=== PATIENT | male | born 1965 | race Caucasian/White ===

== ENCOUNTER → 2016-06-30 | Outpatient (CLI) | payer OTHER ==
[~2016-06-30] MED LIST: ALPR-411 PO; ALPR1TAB3 PO; ANDG TOP; ASPCH81 PO; ASTNS NAE; ATOR-24 PO; BISA-16 PO; CHOLCAP5 PO; CINA0.42 PO; DICL0.1S12 OPB; DOCU100C31 PO; FERR1TAB68 PO; GABA-113 PO; INSDGI SC; LACT10SO17 PO; LEVO150T PO; LEVO88TA PO; LPT10 PO; LSX20 PO; MOME50SP5 NAE; MULT-506 PO; NVLGI SC; OMEG10007 PO; OMEGA PO; POLYSOL4 OP; PRORENAL PO
--- NOTE | 2016-06-30 08:21 | DIAGNOSTIC IMAGING REPORT ---
CT SCAN OF THE ABDOMEN AND PELVIS WITHOUT IV CONTRAST CLINICAL HISTORY: Generalized abdominal pain. Constipation. COMPARISON STUDY: KUB dated 06/22/2015. Chest CT dated 02/02/2015. TECHNIQUE: CT scan of the abdomen and pelvis is performed from the lung bases to the proximal femora. Images are reviewed in the axial, sagittal, and coronal planes. IV contrast was not administered for this examination as per the referring clinician. Note that the examination is suboptimal without IV contrast. The examination is degraded by large body habitus, and by streak artifact from the body wall abutting the CT gantry. Automated dose control exposure was utilized. CT DOSE: 1841.93 mGy.cm FINDINGS: Lung bases: The heart is normal in size and without pericardial effusion. The aortic valve leaflets, coronary arteries, and mitral annulus are densely calcified. There is a 5 mm nodule at the left lung base seen on image #57. This was also seen on 02/02/[address] scan and is of doubtful significance. No airspace consolidation or pleural effusion is seen. Liver: The unenhanced liver is enlarged, measuring 20.6 cm in length. The liver is otherwise normal in contour and attenuation. There is no intrahepatic biliary ductal dilatation. Gallbladder: Surgically absent noting clips in the gallbladder fossa. Spleen: The spleen is enlarged, measuring 16.7 cm in length. Pancreas: The unenhanced pancreas is moderately atrophic and grossly unremarkable. Adrenal glands: Unremarkable. Kidneys: The unenhanced kidneys are atrophic and without hydronephrosis. There are no renal calculi identified. There is no evidence of contour deforming renal mass lesion. A retroaortic left renal vein is incidentally noted. Abdominal vasculature: The abdominal aorta is normal in course and caliber noting moderate atherosclerotic calcification. Bowel: The small bowel and colon are normal in course and caliber. There is mild colonic diverticulosis without CT evidence of acute diverticulitis. Moderate colonic fecal retention is observed. The appendix is not identified and reported surgically absent. Peritoneum: There is no intraperitoneal free air or abdominal ascites. There is a fat-containing umbilical hernia. Lymphadenopathy: None. Pelvic viscera: The bladder, prostate, and seminal vesicles are normal as visualized. Skeletal structures: The skeletal structures are osteopenic. Mild lumbosacral spondylosis is identified. No lytic or blastic lesions are seen. IMPRESSION: 1. There are no acute infectious or inflammatory findings in the abdomen or pelvis. 2. Mild colonic diverticulosis without CT evidence of acute diverticulitis. 3. There is moderate colonic fecal retention. No bowel obstruction is seen. 4. Hepatosplenomegaly. 5. Additional changes as detailed above. Electronically signed by: Nick Navarro M.D. 06/30/2016 8:19 AM Dictated Date/Time: 06/30/2016 8:08 AM
== END | disposition home or self-care (01) ==
LOC: C.CTS 07:50
PROVIDERS: ATTEND Family Medicine
DX: R10.10 Upper abdominal pain, unspecified (principal); K59.00 Constipation, unspecified; R16.2 Hepatomegaly with splenomegaly, not elsewhere classified

== ENCOUNTER → 2016-07-12 | Day surgery (SDC) | payer OTHER ==
--- NOTE | 2016-07-11 19:52 | History and Physical ---
History & Physical CC: End stage renal disease, malfunctioning av fistula HPI: Mr. Kebede is a 49-year-old gentleman who is on dialysis. He had a left forearm cephalic vein fistula transposition performed. It is not working well. Admitted at this time for a fistulogram with possible intervention ALLERGIES: None known. MEDICATIONS: Documented. None were changed or added. PAST MEDICAL HISTORY: Positive for heart disease, hypertension, diabetes, cancer, kidney disease. PREVIOUS SURGERIES INCLUDE: Gallbladder surgery and appendectomy. FAMILY HISTORY: Positive for heart disease, hypertension, diabetes, cancer, circulatory problems, kidney disease. SOCIAL HISTORY: He does not drink. He does not smoke. REVIEW OF SYSTEMS: A review of 10 systems was asked. Only positive findings were occasional numbness and tingling in his feet, hair loss from the toes and shiny skin of the lower extremities. PHYSICAL EXAMINATION: The patient awake, oriented x3. He is mildly obese. He is in no apparent distress. Blood pressure 120/72 on the left, 118/70 on the right. Head and neck were within normal. No carotid bruits. Examination of the upper extremities showed that he has a functioning left forearm av fistula. Neurologic exam is intact. Lungs are clear. Heart regular rate and rhythm. Abd. benign. There was no evidence of ischemia in the upper and lower extremities. Impression: End-stage renal disease Malfunctioning left forearm av fistula. Plan and Recommendations: Patient is admitted for a fistulogram with possible intervention. He understood the risks, options, benefits and agreed to go ahead with this procedure
[~2016-07-12] VITALS: Ht 185.4 cm; Wt 148.1 kg
[~2016-07-12] MED LIST changes: +CEFAZOLIN 1000MG/55 ML D5W IV SCH; +D5W AND 1/4NSS 1,000 ML IV SCH; +FENTANYL CITRATE INJ 50 MCG/1 ML 2 ML VIAL IV ONE; +FENTANYL CITRATE INJ 50 MCG/1 ML 2 ML VIAL ONE; +LIDOCAINE HCL 1% 20 ML VIAL INJ ONE; +MIDAZOLAM HCL 1 MG/ML 2ML VIAL IV ONE; +MIDAZOLAM HCL 1 MG/ML 2ML VIAL ONE; +OPTIRAY 300 IV ONE
--- NOTE | 2016-07-12 08:07 | History & Physical Bridge Note ---
H&P Re-Evaluation Bridge Note: I have examined the patient, reviewed the History & Physical and in the interval since the performance of the History & Physical I have noted the following changes of clinical significance: No changes noted
--- NOTE | 2016-07-12 08:07 | Procedure Note ---
Pre-Mod Sedation Assessment General Date of Moderate Sedation: Jul 12, 2016. Pre-Sedation Airway Assessment Smoking Status: Unknown if Ever Smoked Mallampati Classification: Class I ASA Classification: Class II Notes The planned sedation has been discussed with the patient and consent obtained. I have identified the patient, determined the appropriateness of sedation and have assessed the patient immediately prior to the procedure. All medicine(s) and interventions are by my order.
[2016-07-12 08:17] VITALS: BP 149/79; PULSE 79; TEMP 36.6; O2SAT 95; Ht 185.4 cm; Wt 148.1 kg
--- NOTE | 2016-07-12 10:50 | [facility] Post Operative Brief Note ---
Immediate Operative Summary Operative Date Jul 12, 2016. Pre-Operative Diagnosis Malfunctioning Fistula Post-Operative Diagnosis Same Procedure(s) Performed Fistulogram Moderate Conscious Sedation ([id number]) Surgeon Harmony Editor [employer] Photograph Surgeon(s) None Estimated Blood Loss 2 Findings normal fistulogram Specimens None Anesthesia Local with moderate conscious sedaton Disposition
--- NOTE | 2016-07-12 10:52 | Procedure Note ---
Post-Moderate Sedation Plan General Date of Moderate Sedation Jul 12, 2016. Vital Signs: Vital Signs Past 12 Hours Date Time Temp Pulse Resp B/P Pulse Ox O2 Delivery O2 Flow Rate FiO2 07/12/16 08:17 36.6 79 22 149/79 95 Room Air Review - Discharge Plan Post Moderate Sedation Plan: On clinical assessment, the patient appears to have tolerated the conscious sedation without complications. Patient is recovering as anticipated. Patient will continue to be monitored by nursing and may be discharged when conscious sedation discharge criteria are met.
--- NOTE | 2016-07-12 10:54 | Discharge Instructions ---
Discharge Instructions Visit Reason for Visit: End Stage Renal Disease Discharge Discharge Diagnosis / Problem: Malfunctionging fistula Discharge Goals Goal(s): Diagnostic testing Activity Recommendations Activity Limitations: per Instructions/Follow-up section Anesthesia . Post Anesthesia Instructions: If you have had General Anesthesia or IV Sedation: * Do not drive today. * Resume driving when surgeon permits. * Do not make important decisions or sign legal documents today. * Call surgeon for: 1. Temperature elevations greater than 101 degrees F. 2. Uncontrollable pain. 3. Excessive bleeding. 4. Persistent nausea and vomiting. 5. Medication intolerance (nausea, vomiting or rash). * For nausea and vomiting use only clear liquids such as: tea, soda, bouillon until nausea subsides, then gradually increase diet as tolerated. * If you have any concerns or questions, call your surgeon's office. If physician is unavailable and it is an emergency, call 911 or go to the nearest emergency room. . Instructions / Follow-Up Instructions / Follow-Up Call [phone] with any questions or concerns. Normal fistulogram ACTIVITY RECOMMENDATIONS: See Above SPECIAL CARE INSTRUCTIONS: Call your doctor if: * Temperature above 101 degrees * Pain not relieved by pain medicine ordered * There is increased drainage or redness from any incision * You have any unanswered questions or concerns. Diet Recommendations Recommended Home Diet: resume previous diet Procedures Procedures Performed: Fistulogram Moderate Conscious Sedation ([id number]) Pending Studies Studies pending at discharge: no Medical Emergencies . Who to Call and When: Medical Emergencies: If at any time you feel your situation is an emergency, please call 911 immediately. . Non-Emergent Contact Non-Emergency issues call your: Surgeon . . "Provider Documentation" section prepared by Mook Antunez.
[2016-07-12 10:55] VITALS: BP 154/75; PULSE 75; TEMP 37.1; O2SAT 99
[2016-07-12 11:26] VITALS: BP 167/75; PULSE 77; TEMP 36.7; O2SAT 99
--- NOTE | 2016-07-12 11:30 | DIAGNOSTIC IMAGING REPORT ---
DATE OF PROCEDURE: 07/12/2016 PREOPERATIVE DIAGNOSIS: Malfunctioning left forearm fistula. POSTOPERATIVE DIAGNOSIS: Same. PROCEDURE: 1. Left forearm fistulogram. 2. Moderate conscious sedation, 10 minutes. SURGEON: Dr. Antunez. ANESTHETIC: Local with moderate conscious sedation. PROCEDURE INDICATIONS: The patient is a 51-year-old gentleman with left forearm access that has been dilated in the past. The dialysis unit is worried about low flow volumes. He does not send any pressure alarms off according to the patient. The patient was recommended to have a fistulogram with possible intervention. He understood the risks, options and benefits and agrees to go ahead with this procedure. The patient was taken to the angio suite and placed in supine position. After the left arm was prepped and draped in a sterile manner, local anesthetic was administered. Percutaneous puncture was made of the proximal portion of the fistula using micropuncture technique. Once the micropuncture sheath was introduced, the fistulogram was performed. This showed the fistula from the puncture site up to the superior vena cava to be widely patent with no stenoses present. The fistula was then compressed and retrograde injection was done. The arterial anastomosis was seen in 3 views. It was widely patent with no significant narrowing noted. No intervention was needed. The catheter was then pulled. Pressure was applied. Adequate hemostasis was obtained. The sterile dressings were then applied to the wound. The patient left the angio suite in good condition and tolerated the procedure well.
== END | disposition home or self-care (01) ==
LOC: C.ACU 07:19
PROVIDERS: ATTEND Surgery Vascular Surgery
DX: Z45.2 Encounter for adjustment and management of vascular access device (principal); N18.6 End stage renal disease; I12.0 Hypertensive chronic kidney disease with stage 5 chronic kidney disease or end stage renal disease; E11.22 Type 2 diabetes mellitus with diabetic chronic kidney disease; Z85.9 Personal history of malignant neoplasm, unspecified; Z98.890 Other specified postprocedural states; Z90.89 Acquired absence of other organs

== ENCOUNTER → 2016-07-28 | Outpatient (CLI) | payer OTHER ==
[~2016-07-28] MED LIST changes: -CEFAZOLIN 1000MG/55 ML D5W IV SCH; -D5W AND 1/4NSS 1,000 ML IV SCH; -FENTANYL CITRATE INJ 50 MCG/1 ML 2 ML VIAL IV ONE; -FENTANYL CITRATE INJ 50 MCG/1 ML 2 ML VIAL ONE; -LIDOCAINE HCL 1% 20 ML VIAL INJ ONE; -MIDAZOLAM HCL 1 MG/ML 2ML VIAL IV ONE; -MIDAZOLAM HCL 1 MG/ML 2ML VIAL ONE; -OPTIRAY 300 IV ONE
--- NOTE | 2016-07-28 13:51 | DIAGNOSTIC IMAGING REPORT ---
SINUSES MIN 3 VIEWS ROUTINE CLINICAL HISTORY: SINUSITIS,, LT ELBOW RECENT INJURY pain COMPARISON STUDY: None FINDINGS: All major sinuses are clear IMPRESSION: Normal study Electronically signed by: Pastor Maynard M.D. 07/28/2016 1:49 PM Dictated Date/Time: 07/28/2016 1:49 PM
--- NOTE | 2016-07-28 13:55 | DIAGNOSTIC IMAGING REPORT ---
LEFT ELBOW MIN 3 VIEWS ROUTINE CLINICAL HISTORY: SINUSITIS,, LT ELBOW RECENT INJURY trauma. Pain. COMPARISON: None. DISCUSSION: The bones and joint spaces appear intact. There is no evidence of fracture, dislocation or bony disease. There is no evidence for soft tissue swelling. IMPRESSION: Negative study. Electronically signed by: Pastor Maynard M.D. 07/28/2016 1:53 PM Dictated Date/Time: 07/28/2016 1:51 PM
[2016-07-28 14:55] LABS: BASO % 0.5 %; BASO ABS # 0.04 K/uL (0-0.2); COMPLETE YES; EOS % 5.2 %; HEMATOCRIT 40.4 % (42-52); IG% 0.2 %; LYMPH % 14.7 %; LYMPH ABS # 1.27 K/uL (1.2-3.4); MEAN CELL VOLUME 93.1 fL (80-100); MEAN CORPUSCULAR HEMOGLOBIN 31.6 pg (25-34); MEAN CORPUSCULAR HGB CONC 33.9 g/dl (32-36); MEAN PLATELET VOLUME 10.3 fL (7.4-10.4); MONO % 9.6 %; NEUT % 69.8 %; PLATELET COUNT 194 K/uL (130-400); RED BLOOD COUNT 4.34 M/uL (4.7-6.1); WHITE BLOOD COUNT 8.64 K/uL (4.8-10.8)
[2016-07-28 15:27] LABS: ALB/GLOB RATIO 0.9 (0.9-2); ALKALINE PHOSPHATASE 172 U/L (45-117); ALT/SGPT 28 U/L (12-78); AST/SGOT 19 U/L (15-37); BLOOD UREA NITROGEN 52 mg/dl (7-18); CALCIUM 9.4 mg/dl (8.5-10.1); CARBON DIOXIDE 30 mmol/L (21-32); CHLORIDE 95 mmol/L (98-107); CHOLESTEROL 178 mg/dl (0-200); CHOLESTEROL/HDL RATIO 4.5; GLUCOSE 104 mg/dl (70-99); HDL CHOLESTEROL 40 mg/dl; LDL CHOLESTEROL CALCULATED 78 mg/dl; POTASSIUM 3.7 mmol/L (3.5-5.1); SODIUM 138 mmol/L (136-145); TOTAL IRON BINDING CAPACITY 239 mcg/dl (250-450); TRIGLYCERIDES 301 mg/dl (0-150); URIC ACID 4.9 mg/dl (2.6-7.2); VERY LOW DENSITY LIPOPROT CALC 60 mg/dl
[2016-08-01 13:43] LABS: GLIADIN DEAMIDATED IgA AB 8 UNITS (<20); GLIADIN DEAMIDATED IgG AB 4 UNITS (<20)
--- NOTE | 2016-08-02 10:21 | CODING QUERY MEDICAL NECESSITY ---
SUPPORTING DIAGNOSIS NEEDED A supporting diagnosis is required for the test/procedure performed on this patient in order for us to be reimbursed by the patient's insurance. Please provide a supporting diagnosis for the following test/procedure listed below next to the test name along with your signature. *If there is no additional diagnosis for this patient that would support the following test/procedure please document that below next to the test/procedure. Test(s)/Procedure(s) that require a supporting diagnosis: * VITAMIN B-12 LEVEL DIAGNOSIS: * DOS: 07/28/16 Provider Signature: Date: Thank you Shirley Robles Health Information Management Once completed, please kindly fax back to [phone] For questions please call [phone]
[2016-08-02 11:22] LABS: 18KDIGG BAND NONREACTIVE (NONREACTIVE); 23KDIGG BAND NONREACTIVE (NONREACTIVE); 23KDIGM BAND NONREACTIVE (NONREACTIVE); 28KDIGG BAND NONREACTIVE (NONREACTIVE); 30KDIGG BAND NONREACTIVE (NONREACTIVE); 39KDIGG BAND NONREACTIVE (NONREACTIVE); 39KDIGM BAND NONREACTIVE (NONREACTIVE); 41KDIGG BAND NONREACTIVE (NONREACTIVE); 41KDIGM BAND NONREACTIVE (NONREACTIVE); 45KDIGG BAND NONREACTIVE (NONREACTIVE); 58KDIGG BAND NONREACTIVE (NONREACTIVE); 66KDIGG BAND NONREACTIVE (NONREACTIVE); 93KDIGG BAND NONREACTIVE (NONREACTIVE)
== END | disposition home or self-care (01) ==
LOC: C.RAD 12:46
PROVIDERS: ATTEND Family Medicine
DX: E11.22 Type 2 diabetes mellitus with diabetic chronic kidney disease (principal); R53.83 Other fatigue; M25.50 Pain in unspecified joint; J32.9 Chronic sinusitis, unspecified; S59.902A Unspecified injury of left elbow, initial encounter; X58.XXXA Exposure to other specified factors, initial encounter; D51.9 Vitamin B12 deficiency anemia, unspecified

== ENCOUNTER → 2016-08-09 | Day surgery (SDC) | payer OTHER ==
[2016-08-04 15:25] VITALS: BMI 43.0
[~2016-08-09] VITALS: Ht 185.4 cm; Wt 148.6 kg
[~2016-08-09] MED LIST changes: -ATOR-24 PO; -LEVO88TA PO; +LIDOCAINE HCL 2% 2 ML VIAL (20MG/ML) ONE; +PROPOFOL IV EMULSION 10 MG/ML 20 ML VIAL IV ONE; +SODIUM CHLORIDE 0.9% 500ML 500 ML IV ONE
[2016-08-09 10:38] VITALS: TEMP 36.5
[2016-08-09 10:39] VITALS: Ht 185.4 cm; Wt 148.6 kg
--- NOTE | 2016-08-09 10:49 | Endo History and Physical ---
History & Physical Date of Service: Aug 09, 2016. Chief Complaint: CHRONIC CONSTIPATION, FECAL RETENTION Referring Physician: DR QUINONEZ History of Present Illness 51 yo CM who presents for colonoscopy secondary to chronic constipation and fecal retention. Past Medical History Diabetes, Endocrine Disorder, Arthritis, Anxiety, Hypertension, Thyroid Disease , Kidney Disease, Other Past Surgical History Hx Cardiac Surgery: No Hx Internal Defibrillator: No Hx Pacemaker: No Hx Abdominal Surgery: Yes (NITISH, APPY) Hx of Implantable Prosthesis: No Hx Post-Op Nausea and Vomiting: No Hx Cancer Surgery: No Hx Thoracic Surgery: No Hx Orthopedic: No Hx Urinary Tract Surgery: No Family History None Social History Smoking Status: Never Smoker Hx Substance Use: No Hx Alcohol Use: No Allergies Coded Allergies: Dust (Verified Allergy, Mild, NASAL CONGESTION, 08/04/16) POLLEN (Verified Allergy, Mild, NASAL CONGESTION, 08/04/16) NO KNOWN DRUG ALLERGIES (Verified Allergy, Unknown, ., 08/04/16) Current Medications Reported Home Medications Medications Dose Route/Sig Max Daily Dose Days Date Category Dose Instructions Dulcolax (Bisacodyl) 5 Mg Tab 2 Tab PO UD PRN 08/04/16 Reported Systane (Polyethylene Glycol-Propylene) 1 Aidee Aidee 1 Drops OP QID PRN 08/04/16 Reported Xanax (Alprazolam) 1 Mg Tab 2 Mg PO UD PRN 08/04/16 Reported Synthroid (Levothyroxine Sodium) 150 Mcg Tab 150 Mcg PO QAM 08/04/16 Reported Atorvastatin Calcium (Atorvastatin) 10 Mg Tab 1 Tab PO HS 08/04/16 Reported Vitamin D3 (Cholecalciferol) 5,000 Unit Cap 1 Cap PO QPM 07/12/16 Reported Sensipar (Cinacalcet) 30 Mg Tab 1 Tab PO QPM 07/12/16 Reported Chronulac (Lactulose) 10 Gm/15 Ml Syrp 15 Ml PO BID PRN 10/15/15 Reported [prorenal w/ omega 3] 1 Tab PO QPM 10/15/15 Reported Auryxia (Ferric Citrate) 210 Mg Tab 2 Tab PO AC 10/15/15 Reported [place]-3 (Fish Oil) 1 Ea Cap 1 Cap PO BID 07/08/14 Reported Xanax (Alprazolam) 0.5 Mg Tab 1 Mg PO HS 07/08/14 Reported Androgel (Testosterone) 5 Gm Gel 5 Gm TOP QAM 03/22/14 Reported Novolog (Insulin Aspart) 100 Unit/ Inj 0 SC ACHS 10/31/12 Reported ADJUST PER SLIDING SCALE Nasonex (Mometasone Furoate) [place] 1 [place] NATACHA BID PRN 04/20/11 Reported Neurontin (Gabapentin) 300 Mg Cap 600 Mg PO HS 04/20/11 Reported Lasix * (Furosemide) 20 Mg Tab 40 Mg PO BID 04/20/11 Reported Voltaren 0.1% Oph (Diclofenac Sodium) Soln 1 Drop OPB BID 07/29/08 Reported Multivitamin (Multivitamins) Tab 1 Tab PO QPM 07/28/08 Reported Astelin Nasal [place] * (Azelastine HCl) Soln 1 Sprays NATACHA BID PRN 07/28/08 Reported Aspirin Tab-Chewable * (Aspirin) 81 Mg Chew 81 Mg PO QAM 07/28/08 Reported Lantus (Insulin Glargine) Vial 25-30 Units SC BID UD 07/28/08 Reported ADJUST BASED ON BLOOD SUGAR AND EXERCISE LEVEL Vital Signs Weight (Kilograms): 148.64 Height (Feet): 6 Height (Inches): 1 Date Time Temp Pulse Resp B/P Pulse Ox O2 Delivery O2 Flow Rate FiO2 08/09/16 10:38 36.5 76 20 160/85 96 Room Air Physical Exam General Appearance: WD/WN, no apparent distress Respiratory/Chest: Auscultation: breath sounds normal Cardiovascular: Heart Auscultation: RRR Abdomen: Bowel Sounds: normal Inspection & Palpation: soft, non-distended, no tenderness, guarding & rebound Assessment and Plan Assessment: 51 yo CM who presents for colonoscopy secondary to chronic constipation and fecal retention. Plan: Proceed with colonoscopy.
--- NOTE | 2016-08-09 11:38 | GI REPORT ---
Procedure Date: 08/09/2016 11:15 AM Procedure: Colonoscopy Indications: Constipation Medicines: Monitored Anesthesia Care Complications: No immediate complications. Estimated Blood Loss: Estimated blood loss: none. Procedure: Pre-Anesthesia Assessment: - Prior to the procedure, a History and Physical was performed, and patient medications and allergies were reviewed. The patient's tolerance of previous anesthesia was also reviewed. The risks and benefits of the procedure and the sedation options and risks were discussed with the patient. All questions were answered, and informed consent was obtained. Prior Anticoagulants: The patient has taken aspirin, last dose was day of procedure. ASA Grade Assessment: III - A patient with severe systemic disease. After reviewing the risks and benefits, the patient was deemed in satisfactory condition to undergo the procedure. After I obtained informed consent, the scope was passed under direct vision. Throughout the procedure, the patient's blood pressure, pulse, and oxygen saturations were monitored continuously. The scope was introduced through the anus and advanced to the cecum, identified by appendiceal orifice and ileocecal valve. The colonoscopy was performed without difficulty. The patient tolerated the procedure well. The quality of the bowel preparation was fair. The ileocecal valve, appendiceal orifice, and rectum were photographed. Findings: A 5 mm polyp was found in the rectum. The polyp was sessile. The polyp was removed with a hot snare. Resection and retrieval were complete. The exam was otherwise without abnormality. Impression: - One 5 mm polyp in the rectum, removed with a hot snare. Resected and retrieved. - The examination was otherwise normal. Recommendation: - Resume previous diet. - Continue present medications. - Repeat colonoscopy for surveillance based on pathology results. - Return to primary care physician as previously scheduled. Anup Bhandari DO 08/09/2016 11:38:48 AM This report has been signed electronically. Note Initiated On: 08/09/2016 11:15 AM I attest to the content of the Intraoperative Record and orders documented therein, exceptions below
--- NOTE | 2016-08-09 11:40 | Discharge Instructions ---
Endoscopy Patient Instructions Date / Procedure(s) Performed Aug 09, 2016. Colonoscopy Allergy Information Coded Allergies: Dust (Verified Allergy, Mild, NASAL CONGESTION, 08/09/16) POLLEN (Verified Allergy, Mild, NASAL CONGESTION, 08/09/16) NO KNOWN DRUG ALLERGIES (Verified Allergy, Unknown, ., 08/09/16) Discharge Date / Findings Aug 09, 2016. Rectal polyp Medication Instructions Stopped Medication(s): LASIX LAST DOSE 08/08/16 AT 1900 Restart Stopped Medication(s): OK to resume all medications today as prescribed Reported Home Medications Medications Dose Route/Sig Max Daily Dose Days Date Category Dose Instructions Dulcolax (Bisacodyl) 5 Mg Tab 2 Tab PO UD PRN 08/04/16 Reported Systane (Polyethylene Glycol-Propylene) 1 Aidee Aidee 1 Drops OP QID PRN 08/04/16 Reported Xanax (Alprazolam) 1 Mg Tab 2 Mg PO UD PRN 08/04/16 Reported Synthroid (Levothyroxine Sodium) 150 Mcg Tab 150 Mcg PO QAM 08/04/16 Reported Atorvastatin Calcium (Atorvastatin) 10 Mg Tab 1 Tab PO HS 08/04/16 Reported Vitamin D3 (Cholecalciferol) 5,000 Unit Cap 1 Cap PO QPM 07/12/16 Reported Sensipar (Cinacalcet) 30 Mg Tab 1 Tab PO QPM 07/12/16 Reported Chronulac (Lactulose) 10 Gm/15 Ml Syrp 15 Ml PO BID PRN 10/15/15 Reported [prorenal w/ omega 3] 1 Tab PO QPM 10/15/15 Reported Auryxia (Ferric Citrate) 210 Mg Tab 2 Tab PO AC 10/15/15 Reported [place]-3 (Fish Oil) 1 Ea Cap 1 Cap PO BID 07/08/14 Reported Xanax (Alprazolam) 0.5 Mg Tab 1 Mg PO HS 07/08/14 Reported Androgel (Testosterone) 5 Gm Gel 5 Gm TOP QAM 03/22/14 Reported Novolog (Insulin Aspart) 100 Unit/ Inj 0 SC ACHS 10/31/12 Reported ADJUST PER SLIDING SCALE Nasonex (Mometasone Furoate) [place] 1 [place] NATACHA BID PRN 04/20/11 Reported Neurontin (Gabapentin) 300 Mg Cap 600 Mg PO HS 04/20/11 Reported Lasix * (Furosemide) 20 Mg Tab 40 Mg PO BID 04/20/11 Reported Voltaren 0.1% Oph (Diclofenac Sodium) Soln 1 Drop OPB BID 07/29/08 Reported Multivitamin (Multivitamins) Tab 1 Tab PO QPM 07/28/08 Reported Astelin Nasal [place] * (Azelastine HCl) Soln 1 Sprays NATACHA BID PRN 07/28/08 Reported Aspirin Tab-Chewable * (Aspirin) 81 Mg Chew 81 Mg PO QAM 07/28/08 Reported Lantus (Insulin Glargine) Vial 25-30 Units SC BID UD 07/28/08 Reported ADJUST BASED ON BLOOD SUGAR AND EXERCISE LEVEL Provider Instructions Activity Restrictions - No exercising or heavy lifting for 24 hours. - Do not drink alcohol the day of the procedure. - Do not drive a car or operate machinery until the day after the procedure. - Do not make any important decisions or sign important papers in 24 hours after the procedure. Following Day: - Return to full activity which may include returning to work/school. Diet Start your diet with liquids and light foods (jello, soup, juice, toast). Then eat your usual diet if not nauseated. Treatment For Common After Affects For mild abdominal pain, bloating, or excessive gas: - Rest - Eat lightly - Lie on right side Follow-Up Information Follow-up with DR QUINONEZ as scheduled Anesthesia Information What You Should Know You have had a procedure that required some medicine to reduce anxiety and discomfort. This treatment is called moderate sedation. After receiving the treatment, you may be sleepy, but you will be able to breathe on your own. The effects of the treatment may last for several hours. Follow these instructions along with Activity/Diet recommendations noted above: * Do NOT do anything where dizziness or clumsiness would be dangerous. * Rest quietly at home today, then you can be up and about tomorrow. * Have a responsible person stay with you the rest of today. * You may have had an I.V. today. If so, you may take the dressing off later today. Recommendations Call your doctor if: * Trouble breathing * Continuous vomiting for more than 24 hours * Temperature above 101 degrees * Severe abdominal pain or bloating * Pain not relieved by pain medicine ordered * There is increased drainage or redness from any incision * A large amount of rectal bleeding greater than 2-3 tablespoons. (If you had a polyp/s removed or have hemorrhoids, a small amount of blood - from the rectum is to be expected.) * You have any unanswered questions or concerns. IN THE EVENT OF A SERIOUS EMERGENCY, GO TO THE NEAREST EMERGENCY ROOM Your discharge instructions were prepared by provider Anup Bhandari. Patient Instructions Signature Page Deangelo Kebede Patient (or Guardian) Signature/Date: I have read and understand the instructions given to me by my caregivers. Caregiver/RN/Doctor Signature/Date: The above-named patient and/or guardian has received patient instructions on this date. + Original Patient Signature Page (only) stays with chart. Please make copy for patient.
--- NOTE | 2016-08-09 11:59 | Anesthesiology Progress Note ---
Anesthesia Post Op Note Date & Time Aug 09, 2016 at 11:59 Vital Signs Pain Intensity: 0 Vital Signs Past 12 Hours Date Time Temp Pulse Resp B/P Pulse Ox O2 Delivery O2 Flow Rate FiO2 08/09/16 11:42 75 20 157/66 99 Mask 10 08/09/16 10:38 36.5 76 20 160/85 96 Room Air Notes Mental Status: alert / awake / arousable, participated in evaluation Pt Amnestic to Procedure: Yes Nausea / Vomiting: adequately controlled Pain: adequately controlled Airway Patency, RR, SpO2: stable & adequate BP & HR: stable & adequate Hydration State: stable & adequate Anesthetic Complications: no major complications apparent
[2016-08-09 12:12] VITALS: BP 125/64; PULSE 71; O2SAT 96
== END | disposition home or self-care (01) ==
LOC: C.GI 09:59
PROVIDERS: ATTEND Internal Medicine
DX: K62.1 Rectal polyp (principal); K59.09 Other constipation; E11.9 Type 2 diabetes mellitus without complications; I10 Essential (primary) hypertension; E07.9 Disorder of thyroid, unspecified; N28.9 Disorder of kidney and ureter, unspecified; Z79.899 Other long term (current) drug therapy

== ENCOUNTER → 2016-08-18 | Outpatient (CLI) | payer OTHER ==
[~2016-08-18] MED LIST changes: -DOCU100C31 PO; -LIDOCAINE HCL 2% 2 ML VIAL (20MG/ML) ONE; -PROPOFOL IV EMULSION 10 MG/ML 20 ML VIAL IV ONE; -SODIUM CHLORIDE 0.9% 500ML 500 ML IV ONE
== END | disposition home or self-care (01) ==
LOC: C.MAMM 15:23
PROVIDERS: ATTEND Family Medicine
DX: N19 Unspecified kidney failure (principal); M85.851 Other specified disorders of bone density and structure, right thigh; M85.852 Other specified disorders of bone density and structure, left thigh

== ENCOUNTER → 2016-12-14 | Outpatient (CLI) | payer OTHER ==
[2016-12-14 10:13] LABS: BASO % 0.4 %; BASO ABS # 0.03 K/uL (0-0.2); COMPLETE YES; EOS % 10.5 %; HEMATOCRIT 33.5 % (42-52); IG% 0.1 %; LYMPH % 14.4 %; MEAN CELL VOLUME 91.8 fL (80-100); MEAN CORPUSCULAR HEMOGLOBIN 31.5 pg (25-34); MEAN CORPUSCULAR HGB CONC 34.3 g/dl (32-36); MEAN PLATELET VOLUME 9.4 fL (7.4-10.4); MONO % 7.3 %; NEUT % 67.3 %; PLATELET COUNT 165 K/uL (130-400); RED BLOOD COUNT 3.65 M/uL (4.7-6.1); WHITE BLOOD COUNT 6.96 K/uL (4.8-10.8)
[2016-12-14 11:07] LABS: ESTIMATED AVERAGE GLUCOSE 105 mg/dl; HA1C FLAG Normal (Normal)
[2016-12-14 11:11] LABS: ALB/GLOB RATIO 0.9 (0.9-2); ALKALINE PHOSPHATASE 171 U/L (45-117); ALT/SGPT 31 U/L (12-78); AST/SGOT 16 U/L (15-37); BLOOD UREA NITROGEN 72 mg/dl (7-18); BUN/CREATININE RATIO 8.4 (10-20); CALCIUM 8.2 mg/dl (8.5-10.1); CARBON DIOXIDE 26 mmol/L (21-32); CHLORIDE 101 mmol/L (98-107); CHOLESTEROL 180 mg/dl (0-200); CHOLESTEROL/HDL RATIO 4.1; GLUCOSE 99 mg/dl (70-99); HDL CHOLESTEROL 44 mg/dl; LDL CHOLESTEROL CALCULATED 86 mg/dl; PHOSPHORUS 5.8 mg/dl (2.5-4.9); POTASSIUM 4.3 mmol/L (3.5-5.1); SODIUM 139 mmol/L (136-145); THYROID STIMULATING HORMONE 0.581 uIu/ml (0.300-4.500); TRIGLYCERIDES 250 mg/dl (0-150); URIC ACID 5.4 mg/dl (2.6-7.2); VERY LOW DENSITY LIPOPROT CALC 50 mg/dl
[2016-12-15 10:55] LABS: C-REACTIVE PROT HIGHSEN 6.8 MG/L
--- NOTE | 2016-12-27 09:44 | CODING QUERY MEDICAL NECESSITY ---
CQSUPPORTING DIAGNOSIS NEEDED A supporting diagnosis is required for the test/procedure performed on this patient in order for us to be reimbursed by the patient's insurance. Please provide a supporting diagnosis for the following test/procedure listed below next to the test name along with your signature. *If there is no additional diagnosis for this patient that would support the following test/procedure please document that below next to the test/procedure. Test(s)/Procedure(s) that require a supporting diagnosis: DOS 12/14/16 C-REACTIVE PROTEIN HIGH SENSITIVITY TEST THYROID TESTS Provider Signature: Date: Thank you Marina Patel Health Information Management Once completed, please kindly fax back to [phone] For questions please call [phone]
== END | disposition home or self-care (01) ==
LOC: C.LAB 09:12
PROVIDERS: ATTEND Family Medicine
DX: R73.09 Other abnormal glucose (principal); E55.9 Vitamin D deficiency, unspecified; D51.9 Vitamin B12 deficiency anemia, unspecified

== ENCOUNTER 2017-07-04 08:01 | Day surgery (SDC) | payer OTHER ==
[2017-06-22 15:37] VITALS: BMI 43.0
[~2017-07-04] VITALS: Ht 185.4 cm; Wt 150.0 kg
--- NOTE | 2017-07-04 06:04 | History and Physical ---
History & Physical Date of Service Jul 04, 2017. History & Physical CC: End stage renal disease, malfunctioning av fistula HPI: Mr. Kebede is a 49-year-old gentleman who is on dialysis. He had a left forearm cephalic vein fistula transposition performed. It is not working well. Admitted at this time for a fistulogram with possible intervention ALLERGIES: None known. MEDICATIONS: Documented. None were changed or added. PAST MEDICAL HISTORY: Positive for heart disease, hypertension, diabetes, cancer, kidney disease. PREVIOUS SURGERIES INCLUDE: Gallbladder surgery and appendectomy. FAMILY HISTORY: Positive for heart disease, hypertension, diabetes, cancer, circulatory problems, kidney disease. SOCIAL HISTORY: He does not drink. He does not smoke. REVIEW OF SYSTEMS: A review of 10 systems was asked. Only positive findings were occasional numbness and tingling in his feet, hair loss from the toes and shiny skin of the lower extremities. PHYSICAL EXAMINATION: The patient awake, oriented x3. He is mildly obese. He is in no apparent distress. Blood pressure 120/72 on the left, 118/70 on the right. Head and neck were within normal. No carotid bruits. Examination of the upper extremities showed that he has a functioning left forearm av fistula. Neurologic exam is intact. Lungs are clear. Heart regular rate and rhythm. Abd. benign. There was no evidence of ischemia in the upper and lower extremities. Impression: End-stage renal disease Malfunctioning left forearm av fistula. Plan and Recommendations: Patient is admitted for a fistulogram with possible intervention. He understood the risks, options, benefits and agreed to go ahead with this procedure
[~2017-07-04 08:01] MED LIST changes: +ATROPINE SULFATE 0.1 MG/ML 5ML SYR IV PRN; +CEFAZOLIN 3000MG IV PUSH 15 ML IV SCH; +D5W AND 1/4NSS 1,000 ML IV SCH; +EpHEDrine SULFATE INJ 50 MG/ML AMP IV PRN; +FENTANYL CITRATE INJ 50 MCG/1 ML 2 ML VIAL IV PRN; +ONDANSETRON INJ 2 MG/ML 2 ML VIAL IV PRN; +SODIUM CHLORIDE 0.9% 1000ML 1,000 ML IV SCH; +SODIUM CHLORIDE 0.9% 1000ML IV SCH
[2017-07-04 09:05] VITALS: BP 140/80; PULSE 78; TEMP 36.6; O2SAT 96; Ht 185.4 cm; Wt 150.0 kg
[2017-07-04] MEDS ORDERED: LIDOCAINE HCL 2% 2 ML VIAL (20MG/ML) ONE (09:06)
[2017-07-04] MEDS ORDERED: PROPOFOL IV EMULSION 10 MG/ML 20 ML VIAL IV ONE (09:06)
[2017-07-04] MEDS ORDERED: MIDAZOLAM HCL 1 MG/ML 2ML VIAL ONE ×2 (09:06→09:56)
[2017-07-04] MEDS ORDERED: FENTANYL CITRATE INJ 50 MCG/1 ML 2 ML VIAL ONE (09:06)
[2017-07-04 09:33] LABS: CALCIUM 8.5 mg/dl (8.5-10.1); CREATININE 6.98 mg/dl (0.60-1.40); POTASSIUM 4.5 mmol/L (3.5-5.1)
[2017-07-04] MEDS ORDERED: LIDOCAINE HCL 1% 20 ML VIAL INJ ONE ×2 (10:09→10:14)
[2017-07-04] MEDS ORDERED: OPTIRAY 300 IV ONE (10:21)
--- NOTE | 2017-07-04 10:22 | [facility] Post Operative Brief Note ---
Immediate Operative Summary Operative Date Jul 04, 2017. Pre-Operative Diagnosis malfunctioning fistula Post-Operative Diagnosis same Procedure(s) Performed Fistulogram, Percutaneous Transluminal Angioplasty Venous Surgeon Dr. Antunez Railroad Supervisor Of Engines Surgeon(s) none Estimated Blood Loss 5 ml Findings moderate stenosis just beyond the arterial anastomosis, no residual narrowing post DISH TECHNICIAN Specimens none Anesthesia Local with sedation Complication(s) None Disposition
--- NOTE | 2017-07-04 10:26 | Discharge Instructions ---
Discharge Instructions Date of Service Jul 04, 2017. Visit Reason for Visit: End Stage Renal Disease -On Hemodialysis Discharge Discharge Diagnosis / Problem: Malfunctioning fistula Discharge Goals Goal(s): Therapeutic intervention Activity Recommendations Activity Limitations: per Instructions/Follow-up section Anesthesia . Post Anesthesia Instructions: If you have had General Anesthesia or IV Sedation: * Do not drive today. * Resume driving when surgeon permits. * Do not make important decisions or sign legal documents today. * Call surgeon for: 1. Temperature elevations greater than 101 degrees F. 2. Uncontrollable pain. 3. Excessive bleeding. 4. Persistent nausea and vomiting. 5. Medication intolerance (nausea, vomiting or rash). * For nausea and vomiting use only clear liquids such as: tea, soda, bouillon until nausea subsides, then gradually increase diet as tolerated. * If you have any concerns or questions, call your surgeon's office. If physician is unavailable and it is an emergency, call 911 or go to the nearest emergency room. . Instructions / Follow-Up Instructions / Follow-Up Call [phone] with any questions or concerns. SPECIAL CARE INSTRUCTIONS: Medications: * Continue to take your medications as directed. If you have been given a prescription for Plavix, please fill it immediately and take as directed. Incision Care: * Your puncture site may have some bruising and minor swelling for about one week. * You will have a small dressing covering your puncture site. You may remove the dressing after 24 hours and shower. You may let the warm soapy water run over it, but be sure to dry the puncture site well and keep it dry. * DO NOT IMMERSE THE INCISION IN A TUB/POOL/etc. UNTIL HEALED. * Puncture sites should be kept covered with a band-aid until it begins to heal. Restrictions: * Depending on whether you leg or arm was punctured to access the arteries, you will be required to lay flat, hold your arm still, or both, for about 4 hours after the procedure to prevent bleeding. * Limit your activity for the first 48 hours. You may walk and go up and down steps. Avoid excessive bending or movement at the puncture site. Possible Complications: * Excessive Swelling - after blood flow is improved you may notice increased swelling in the lower legs. This is a normal response. This usually depends on the amount of blockages in the leg, how long they have been there prior to your procedure and how much blood flow was restored. Elevating your legs will help to improve this. Please notify our office ([phone] ) if the swelling does not go away after lying in bed overnight. * Infection/Drainage/Bleeding - Drainage or bleeding from the puncture site should be minimal. If you have excessive bleeding or drainage, call our office ([phone]) right away. * Pain - You may experience some mild pain or soreness at your puncture site. If your pain does not improve, please contact our office ([phone]). Call your doctor and seek emergent treatment if you develop: * Temperature above 101 degrees * Any fever or chills * Any redness or purulent drainage from the puncture site * Any new dusky/blue colored toes or feet with coolness or sharp or aching pain. SKIN IRRITATION: * You may experience some redness and/or swelling in the area where radiation was administered. If any skin irritation occurs, please contact your family physician. FOLLOW UP VISIT: Keep any scheduled doctor appointments. Diet Recommendations Recommended Home Diet: resume previous diet Procedures Procedures Performed: Fistulogram, Percutaneous Transluminal Angioplasty Venous Pending Studies Studies pending at discharge: no Medical Emergencies . Who to Call and When: Medical Emergencies: If at any time you feel your situation is an emergency, please call 911 immediately. . Non-Emergent Contact Non-Emergency issues call your: Surgeon . . "Provider Documentation" section prepared by Mook Antunez. .
[2017-07-04 10:32] VITALS: BP 150/62; PULSE 77; TEMP 36.6; O2SAT 95
--- NOTE | 2017-07-04 10:33 | [facility] Operative Report ---
Operative Report Operative Date Jul 04, 2017. Pre-Operative Diagnosis malfunctioning fistula Post-Operative Diagnosis same Procedure(s) Performed Fistulogram, Percutaneous Transluminal Angioplasty Venous Surgeon Dr. Antunez Pig Machine Crane Operator Surgeon(s) none Estimated Blood Loss 5 ml Findings proximal stenosis, no residual post MEAT INSPECTOR Specimens none Anesthesia Local with sedation Complication(s) None Disposition Indications This is a 52-year-old gentleman with a left forearm fistula. He is having decreased flows through the fistula. A fistulogram with possible intervention was recommended. I have discussed the risks options and benefits of the procedure with the patient. The patient understands the risks options and benefits and agrees to the procedure. Description of Procedure The patient was taken to the angiogram suite and placed in the supine position. The left arm was then prepped and draped in a sterile manner. Local anesthetic was administered and a percutaneous puncture was then made of the proximal portion of the left arm AV fistula using micropuncture technique. Micropuncture wire and sheath were then inserted. A fistulogram was then performed. The fistulogram revealed normal outflow from the puncture site up through the superior vena cava with no evidence of stenosis. We then compressed the fistula and a retrograde injection was done which showed a moderate stenosis present just beyond the arterial anastomosis in the vein part of the fistula. It was decided to dilate this area. Local anesthetic was administered and a percutaneous puncture was then made of the mid portion of the left arm AV fistula in a retrograde fashion. A 5 Fr sheath was then inserted. An 035 wire was then inserted. It was passed through the arterial anastomosis. A 5 x 4 balloon was then brought to the angiogram table and inserted through the sheath. The area of moderate stenosis was dilated with a 5 x 4 balloon without difficulty. Post dilatation fistulogram showed a widely patent vein with no residual stenosis. There was a better thrill in the fistula The sheath was then pulled and pressure was applied. Adequate hemostasis was obtained. The patient left the angiogram suite in good condition and tolerated the procedure well I attest to the content of the Intraoperative Record and any orders documented therein. Any exceptions are noted below.
--- NOTE | 2017-07-04 13:13 | Anesthesiology Progress Note ---
Anesthesia Post Op Note Date & Time Jul 04, 2017 at 13:13 Vital Signs Pain Intensity: 0 Vital Signs Past 12 Hours Date Time Temp Pulse Resp B/P (MAP) Pulse Ox O2 Delivery O2 Flow Rate FiO2 07/04/17 10:32 36.6 77 16 150/62 95 Room Air 07/04/17 09:05 36.6 78 20 140/80 (100) 96 Room Air Notes Mental Status: alert / awake / arousable, participated in evaluation Pt Amnestic to Procedure: Yes Nausea / Vomiting: adequately controlled Pain: adequately controlled Airway Patency, RR, SpO2: stable & adequate BP & HR: stable & adequate Hydration State: stable & adequate Anesthetic Complications: no major complications apparent
== END 2017-07-04 11:51 | disposition home or self-care (01) ==
LOC: C.ACU 08:01
PROVIDERS: ATTEND Surgery Vascular Surgery
DX: T82.858A Stenosis of other vascular prosthetic devices, implants and grafts, initial encounter (principal); Y83.2 Surgical operation with anastomosis, bypass or graft as the cause of abnormal reaction of the patient, or of later complication, without mention of misadventure at the time of the procedure; N18.6 End stage renal disease; I12.0 Hypertensive chronic kidney disease with stage 5 chronic kidney disease or end stage renal disease; E11.22 Type 2 diabetes mellitus with diabetic chronic kidney disease; I51.9 Heart disease, unspecified

== ENCOUNTER → 2017-07-04 | Outpatient (CLI) | payer OTHER ==
[~2017-07-04] MED LIST changes: -ALPR-411 PO; -ANDG TOP; -ASPCH81 PO; +ASPI81TA28 PO; +ASTN; -ASTNS NAE; -BISA-16 PO; -CHOLCAP5 PO; +DICL0.1S OP; -DICL0.1S12 OPB; -FERR1TAB68 PO; +FURO-85 PO; +LORA10CA10 PO; -LSX20 PO; -MOME50SP5 NAE; +MOME6000; +MULT-650 PO; -NVLGI SC; +NVLGIPEN SQ; -OMEGA PO; -PRORENAL PO; +SEVE800T7 PO; +TESTOSTERONE SQ
[2017-07-04 10:41] LABS: TESTOSTERONE,TOTAL 106.5 ng/dl
[2017-07-04 10:43] LABS: T3 FREE 2.96 pg/ml (2.30-4.20)
[2017-07-04 10:44] LABS: PROLACTIN 14.26 ng/mL
[2017-07-04 10:45] LABS: FOLLICLE STIMULAT HORMONE 16.85 IU/L
== END | disposition home or self-care (01) ==
LOC: C.LAB 07:56
PROVIDERS: ATTEND Family Medicine
DX: E53.8 Deficiency of other specified B group vitamins (principal); E29.1 Testicular hypofunction

== ENCOUNTER → 2017-08-25 | Outpatient (CLI) | payer OTHER ==
[~2017-08-25] MED LIST changes: -ATROPINE SULFATE 0.1 MG/ML 5ML SYR IV PRN; -CEFAZOLIN 3000MG IV PUSH 15 ML IV SCH; -D5W AND 1/4NSS 1,000 ML IV SCH; -EpHEDrine SULFATE INJ 50 MG/ML AMP IV PRN; -FENTANYL CITRATE INJ 50 MCG/1 ML 2 ML VIAL IV PRN; -ONDANSETRON INJ 2 MG/ML 2 ML VIAL IV PRN; -SODIUM CHLORIDE 0.9% 1000ML 1,000 ML IV SCH; -SODIUM CHLORIDE 0.9% 1000ML IV SCH
== END | disposition home or self-care (01) ==
LOC: C.LAB 09:10
PROVIDERS: ATTEND Family Medicine
DX: E11.9 Type 2 diabetes mellitus without complications (principal)

== ENCOUNTER 2021-02-21 21:45 | Inpatient (IN) ==
[2021-02-22 01:08] LABS: Basophils # (auto) 0.02 K/uL (0-0.2); Basophils % (auto) 0.2 %; Eosinophils # (auto) 0.84 K/uL (0-0.5); Eosinophils % (auto) 9.4 %; Hematocrit (blood only) 47.3 % (42-52); Hemoglobin 15.5 g/dL (14.0-18.0); Immature Granulocytes # (auto) 0.04 K/uL (0.00-0.02); Immature Granulocytes % (auto) 0.4 %; Lymphocytes # (auto) 0.83 K/uL (1.2-3.4); Lymphocytes % (auto) 9.3 %; Mean Corpuscular Hemoglobin 29.8 pg (25-34); Mean Corpuscular Hgb Conc 32.8 g/dL (32-36); Mean Platelet Volume 10.1 fL (7.4-10.4); Monocytes # (auto) 0.63 K/uL (0.11-0.59); Monocytes % (auto) 7.1 %; Neutrophils # (auto) 6.53 K/uL (1.4-6.5); Neutrophils % (auto) 73.6 %; Platelet Count 223 K/uL (130-400); RDW Coefficient of Variation 18.9 % (11.5-14.5); RDW Standard Deviation 63.6 fL (36.4-46.3); White Blood Count 8.89 K/uL (4.8-10.8)
[2021-02-22 01:39] LABS: Albumin Globulin Ratio 0.5 (0.9-2); Albumin Level 2.6 gm/dl (3.4-5.0); BUN Creatinine Ratio 5.2 (10-20); Bilirubin,Total 0.5 mg/dl (0.2-1); Calcium 7.5 mg/dl (8.5-10.1); Creatinine Clr Calc Pharmacy 8.2 ml/min; Est GFR (African American) 3.2 ml/min; Est GFR (Non-African American) 2.7 ml/min; Globulin 5.1 gm/dl (2.5-4.0); Potassium 4.7 mmol/L (3.5-5.1); Total Protein 7.7 gm/dl (6.4-8.2)
[2021-02-22] MEDS ORDERED: OPTIRAY 320 125ml IV ONE ×2 (01:59→03:41)
--- NOTE | 2021-02-22 04:04 | Emergency Department Note ---
Impression & Plan Hypoxia, Pneumonia, COVID-[address] [facility] NAME: JUDY HUA AGE: 56 SEX: M ARRIVES VIA: Walk-In INFORMANT: Patient, his ED PROVIDER(S): Matilda Dowell DO CHIEF COMPLAINT: Right lower quadrant abdominal pain PLAN: Disposition: Admitted to the [facility] Condition: Good MEDICAL DECISION MAKING: This is a 56-year-old male patient on dialysis with an extensive past medical history. The patient is vaccinated from COVID-19 but unfortunately it is Covid positive with multifocal airspace opacities concerning for Covid pneumonia. He is hypoxic currently on supplemental oxygen. CT scan shows venous occlusion of the thorax despite being on Eliquis. He is hemodynamically stable at this time. His respiratory status is stable at this time. I have kept the patient and his abreast of the situation. I have discussed the case with the [facility]. Triage Nursing notes reviewed and agree with them. Additional history obtained from the patient's is at the bedside Prior medical records reviewed Vital Signs: reviewed and remarkable for hypoxia Differential diagnosis: Pneumonia, diverticulitis, colitis, ischemic bowel, COVID-19, ureteral colic ER treatment provided: IV Solu-Medrol Diagnostics interpreted by me: ECG: Normal sinus rhythm at 81 with an incomplete right bundle branch block. There is no ST segment elevation or signs of ischemia. There is no ectopy. Cardiac Monitoring: Normal sinus rhythm at a rate of 81 Laboratory studies: See below Imaging studies: Portable chest x-ray: As per my interpretation Portable chest x-ray: Multifocal airspace opacities concerning for Covid As per stat rad CT abdomen pelvis with contrast: Direct comparison made to prior study on June 30, 2016. Liver, spleen and pancreas appear normal. Gallbladder is surgically absent. Stomach, small bowel and colon appear normal. Kidneys appear mildly atrophic with cortical thickening. There is no hydronephrosis, renal mass or stone. Bladder wall appears thickened. The bladder is collapsed. Prostate appears normal. There is some collateral vascular venous channels in the anterior abdominal wall which appeared to communicate with the right common femoral vein. There is some patchy parenchymal densities in the right lung base which may reflect focal areas of inflammation. There is no free peritoneal air or fluid. Impression: Collateral vascular channels in the anterior abdominal wall finding may be relative to the venous occlusion in the thorax Atrophic changes in the kidneys are stable from the prior study correlation with renal function recommended CTA chest: Heart is normal in size. Thoracic aorta appears normal. There is no pulmonary embolism. There are collateral vascular channels extending to the right chest wall and anterior mediastinum suggesting that there may be a venous occlusion between the injection site in the superior vena cava. There are multifocal airspace opacities with peripheral distribution. Findings suggest multifocal pneumonia Mediastinal lymph nodes are mildly enlarged. There is a right paratracheal node measuring 2.0 x 1.2 cm. Impression multifocal airspace opacities suggesting a multifocal pneumonia. Correlation with Covid status recommended. No pulmonary embolism. Collateral vascular channels in the right chest wall suggesting possible venous occlusion not included in the imaging window HPI: 56/M arrives for evaluation of right lower quadrant abdominal pain and c ough. The patient has been suffering from a sore throat and postnasal drip for approximately the past 5 days. His PCP prescribed cefuroxime for the symptoms. Patient's symptoms have continued to worsen, most specifically the cough. Patient not complains of his right lower quadrant abdominal pain that he believes has worsened because of this traumatic cough. The patient is vaccinated from COVID-19. Patient has had a previous appendectomy. He does occasionally feel short of breath because he is coughing so hard. ROS: See above HPI for pertinent positives & negatives. A total of 10 systems reviewed and were otherwise negative. PAST MEDICAL HISTORY:See Below PAST SURGICAL HISTORY:See Below FAMILY HISTORY:See Below SOCIAL HISTORY:See Below HOME MEDICATIONS:See list ALLERGIES:See list VITALS:See Below PHYSICAL EXAMINATION: HEENT: Head - normocephalic and atraumatic. Pupils are equal, round, and reactive to light. Extraocular eye muscles are intact, and sclera are anicteric. Nose - moist nasal mucosa without discharge. Mouth - moist buccal mucosa. Oropharynx is nonerythematous and there is no tonsillar exudate or edema noted. Neck: Supple; no cervical lymphadenopathy Heart: Regular rate and rhythm. There is a normal S1 and S2 with no murmurs, clicks, or gallops appreciated. Lungs: Rhonchi in all lung torres with diminished breath sounds at both bases. Distant breath sounds secondary to body habitus Abdomen: Soft, moderate tenderness to palpation in the right lower quadrant, mildly distended, with good bowel sounds. There are no palpable pulsatile masses or hepatosplenomegaly. There is no guarding, rigidity, or rebound noted. Extremities: Trace edema with moderate peripheral vascular changes. There are easily palpable peripheral pulses. Skin: warm, palm and dry with poor turgor and no rashes. ED COURSE:0025: The patient was evaluated in room A10. A complete history and physical was performed. Laboratory studies were drawn. A septic protocol was performed. An order was placed for continuous cardiac monitoring. Patient was in a normal sinus rhythm at a rate of 81 A twelve-lead EKG was obtained. This is described above. A portable chest x- ray was performed. The patient was noted to be hypoxic and he was placed on supplemental oxygen. Patient had Covid swabbing performed. He had a CT scan of the abdomen/pelvis as described above. He went back for CT scan of the chest based on the chest x-ray findings. Patient was given 125 mg of IV Solu-Medrol. Patient was Covid positive. He remained hemodynamically stable. I discussed the case with the [facility] hospitalist and they will evaluate for further management. I have personally spent greater than 105 minutes of critical care time in the direct management of this patient. This includes bedside care, interpretation of diagnostic studies, and testing, discussion with consultants, patient, and family members, and other required patient management activities. This 105 minutes is in excess of all separately billable procedures. Matilda Dowell DO Past Med/Surg History Medical History Anxiety Aortic valve disease Aortic sclerosis bordering on mild stenosis (CORNEL 1.3 cm, Mean gradient 8.8 mmHg) per 06/28/19 echo Chronic back pain Chronic constipation Chronic kidney disease follows with Dr. Armstrong Diabetes mellitus, type 2 since age 20, IDDM- glucose relatively stable per patient - glucose this AM (05/22/20) was 156 Diabetic foot ulcer right 5th metatarsal and heel; left heel Diabetic nephropathy Diabetic retinopathy DVT (deep venous thrombosis) Dx'ed 04/07/20- to right UE- on Eliquis End-stage renal disease on hemodialysis M-W-F dialysis ([facility]) Hyperlipidemia Hypertension No medications- pt denies- states actually hypotensive Hypothyroidism Osteoarthritis Surgical History Fistula LUE (WITH REVISION ) History of anesthesia reaction BP DROPS "USUALLY" History of appendectomy History of cholecystectomy History of colonoscopy History of esophagogastroduodenoscopy (EGD) History of vascular access device permacath-inserted and removed History of vascular access device rt upper chest (blood clot formed/unable to use but still intact) Hx of eye surgery 5 eye surgeries 3 ON LEFT/2 ON RT Family History Father Diabetes Other Cancer Gallbladder disease Hypertension Lung disease No family history of adverse response to anesthesia Social History Smoking Status: Never smoker Second Hand Exposure: No; Hx Alcohol Use: No Hx Substance Use: No Preferred Language: Zambian Communication Ability: Effective Visual Impairment: No 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 Beliefs That Will Affect Care: None marital status: Current Living Situation: Spouse current occupational status: disabled Other Information That Helps Us Care for You: No Feels Safe at Home: Yes Safety Concerns: Feels Safe At This Time Assistive Devices: None Allergies Allergies Allergy/AdvReac Type Severity Reaction Status Date / Time house dust Allergy Mild Nasal Verified 02/22/21 00:29 congestion pollen extracts Allergy Mild nasal Verified 02/22/21 00:29 congestion Home Meds Home Medications Medication Instructions Recorded Confirmed aspirin 81 mg chewable tablet 81 mg PO QAM 04/13/18 02/22/21 atorvastatin 10 mg tablet (Lipitor) 10 mg PO HS 04/13/18 02/22/21 azelastine 205.5 mcg (0.15 %) 1 spray INTRANASAL BID 04/13/18 02/22/21 nasal spray gabapentin 300 mg capsule 600 mg PO HS 04/13/18 02/22/21 levothyroxine 150 mcg tablet 150 mcg PO QAM 04/13/18 02/22/21 (Synthroid) mv,Rn-[id number]-[id number] 1 tab PO QPM 04/13/18 02/22/21 oil 400 mcg-500 unit capsule (ProRenal QD) omega 4-pyx-jpx-fish oil 1,000 mg 1 tab PO BID 04/13/18 02/22/21 (120 mg-180 mg) capsule (Fish Oil) peg 400-propylene glycol (PF) 0.4 1 drp OPHTHALMIC (EYE) BID PRN 04/13/18 02/22/21 %-0.3 % eye drops in a dropperette (Systane (PF)) testosterone cypionate 200 mg/mL 200 mg SUBCUT .2XWK 04/13/18 02/22/21 intramuscular kit acetaminophen 500 mg tablet 1,000 mg PO Q6H PRN 06/12/18 02/22/21 (Tylenol Extra Strength) cinacalcet 30 mg tablet (Sensipar) 90 mg PO QPM 04/26/19 02/22/21 sucroferric oxyhydroxide 500 mg 500 mg PO TID 04/30/19 02/22/21 chewable tablet (Velphoro) alprazolam 1 mg tablet (Xanax) 1 mg PO TID PRN 03/10/20 02/22/21 bisacodyl 5 mg tablet,delayed 5 mg PO 4XWK 03/24/20 02/22/21 release (Dulcolax (bisacodyl)) diclofenac sodium 0.1 % eye drops 1 drp OPHTHALMIC (EYE) TID 03/24/20 02/22/21 lactulose 10 gram/15 mL oral 10 g PO 4XWK 03/24/20 02/22/21 solution linaclotide 290 mcg capsule 870 mcg PO 4XWK 03/24/20 02/22/21 (Linzess) docusate sodium 100 mg capsule 100 mg PO DAILY PRN 04/07/20 02/22/21 (Stool Softener) ascorbic acid (vitamin C) 1,000 mg 1 g PO DAILY 12/03/20 02/22/21 tablet (Vitamin C) cholecalciferol (vitamin D3) 125 125 mcg PO DAILY 12/03/20 02/22/21 mcg (5,000 unit) tablet (Vitamin D3) ecnycqdh-nzj-urdyv acid 0.4 1 tab PO DAILY 12/03/20 02/22/21 mg-lycopene 300 mcg-lutein 250 mcg tablet (Centrum Silver) insulin aspart U-100 100 unit/mL 0 unit SUBCUT BID 02/22/21 02/22/21 (3 mL) subcutaneous pen (Novolog Flexpen U-100 Insulin aspart) Previous Rx's Medication Instructions Recorded apixaban 5 mg tablet (Eliquis) 5 mg PO Q12H #74 tab 04/07/20 Accu-Chek Guide test strips (blood #400 ea NS 04/30/20 sugar diagnostic) lancets (Accu-Chek Fastclix Lancet #400 ea 04/30/20 Drum) blood-glucose meter (Accu-Chek #1 ea 05/04/20 Guide Me Glucose Mtr) pen needle, diabetic 29 gauge x #400 ea 05/04/20 1/2" (BD Ultra-Fine Original Pen Needle) OneTouch Ultra2 Meter #1 ea NS 05/26/20 (blood-glucose meter) insulin degludec 100 unit/mL (3 80 unit SUBCUT BID #150 ml MDD 160 09/30/20 mL) subcutaneous pen (Tresiba units FlexTouch U-100 insulin) Results & Data (ED) Vital Signs Vital Signs - 24 hr 02/21/21 21:52 02/22/21 00:30 02/22/21 00:31 Temperature 36.9 C Temperature Source Temporal Artery Scan Pulse Rate 88 Respiratory Rate 19 Respiratory Effort / Characteristics Non-Labored Respiratory Depth Normal Blood Pressure 93/47 L Blood Pressure [Left Arm] Blood Pressure Mean 62 Blood Pressure Mean [Left Arm] Pulse Oximetry 94 89 L 96 Oxygen Delivery Method Room Air Room Air Nasal Cannula Oxygen Flow Rate 2 Sepsis Recent Fever Within 48 Hours No Sepsis New/Unexplained Change in Mental Status N/A Sepsis Action Taken by Nursing No Action Required 02/22/21 00:35 02/22/21 01:13 02/22/21 02:00 Temperature Temperature Source Pulse Rate 77 Respiratory Rate 29 H 25 H Respiratory Effort / Characteristics Short of Breath Respiratory Depth Blood Pressure 126/63 Blood Pressure [Left Arm] Blood Pressure Mean 84 Blood Pressure Mean [Left Arm] Pulse Oximetry 95 Oxygen Delivery Method Room Air Nasal Cannula Oxygen Flow Rate 2 3 Sepsis Recent Fever Within 48 Hours Sepsis New/Unexplained Change in Mental Status Sepsis Action Taken by Nursing 02/22/21 03:06 Temperature Temperature Source Pulse Rate Respiratory Rate 27 H Respiratory Effort / Characteristics Non-Labored Spontaneous Respiratory Depth Normal Blood Pressure Blood Pressure [Left Arm] 127/87 Blood Pressure Mean Blood Pressure Mean [Left Arm] 100 Pulse Oximetry 98 Oxygen Delivery Method Room Air Oxygen Flow Rate Sepsis Recent Fever Within 48 Hours Sepsis New/Unexplained Change in Mental Status Sepsis Action Taken by Nursing Laboratory Data Result diagrams: 02/23/21 02:35 02/23/21 02:35 Lab Results 02/22/21 02/22/21 02/22/21 Range/Units 00:41 00:50 00:50 WBC 8.89 (4.8-10.8) K/uL RBC 5.20 (4.7-6.1) M/uL Hgb 15.5 (14.0-18.0) g/dL Hct 47.3 (42-52) % MCV 91.0 (80-100) fL MCH 29.8 (25-34) pg MCHC 32.8 (32-36) g/dL RDW Std Deviation 63.6 H (36.4-46.3) fL RDW Coeff of Tim 18.9 H (11.5-14.5) % Plt Count 223 (130-400) K/uL MPV 10.1 (7.4-10.4) fL Immature Gran % (Auto) 0.4 % Neut % (Auto) 73.6 % Lymph % (Auto) 9.3 % [facility] % (Auto) 7.1 % Eos % (Auto) 9.4 % Baso % (Auto) 0.2 % Neut # (Auto) 6.53 H (1.4-6.5) K/uL Lymph # (Auto) 0.83 L (1.2-3.4) K/uL [facility] [place] # (Auto) 0.63 H (0.11-0.59) K/uL Eos # (Auto) 0.84 H (0-0.5) K/uL Baso # (Auto) 0.02 (0-0.2) K/uL Immature Gran # (Auto) 0.04 H (0.00-0.02) K/uL Sodium 129 L (136-145) mmol/L Potassium 4.7 (3.5-5.1) mmol/L Chloride 92 L (98-107) mmol/L Carbon Dioxide 26 (21-32) mmol/L Anion Gap 11.0 (3-11) BUN 88 H (7-18) mg/dl Creatinine 17.00 H* (0.6-1.4) mg/dl Est Cr Clr Drug Dosing 8.2 ml/min Est GFR ( Amer) 3.2 ml/min Est GFR (Non-Af Amer) 2.7 ml/min BUN/Creatinine Ratio 5.2 L (10-20) Glucose 79 (70-99) mg/dl POC Glucose 100 H (70-99) mg/dl Calcium 7.5 L (8.5-10.1) mg/dl Total Bilirubin 0.5 (0.2-1) mg/dl AST 37 (15-37) U/L ALT 40 (12-78) U/L Alkaline Phosphatase 88 (45-117) U/L Total Protein 7.7 (6.4-8.2) gm/dl Albumin 2.6 L (3.4-5.0) gm/dl Globulin 5.1 H (2.5-4.0) gm/dl Albumin/Globulin Ratio 0.5 L (0.9-2) Lipase 278 (73-393) U/L COVID-19 Eval Order SARS-CoV-2 (PCR) (Negative) 02/22/21 02/22/21 Range/Units 00:50 00:50 WBC (4.8-10.8) K/uL RBC (4.7-6.1) M/uL Hgb (14.0-18.0) g/dL Hct (42-52) % MCV (80-100) fL MCH (25-34) pg MCHC (32-36) g/dL RDW Std Deviation (36.4-46.3) fL RDW Coeff of Tim (11.5-14.5) % Plt Count (130-400) K/uL MPV (7.4-10.4) fL Immature Gran % (Auto) % Neut % (Auto) % Lymph % (Auto) % [facility] [place] % (Auto) % Eos % (Auto) % Baso % (Auto) % Neut # (Auto) (1.4-6.5) K/uL Lymph # (Auto) (1.2-3.4) K/uL [facility] [place] [facility] # (Auto) (0.11-0.59) K/uL Eos # (Auto) (0-0.5) K/uL Baso # (Auto) (0-0.2) K/uL Immature Gran # (Auto) (0.00-0.02) K/uL Sodium (136-145) mmol/L Potassium (3.5-5.1) mmol/L Chloride (98-107) mmol/L Carbon Dioxide (21-32) mmol/L Anion Gap (3-11) BUN (7-18) mg/dl Creatinine (0.6-1.4) mg/dl Est Cr Clr Drug Dosing ml/min Est GFR ( Amer) ml/min Est GFR (Non-Af Amer) ml/min BUN/Creatinine Ratio (10-20) Glucose (70-99) mg/dl POC Glucose (70-99) mg/dl Calcium (8.5-10.1) mg/dl Total Bilirubin (0.2-1) mg/dl AST (15-37) U/L ALT (12-78) U/L Alkaline Phosphatase (45-117) U/L Total Protein (6.4-8.2) gm/dl Albumin (3.4-5.0) gm/dl Globulin (2.5-4.0) gm/dl Albumin/Globulin Ratio (0.9-2) Lipase (73-393) U/L COVID-19 Eval Order Covid19 at [facility] SARS-CoV-2 (PCR) POSITIVE A* (Negative) Administered Medications Ascorbic Acid (Ascorbic Acid 500 Mg Tab) 1,000 mg PO DAILY YUDITH Stop: 03/24/21 08:59 Last Admin: 02/23/21 07:21 Dose: 1,000 mg Documented by: [id number] Admin: 02/22/21 09:41 Dose: 1,000 mg Documented by: [id number] Aspirin (Aspirin 81 Mg Chew) 81 mg PO QAM YUDITH Stop: 03/24/21 08:59 Last Admin: 02/23/21 07:21 Dose: 81 mg Documented by: [id number] Admin: 02/22/21 09:40 Dose: 81 mg Documented by: [id number] Atorvastatin Calcium (Atorvastatin 10 Mg Tab) 10 mg PO HS YUDITH Stop: 03/24/21 20:59 Last Admin: 02/23/21 00:27 Dose: 10 mg Documented by: [id number] Cinacalcet (Cinacalcet Hcl 90 Mg Tab) 90 mg PO QPM YUDITH Stop: 03/24/21 20:59 Last Admin: 02/23/21 00:26 Dose: 90 mg Documented by: [id number] Diclofenac Sodium (Diclofenac Sod 0.1% Oph Soln 2.5 Ml Btl) 1 drops OP TID YUDITH Stop: 10/06/21 08:59 Last Admin: 02/23/21 07:22 Dose: 1 drops Documented by: [id number] Admin: 02/22/21 21:15 Dose: 1 drops Documented by: [id number] Admin: 02/22/21 14:09 Dose: 1 drops Documented by: [id number] Admin: 02/22/21 09:41 Dose: 1 drops Documented by: [id number] Ferrous Sulfate (Ferrous Sulfate 325 Mg Tab) 325 mg PO QAM YUDITH Stop: 03/25/21 08:59 Last Admin: 02/23/21 07:23 Dose: 325 mg Documented by: [id number] Fish Oil ([place]-3 (Purified Fish Oil) 1 Gm Cap) 1 gm PO BID YUDITH Stop: 03/24/21 08:59 Last Admin: 02/23/21 07:22 Dose: 1 gm Documented by: [id number] Admin: 02/23/21 00:26 Dose: 1 gm Documented by: [id number] Admin: 02/22/21 09:41 Dose: 1 gm Documented by: [id number] Gabapentin (Gabapentin 300 Mg Cap) 600 mg PO HS YUDITH Stop: 03/24/21 20:59 Last Admin: 02/23/21 00:27 Dose: 600 mg Documented by: [id number] Guaifenesin (Guaifenesin 600 Mg Tabcr) 1,200 mg PO Q12 YUDITH Stop: 03/24/21 08:59 Last Admin: 02/23/21 07:22 Dose: 1,200 mg Documented by: [id number] Admin: 02/23/21 00:27 Dose: 1,200 mg Documented by: [id number] Admin: 02/22/21 09:40 Dose: 1,200 mg Documented by: [id number] Azithromycin 500 mg/ Dextrose 255 mls @ 125 mls/hr IV DAILY YUDITH Stop: 03/01/21 08:59 Last Infusion: 02/23/21 09:47 Dose: 0 mls/hr Documented by: [id number] Admin: 02/23/21 07:28 Dose: 125 mls/hr Documented by: [id number] Infusion: 02/22/21 13:04 Dose: 0 mls/hr Documented by: [id number] Admin: 02/22/21 10:54 Dose: 125 mls/hr Documented by: [id number] Heparin Sodium/Dextrose (Heparin Sodium/Dextrose) 25,000 units in 500 mls @ 35 mls/hr IV .[id number] YUDITH; Protocol Stop: 03/24/21 10:44 Last Admin: 02/23/21 11:51 Dose: Not Given Documented by: [id number] Titration: 02/23/21 11:14 Dose: 1,750 units/hr, 35 mls/hr Documented by: [id number] Cosigned by: [id number] Admin: 02/23/21 09:04 Dose: 1,500 units/hr, 30 mls/hr Documented by: [id number] Cosigned by: [id number] Titration: 02/23/21 08:45 Dose: 1,500 units/hr, 30 mls/hr Documented by: [id number] Cosigned by: [id number] Titration: 02/23/21 07:01 Dose: 1,500 units/hr, 30 mls/hr Documented by: [id number] Cosigned by: [id number] Titration: 02/23/21 03:53 Dose: 1,500 units/hr, 30 mls/hr Documented by: [id number] Cosigned by: [id number] Titration: 02/22/21 20:12 Dose: 1,250 units/hr, 25 mls/hr Documented by: [id number] Cosigned by: [id number] Titration: 02/22/21 19:00 Dose: 1,000 units/hr, 20 mls/hr Documented by: [id number] Cosigned by: [id number] Admin: 02/22/21 12:05 Dose: 1,000 units/hr, 20 mls/hr Documented by: [id number] Cosigned by: [id number] Dexamethasone 6 mg/ Syringe 1.5 mls @ 1 mls/min IV DAILY YUDITH Stop: 03/24/21 08:59 Last Admin: 02/23/21 09:38 Dose: 1 mls/min Documented by: [id number] Insulin Aspart (Insulin Aspart 100 Units/Ml 3 Ml Pen) 0 units SC ACHS YUDITH Stop: 03/24/21 07:29 Last Admin: 02/23/21 12:23 Dose: 34 units Documented by: [id number] Cosigned by: [id number] Admin: 02/23/21 09:06 Dose: 17 units Documented by: [id number] Cosigned by: [id number] Admin: 02/22/21 21:16 Dose: 8 units Documented by: [id number] Cosigned by: [id number] Admin: 02/22/21 17:28 Dose: 60 units Documented by: [id number] Cosigned by: [id number] Admin: 02/22/21 12:37 Dose: 31 units Documented by: [id number] Cosigned by: [id number] Admin: 02/22/21 09:39 Dose: 4 units Documented by: [id number] Cosigned by: [id number] Insulin Glargine (Insulin Glargine 100 Unit/Ml Vial) 0 units SC BID [facility]; Protocol Stop: 03/25/21 08:59 Last Admin: 02/23/21 09:05 Dose: 70 units Documented by: [id number] Cosigned by: [id number] Insulin Human NPH (Insulin Human Nph) 40 units SC DAILY [facility]; Protocol Stop: 03/25/21 08:59 Last Admin: 02/23/21 09:37 Dose: 40 units Documented by: [id number] Cosigned by: [id number] Levothyroxine Sodium (Levothyroxine Sodium 150 Mcg Tablet) 150 mcg PO DAILYBB [facility] Stop: 03/24/21 08:59 Last Admin: 02/23/21 05:34 Dose: 150 mcg Documented by: [id number] Admin: 02/22/21 09:41 Dose: 150 mcg Documented by: [id number] Multivitamins/Minerals (Cerovite Adv Formula Tab) 1 tab PO DAILY [facility] Stop: 03/24/21 09:29 Last Admin: 02/23/21 07:23 Dose: 1 tab Documented by: [id number] Admin: 02/22/21 09:40 Dose: 1 tab Documented by: [id number] Vitamin B Complex/Folic Acid (Nephrocaps) 1 cap PO QPM YUDITH Stop: 03/24/21 20:59 Last Admin: 02/23/21 00:28 Dose: 1 cap Documented by: [id number] Vitamin D (Cholecalciferol 1,000 Units 25 Mcg Tab) 5,000 units PO DAILY [facility] Stop: 03/24/21 08:59 Last Admin: 02/23/21 07:21 Dose: 5,000 units Documented by: [id number] Admin: 02/22/21 09:40 Dose: 5,000 units Documented by: [id number] Discontinued Medications Albuterol (Albuterol Hfa 8 Gm Inhaler) 2 puffs INH QID YUDITH Stop: 03/24/21 08:59 Last Admin: 02/23/21 07:08 Dose: 2 puffs Documented by: [id number] Admin: 02/22/21 19:20 Dose: 2 puffs Documented by: [id number] Admin: 02/22/21 15:35 Dose: 2 puffs Documented by: [id number] Admin: 02/22/21 11:25 Dose: 2 puffs Documented by: [id number] Admin: 02/22/21 09:01 Dose: 2 puffs Documented by: [id number] Apixaban (Apixaban 5 Mg Tablet) 5 mg PO BID [facility] Stop: 03/24/21 08:59 Last Admin: 02/22/21 10:27 Dose: Not Given Documented by: [id number] Bisacodyl (Bisacodyl 5 Mg Tabec) 5 mg PO Q2D@0900 [facility] Stop: 03/24/21 08:59 Last Admin: 02/22/21 09:40 Dose: 5 mg Documented by: [id number] Heparin Sodium (Porcine) (Heparin Sod (Porcine) 1000 Unit/Ml) 4,500 units IV NOW ONE Stop: 02/22/21 18:46 Last Admin: 02/22/21 20:11 Dose: 4,500 units Documented by: [id number] Cosigned by: [id number] Heparin Sodium (Porcine) (Heparin Sod (Porcine) 1000 Unit/Ml) 4,500 units IV NOW ONE Stop: 02/23/21 03:53 Last Admin: 02/23/21 04:03 Dose: 4,500 units Documented by: [id number] Cosigned by: [id number] Heparin Sodium (Porcine) (Heparin Sod (Porcine) 1000 Unit/Ml) 4,500 units IV NOW ONE Stop: 02/23/21 11:06 Last Admin: 02/23/21 11:14 Dose: 4,500 units Documented by: [id number] Cosigned by: [id number] Dexamethasone 6 mg/ Syringe 1.5 mls @ 1 mls/min IV Q24H [facility] Stop: 03/24/21 13:59 Last Admin: 02/22/21 14:09 Dose: 1 mls/min Documented by: [id number] Piperacillin Sod/Tazobactam (Sod 4.5 gm/ Dextrose) 120 mls @ 30 mls/hr IV Q12H [facility]; Protocol Stop: 03/01/21 17:59 Last Infusion: 02/22/21 19:11 Dose: 0 mls/hr Documented by: [id number] Admin: 02/22/21 17:25 Dose: 30 mls/hr Documented by: [id number] Vancomycin HCl 2,500 mg/ (Sodium Chloride) 550 mls @ 200 mls/hr IV 0930 ONE Stop: 02/22/21 12:14 Last Infusion: 02/22/21 13:41 Dose: 0 mls/hr Documented by: [id number] Admin: 02/22/21 10:55 Dose: 200 mls/hr Documented by: [id number] Piperacillin Sod/Tazobactam (Sod 4.5 gm/ Dextrose) 120 mls @ 200 mls/hr IV 1000 ONE; Protocol Stop: 02/22/21 10:35 Last Infusion: 02/22/21 10:51 Dose: 0 mls/hr Documented by: [id number] Admin: 02/22/21 10:04 Dose: 200 mls/hr Documented by: [id number] Insulin Aspart (Insulin Aspart 100 Units/Ml 3 Ml Pen) 0 units SC 0000,0400 YUDITH Stop: 02/23/21 04:01 Last Admin: 02/23/21 04:03 Dose: Not Given Documented by: [id number] Admin: 02/23/21 00:28 Dose: Not Given Documented by: [id number] Insulin Glargine (Insulin Glargine 100 Unit/Ml Vial) 80 units SC BID YUDITH Stop: 03/24/21 08:59 Last Admin: 02/22/21 21:15 Dose: 80 units Documented by: [id number] Cosigned by: [id number] Admin: 02/22/21 10:14 Dose: 40 units Documented by: [id number] Cosigned by: [id number] Insulin Glargine (Insulin Glargine 100 Unit/Ml Vial) 40 units SC ONE ONE Stop: 02/22/21 12:46 Last Admin: 02/22/21 12:54 Dose: 40 units Documented by: [id number] Cosigned by: [id number] Insulin Human NPH (Novolin-N (Nph) Per Unit Charge) 45 units SQ ONE ONE Stop: 02/22/21 12:46 Last Admin: 02/22/21 13:01 Dose: 45 units Documented by: [id number] Cosigned by: [id number] Ioversol (Optiray 320 125ml) 120 ml IV ONCE ONE Stop: 02/22/21 02:00 Last Admin: 02/22/21 02:00 Dose: 120 ml Documented by: [id number] Ioversol (Optiray 320 125ml) 240 ml IV ONCE ONE Stop: 02/22/21 03:42 Last Admin: 02/22/21 03:41 Dose: 240 ml Documented by: [id number] Methylprednisolone (Methylprednisolone 125 Mg/2 Ml Vial) 125 mg IV NOW STA Stop: 02/22/21 04:56 Last Admin: 02/22/21 05:17 Dose: 125 mg Documented by: [id number] Miscellaneous (Linaclotide (Linzess) 870mcg 4 X Week: Order Awaiting Action) 1 ea N/A QS [facility] Stop: 03/24/21 15:59 Last Admin: 02/23/21 01:02 Dose: Not Given Documented by: [id number] Admin: 02/23/21 01:01 Dose: Not Given Documented by: [id number] Non-Formulary Medication (Sucroferric Oxyhydroxide [Velphoro]) 500 mg PO TID [facility] Stop: 03/24/21 08:59 Last Admin: 02/22/21 10:28 Dose: Not Given Documented by: [id number] Discharge Plan Visit Data Chief Complaint: Abdominal Pain Stated Complaint: PAIN ON RIGHT [id number]- ED Provider: Matilda Dowell Discharge Problem: Hypoxia, Pneumonia, COVID-19 Patient Disposition: Admitted As Inpatient Discharge Instructions Interventions: ED Discharge Assessment Last Done: 02/22/21 07:55 Discharge Problem: Pneumonia Qualifiers: Pneumonia type: due to unspecified organism Laterality: bilateral
[2021-02-22] MEDS ORDERED: methylPREDNISolone 125 MG/2 ML VIAL IV STA (04:55)
--- NOTE | 2021-02-22 07:02 | History & Physical Report ---
Date of Service February 22, 2021 Assessment & Plan (1) COVID-19: Plan: Patient is a 56 year old male presenting today with chief complaint of RLQ pain found to have double pneumonia secondary to COVID-19 infection. Patient notes that he started noticing symptoms of sore throat and cough on 02/17/21. COVID-19 Infection with b/l PNA -symptoms starting 5 days ago on 02/17/21 -CTA stat read showing b/l pneumonia, also noting a suspected venous occlusion in the thorax - await final read -Patient hypoxemic to 89% while in ED, however, cannot give remdisivr secondary to his poor GFR -Given Solumedrol 125mg x1 in ED -Start Zosyn and Vancomycin for empiric coverage -Start Azithromycin -Decadron 6mg qd -Mucinex BID -Duoneb q2h PRN -Oxygen PRN titrate >92% ESRD on Dialysis -Will require dialysis today secondary to receiving dye in the ED -Discussed with Nephrology, OK for dialysis today -Nephrology consulted Hx DVT -Currently on Eliquis, though with concerns of venous occlusion as above in regards to Eliquis failure -Would discuss with Nephrology in regards to appropriate anticoagulation. DM2 -SSI and basal bolus -Pharmacy consult while on steroids for assistance n glucose management Hypothyroidism -Continue synthroid Dispo: PCU covid unit FEN: Dialysis, DM2 diet DVT: Eliquis Code: Full History of Present Illness Chief Complaint: RLQ pain Primary Care Provider: Ron Burgos MD Patient is a 56 year old male presenting today with chief complaint of RLQ pain found to have double pneumonia secondary to COVID-19 infection. Patient notes that he started noticing symptoms of sore throat and cough on 02/17/21. Patient notes that he saw his PCP who placed him on antibiotic which improved his symptoms. He noted overnight though that he was having RLQ pain which he felt may have been secondary to coughing aggressively. He notes that he had his COVID-19 Vaccination a few months ago (Moderna). He currently notes he actually does not feel that bad. Denies fever, chills, nausea, vomiting, diarrhea, chest pain, chest pressure, dyspnea on exertion. He is noting some orthopnea. Allergies Allergy/AdvReac Type Severity Reaction Status Date / Time house dust Allergy Mild Nasal Verified 02/26/21 19:33 congestion pollen extracts Allergy Mild nasal Verified 02/26/21 19:33 congestion Home Medications Medication Instructions Recorded Confirmed Type aspirin 81 mg chewable tablet 81 mg PO QAM 04/13/18 02/26/21 History atorvastatin 10 mg tablet (Lipitor) 10 mg PO HS 04/13/18 02/26/21 History azelastine 205.5 mcg (0.15 %) 1 spray INTRANASAL BID 04/13/18 02/26/21 History nasal spray gabapentin 300 mg capsule 600 mg PO HS 04/13/18 02/26/21 History levothyroxine 150 mcg tablet 150 mcg PO QAM 04/13/18 02/26/21 History (Synthroid) mv,[id number]-[id number] 1 tab PO QPM 04/13/18 02/26/21 History oil 400 mcg-500 unit capsule (ProRenal QD) omega 6-egd-qye-fish oil 1,000 mg 1 tab PO BID 04/13/18 02/26/21 History (120 mg-180 mg) capsule (Fish Oil) peg 400-propylene glycol (PF) 0.4 1 drp OPHTHALMIC (EYE) BID PRN 04/13/18 02/26/21 History %-0.3 % eye drops in a dropperette (Systane (PF)) testosterone cypionate 200 mg/mL 200 mg SUBCUT .2XWK 04/13/18 02/26/21 History intramuscular kit acetaminophen 500 mg tablet 1,000 mg PO Q6H PRN 06/12/18 02/26/21 History (Tylenol Extra Strength) sucroferric oxyhydroxide 500 mg 500 mg PO TID 04/30/19 02/26/21 History chewable tablet (Velphoro) alprazolam 1 mg tablet (Xanax) 1 mg PO TID PRN 03/10/20 02/26/21 History bisacodyl 5 mg tablet,delayed 5 mg PO 4XWK 03/24/20 02/26/21 History release (Dulcolax (bisacodyl)) diclofenac sodium 0.1 % eye drops 1 drp OPHTHALMIC (EYE) TID 03/24/20 02/26/21 History lactulose 10 gram/15 mL oral 10 g PO 4XWK 03/24/20 02/26/21 History solution linaclotide 290 mcg capsule 870 mcg PO 4XWK 03/24/20 02/26/21 History (Linzess) apixaban 5 mg tablet (Eliquis) 5 mg PO Q12H #74 tab 04/07/20 02/26/21 Rx docusate sodium 100 mg capsule 100 mg PO DAILY PRN 04/07/20 02/26/21 History (Stool Softener) Accu-Chek Guide test strips (blood #400 ea NS 04/30/20 10/13/20 Rx sugar diagnostic) lancets (Accu-Chek Fastclix Lancet #400 ea 04/30/20 10/13/20 Rx Drum) blood-glucose meter (Accu-Chek #1 ea 05/04/20 10/13/20 Rx Guide Me Glucose Mtr) pen needle, diabetic 29 gauge x #400 ea 05/04/20 10/13/20 Rx 1/2" (BD Ultra-Fine Original Pen Needle) OneTouch Ultra2 Meter #1 ea NS 05/26/20 10/13/20 Rx (blood-glucose meter) insulin degludec 100 unit/mL (3 80 unit SUBCUT BID #150 ml MDD 160 09/30/20 02/26/21 Rx mL) subcutaneous pen (Tresiba units FlexTouch U-100 insulin) ascorbic acid (vitamin C) 1,000 mg 1 g PO DAILY 12/03/20 02/26/21 History tablet (Vitamin C) cholecalciferol (vitamin D3) 125 125 mcg PO DAILY 12/03/20 02/26/21 History mcg (5,000 unit) tablet (Vitamin D3) bqifrgrb-cum-njwmz acid 0.4 1 tab PO DAILY 12/03/20 02/26/21 History mg-lycopene 300 mcg-lutein 250 mcg tablet (Centrum Silver) insulin aspart U-100 100 unit/mL 0 unit SUBCUT BID 02/22/21 02/26/21 History (3 mL) subcutaneous pen (Novolog Flexpen U-100 Insulin aspart) azithromycin 250 mg tablet 250 mg PO QAM #3 tab 02/24/21 02/26/21 Rx dexamethasone 6 mg tablet 6 mg PO DAILY #7 tab 02/24/21 02/26/21 Rx guaifenesin 600 mg tablet, 1,200 mg PO Q12 #20 tab 02/24/21 02/26/21 Rx extended release 12 hr (Mucinex) cinacalcet 90 mg tablet 90 mg PO DAILY 02/26/21 02/26/21 History Past Med/Surg History Medical History Anxiety Aortic valve disease Aortic sclerosis bordering on mild stenosis (CORNEL 1.3 cm, Mean gradient 8.8 mmHg) per 06/28/19 echo Chronic back pain Chronic constipation Chronic kidney disease follows with Dr. Armstrong Diabetes mellitus, type 2 since age 20, IDDM- glucose relatively stable per patient - glucose this AM (05/22/20) was 156 Diabetic foot ulcer right 5th metatarsal and heel; left heel Diabetic nephropathy Diabetic retinopathy DVT (deep venous thrombosis) Dx'ed 04/07/20- to right UE- on Eliquis End-stage renal disease on hemodialysis M-W-F dialysis ([facility]) Hyperlipidemia Hypertension No medications- pt denies- states actually hypotensive Hypothyroidism Osteoarthritis Surgical History Fistula LUE (WITH REVISION ) History of anesthesia reaction BP DROPS "USUALLY" History of appendectomy History of cholecystectomy History of colonoscopy History of esophagogastroduodenoscopy (EGD) History of vascular access device permacath-inserted and removed History of vascular access device rt upper chest (blood clot formed/unable to use but still intact) Hx of eye surgery 5 eye surgeries 3 ON LEFT/2 ON RT Family History Father Diabetes Other Cancer Gallbladder disease Hypertension Lung disease No family history of adverse response to anesthesia Social History Smoking Status: Never smoker Second Hand Exposure: Yes; Hx Alcohol Use: No Hx Substance Use: No Preferred Language: Frisian Communication Ability: Unable Visual Impairment: No Limitations Pattern Marker Required: No Beliefs That Will Affect Care: None marital status: Current Living Situation: Spouse current occupational status: disabled Feels Safe at Home: Yes Assistive Devices: Cane Review of Systems Review of Systems: All systems reviewed & are unremarkable except as noted in Subjective Physical Exam Constitutional: well developed, well nourished and + ill appearing Eyes: PERRL, conjunctivae normal, anicteric sclerae ENMT: external ear and nose normal, oropharynx normal Neck: trachea midline, no thyromegaly Respiratory: normal respiratory effort Auscultation: + diminished lung sounds, + crackles (in lower lobes b/l ) and + rales Cardiovascular: Rate/Rhythm: regular rate and regular rhythm Gastrointestinal (Abdomen): normal bowel sounds, soft, nontender, no hepatosplenomegaly Musculoskeletal: no cyanosis or clubbing, extremities motor strength 5/5 Head/Neck/Chest: normocephalic and head atraumatic Skin: no rashes, warm and dry Psychiatric: A+Ox3, euthymic affect Results & Data Results & Data ([facility]) Vital Signs (Past 12 Hours) Vital Signs Temp Pulse Pulse Resp BP BP Pulse Ox 02/22/21 06:43 79 20 109/67 94 02/22/21 03:06 27 H 127/87 98 02/22/21 02:00 25 H 95 02/22/21 00:35 77 29 H 126/63 02/22/21 00:31 96 02/22/21 00:30 89 L 02/21/21 21:52 36.9 C 88 19 93/47 L 94 Supervising Physician Co-Signing Physician Notes Attending addendum: I have physically seen this patient, have supervised the medical residents activities, and agree with the H&P unless as otherwise noted. Assessment and Plan: COVID-19 pneumonia with hypoxia- Multifocal pneumonia noted on chest x-ray and CTA of chest Was given Solu-Medrol 125 mg IV by the ED Admit on: Zosyn 4.5 g IV every 8 hours Vancomycin IV per pharmacokinetic monitoring Azithromycin 5 mg IV daily Dexamethasone 6 mg IV daily Guaifenesin extended release 1200 mg p.o. twice daily Duonebs every 4 hours while awake and every 2 hours when necessary. Nasal cannula oxygen, titrate to keep pulse ox 92 to 94% ESRD on HD- Nephrology consulted. Patient will need dialysis today due to having received dye load in the ED DVT history- Continue Eliquis May need conversion to subcu Lovenox Remaining orders and notations as noted Resident Activity Tracking Resident Involvement: Resident Care Provided Care Provided: Adult [facility] Medicine
[2021-02-22] MEDS ORDERED: GLUCAGON FOR INJ 1 MG VIAL SQ PRN ×2 (07:07→08:34)
[2021-02-22] MEDS ORDERED: GLUCOSE 10 TABS/TUBE PO PRN ×2 (07:07→08:34)
[2021-02-22] MEDS ORDERED: CARBOHYDRATES FOR HYPOGLYCEMIA PO PRN ×2 (07:07→08:34)
[2021-02-22] MEDS ORDERED: DEXTROSE 50% 50 ML SYRINGE IV PRN ×2 (07:07→08:34)
[2021-02-22] MEDS ORDERED: GLUCOSE 40% GEL 15 GM TUBE PO PRN ×2 (07:07→08:34)
--- NOTE | 2021-02-22 07:12 | XRay Report ---
XR chest 1V portable CLINICAL HISTORY: cough COMPARISON STUDY: Chest radiograph June 02, 2020. FINDINGS: No pneumothorax or pleural effusion is noted. Multifocal airspace opacities are noted, more evident within the right lung. Cardiomegaly is unchanged. There is no evidence for pulmonary edema. IMPRESSION: Multifocal airspace opacities suggestive of viral pneumonia. ACT 112: Negative or not required by law. Electronically signed by: Danis Burrows M.D. 02/22/2021 7:11 AM
--- NOTE | 2021-02-22 07:24 | CT Scan Report ---
CT ANGIOGRAPHY OF THE CHEST, PULMONARY EMBOLUS PROTOCOL CLINICAL HISTORY: Cough. Covid. COMPARISON STUDY: Chest CT February 02, 2015. Chest radiograph performed earlier today. TECHNIQUE: Following IV administration of Optiray, helical axial images of the chest were obtained ut ilizing the pulmonary embolus protocol. Maximal intensity projections and sagittal and coronal refor mats were viewed on an independent 3D workstation. IV contrast was administered without complication . Automated exposure control was utilized for the study. A dose lowering technique was utilized adh ering to the principles of ALARA. CT DOSE: 2396.75 mGy.cm FINDINGS: No pulmonary emboli are identified although this exam is compromised by suboptimal opacifi cation. Chest wall collaterals are noted. The right brachiocephalic vein and visualized portions of t he right internal jugular vein are diminutive. There is no thoracic aortic dissection. There is moder ate cardiomegaly. There are multiple mildly enlarged mediastinal and right hilar lymph nodes. Moderat e multifocal consolidation within the lungs is noted. Central airways are patent. There is no pneumot horax or pleural effusion. IMPRESSION: 1. No pulmonary emboli identified although exam compromised by suboptimal opacification. 2. Contrast within chest wall collaterals which may be due to central venous stenosis or occlusion. D iminutive right brachiocephalic and right internal jugular vessels, suboptimally assessed on this exa m. 3. Moderate multifocal consolidation within the lungs suggestive of viral pneumonia. 4. Mildly enlarged mediastinal and right hilar lymph nodes which are likely reactive. ACT 112: Negative or not required by law. Electronically signed by: Danis Burrows M.D. 02/22/2021 7:22 AM
--- NOTE | 2021-02-22 07:39 | CT Scan Report ---
CT OF THE ABDOMEN AND PELVIS WITH CONTRAST CLINICAL HISTORY: Right lower quadrant abdominal pain. COMPARISON STUDY: CT of the abdomen and pelvis November 28, 2016. Abdominal ultrasound January 05, 2021. TECHNIQUE: Following IV administration of 120 mL of Optiray, axial images of the abdomen and pelvis w ere obtained from the lung bases to the proximal femurs. Images were reviewed in the axial, sagittal, and coronal planes. IV contrast was administered without complication. Automated exposure control w as utilized for the study. A dose lowering technique was utilized adhering to the principles of ALAR A. CT DOSE: 2156.29 mGy.cm FINDINGS: Multifocal airspace opacities are noted within the lower lungs. Contrast extending through the venous pathways is noted with collateral formation. Evaluation of the abdomen and pelvis is subop timal given body wall contacting the gantry. There is probable hepatic steatosis. Hepatosplenomegaly is again noted. The adrenal glands and pancreas are unremarkable. There is marked bilateral renal atr ophy. No hydronephrosis. There is no biliary ductal dilatation status post cholecystectomy. Caliber a nd wall thickness of small and large bowel are normal. The appendix is not visualized. There is no ri ght lower quadrant inflammation. Diffuse sclerosis of visualized skeletal structures may be related t o chronic renal disease. No acute fracture is identified within visualized skeletal structures. IMPRESSION: 1. No acute process within the abdomen or pelvis. 2. No bowel obstruction. No bowel wall thickening. Nonvisualization of the appendix but no right lowe r quadrant inflammation. 3. Multifocal airspace opacities within the lower lungs suggestive of pneumonia. 4. Probable hepatic steatosis. Hepatosplenomegaly. 5. Marked bilateral renal atrophy. ACT 112: Negative or not required by law. Electronically signed by: Danis Burrows M.D. 02/22/2021 7:37 AM
[2021-02-22] MEDS ORDERED: PIPERACILL/TAZOBAC CONSULT ACTIVE PRN (08:34)
[2021-02-22] MEDS ORDERED: ALBUT/IPRATROP 3MG/0.5MG NEB 3 ML VIAL NEB PRN (08:34)
[2021-02-22] MEDS ORDERED: ACETAMINOPHEN 325 MG TAB PO PRN (08:34)
[2021-02-22] MEDS ORDERED: VANCOMYCIN CONSULT ACTIVE PRN (08:34)
[2021-02-22] MEDS ORDERED: ONDANSETRON INJ 2 MG/ML 2 ML VIAL IV PRN (08:34)
[2021-02-22] MEDS ORDERED: VANCOMYCIN HCL 1,000 MG in SODIUM CHLORIDE 0.9% 250 ML IV SCH (08:34)
[2021-02-22] MEDS ORDERED: ACETAMINOPHEN HOME PACK 500 MG TABLET PO PRN (08:34)
[2021-02-22] MEDS ORDERED: DOCUSATE SODIUM 100 MG CAP PO PRN (08:34)
[2021-02-22] MEDS ORDERED: ALPRAZolam 0.5 MG TABLET PO PRN (08:34)
[2021-02-22] MEDS ORDERED: bisacodyL 5 MG TABEC PO SCH (09:00)
[2021-02-22] MEDS ORDERED: INSULIN GLARGINE 100 UNIT/ML VIAL SC SCH (09:00)
[2021-02-22] MEDS ORDERED: NON-FORMULARY MEDICATION (Sucroferric Oxyhydroxide [Velphoro] 500 mg tablet,chewable) PO SCH (09:00)
[2021-02-22] MEDS ORDERED: APIXABAN 5 MG TABLET PO SCH (09:00)
[2021-02-22] MEDS: ALBUTEROL HFA 8 GM INHALER INH SCH ×4 (09:01→19:20)
[2021-02-22] MEDS ORDERED: ARTIFICIAL TEARS OP PRN (09:14)
[2021-02-22] MEDS ORDERED: VANCOMYCIN HCL 2,500 MG in SODIUM CHLORIDE 0.9% 500 ML IV ONE (09:30)
[2021-02-22] MEDS: INSULIN ASPART 100 UNITS/ML 3 ML PEN SC SCH ×4 (09:39→21:16)
[2021-02-22] MEDS: guaiFENesin 600 MG TABCR PO SCH (09:40)
[2021-02-22] MEDS: CHOLECALCIFEROL 1,000 UNITS 25 MCG TAB PO SCH (09:40)
[2021-02-22] MEDS: CEROVITE ADV FORMULA TAB PO SCH (09:40)
[2021-02-22] MEDS: ASPIRIN 81 MG CHEW PO SCH (09:40)
[2021-02-22] MEDS: LEVOTHYROXINE SODIUM 150 MCG TABLET PO SCH (09:41)
[2021-02-22] MEDS: OMEGA-3 (PURIFIED FISH OIL) 1 GM CAP PO SCH (09:41)
[2021-02-22] MEDS: DICLOFENAC SOD 0.1% OPH SOLN 2.5 ML BTL OP SCH ×3 (09:41→21:15)
[2021-02-22] MEDS: ASCORBIC ACID 500 MG TAB PO SCH (09:41)
--- NOTE | 2021-02-22 09:54 | Hospitalist Progress Note ---
Date of Service February 22, 2021 Assessment & Plan (1) COVID-19: Plan: Patient is a 56 year old male presenting today with chief complaint of RLQ pain found to have double pneumonia secondary to COVID-19 infection. Patient notes that he started noticing symptoms of sore throat and cough on 02/17/21. COVID-19 Infection with b/l PNA -symptoms starting 5 days ago on 02/17/21 -CTA stat read showing b/l pneumonia, also noting a suspected venous occlusion in the thorax - await final read -Patient hypoxemic to 89% while in ED, however, cannot give remdisivr secondary to his poor GFR -Given Solumedrol 125mg x1 in ED -Start Zosyn and Vancomycin for empiric coverage in the emergency department, will not continue Lasix tomorrow procalcitonin is positive. -Start Azithromycin will continue for atypical coverage -Decadron 6mg qd -Mucinex BID -Duoneb q2h PRN -Oxygen PRN titrate >92% ESRD on Dialysis -nephrology consulted will manage dialysis receiving dialysis on 02/22/2021 Hx DVT -On long-term Eliquis therapy changed to heparin drip with concern for CT read. CT read as inconclusive and will discuss further with radiology but likely will return Eliquis therapy. DM2 -SSI and basal bolus glycemic consultation - Hypothyroidism -Continue synthroid Constipation patient is on significant bowel regimen at home taking on his nondialysis days 3 Linzess 45 mL of lactulose 7 Colace tablets Dispo: PCU covid unit FEN: Dialysis, DM2 diet DVT: Eliquis Code: Full Admission and Anticipated Discharge Date Admission Date: February 22, 2021 Subjective met [facility] patient all questions answered Physical Exam Physical Exam: The patient appeared well nourished and normally developed. Patient is morbidly obese with a BMI 50 Vital signs as documented. Head exam is normocephalic atraumatic Neck is without JVD, thyromegaly, or carotid bruits. Lungs are coarse bilaterally Cardiac exam, Rhythm is regular.. No murmurs, rubs or gallops. Abdominal exam reveals normal bowel sounds, soft non tender, no masses Extremities are 3+ edematous bilaterally not weeping venous stasis changes are seen Neurologic exam is alert and oriented, no focal loss of strength or sensation Psychologically is without concerns for anxiety or depression . Results & Data Results & Data ([place]) Vital Signs (Past 12 Hours) Vital Signs Temp Pulse Pulse Pulse Resp BP BP 02/22/21 09:34 74 02/22/21 09:03 72 18 02/22/21 08:36 97.7 F 75 18 02/22/21 07:55 77 20 126/63 02/22/21 06:43 79 20 109/67 02/22/21 03:06 27 H 127/87 02/22/21 02:00 25 H 02/22/21 00:35 77 29 H 126/63 02/22/21 00:31 02/22/21 00:30 BP Pulse Ox 02/22/21 09:34 02/22/21 09:03 93 02/22/21 08:36 134/86 95 02/22/21 07:55 94 02/22/21 06:43 94 02/22/21 03:06 98 02/22/21 02:00 95 02/22/21 00:35 02/22/21 00:31 96 02/22/21 00:30 89 L PG Care Time/CCT Total # of Minutes Spent Total Time Spent with Patient: Total time spent is greater than 50% in coordination of care (as documented) at patient's floor/unit and/or counseling patient: Coding Level of Care Code None Diagnoses COVID-19 U07.1
[2021-02-22] MEDS ORDERED: PIPERACILLIN/TAZOBACTAM 4.5 GM in DEXTROSE 5% 100 ML IV ONE (10:00)
[2021-02-22] MEDS ORDERED: PHARMACY GLYCEMIC MGMT CONSULT PRN (10:12)
[2021-02-22] MEDS: INSULIN GLARGINE 100 UNIT/ML VIAL SC SCH ×2 (10:14→21:15)
[2021-02-22] MEDS ORDERED: Heparin IV Adult Wt-Based Low-Dose *NO* Bolus Protocol IV SCH (10:15)
[2021-02-22] MEDS: AZITHROMYCIN 500 MG in DEXTROSE 5% 250 ML IV SCH (10:54)
[2021-02-22 11:27] LABS: Basophils # (auto) 0.01 K/uL (0-0.2); Basophils % (auto) 0.1 %; Eosinophils # (auto) 0.08 K/uL (0-0.5); Hematocrit (blood only) 48.7 % (42-52); Hemoglobin 15.8 g/dL (14.0-18.0); Immature Granulocytes # (auto) 0.02 K/uL (0.00-0.02); Immature Granulocytes % (auto) 0.3 %; Lymphocytes # (auto) 0.32 K/uL (1.2-3.4); Lymphocytes % (auto) 4.1 %; Mean Corpuscular Hemoglobin 29.1 pg (25-34); Mean Corpuscular Volume 89.7 fL (80-100); Mean Platelet Volume 10.3 fL (7.4-10.4); Monocytes # (auto) 0.03 K/uL (0.11-0.59); Monocytes % (auto) 0.4 %; Neutrophils # (auto) 7.27 K/uL (1.4-6.5); Neutrophils % (auto) 94.1 %; Platelet Count 209 K/uL (130-400); RDW Coefficient of Variation 18.8 % (11.5-14.5); RDW Standard Deviation 62.5 fL (36.4-46.3); Red Blood Count 5.43 M/uL (4.7-6.1); White Blood Count 7.73 K/uL (4.8-10.8)
[2021-02-22 11:41] LABS: INR 1.1 (0.9-1.1); Partial Thromboplastin Ratio 1.2; Partial Thromboplastin Time 31.6 Seconds (21.0-31.0); Prothrombin Time 11.3 Seconds (9.0-12.0)
--- NOTE | 2021-02-22 11:41 | Nephrology Consultation ---
Date of Consultation February 22, 2021 Assessment & Plan (1) End stage renal disease: (2) Hypertension: (3) COVID-19: ESRD on HD, admitted with COVID pneumonia. Clinically otherwise asymptomatic. Has been afebrile since admission. Electrolyte acceptable. Due for dialysis today as his Monday, Monday, Monday schedule. --plan for hemodialysis this afternoon as his regular schedule, UF aim to estimated dry weight. -- Left arm nephrology percussion for AV fistula. -- Avoid IV fluid, dose medications for GFR less than 10. Will follow Thank you for allowing me to participate in your patient's care. It was a pleasure to see Yoshi History of Present Illness Reason for Consultation: ESRD on hemodialysis admitted with COVID pneumonia. Attending Physician: Zach Mckeon MD History of Present Illness Mr. Kebede is a 56 year old male admitted, with COVID pneumonia. Nephrology consult requested for management of hemodialysis while inpatient. EMR records were reviewed during patient's visit. Yoshi presented yesterday with chief complaint of RLQ pain. He started noticing symptoms of sore throat congestion and cough on 02/17/21, he saw his PCP who placed him on antibiotic which improved his symptoms. Yesterday he was having RLQ pain which he felt may have been secondary to coughing aggressively. He had COVID-19 Vaccination a few months ago (Moderna). He he did have fever last Monday after dialysis and he was advised to get tested for comorbid and presented to ER but he refused. He did not have any shortness of breath or chest pain. He reports having occasional chills but did not have any further episode of fever. Currently he is otherwise feeling pretty close to his baseline. Abdominal pain is not that bothersome. CT was negative for pulmonary emboli but noted to have pneumonia. CT abdomen pelvis was otherwise unremarkable. Has extensive past medical history including ESRD on hemodialysis secondary to diabetic nephropathy, morbid obesity, hypertension, diabetes, multiple complication with AV fistula. He normally dialysis at [facility] unit on Monday, Monday, Monday. Has difficulty with significant volume overload and weight gain in between dialysis. Currently he is feeling at his baseline without any significant shortness of breath. Has been afebrile since admission. Blood pressure has been acceptable without any significant hypotensive episodes since admission. Electrolytes this been acceptable. Allergies Allergy/AdvReac Type Severity Reaction Status Date / Time house dust Allergy Mild Nasal Verified 02/22/21 00:29 congestion pollen extracts Allergy Mild nasal Verified 02/22/21 00:29 congestion Home Medications Medication Instructions Recorded Confirmed Type aspirin 81 mg chewable tablet 81 mg PO QAM 04/13/18 02/22/21 History atorvastatin 10 mg tablet (Lipitor) 10 mg PO HS 04/13/18 02/22/21 History azelastine 205.5 mcg (0.15 %) 1 spray INTRANASAL BID 04/13/18 02/22/21 History nasal spray gabapentin 300 mg capsule 600 mg PO HS 04/13/18 02/22/21 History levothyroxine 150 mcg tablet 150 mcg PO QAM 04/13/18 02/22/21 History (Synthroid) mv,Ea-swu-NM-[id number]-YJ-[id number]-mhx-rwh-gkta 1 tab PO QPM 04/13/18 02/22/21 History oil 400 mcg-500 unit capsule (ProRenal QD) omega 1-vno-ulk-fish oil 1,000 mg 1 tab PO BID 04/13/18 02/22/21 History (120 mg-180 mg) capsule (Fish Oil) peg 400-propylene glycol (PF) 0.4 1 drp OPHTHALMIC (EYE) BID PRN 04/13/18 02/22/21 History %-0.3 % eye drops in a dropperette (Systane (PF)) testosterone cypionate 200 mg/mL 200 mg SUBCUT .2XWK 04/13/18 02/22/21 History intramuscular kit acetaminophen 500 mg tablet 1,000 mg PO Q6H PRN 06/12/18 02/22/21 History (Tylenol Extra Strength) cinacalcet 30 mg tablet (Sensipar) 90 mg PO QPM 04/26/19 02/22/21 History sucroferric oxyhydroxide 500 mg 500 mg PO TID 04/30/19 02/22/21 History chewable tablet (Velphoro) alprazolam 1 mg tablet (Xanax) 1 mg PO TID PRN 03/10/20 02/22/21 History bisacodyl 5 mg tablet,delayed 5 mg PO 4XWK 03/24/20 02/22/21 History release (Dulcolax (bisacodyl)) diclofenac sodium 0.1 % eye drops 1 drp OPHTHALMIC (EYE) TID 03/24/20 02/22/21 History lactulose 10 gram/15 mL oral 10 g PO 4XWK 03/24/20 02/22/21 History solution linaclotide 290 mcg capsule 870 mcg PO 4XWK 03/24/20 02/22/21 History (Linzess) apixaban 5 mg tablet (Eliquis) 5 mg PO Q12H #74 tab 04/07/20 02/22/21 Rx docusate sodium 100 mg capsule 100 mg PO DAILY PRN 04/07/20 02/22/21 History (Stool Softener) Accu-Chek Guide test strips (blood #400 ea NS 04/30/20 10/13/20 Rx sugar diagnostic) lancets (Accu-Chek Fastclix Lancet #400 ea 04/30/20 10/13/20 Rx Drum) blood-glucose meter (Accu-Chek #1 ea 05/04/20 10/13/20 Rx Guide Me Glucose Mtr) pen needle, diabetic 29 gauge x #400 ea 05/04/20 10/13/20 Rx 1/2" (BD Ultra-Fine Original Pen Needle) OneTouch Ultra2 Meter #1 ea NS 05/26/20 10/13/20 Rx (blood-glucose meter) insulin degludec 100 unit/mL (3 80 unit SUBCUT BID #150 ml MDD 160 09/30/20 02/22/21 Rx mL) subcutaneous pen (Tresiba units FlexTouch U-100 insulin) ascorbic acid (vitamin C) 1,000 mg 1 g PO DAILY 12/03/20 02/22/21 History tablet (Vitamin C) cholecalciferol (vitamin D3) 125 125 mcg PO DAILY 12/03/20 02/22/21 History mcg (5,000 unit) tablet (Vitamin D3) arpojmrb-cuw-zkaip acid 0.4 1 tab PO DAILY 12/03/20 02/22/21 History mg-lycopene 300 mcg-lutein 250 mcg tablet (Centrum Silver) insulin aspart U-100 100 unit/mL 0 unit SUBCUT BID 02/22/21 02/22/21 History (3 mL) subcutaneous pen (Novolog Flexpen U-100 Insulin aspart) Patient History Medical History Anxiety Aortic valve disease Aortic sclerosis bordering on mild stenosis (CORNEL 1.3 cm, Mean gradient 8.8 mmHg) per 06/28/19 echo Chronic back pain Chronic constipation Chronic kidney disease follows with Dr. Armstrong Diabetes mellitus, type 2 since age 20, IDDM- glucose relatively stable per patient - glucose this AM (05/22/20) was 156 Diabetic foot ulcer right 5th metatarsal and heel; left heel Diabetic nephropathy Diabetic retinopathy DVT (deep venous thrombosis) Dx'ed 04/07/20- to right UE- on Eliquis End-stage renal disease on hemodialysis M-W-F dialysis ([facility]) Hyperlipidemia Hypertension No medications- pt denies- states actually hypotensive Hypothyroidism Osteoarthritis Surgical History Fistula LUE (WITH REVISION ) History of anesthesia reaction BP DROPS "USUALLY" History of appendectomy History of cholecystectomy History of colonoscopy History of esophagogastroduodenoscopy (EGD) History of vascular access device permacath-inserted and removed History of vascular access device rt upper chest (blood clot formed/unable to use but still intact) Hx of eye surgery 5 eye surgeries 3 ON LEFT/2 ON RT Family History Father Diabetes Other Cancer Gallbladder disease Hypertension Lung disease No family history of adverse response to anesthesia Social History Smoking Status: Never smoker Second Hand Exposure: No; Hx Alcohol Use: No Hx Substance Use: No Preferred Language: Maltese Communication Ability: Effective Visual Impairment: No Limitations Is Support Analyst Required: No Beliefs That Will Affect Care: None marital status: Current Living Situation: Spouse current occupational status: disabled Other Information That Helps Us Care for You: No Feels Safe at Home: Yes Safety Concerns: Feels Safe At This Time Assistive Devices: Cane Review of Systems Review of Systems: Detailed review of system was otherwise negative except mentioned in HPI. Physical Exam Constitutional: WD/WN, vitals as above + morbidly obese and comfortable; no acute distress Eyes: PERRL, conjunctivae normal, anicteric sclerae ENMT: external ear and nose normal, oropharynx normal Ears: no hearing impairment Neck: trachea midline Respiratory: no cough Auscultation: + crackles Cardiovascular: Rate/Rhythm: regular rate and regular rhythm Extremities: + edema and + AV fistula Gastrointestinal (Abdomen): Inspection/Auscultation: normal bowel sounds Percussion/Palpation: abdomen nontender, no guarding and abdomen not rigid Musculoskeletal: Extremities: extremities normal to inspection Gait: normal gait Skin: no rashes, warm and dry Neurologic: moves all extremities and awake Psychiatric: A+Ox3, euthymic affect Results & Data ([facility]) Vital Signs (Past 12 Hours) Vital Signs Temp Pulse Pulse Pulse Resp BP BP 02/22/21 11:25 72 20 02/22/21 09:34 74 02/22/21 09:03 72 18 02/22/21 08:36 36.5 C 75 18 02/22/21 07:55 77 20 126/63 02/22/21 06:43 79 20 109/67 02/22/21 03:06 27 H 127/87 02/22/21 02:00 25 H 02/22/21 00:35 77 29 H 126/63 02/22/21 00:31 02/22/21 00:30 BP Pulse Ox 02/22/21 11:25 93 02/22/21 09:34 02/22/21 09:03 93 02/22/21 08:36 134/86 95 02/22/21 07:55 94 02/22/21 06:43 94 02/22/21 03:06 98 02/22/21 02:00 95 02/22/21 00:35 02/22/21 00:31 96 02/22/21 00:30 89 L PG Care Time/CCT Total # of Minutes Spent Total Time Spent with Patient: Total time spent is greater than 50% in coordination of care (as documented) at patient's floor/unit and/or counseling patient: Coding Level of Care Code 08779 Initial Inpt Care Lvl 3 Diagnoses End stage renal disease N18.6 Hypertension I10 COVID-19 U07.1
[2021-02-22] MEDS: HEPARIN SODIUM/DEXTROSE 25,000 UNITS/500 ML BAG IV SCH (12:05)
[2021-02-22 12:12] LABS: Mean Corpuscular Hgb Conc 32.4 g/dL (32-36)
[2021-02-22] MEDS ORDERED: NovoLIN-N (NPH) PER UNIT CHARGE SQ ONE (12:45)
[2021-02-22] MEDS ORDERED: INSULIN GLARGINE 100 UNIT/ML VIAL SC ONE (12:45)
[2021-02-22] MEDS ORDERED: dexAMETHasone 6 MG in SYRINGE 0 ML IV SCH (14:00)
--- NOTE | 2021-02-22 14:59 | Pharmacy Report ---
Pharmacy Glycemic Short Note 2 - Date of Service February 22, 2021 - Glycemic Short BSG Results (Last 24 hours): 02/22/21 02/22/21 02/22/21 00:41 00:50 08:33 Glucose 79 POC Glucose 100 H 102 H 02/22/21 12:15 Glucose POC Glucose 204 H OUTPATIENT ANTIDIABETIC REGIMEN: * Tresiba 80 units SQ BID * Aspart BID per SS (up to 400 units/day) * A1c = 5.9% ASSESSMENT: * Deangelo is a 56 yo T2DM male with h/o ESRD on HD admitted for COVID-19 * He received a one time dose of solu medrol 125 mg IV in the ED and was later started on dexamethasone 6mg IV daily * BSG well controlled this morning, however suspect patient will experience severe hyperglycemia due to high dose IV steroids * start weight based NPH (0.4 units/kg based on AdjBW) once daily * will use an aggressive correction factor/carb ratio and add overnight checks with coverage * continue home dose of basal insulin for now * patient may require IV insulin infusion due to steroids + home needs >400 units per day PLAN FOR INPATIENT GLYCEMIC CONTROL: * Hold outpatient oral diabetes medications * Basal insulin - increase * Lantus 80 units SQ BID * NPH 45 units SQ - given with dexamethasone * Bolus insulin - tighten * NovoLog per scale ACHS or Q6hrs while NPO * Goal Range: Low 110 mg/dL - High 140 mg/dL * Correction Factor: 10 mg/dL/unit * Nutritional / Prandial insulin per carb ratio of 1 unit per 3 grams CHO consumed PLAN FOR DISCHARGE: * A1c indicates excellent glycemic control, however value is not reliable due to ESRD -HD * Recommend checking BSG 4x/day and making insulin regimen adjustments based on that data
--- NOTE | 2021-02-22 16:20 | Pharmacy Report ---
Pharmacy Abx Initial Consult - Date of Service February 22, 2021 - Pharmacy Dosing Scope Date of Consult: 02/22/21 Consultation requested by: Dr. Sierra Pharmacy is consulted to initiate Vancomycin IV dosing therapy, order appropriate labs and adjust drug dose/frequency. - Subjective The patient is a 56 year old M admitted on 02/22/21 07:05. - Objective Height: 6 ft 1 in Weight: 174.5 kg Vital Signs (Past 12hrs): Vital Signs Temp Pulse Pulse Pulse Resp BP BP 02/22/21 15:53 36.5 C 74 20 02/22/21 15:36 72 20 02/22/21 11:25 72 20 02/22/21 09:34 74 02/22/21 09:03 72 18 02/22/21 08:36 36.5 C 75 18 02/22/21 07:55 77 20 126/63 02/22/21 06:43 79 20 109/67 BP Pulse Ox 02/22/21 15:53 99/68 L 90 02/22/21 15:36 93 02/22/21 11:25 93 02/22/21 09:34 02/22/21 09:03 93 02/22/21 08:36 134/86 95 02/22/21 07:55 94 02/22/21 06:43 94 Lab Results (24hrs): Laboratory Tests (24 Hours) 02/22/21 02/22/21 02/22/21 10:52 00:50 00:50 WBC 7.73 8.89 Neut # (Auto) 7.27 H 6.53 H Creatinine 17.00 H* Est Cr Clr Drug Dosing 8.2 - Risk Factors for Resistance * Chronic dialysis within the past 30 days - Assessment & Plan Assessment 56 year old M admitted with bilateral Pneumonia from [facility]. Patient with ESRD on hemo-dialysis. Serum creat = 17 on admission. Patient also with morbid obesity- BMI = 50 kg/m2. Vancomycin drug accumulation is possible in obese patients. Due to above co-morbidities, Vancomycin will be dosed based on random AM levels. Plan Vancomycin IV * Loading dose: 2500 mg (13.8 mg/kg) IV x 1 dose given this AM. * Goal trough level for Pneumonia: 15 to 20 mcg/mL * Random Vanco level ordered for 02/23/21 with AM labs. * When level falls below 20 mcg/ml, plan to re-dose Vancomycin appropriately. Piperacillin/tazobactam * 4.5 g bolus administered over 30 minutes, then 4.5 g IV extended infusion every 12 hours for CrCl 20 mL/min or less and dialysis. * Aggressive dosing selected due to critically ill status and BMI above 35. Pharmacy will continue to follow and will adjust dose/frequency as necessary. Thank you.
[2021-02-22] MEDS ORDERED: PIPERACILLIN/TAZOBACTAM 4.5 GM in DEXTROSE 5% 100 ML IV SCH (18:00)
[2021-02-22 18:20] LABS: Partial Thromboplastin Ratio 1.2
[2021-02-22] MEDS ORDERED: HEPARIN SOD (PORCINE) 1000 UNIT/ML IV ONE (18:45)
[2021-02-23] MEDS: CINACALCET HCL 90 MG TAB PO SCH ×2 (00:26→22:02)
[2021-02-23] MEDS: OMEGA-3 (PURIFIED FISH OIL) 1 GM CAP PO SCH ×3 (00:26→22:03)
[2021-02-23] MEDS: guaiFENesin 600 MG TABCR PO SCH ×3 (00:27→22:02)
[2021-02-23] MEDS: ATORVASTATIN 10 MG TAB PO SCH ×2 (00:27→22:02)
[2021-02-23] MEDS: GABAPENTIN 300 MG CAP PO SCH ×2 (00:27→22:02)
[2021-02-23] MEDS: INSULIN ASPART 100 UNITS/ML 3 ML PEN SC SCH ×6 (00:28→21:58)
[2021-02-23] MEDS: NEPHROCAPS PO SCH ×2 (00:28→22:02)
[2021-02-23 02:52] LABS: Basophils # (auto) 0.01 K/uL (0-0.2); Basophils % (auto) 0.1 %; Hematocrit (blood only) 49.9 % (42-52); Hemoglobin 16.6 g/dL (14.0-18.0); Immature Granulocytes # (auto) 0.04 K/uL (0.00-0.02); Immature Granulocytes % (auto) 0.4 %; Lymphocytes % (auto) 5.1 %; Mean Corpuscular Hemoglobin 29.7 pg (25-34); Mean Corpuscular Hgb Conc 33.3 g/dL (32-36); Mean Corpuscular Volume 89.3 fL (80-100); Mean Platelet Volume 10.1 fL (7.4-10.4); Monocytes # (auto) 0.51 K/uL (0.11-0.59); Monocytes % (auto) 5.2 %; Neutrophils # (auto) 8.72 K/uL (1.4-6.5); Neutrophils % (auto) 89.2 %; Nucleated RBC # (auto) 0.02 K/uL (0-0); Nucleated RBC % (auto) 0.2 %; Platelet Count 237 K/uL (130-400); RDW Coefficient of Variation 18.8 % (11.5-14.5); RDW Standard Deviation 61.1 fL (36.4-46.3); Red Blood Count 5.59 M/uL (4.7-6.1); White Blood Count 9.78 K/uL (4.8-10.8)
[2021-02-23 03:26] LABS: INR 1.1 (0.9-1.1); Partial Thromboplastin Ratio 1.2; Partial Thromboplastin Time 31.5 Seconds (21.0-31.0); Prothrombin Time 11.4 Seconds (9.0-12.0)
[2021-02-23 03:28] LABS: Albumin Globulin Ratio 0.5 (0.9-2); Albumin Level 2.5 gm/dl (3.4-5.0); BUN Creatinine Ratio 4.8 (10-20); Bilirubin,Total 0.5 mg/dl (0.2-1); C Reactive Protein 13.3 mg/dl (0-0.29); Calcium 8.4 mg/dl (8.5-10.1); Creatinine Clr Calc Pharmacy 10.4 ml/min; Est GFR (African American) 4.3 ml/min; Est GFR (Non-African American) 3.7 ml/min; Globulin 5.2 gm/dl (2.5-4.0); Magnesium 2.7 mg/dl (1.8-2.4); Potassium 4.6 mmol/L (3.5-5.1); Total Protein 7.7 gm/dl (6.4-8.2)
[2021-02-23] MEDS ORDERED: HEPARIN SOD (PORCINE) 1000 UNIT/ML IV ONE ×2 (03:52→11:05)
[2021-02-23] MEDS: LEVOTHYROXINE SODIUM 150 MCG TABLET PO SCH (05:34)
[2021-02-23] MEDS: ALBUTEROL HFA 8 GM INHALER INH SCH (07:08)
[2021-02-23] MEDS: ASPIRIN 81 MG CHEW PO SCH (07:21)
[2021-02-23] MEDS: CHOLECALCIFEROL 1,000 UNITS 25 MCG TAB PO SCH (07:21)
[2021-02-23] MEDS: ASCORBIC ACID 500 MG TAB PO SCH (07:21)
[2021-02-23] MEDS: DICLOFENAC SOD 0.1% OPH SOLN 2.5 ML BTL OP SCH ×3 (07:22→22:03)
[2021-02-23] MEDS: FERROUS SULFATE 325 MG TAB PO SCH (07:23)
[2021-02-23] MEDS: CEROVITE ADV FORMULA TAB PO SCH (07:23)
[2021-02-23] MEDS: AZITHROMYCIN 500 MG in DEXTROSE 5% 250 ML IV SCH (07:28)
--- NOTE | 2021-02-23 07:31 | Hospitalist Progress Note ---
Date of Service February 23, 2021 Assessment & Plan (1) COVID-19: Plan: Patient is a 56 year old male presenting today with chief complaint of RLQ pain found to have pneumonia secondary to COVID-19 infection. Patient notes that he started noticing symptoms of sore throat and cough on 02/17/21. COVID-19 Infection with b/l PNA -symptoms starting on 02/17/21 -CTA stat read showing b/l pneumonia, also noting a suspected venous occlusion in the thorax - -Patient hypoxemic to 89% while in ED, however, cannot give remdisivr secondary to his poor GFR secondary to ESRD Hypoxia now improved, may not need home oxygen, will try 2 step after dialy sis on 02/26/21 -Given Solumedrol 125mg x1 in ED-> now on dexamethasone -Start Zosyn and Vancomycin for empiric coverage in the emergency department, will not continue -Started Azithromycin will continue for atypical coverage will continue as procal is elevated -Mucinex BID -Duoneb q2h PRN -Oxygen PRN titrate >92%, encouraging the pt does not need significant oxygen requirements yet ESRD on Dialysis -nephrology consulted will manage dialysis receiving dialysis on 02/22/2021, Cr still elevated Hx DVT -On long-term Eliquis therapy changed to heparin drip with concern for CT read. CT read as inconclusive and will discuss further with radiology but likely will return Eliquis therapy. DM2 -SSI and basal bolus glycemic consultation - Hypothyroidism -Continue Synthroid Constipation patient is on significant bowel regimen at home taking on his nondialysis days 3 Linzess 45 mL of lactulose 7 Colace tablets Dispo: PCU covid unit FEN: Dialysis, DM2 diet DVT: Eliquis Code: Full Admission and Anticipated Discharge Date Admission Date: February 22, 2021 Subjective Pt is still feeling weak, he feels that yesterdays dialysis session did not achieve his usual fluid off loading, he typically runs high CR Review of Systems Review of Systems: Mild distress and fatigue no headache, no visual changes no speech or swallowing issues no chest pain, pressure or palpitations shortness of breath, non productive cough or wheezes no abdominal pain, nausea or vomiting, c/o constipation no dysuria, hematuria or frequency no focal joint pain significant le swelling no back pain, CVA tenderness or radicular pain open leg wounds no focal signs of weakness or numbness or altered sensation no complaints of anxiety or depression.. Physical Exam Physical Exam: The patient appeared well nourished and normally developed. he is morbidly obese Vital signs as documented. Head exam is normocephalic atraumatic Neck is without JVD, thyromegaly, or carotid bruits. Lungs are clear coarse at the base Cardiac exam, Rhythm is regular.. No murmurs, rubs or gallops. Abdominal exam reveals normal bowel sounds, soft non tender, no masses Extremities are 2-3+ edema and both pedal pulses are present Neurologic exam is alert and oriented, no focal loss of strength or sensation Skin is with open areas and venous stasis changes Psychologically is without concerns for anxiety or depression Results & Data Results & Data ([facility]) Vital Signs (Past 12 Hours) Vital Signs Temp Pulse Pulse Pulse Pulse Resp BP 02/23/21 07:10 68 18 02/23/21 03:57 97.6 F 75 18 02/23/21 00:48 79 02/23/21 00:10 97.5 F L 84 02/22/21 23:51 97.5 F L 74 20 02/22/21 23:20 83 131/72 02/22/21 23:00 80 104/50 L 02/22/21 22:40 85 104/50 L 02/22/21 22:20 74 121/64 02/22/21 22:00 74 125/69 02/22/21 21:40 75 113/90 02/22/21 21:20 72 119/78 02/22/21 21:00 75 104/78 02/22/21 20:40 76 94/63 L 02/22/21 20:20 97.9 F 81 82 18 128/66 02/22/21 20:00 76 130/42 L 02/22/21 19:36 97.5 F L 78 BP Pulse Ox 02/23/21 07:10 93 02/23/21 03:57 127/46 L 95 02/23/21 00:48 02/23/21 00:10 128/68 02/22/21 23:51 128/68 96 02/22/21 23:20 02/22/21 23:00 02/22/21 22:40 02/22/21 22:20 02/22/21 22:00 02/22/21 21:40 02/22/21 21:20 02/22/21 21:00 02/22/21 20:40 02/22/21 20:20 91 02/22/21 20:00 02/22/21 19:36 PG Care Time/CCT Total # of Minutes Spent Total Time Spent with Patient: Total time spent is greater than 50% in coordina tion of care (as documented) at patient's floor/unit and/or counseling patient: Coding Level of Care Code 45742 Subseq Hosp Care Lvl 2 Diagnoses COVID-19 U07.1
--- NOTE | 2021-02-23 07:59 | Electrocardiogram Report ---
Test Reason : Blood Pressure : / mmHG Vent. Rate : 081 BPM Atrial Rate : 081 BPM P-R Int : 160 ms QRS Dur : 096 ms QT Int : 374 ms P-R-T Axes : 065 069 041 degrees QTc Int : 434 ms Normal sinus rhythm Incomplete right bundle branch block Borderline ECG When compared with ECG of 22-MAY-2020 09:18, No significant change was found Confirmed by Paulo Owusu ([id number]) on 02/23/2021 7:58:54 AM Referred By: REFERRED SELF Confirmed By:Paulo Owusu
[2021-02-23 08:00] LABS: Estimated Average Glucose 126 mg/dl
[2021-02-23] MEDS ORDERED: Nursing to Pharmacy Communication SCH (08:15)
[2021-02-23] MEDS ORDERED: bisacodyL 5 MG TABEC PO SCH ×2 (09:00→12:00)
[2021-02-23] MEDS ORDERED: DOCUSATE SODIUM 100 MG CAP PO SCH ×2 (09:00→12:00)
[2021-02-23] MEDS ORDERED: LACTULOSE SYRUP 10 GM/15 ML BTL 960 ML PO SCH ×2 (09:00)
[2021-02-23] MEDS ORDERED: LINACLOTIDE 145 MCG CAPSULE PO SCH ×2 (09:00→14:00)
[2021-02-23] MEDS: HEPARIN SODIUM/DEXTROSE 25,000 UNITS/500 ML BAG IV SCH ×2 (09:04→11:51)
[2021-02-23] MEDS: INSULIN GLARGINE 100 UNIT/ML VIAL SC SCH (09:05)
[2021-02-23] MEDS: INSULIN HUMAN NPH SC SCH (09:37)
[2021-02-23] MEDS: dexAMETHasone 6 MG in SYRINGE 0 ML IV SCH (09:38)
[2021-02-23] MEDS ORDERED: VANCOMYCIN HCL 500 MG in 0.9 % SODIUM CHLORIDE 100 ML IV ONE (10:00)
[2021-02-23] MEDS ORDERED: LINACLOTIDE PO SCH ×2 (10:30→12:00)
--- NOTE | 2021-02-23 10:36 | Pharmacy Report ---
Pharmacy Glycemic Short Note 2 - Date of Service February 23, 2021 - Glycemic Short BSG Results (Last 24 hours): 02/22/21 02/22/21 02/22/21 12:15 16:47 20:46 Glucose POC Glucose 204 H 240 H 179 H 02/22/21 02/22/21 02/23/21 23:37 23:55 00:57 Glucose POC Glucose 107 H 97 133 H 02/23/21 02/23/21 02/23/21 02:35 04:02 05:32 Glucose 119 H POC Glucose 96 101 H 02/23/21 07:25 Glucose POC Glucose 90 OUTPATIENT ANTIDIABETIC REGIMEN: * Tresiba 80 units SQ BID * Aspart BID per SS (up to 400 units/day) * A1c = 5.9% ASSESSMENT: 02/23 * BSG's remained elevated yesterday >200 mg/dL therefore Novolog parameters tightened at dinner. BSG's then trended down slightly at HS and significantly overnight, ranging 90-97 mg/dL over 3 checks overnight, although this is stable compared to AM fasting BSG yesterday of 102 mg/dL * Regimen heavily weighted towards basal ~2/3 basal and 1/3 bolus yesterday, which is not likely best while on steroids. Novolog was already tightened yesterday - may require additional tightening today depending on trend from breakfast to lunch * Will decrease basal insulin slightly - OK to continue close to home dose Lantus and continue lower dose of NPH to be given with steroids 02/22 * Deangelo is a 56 yo T2DM male with h/o ESRD on HD admitted for COVID-19 * He received a one time dose of solu medrol 125 mg IV in the ED and was later started on dexamethasone 6mg IV daily * BSG well controlled this morning, however suspect patient will experience severe hyperglycemia due to high dose IV steroids * start weight based NPH (0.4 units/kg based on AdjBW) once daily * will use an aggressive correction factor/carb ratio and add overnight checks with coverage * continue home dose of basal insulin for now * patient may require IV insulin infusion due to steroids + home needs >400 units per day PLAN FOR INPATIENT GLYCEMIC CONTROL: * Hold outpatient oral diabetes medications * Basal insulin - decrease * Lantus 70-80 units SQ BID * NPH 40 units SQ - given with dexamethasone in AM * Bolus insulin - continue * NovoLog per scale ACHS or Q6hrs while NPO * Goal Range: Low 110 mg/dL - High 140 mg/dL * Correction Factor: 5 mg/dL/unit * Nutritional / Prandial insulin per carb ratio of 1 unit per 2 grams CHO consumed PLAN FOR DISCHARGE: * A1c indicates excellent glycemic control, however value is not reliable due to ESRD -HD * Recommend checking BSG 4x/day and making insulin regimen adjustments based on that data
[2021-02-23 10:58] LABS: Partial Thromboplastin Ratio 1.2; Partial Thromboplastin Time 32.5 Seconds (21.0-31.0)
--- NOTE | 2021-02-23 11:52 | Nephrology Progress Note ---
Date of Service February 23, 2021 Assessment & Plan (1) End stage renal disease: (2) Hypertension: (3) COVID-19: Plan: ESRD on HD, admitted with COVID pneumonia. Clinically otherwise asymptomatic. Has been afebrile since admission. Electrolyte acceptable. Due for dialysis today as his Monday, Monday, Monday schedule. Had hemodialysis as his regular schedule. Tolerated well, had 3 L UF. Currently electrolyte, blood pressure acceptable. -- Continue on intermittent hemodialysis Monday, Monday, Monday. If patient otherwise clinically stable and plan to discharge, he will have to go to isolation clinic at [place] until his negative for COVID -- Left arm nephrology percussion for AV fistula. -- Avoid IV fluid, dose medications for GFR less than 10. Will follow Admission and Anticipated Discharge Date Admission Date: February 22, 2021 Subjective Yohsi has been overall doing well, no overnight events. Had dialysis yesterday, tolerated well, had 3 L of UF. Currently blood pressure well control, normal oxygen saturation. Reviewed labs and clinical parameters, no direct visit today because of COVID isolation. Results & Data ([facility]) Vital Signs (Past 12 Hours) Vital Signs Temp Pulse Pulse Pulse Resp BP Pulse Ox 02/23/21 11:17 36.5 C 80 18 114/62 93 02/23/21 08:37 72 02/23/21 07:10 36.4 C L 68 73 19 127/51 L 95 02/23/21 03:57 36.4 C 75 18 127/46 L 95 02/23/21 00:48 79 02/23/21 00:10 36.4 C L 84 128/68 02/22/21 23:51 36.4 C L 74 20 128/68 96 PG Care Time/CCT Total # of Minutes Spent Total Time Spent with Patient: Total time spent is greater than 50% in coordination of care (as documented) at patient's floor/unit and/or counseling patient: Coding Level of Care Code 15441 Subseq Hosp Care Lvl 2 Diagnoses End stage renal disease N18.6 Hypertension I10 COVID-19 U07.1
[2021-02-23 18:00] LABS: Partial Thromboplastin Ratio 1.5; Partial Thromboplastin Time 38.6 Seconds (21.0-31.0)
[2021-02-24 01:04] LABS: Partial Thromboplastin Ratio 1.4; Partial Thromboplastin Time 36.7 Seconds (21.0-31.0)
[2021-02-24] MEDS: INSULIN GLARGINE 100 UNIT/ML VIAL SC SCH (01:06)
[2021-02-24] MEDS: HEPARIN SODIUM/DEXTROSE 25,000 UNITS/500 ML BAG IV SCH (01:30)
[2021-02-24] MEDS ORDERED: HEPARIN SOD (PORCINE) 1000 UNIT/ML IV STA (01:33)
[2021-02-24] MEDS: LEVOTHYROXINE SODIUM 150 MCG TABLET PO SCH (06:28)
--- NOTE | 2021-02-24 08:13 | Hospitalist Progress Note ---
Date of Service February 24, 2021 Assessment & Plan (1) COVID-19: Plan: Patient is a 56 year old male presenting today with chief complaint of RLQ pain found to have pneumonia secondary to COVID-19 infection. Patient notes that he started noticing symptoms of sore throat and cough on 02/17/21. COVID-19 Infection with b/l PNA -symptoms starting on 02/17/21 -CTA stat read showing b/l pneumonia, after review of CT with Radiologist here feels that the slow venous slow is due to previous vascular access issues associated with renal failure -did not qualify for remdisivr secondary to his poor GFR secondary to ESRD Hypoxia now improved but 90% at rest, may not need home oxygen, will try 2 step after dialysis on 02/26/21 -remains on dexamethasone -Start Zosyn and Vancomycin for empiric coverage in the emergency department, will not continue -Started Azithromycin will continue for atypical coverage will continue as procal is elevated -Mucinex BID ESRD on Dialysis -nephrology consulted will manage dialysis receiving dialysis on 02/22/2021, Cr still elevated Hx DVT -On long-term Eliquis therapy changed to heparin drip with concern for CT read. CT read as inconclusive and will discuss further with radiology but likely will return Eliquis therapy. DM2 -SSI and basal bolus glycemic consultation - Hypothyroidism -Continue Synthroid Constipation patient is on significant bowel regimen at home taking on his nondialysis days 3 Linzess 45 mL of lactulose 7 Colace tablets Dispo: PCU covid unit FEN: Dialysis, DM2 diet DVT: Eliquis Code: Full Admission and Anticipated Discharge Date Admission Date: February 22, 2021 Results & Data Results & Data ([facility]) Vital Signs (Past 12 Hours) Vital Signs Temp Pulse Pulse Pulse Resp BP Pulse Ox 02/24/21 08:01 97.7 F 74 19 124/70 90 02/24/21 03:47 97.3 F L 80 18 121/66 98 02/23/21 23:40 97.5 F L 91 H 18 118/98 96 02/23/21 23:27 85 PG Care Time/CCT Total # of Minutes Spent Total Time Spent with Patient: Total time spent is greater than 50% in coordination of care (as documented) at patient's floor/unit and/or counseling patient: Coding Diagnoses COVID-19 U07.1
[2021-02-24] MEDS: CHOLECALCIFEROL 1,000 UNITS 25 MCG TAB PO SCH (08:49)
[2021-02-24] MEDS: INSULIN HUMAN NPH SC SCH (08:49)
[2021-02-24] MEDS: dexAMETHasone 6 MG in SYRINGE 0 ML IV SCH (08:49)
[2021-02-24] MEDS: DICLOFENAC SOD 0.1% OPH SOLN 2.5 ML BTL OP SCH ×2 (08:50→15:07)
[2021-02-24] MEDS: FERROUS SULFATE 325 MG TAB PO SCH (08:50)
[2021-02-24] MEDS: ASPIRIN 81 MG CHEW PO SCH (08:50)
[2021-02-24] MEDS: CEROVITE ADV FORMULA TAB PO SCH (08:50)
[2021-02-24] MEDS: INSULIN ASPART 100 UNITS/ML 3 ML PEN SC SCH ×3 (08:51→17:32)
[2021-02-24] MEDS: guaiFENesin 600 MG TABCR PO SCH (08:51)
[2021-02-24] MEDS: OMEGA-3 (PURIFIED FISH OIL) 1 GM CAP PO SCH (08:51)
[2021-02-24] MEDS: ASCORBIC ACID 500 MG TAB PO SCH (08:52)
[2021-02-24 08:58] LABS: Basophils # (auto) 0.02 K/uL (0-0.2); Basophils % (auto) 0.2 %; Eosinophils # (auto) 0.07 K/uL (0-0.5); Eosinophils % (auto) 0.7 %; Hematocrit (blood only) 50.8 % (42-52); Hemoglobin 16.4 g/dL (14.0-18.0); Immature Granulocytes # (auto) 0.05 K/uL (0.00-0.02); Immature Granulocytes % (auto) 0.5 %; Lymphocytes # (auto) 0.83 K/uL (1.2-3.4); Lymphocytes % (auto) 7.9 %; Mean Corpuscular Hemoglobin 29.3 pg (25-34); Mean Corpuscular Hgb Conc 32.3 g/dL (32-36); Mean Corpuscular Volume 90.7 fL (80-100); Mean Platelet Volume 10.4 fL (7.4-10.4); Monocytes # (auto) 0.78 K/uL (0.11-0.59); Monocytes % (auto) 7.4 %; Neutrophils # (auto) 8.73 K/uL (1.4-6.5); Neutrophils % (auto) 83.3 %; Platelet Count 301 K/uL (130-400); RDW Coefficient of Variation 19.2 % (11.5-14.5); RDW Standard Deviation 64.1 fL (36.4-46.3); White Blood Count 10.48 K/uL (4.8-10.8)
[2021-02-24] MEDS ORDERED: INSULIN GLARGINE 100 UNIT/ML VIAL SC ONE ×2 (09:00→21:00)
[2021-02-24] MEDS ORDERED: AZITHROMYCIN 250 MG TAB PO SCH (09:00)
[2021-02-24] MEDS ORDERED: TESTOSTERONE CYPIONATE IM 200 MG/ML VIAL IM SCH (09:00)
[2021-02-24 09:09] LABS: INR 1.1 (0.9-1.1); Partial Thromboplastin Ratio 1.4; Partial Thromboplastin Time 37.2 Seconds (21.0-31.0); Prothrombin Time 11.4 Seconds (9.0-12.0)
[2021-02-24 09:26] LABS: Albumin Globulin Ratio 0.5 (0.9-2); Albumin Level 2.6 gm/dl (3.4-5.0); Bilirubin,Total 0.7 mg/dl (0.2-1); Calcium 7.5 mg/dl (8.5-10.1); Creatinine Clr Calc Pharmacy 8.8 ml/min; Est GFR (African American) 3.4 ml/min; Globulin 4.9 gm/dl (2.5-4.0); Magnesium 2.9 mg/dl (1.8-2.4); Potassium 4.8 mmol/L (3.5-5.1); Total Protein 7.5 gm/dl (6.4-8.2)
[2021-02-24] MEDS ORDERED: HEPARIN IV BOLUS 4,500 UNITS in SYRINGE 0 ML IV ONE (10:12)
[2021-02-24] MEDS ORDERED: APIXABAN 5 MG TABLET PO SCH (10:15)
--- NOTE | 2021-02-24 10:28 | Nephrology Progress Note ---
Date of Service February 24, 2021 Assessment & Plan (1) End stage renal disease: (2) Hypertension: (3) COVID-19: Plan: ESRD on HD, admitted with COVID pneumonia. Clinically otherwise asymptomatic. Has been afebrile since admission. Electrolyte acceptable. Due for dialysis today as his Monday, Monday, Monday schedule. Had hemodialysis as his regular schedule. Tolerated well, had 3 L UF. Currently electrolyte, blood pressure acceptable. -- tolerating hemodialysis UF aim for EDW. If patient otherwise clinically stable and plan to discharge, he will have to go to isolation clinic at [place] until his negative for COVID -- Left arm nephrology percussion for AV fistula. -- Avoid IV fluid, dose medications for GFR less than 10. Will follow Admission and Anticipated Discharge Date Admission Date: February 22, 2021 Subjective Yoshi has been doing well, no overnight events, remained afebrile. Current having dialysis, tolerating UF. Blood pressure well control, normal oxygen saturation. Reviewed labs and clinical parameters, no direct visit because of COVID isolation. Results & Data ([facility]) Vital Signs (Past 12 Hours) Vital Signs Temp Pulse Pulse Pulse Resp BP Pulse Ox 02/24/21 08:01 36.5 C 74 19 124/70 90 02/24/21 03:47 36.3 C L 80 18 121/66 98 02/23/21 23:40 36.4 C L 91 H 18 118/98 96 02/23/21 23:27 85 PG Care Time/CCT Total # of Minutes Spent Total Time Spent with Patient: Total time spent is greater than 50% in coordination of care (as documented) at patient's floor/unit and/or counseling patient: Coding Level of Care Code 78197 Subseq Hosp Care Lvl 2 Diagnoses End stage renal disease N18.6 Hypertension I10 COVID-19 U07.1
--- NOTE | 2021-02-24 11:23 | Discharge Summary ---
Date of Service February 24, 2021 Admission HPI Per Admitting Provider Patient is a 56 year old male presenting today with chief complaint of RLQ pain found to have double pneumonia secondary to COVID-19 infection. Patient notes that he started noticing symptoms of sore throat and cough on 02/17/21. Patient notes that he saw his PCP who placed him on antibiotic which improved his symptoms. He noted overnight though that he was having RLQ pain which he felt may have been secondary to coughing aggressively. He notes that he had his COVID-19 Vaccination a few months ago (Moderna). He currently notes he actually does not feel that bad. Denies fever, chills, nausea, vomiting, diarrhea, chest pain, chest pressure, dyspnea on exertion. He is noting some orthopnea. Principal Diagnosis hypoxia resolved Covid pneumonia end stage renal disease on dialysis Discharge Exam The patient appeared well nourished and normally developed. Vital signs as documented. Head exam is normocephalic atraumatic Neck is without JVD, thyromegaly, or carotid bruits. Lungs are clear to auscultation, no focal loss of breath sounds Cardiac exam, Rhythm is regular.. No murmurs, rubs or gallops. Abdominal exam reveals normal bowel sounds, soft non tender, no masses Extremities are nonedematous and both pedal pulses are present Neurologic exam is alert and oriented, no focal loss of strength or sensation Skin is without bruises or rashes Psychologically is without concerns for anxiety or depression Discharge Data Allergies Allergy/AdvReac Type Severity Reaction Status Date / Time house dust Allergy Mild Nasal Verified 02/22/21 00:29 congestion pollen extracts Allergy Mild nasal Verified 02/22/21 00:29 congestion Consultations 02/22/21 04:58 ED Decision to Admit Stat Ordered Studies 02/22/21 00:35 CT abd pelvis IV con only Urgent 02/22/21 02:31 CT angio chest PE protocol Urgent Hospital Course (1) COVID-19: Patient is a 56 year old male presenting today with chief complaint of RLQ pain found to have pneumonia secondary to COVID-19 infection. Patient notes that he started noticing symptoms of sore throat and cough on 02/17/21. COVID-19 Infection with b/l PNA -symptoms starting on 02/17/21 -CTA stat read showing b/l pneumonia, after review of CT with Radiologist here feels that the slow venous slow is due to previous vascular access issues associated with renal failure -did not qualify for remdisivr secondary to his poor GFR secondary to ESRD Hypoxia now improved but 90% at rest, does need home oxygen, 2 step after dialysis on 02/26/21 shows a need for 2 L with exertion -remains on dexamethasone for additional 7 days -Started Zosyn and Vancomycin for empiric coverage in the emergency department finish 5 day course of azithromycin, 3 additional days -Mucinex BID ESRD on Dialysis -nephrology consulted will manage dialysis receiving dialysis on 02/22/2021, Cr still elevated Hx DVT -On long-term Eliquis therapy changed to heparin drip with concern for CT read. CT read as inconclusive and will discuss further with radiology but likely will return Eliquis therapy. DM2 -return to home diabetes management - Hypothyroidism -Continue Synthroid Constipation patient is on significant bowel regimen at home taking on his nondialysis days 3 Linzess, lactulose & 7 Colace tablets Code: Full Total Time Total Time Spent Total Time Spent (In Minutes): it took greater than 30 minutes to prepare discharge Discharge Plan Discharge Items Patient Disposition: Home - Self-Care Reason For Visit: COVID 19 PNEUMONIA W HYPOXIA, ESRD ON HD Discharge Diagnosis: covid pneumonia hypoxic respiratory failure resolved esrd Activity: Per Instructions section Non-emergency contact: Primary Care Provider Call non-emergency contact if: your symptoms worsen and you have a fever Follow-up/Referrals: Ron Burgos MD [Primary Care Provider] - 03/04/21 4:15 pm Diet: Carb Consistent or DM2 and Dialysis Renal Addtl Attending Provider Instructions: Home Isolation COVID-19 Instructions Please go to the [facility] while you are on quarantine for your covid infection, they [place] office will be able to inform you of the duration that you need to have your treatment there. Dr Land informs me that you will need a negative test prior to returning to your local dialysis center, and the [facility] will test you there complete the remainder of you dexamethasone, azithromycin and you may use mucinex for comfort with coughing The following information about Home Isolation is from the CDC Website: https://www.cdc.gov/coronavirus/2019-ncov/hcp/zgxuoglc-ylestgw-qhulro.html Stay home except to get medical care People who are mildly ill with COVID-19 are able to isolate at home during their illness. You should restrict activities outside your home, except for getting medical care. Do not go to work, school, or public areas. Avoid using public transportation, ride-sharing, or taxis. Separate yourself from other people and animals in your home People: As much as possible, you should stay in a specific room and away from other people in your home. Also, you should use a separate bathroom, if available. Animals: You should restrict contact with pets and other animals while you are sick with COVID-19, just like you would around other people. Although there have not been reports of pets or other animals becoming sick with COVID-19, it is still recommended that people sick with COVID-19 limit contact with animals until more information is known about the virus. When possible, have another member of your household care for your animals while you are sick. If you are sick with COVID-19, avoid contact with your pet, including petting, snuggling, being kissed or licked, and sharing food. If you must care for your pet or be around animals while you are sick, wash your hands before and after you interact with pets and wear a face mask. Call ahead before visiting your doctor If you have a medical appointment, call the healthcare provider and tell them that you have or may have COVID-19. This will help the healthcare providers office take steps to keep other people from getting infected or exposed. Wear a face mask You should wear a face mask when you are around other people (e.g., sharing a room or vehicle) or pets and before you enter a healthcare providers office. If you are not able to wear a face mask (for example, because it causes trouble breathing), then people who live with you should not stay in the same room with you, or they should wear a face mask if they enter your room. Cover your coughs and sneezes Cover your mouth and nose with a tissue when you cough or sneeze. Throw used tissues in a lined trash can. Immediately wash your hands with soap and water for at least 20 seconds or, if soap and water are not available, clean your hands with an alcohol-based hand supply chain tech that contains at least 60% alcohol. Clean your hands often Wash your hands often with soap and water for at least 20 seconds, especially after blowing your nose, coughing, or sneezing; going to the bathroom; and before eating or preparing food. If soap and water are not readily available, use an alcohol-based hand supply chain tech with at least 60% alcohol, covering all surfaces of your hands and rubbing them together until they feel dry. Soap and water are the best option if hands are visibly dirty. Avoid touching your eyes, nose, and mouth with unwashed hands. Avoid sharing personal household items You should not share dishes, drinking glasses, cups, eating utensils, towels, or bedding with other people or pets in your home. After using these items, they should be washed thoroughly with soap and water. Clean all high-touch surfaces everyday High touch surfaces include counters, tabletops, doorknobs, bathroom fixtures, toilets, phones, keyboards, tablets, and bedside tables. Also, clean any surfaces that may have blood, stool, or body fluids on them. Use a household cleaning spray or wipe, according to the label instructions. Labels contain instructions for safe and effective use of the cleaning product including precautions you should take when applying the product, such as wearing gloves and making sure you have good ventilation during use of the product. Monitor your symptoms Seek prompt medical attention if your illness is worsening (e.g., difficulty breathing).Beforeseeking care, call your healthcare provider and tell them that you have, or are being evaluated for, COVID-19. Put on a face mask before you enter the facility. These steps will help the healthcare providers office to keep other people in the office or waiting room from getting infected or exposed. Ask your healthcare provider to call the local or state health department. Persons who are placed under active monitoring or facilitated self- monitoring should follow instructions provided by their local health department or occupational health professionals, as appropriate. When working with your local health department check their available hours. If you have a medical emergency and need to call 911, notify the dispatch personnel that you have, or are being evaluated for COVID-19. If possible, put on a face mask before emergency medical services arrive. Discontinuing home isolation Patients with confirmed COVID-19 should remain under home isolation precautions until the risk of secondary transmission to others is thought to be low. The decision to discontinue home isolation precautions should be made on a [id number] basis, in consultation with healthcare providers and state and local health departments. Pending Studies at Discharge: No Stand-Alone Forms: My [facility], Smoking Cessation Medications and DC Order Prescriptions: New guaifenesin [Mucinex] 600 mg Tablet Extended Release 12hr 1,200 mg PO Q12 Qty: 20 RF: 0 dexamethasone 6 mg tablet 6 mg PO DAILY Qty: 7 RF: 0 azithromycin 250 mg Tablet 250 mg PO QAM Qty: 3 RF: 0 Continued Tresiba FlexTouch U-100 100 unit/mL (3 mL) insulin pen 80 unit SUBCUT BID MDD 160 units Qty: 150 RF: 3 Velphoro 500 mg tablet,chewable 500 mg PO TID RF: 0 atorvastatin [Lipitor] 10 mg Tablet 10 mg PO HS RF: 0 levothyroxine [Synthroid] 150 mcg Tablet 150 mcg PO QAM RF: 0 gabapentin 300 mg Capsule 600 mg PO HS RF: 0 aspirin 81 mg Tablet,Chewable 81 mg PO QAM RF: 0 Systane (PF) 0.4-0.3 % Dropperette 1 drp OPHTHALMIC (EYE) BID PRN (Reason: Dry Eye(S)) RF: 0 azelastine 0.15 % (205.5 mcg) [place],Non-Aerosol 1 spray INTRANASAL BID RF: 0 omega 7-pmh-suo-fish oil [Fish Oil] 1,000 mg (120 mg-180 mg) Capsule 1 tab PO BID RF: 0 ProRenal QD 400-500 mcg-unit Capsule 1 tab PO QPM RF: 0 testosterone cypionate 200 mg/mL Kit 200 mg subcut .2XWK RF: 0 cinacalcet [Sensipar] 30 mg tablet 90 mg PO QPM RF: 0 alprazolam [Xanax] 1 mg tablet 1 mg PO TID PRN (Reason: Anxiety) RF: 0 acetaminophen [Tylenol Extra Strength] 500 mg Tablet 1,000 mg PO Q6H PRN (Reason: Pain) RF: 0 diclofenac sodium 0.1 % Drops 1 drp OPHTHALMIC (EYE) TID RF: 0 Linzess 290 mcg Capsule 870 mcg PO 4XWK RF: 0 bisacodyl [Dulcolax (bisacodyl)] 5 mg Tablet,Delayed Release (Dr/Ec) 5 mg PO 4XWK RF: 0 lactulose 10 gram/15 mL Solution 10 g PO 4XWK RF: 0 docusate sodium [Stool Softener] 100 mg Capsule 100 mg PO DAILY PRN (Reason: Constipation) RF: 0 Eliquis 5 mg tablet 5 mg PO Q12H Qty: 74 RF: 0 insulin aspart U-100 [Novolog Flexpen U-100 Insulin] 100 unit/mL (3 mL) insulin pen 0 unit subcut BID RF: 0 ascorbic acid (vitamin C) [Vitamin C] 1,000 mg Tablet 1 g PO DAILY RF: 0 Centrum Silver 0.4-300-250 mg-mcg-mcg Tablet 1 tab PO DAILY RF: 0 cholecalciferol (vitamin D3) [Vitamin D3] 125 mcg (5,000 unit) Tablet 125 mcg PO DAILY RF: 0 No Action (DME) Accu-Chek Guide test strips Strip See Rx Instructions .ROUTE .MEDSUPPLY Qty: 400 RF: 3 (DME) lancets [Accu-Chek Fastclix Lancet Drum] Misc See Rx Instructions .ROUTE .MEDSUPPLY Qty: 400 RF: 3 (DME) pen needle, diabetic [BD Ultra-Fine Orig Pen Needle] 29 gauge x 1/2" needle See Rx Instructions .ROUTE .MEDSUPPLY Qty: 400 RF: 3 (DME) blood-glucose meter [Accu-Chek Guide Me Glucose Mtr] Misc See Rx Instructions .ROUTE .MEDSUPPLY Qty: 1 RF: 0 (DME) blood-glucose meter [OneTouch Ultra2 Meter] Misc See Rx Instructions .ROUTE .MEDSUPPLY Qty: 1 RF: 0 Discharge Orders: Discharge Order (Routine); Ordered 02/24/21 Ordered By: Zach James/Other Patient Handouts: A1C, Managing Type 2 Diabetes Admission Data Admit Date/Time: 02/22/21 07:05 Attending Provider: Zach Mckeon Admit Provider: Paddy Sierra Primary Care Provider: Ron Burgos Other Providers: Paddy Sierra Other Interventions: Discharge Summary Assessment (RN) Last Done: 02/24/21 11:34 Coding Level of Care Code D/C DAY MANAGEMENT >30 MINS Diagnoses COVID-19 U07.1
--- NOTE | 2021-02-24 11:41 | Pharmacy Report ---
Pharmacy Glycemic Short Note 2 - Date of Service February 24, 2021 - Glycemic Short BSG Results (Last 24 hours): 02/23/21 02/23/21 02/23/21 16:46 20:32 21:00 Glucose POC Glucose 74 70 73 02/23/21 02/23/21 02/24/21 21:55 23:50 01:04 Glucose POC Glucose 77 79 85 02/24/21 02/24/21 02/24/21 01:35 04:03 08:16 Glucose 63 L POC Glucose 82 85 02/24/21 08:22 Glucose POC Glucose 74 OUTPATIENT ANTIDIABETIC REGIMEN: * Tresiba 80 units SQ BID * Aspart BID per SS (up to 400 units/day) * A1c = 5.9% ASSESSMENT: 02/24 * BSG's on the lower end yesterday and overnight, ranging 70-127 mg/dL * Patient refused the whole 80 units of Lantus yesterday evening. BSG's still lower at 85 mg/dL this AM despite that, although the full effect of holding that amount of insulin is not yet apparent. Concern for rebound hyperglycemia as patient usually takes Tresiba 80 units SC BID at home while *not* on steroids. OK to give full 80 units this AM due to substantial decrease yesterday. Patient refused NPH this AM as well - reasonable to stop this ongoing and instead use Lantus * May need to rely more heavily on Novolog in the interim, although the tightened correction factor of 5 mg/dL/unit has not thus been tested in terms of its glucose lowering effect as BSG's have not needed significant correction since it was tightened. Will leave for now. * Lunch BSG of 83 mg/dL obtained during HD today * Discharge entered - reasonable to have patient resume outpatient dosing, assuming no significant hypoglycemia as an outpatient 02/23 * BSG's remained elevated yesterday >200 mg/dL therefore Novolog parameters tightened at dinner. BSG's then trended down slightly at HS and significantly overnight, ranging 90-97 mg/dL over 3 checks overnight, although this is stable compared to AM fasting BSG yesterday of 102 mg/dL * Regimen heavily weighted towards basal ~2/3 basal and 1/3 bolus yesterday, which is not likely best while on steroids. Novolog was already tightened ye sterday - may require additional tightening today depending on trend from breakfast to lunch * Will decrease basal insulin slightly - OK to continue close to home dose Lantus and continue lower dose of NPH to be given with steroids 02/22 * Deangelo is a 56 yo T2DM male with h/o ESRD on HD admitted for COVID-19 * He received a one time dose of solu medrol 125 mg IV in the ED and was later started on dexamethasone 6mg IV daily * BSG well controlled this morning, however suspect patient will experience severe hyperglycemia due to high dose IV steroids * start weight based NPH (0.4 units/kg based on AdjBW) once daily * will use an aggressive correction factor/carb ratio and add overnight checks with coverage * continue home dose of basal insulin for now * patient may require IV insulin infusion due to steroids + home needs >400 units per day PLAN FOR INPATIENT GLYCEMIC CONTROL: * Hold outpatient oral diabetes medications * Basal insulin * Lantus 80 units SQ this AM then scaled this PM * Discontinue NPH * Bolus insulin * NovoLog per scale ACHS or Q6hrs while NPO * Goal Range: Low 110 mg/dL - High 140 mg/dL * Correction Factor: 5 mg/dL/unit * Nutritional / Prandial insulin per carb ratio of 1 unit per 2 grams CHO consumed PLAN FOR DISCHARGE: * A1c indicates excellent glycemic control, however value is not reliable due to ESRD/HD * Recommend checking BSG 4x/day and making insulin regimen adjustments based on that data, especially if hypoglycemia is noted as an outpatient
[2021-02-25] MEDS ORDERED: INSULIN ASPART 100 UNITS/ML 3 ML PEN SC SCH
[2021-02-25] MEDS ORDERED: LACTULOSE SYRUP 10 GM/15 ML BTL 960 ML PO SCH (12:00)
--- NOTE | 2021-02-27 10:52 | Billing Data ---
Date of Service February 27, 2021 Coding Level of Care Code 42914 Initial Inpt Care Lvl 3
--- NOTE | 2021-03-03 12:04 | Coding Query ---
CODING QUERY To promote full compliance with coding requirements relating to patient care, provider participation is requested in all cases of piling setter uncertainty. Please assist us with the question(s) below: Coding Question(s): Hypoxic Respiratory Failure is documented on discharge but nowhere else in the chart. Please clarify below: (xx ) Patient with Hypoxic Respiratory Failure ( ) Hypoxic Respiratory Failure Ruled Out ( ) Other Please Explain: Thank you Rahul Shailesh Principal Diagnosis: "that condition established after study, to be chiefly responsible for occasioning the admission of the patient to the hospital for care." Co-Existing Principal Diagnosis: "when two or more diagnoses equally meet the criteria for principal diagnosis as determined by the circumstances of admission, diagnostic work up, and/or therapy provided, and the Alphabetic Index, Tabular List, or another coding guideline does not provide sequencing direction, any one of the diagnoses may be sequenced first." "When the physician has documented what appears to be a current diagnosis in the body of the record, but has not included the diagnosis in the final diagnostic statement, the physician should be asked whether the diagnosis should be added." (Source Coding [facility] 2 QTR90. p3-4) JORJE
== END 2021-02-24 18:12 | disposition home or self-care (01) | DRG 177 ==
LOC: ED 21:45 → SUATTDRO 02-22 07:05 → 2E 02-22 07:05
DX: I12.0 Hypertensive chronic kidney disease with stage 5 chronic kidney disease or end stage renal disease; Z79.4 Long term (current) use of insulin; E11.21 Type 2 diabetes mellitus with diabetic nephropathy; I35.8 Other nonrheumatic aortic valve disorders; E03.9 Hypothyroidism, unspecified; N18.6 End stage renal disease; Z91.09 Other allergy status, other than to drugs and biological substances; E66.01 Morbid (severe) obesity due to excess calories; U07.1 COVID-19; Z99.2 Dependence on renal dialysis; Z79.890 Hormone replacement therapy; Z79.01 Long term (current) use of anticoagulants; Z86.718 Personal history of other venous thrombosis and embolism; Z79.899 Other long term (current) drug therapy; J96.91 Respiratory failure, unspecified with hypoxia; E78.5 Hyperlipidemia, unspecified; Z68.43 Body mass index [BMI] 50.0-59.9, adult; M19.90 Unspecified osteoarthritis, unspecified site; E11.22 Type 2 diabetes mellitus with diabetic chronic kidney disease; Z79.82 Long term (current) use of aspirin; J12.82 Pneumonia due to coronavirus disease 2019; F41.9 Anxiety disorder, unspecified; E11.319 Type 2 diabetes mellitus with unspecified diabetic retinopathy without macular edema; K59.00 Constipation, unspecified

== ENCOUNTER 2021-02-26 18:57 | Inpatient (IN) ==
[~2021-02-26 18:57] MED LIST changes: -ALPR1TAB3 PO; -ASPI81TA28 PO; -ASTN; +CALCIUM CHLORIDE 10% 10 ML SYR IV ONE; -CINA0.42 PO; -DICL0.1S OP; -FURO-85 PO; -GABA-113 PO; -INSDGI SC; -LACT10SO17 PO; -LEVO150T PO; -LORA10CA10 PO; -LPT10 PO; -MOME6000; -MULT-506 PO; -MULT-650 PO; -NVLGIPEN SQ; -OMEG10007 PO; -POLYSOL4 OP; -SEVE800T7 PO; +SODIUM BICARB 8.4% INJ 50 MEQ/50 ML SYR IV ONE; +SODIUM CHLORIDE 0.9% 10ML FLUSH IV ONE; -TESTOSTERONE SQ
[2021-02-26] MEDS ORDERED: PIPERACILLIN/TAZOBACTAM 4.5 GM/120 ML BAG IV ONE (19:23)
[2021-02-26] MEDS ORDERED: STAT IV Infusion **Titration per Protocol STA ×4 (19:23→21:05)
[2021-02-26] MEDS ORDERED: PIPERACILL/TAZOBAC CONSULT ACTIVE PRN (19:23)
[2021-02-26] MEDS ORDERED: EPINEPHrine/NSS 4 MG/254 ML BAG IV SCH (19:30)
[2021-02-26 19:38] LABS: Base Excess VBG -11.9 mEq/L; HCO3 VBG 27 mmol/L; Oxygen Saturation VBG < 60.0 %; PCO2 VBG 150 mmHg (38-50); PO2 VBG 47 mmHg; pH VBG 6.87 (7.36-7.41)
[2021-02-26] MEDS ORDERED: PROPOFOL IV EMULSION 10 MG/ML 100 ML VIAL IV ONE (19:41)
[2021-02-26 19:43] LABS: INR 1.2 (0.9-1.1); Partial Thromboplastin Ratio 1.2; Partial Thromboplastin Time 31.8 Seconds (21.0-31.0); Prothrombin Time 12.2 Seconds (9.0-12.0)
--- NOTE | 2021-02-26 19:45 | XRay Report ---
XR chest 1V portable HISTORY: SEPSIS COMPARISON: Chest 02/22/2021. FINDINGS: Interval progression of the multifocal bilateral airspace opacities consistent with a viral pneumonia. The heart remains mildly enlarged. No pneumothorax. No pleural effusions. Endotracheal tu be terminates approximately 4.5 cm from the julio césar. IMPRESSION: 1. Interval progression of the multifocal bilateral airspace opacities consistent with a viral pneumo kyle. 2. Endotracheal tube terminates 4.5 cm from the julio césar. ACT 112: Negative or not required by law. Electronically signed by: Nitin Epps M.D. 02/26/2021 7:43 PM
[2021-02-26 19:55] LABS: iSTAT Arterial Blood Gas HCO3 22 meg/L (19-24); iSTAT Arterial Blood Gas pCO2 90 mmHg (35-46); iSTAT Arterial Blood Gas pH 6.99 (7.35-7.45); iSTAT Arterial Blood Gas pO2 262 mmHg (80-95); iSTAT Carbon Dioxide 25 mmol/L (24-31); iSTAT Hematocrit 58 % (42-52); iSTAT Hemoglobin 19.7 g/dl (14.0-18.0); iSTAT Potassium 5.9 mmol/L (3.3-5.0); iSTAT Sodium 134 mmol/L (135-144)
[2021-02-26] MEDS ORDERED: dexAMETHasone**PF** 10 MG/ML VIAL IV ONE (20:01)
[2021-02-26] MEDS ORDERED: PROPOFOL BOLUS FROM BAG IV PRN (20:07)
[2021-02-26 20:09] LABS: Alanine Aminotransferase 182 U/L (12-78); Albumin Globulin Ratio 0.6 (0.9-2); Albumin Level 2.7 gm/dl (3.4-5.0); Alkaline Phosphatase 97 U/L (45-117); Aspartate Aminotransferase 131 U/L (15-37); BUN Creatinine Ratio 5.4 (10-20); Bilirubin,Total 0.8 mg/dl (0.2-1); Blood Urea Nitrogen 93 mg/dl (7-18); Calcium 7.7 mg/dl (8.5-10.1); Carbon Dioxide 27 mmol/L (21-32); Chloride 91 mmol/L (98-107); Est GFR (African American) 3.1 ml/min; Est GFR (Non-African American) 2.6 ml/min; Globulin 4.3 gm/dl (2.5-4.0); Glucose 232 mg/dl (70-99); Magnesium 3.7 mg/dl (1.8-2.4); Potassium 4.5 mmol/L (3.5-5.1); Sodium 137 mmol/L (136-145); Troponin I 0.031 ng/ml (0-0.045)
[2021-02-26] MEDS: propofoL 1,000 MG/100 ML VIAL IV SCH (20:09)
[2021-02-26] MEDS: fentaNYL DRIP 1,250 MCG/250 ML BAG IV SCH (20:10)
--- NOTE | 2021-02-26 20:10 | Emergency Department Note ---
Impression & Plan Cardiac arrest, Hypoglycemia, Renal failure, Respiratory failure, Acidosis ED Provider Note NAME: JUDY HUA AGE: 56 SEX: M : 1965 ARRIVES VIA: Ambulance INFORMANT: EMS ED PROVIDER(S): Uli Nguyen DO CHIEF COMPLAINT: Cardiac arrest HPI: The patient is a 56-year-old male who presented to the emergency department for an evaluation after suffering a cardiac arrest. History is obtained from the prehospital personnel. Apparently the patient was at home when he had an episode that was thought to be a cardiac arrest. The patient's significant other called 911. She was instructed on how to do CPR but it is unclear if she was able to do CPR for him. Upon arrival the prehospital personnel found the patient obtunded and combative. He had a seizure. He was found to have hypoglycemia. They could not get an IV line initially. The patient was treated with glucagon without improvement. He was given Ativan to try to help the patient relax so they could look for a better IV site. The patient was discussed with me at that time. They called back as the patient went into full cardiac arrest. He was intubated prior to arrival. An IO line was placed and the patient received D10. He also received multiple doses of epinephrine as well as bicarb. Upon arrival the patient was still in critical condition and had a pulse back. There was no precipitating event. According to the prehospital personnel the patient was not suffering with chest pain. He it was recently diagnosed with COVID-19 may been short of breath. The patient has a history of renal failure and is on dialysis but is unclear when his last dialysis treatment was. ROS: See above HPI for pertinent positives & negatives. A total of 10 systems reviewed and were otherwise negative. PAST MEDICAL HISTORY: See Below PAST SURGICAL HISTORY: See Below FAMILY HISTORY: See Below SOCIAL HISTORY: See Below HOME MEDICATIONS: See Below ALLERGIES: See Below VITALS: See Below PHYSICAL EXAMINATION: GENERAL: The patient is intubated and not answering any questions. He does not respond to painful or verbal stimuli. EYES: The conjunctivae are injected bilaterally. Pupils are dilated and minimally reactive to light. EARS, NOSE, MOUTH AND THROAT: The nose is without any evidence of any deformity. Endotracheal tube is in place. NECK: The neck is nontender and supple. RESPIRATORY: Shallow respirations were noted. There were rales noted throughout. CARDIOVASCULAR: Heart sounds were noted after return of circulation. There was no definite murmur. GASTROINTESTINAL: The abdomen is soft. Abdomen is nontender. MUSCULOSKELETAL/EXTREMITIES: There is no evidence of gross deformity full range of motion is noted in the hips and shoulders. SKIN: Skin was warm. Pedal edema was noted bilaterally. Dialysis fistula was noted in the left upper extremity. NEUROLOGIC: GCS 3 intubated. MEDICAL DECISION MAKING: The patient is a 56-year-old male who is a history of renal failure who presented to the emergency department after a cardiac arrest. The patient had an episode at his home where he became obtunded. 911 was called. Upon their arrival the patient was still obtunded and appeared to be having difficulty breathing. The patient was found to be hypoglycemic but they could not get IV access. The patient received glucagon. An IO line was placed. The patient pratibha t into full cardiac arrest. He was treated with ACLS protocol including epinephrine and bicarbonate. He arrived at the emergency department with return of circulation. He was treated with an epinephrine drip initially. He was treated with IV fluids and IV antibiotics. He was also treated with b icarbonate. The patient was reevaluated multiple times. He continued to have a pulse. A central line was placed. I discussed patient's laboratory and radiographic studies with the on-call [facility] hospitalist group as well as the [employer] cane [employer] equipment operator group. The patient is to be evaluated in the emergency department. He was thought to be a good candidate for hypothermia protocol. Triage Nursing notes reviewed. Prior medical records reviewed Vital Signs: reviewed and remarkable for bradycardia and elevated blood pressure. Differential diagnosis: Cardiac ischemia, aortic dissection, pulmonary embolism, electrolyte abnormality, acidosis, tension pneumothorax, hypothermia, hypovolemia, intracranial event, cardiac tamponade, as well as other pathologies. ER treatment provided: See below Diagnostics interpreted by me: ECG: EKG was obtained in the emergency department. My interpretation is sinus rhythm at 62 bpm. First-degree AV block is noted. There was an interventri cular conduction delay. This was compared to a tracing from February 222020. Changes appear new compared to the earlier tracing. A second EKG was obtained. This was interpreted by myself as sinus tachycardia 109 bpm. Right bundle branch block was noted. There were no PVCs. This was compared to a tracing from February 222020. The right bundle branch block is new compared to the earlier tracing. Cardiac Monitoring: An order was placed for continuous cardiac monitoring. The monitor shows a rate of 57 bpm with bradycardia rhythm. Laboratory studies: As stated above and show below. Imaging studies: See below Consultation(s): I discussed this case with Dr. Gr who is on-call for the [facility] hospitalist group. They will evaluate the patient in the emergency department. I discussed this case with Erick who is on for the sugar cane planting equipment operator group this evening. They will evaluate the patient in the emergency department. ED COURSE: Femoral Central Venous Catheter Indication: Cardiac arrest Catheter Type: Triple-lumen Location: Right femoral vein Verbal consent was obtained after the risks and benefits were explained, including but not limited to intra-abdominal injury, vessel injury, bleeding, scarring, infection, pain, and bone/joint/nerve damage. At this time, the risks of the procedure are less than the risks of NOT performing the procedure. A time out was taken and the correct patient and site identified. The patient was placed in the supine position and the skin was prepped in the standard fashion with chlorhexidine and full sterile drapes applied. The proper landmarks were identified with ultrasound, anesthetized with 1% lidocaine without epinephrine, and the needle was inserted through the skin in the standard fashion. The needle was carefully advanced into blood vessel lumen with ultrasound guidance. The guidewire was placed uneventfully. The vessel is dilated and the catheter was placed. It was sutured into position. There was good blood return from all ports. The patient tolerated the procedure well and there were no complications. Critical Care: I have personally spent greater than 50 minutes of critical care time in the direct management of this patient. This includes bedside care, interpretation of diagnostic studies, and testing, discussion with consultants, patient, and family members, and other required patient management activities. This 50 minutes is in excess of all separately billable procedures. Past Med/Surg History Medical History Anxiety Aortic valve disease Aortic sclerosis bordering on mild stenosis (CORNEL 1.3 cm, Mean gradient 8.8 mmHg) per 06/28/19 echo Chronic back pain Chronic constipation Chronic kidney disease follows with Dr. Armstrong Diabetes mellitus, type 2 since age 20, IDDM- glucose relatively stable per patient - glucose this AM (05/22/20) was 156 Diabetic foot ulcer right 5th metatarsal and heel; left heel Diabetic nephropathy Diabetic retinopathy DVT (deep venous thrombosis) Dx'ed 04/07/20- to right UE- on [place] End-stage renal disease on hemodialysis M-W-F dialysis ([facility]) Hyperlipidemia Hypertension No medications- pt denies- states actually hypotensive Hypothyroidism Osteoarthritis Surgical History Fistula LUE (WITH REVISION ) History of anesthesia reaction BP DROPS "USUALLY" History of appendectomy History of cholecystectomy History of colonoscopy History of esophagogastroduodenoscopy (EGD) History of vascular access device permacath-inserted and removed History of vascular access device rt upper chest (blood clot formed/unable to use but still intact) Hx of eye surgery 5 eye surgeries 3 ON LEFT/2 ON RT Family History Father Diabetes Other Cancer Gallbladder disease Hypertension Lung disease No family history of adverse response to anesthesia Social History Smoking Status: Unknown if ever smoked Second Hand Exposure: No; Hx Alcohol Use: No Hx Substance Use: No Preferred Language: [place] Communication Ability: Effective Visual Impairment: No Limitations Automotive Salesperson Required: No Beliefs That Will Affect Care: None marital status: Current Living Situation: Spouse current occupational status: disabled Feels Safe at Home: Yes Assistive Devices: Cane Allergies Allergies Allergy/AdvReac Type Severity Reaction Status Date / Time house dust Allergy Mild Nasal Verified 02/26/21 19:33 congestion pollen extracts Allergy Mild nasal Verified 02/26/21 19:33 congestion Home Meds Home Medications Medication Instructions Recorded Confirmed aspirin 81 mg chewable tablet 81 mg PO QAM 04/13/18 02/26/21 atorvastatin 10 mg tablet (Lipitor) 10 mg PO HS 04/13/18 02/26/21 azelastine 205.5 mcg (0.15 %) 1 spray INTRANASAL BID 04/13/18 02/26/21 nasal spray gabapentin 300 mg capsule 600 mg PO HS 04/13/18 02/26/21 levothyroxine 150 mcg tablet 150 mcg PO QAM 04/13/18 02/26/21 (Synthroid) mv,Hi-cpi-[id number]-zrm-pgny 1 tab PO QPM 04/13/18 02/26/21 oil 400 mcg-500 unit capsule (ProRenal QD) omega 2-xbe-swb-fish oil 1,000 mg 1 tab PO BID 04/13/18 02/26/21 (120 mg-180 mg) capsule (Fish Oil) peg 400-propylene glycol (PF) 0.4 1 drp OPHTHALMIC (EYE) BID PRN 04/13/18 02/26/21 %-0.3 % eye drops in a dropperette (Systane (PF)) testosterone cypionate 200 mg/mL 200 mg SUBCUT .2XWK 04/13/18 02/26/21 intramuscular kit acetaminophen 500 mg tablet 1,000 mg PO Q6H PRN 06/12/18 02/26/21 (Tylenol Extra Strength) sucroferric oxyhydroxide 500 mg 500 mg PO TID 04/30/19 02/26/21 chewable tablet (Velphoro) alprazolam 1 mg tablet (Xanax) 1 mg PO TID PRN 03/10/20 02/26/21 bisacodyl 5 mg tablet,delayed 5 mg PO 4XWK 03/24/20 02/26/21 release (Dulcolax (bisacodyl)) diclofenac sodium 0.1 % eye drops 1 drp OPHTHALMIC (EYE) TID 03/24/20 02/26/21 lactulose 10 gram/15 mL oral 10 g PO 4XWK 03/24/20 02/26/21 solution linaclotide 290 mcg capsule 870 mcg PO 4XWK 03/24/20 02/26/21 (Linzess) docusate sodium 100 mg capsule 100 mg PO DAILY PRN 04/07/20 02/26/21 (Stool Softener) ascorbic acid (vitamin C) 1,000 mg 1 g PO DAILY 12/03/20 02/26/21 tablet (Vitamin C) cholecalciferol (vitamin D3) 125 125 mcg PO DAILY 12/03/20 02/26/21 mcg (5,000 unit) tablet (Vitamin D3) fjhblgls-hax-qvqbu acid 0.4 1 tab PO DAILY 12/03/20 02/26/21 mg-lycopene 300 mcg-lutein 250 mcg tablet (Centrum Silver) insulin aspart U-100 100 unit/mL 0 unit SUBCUT BID 02/22/21 02/26/21 (3 mL) subcutaneous pen (Novolog Flexpen U-100 Insulin aspart) cinacalcet 90 mg tablet 90 mg PO DAILY 02/26/21 02/26/21 Previous Rx's Medication Instructions Recorded apixaban 5 mg tablet (Eliquis) 5 mg PO Q12H #74 tab 04/07/20 Accu-Chek Guide test strips (blood #400 ea NS 04/30/20 sugar diagnostic) lancets (Accu-Chek Fastclix Lancet #400 ea 04/30/20 Drum) blood-glucose meter (Accu-Chek #1 ea 05/04/20 Guide Me Glucose Mtr) pen needle, diabetic 29 gauge x #400 ea 05/04/20 1/2" (BD Ultra-Fine Original Pen Needle) OneTouch Ultra2 Meter #1 ea NS 05/26/20 (blood-glucose meter) insulin degludec 100 unit/mL (3 80 unit SUBCUT BID #150 ml MDD 160 09/30/20 mL) subcutaneous pen (Tresiba units FlexTouch U-100 insulin) azithromycin 250 mg tablet 250 mg PO QAM #3 tab 02/24/21 dexamethasone 6 mg tablet 6 mg PO DAILY #7 tab 02/24/21 guaifenesin 600 mg tablet, 1,200 mg PO Q12 #20 tab 02/24/21 extended release 12 hr (Mucinex) Results & Data (ED) Vital Signs Vital Signs - 24 hr 02/26/21 19:00 02/26/21 19:11 02/26/21 19:16 Temperature Temperature Source Pulse Rate 153 H 119 H Pulse Rate [Right Finger] Pulse Rate from SpO2 Sensor 153 H 119 H Respiratory Rate Respiratory Effort / Characteristics Mechanically Ventilated Blood Pressure 155/87 H 157/77 H Blood Pressure [Right Radial Artery] Blood Pressure Mean 109 103 Blood Pressure Mean [Right Radial Artery] Pulse Oximetry 83 L 89 L Oxygen Delivery Method Fraction of Inspired Oxygen Sepsis Recent Fever Within 48 Hours Yes Sepsis New/Unexplained Change in Mental Status Yes Sepsis Action Taken by Nursing No Action Required End-Tidal CO2 02/26/21 19:21 02/26/21 19:25 02/26/21 19:32 Temperature Temperature Source Pulse Rate 93 H 82 Pulse Rate [Right Finger] Pulse Rate from SpO2 Sensor 93 H 88 83 Respiratory Rate Respiratory Effort / Characteristics Blood Pressure 134/43 L 128/65 Blood Pressure [Right Radial Artery] Blood Pressure Mean 73 86 Blood Pressure Mean [Right Radial Artery] Pulse Oximetry 97 88 L 99 Oxygen Delivery Method Fraction of Inspired Oxygen Sepsis Recent Fever Within 48 Hours Sepsis New/Unexplained Change in Mental Status Sepsis Action Taken by Nursing End-Tidal CO2 71 62 02/26/21 19:35 02/26/21 19:40 02/26/21 19:45 Temperature Temperature Source Pulse Rate 88 96 H 96 H Pulse Rate [Right Finger] Pulse Rate from SpO2 Sensor 86 96 H 96 H Respiratory Rate Respiratory Effort / Characteristics Blood Pressure 166/77 H 133/80 Blood Pressure [Right Radial Artery] Blood Pressure Mean 106 97 Blood Pressure Mean [Right Radial Artery] Pulse Oximetry 99 99 98 Oxygen Delivery Method Fraction of Inspired Oxygen Sepsis Recent Fever Within 48 Hours Sepsis New/Unexplained Change in Mental Status Sepsis Action Taken by Nursing End-Tidal CO2 65 45 31 02/26/21 19:47 02/26/21 19:50 02/26/21 19:55 Temperature Temperature Source Pulse Rate 92 H 86 Pulse Rate [Right Finger] Pulse Rate from SpO2 Sensor 92 H 87 Respiratory Rate 28 H Respiratory Effort / Characteristics Blood Pressure 126/61 110/71 Blood Pressure [Right Radial Artery] Blood Pressure Mean 82 84 Blood Pressure Mean [Right Radial Artery] Pulse Oximetry 98 98 Oxygen Delivery Method Fraction of Inspired Oxygen 100 Sepsis Recent Fever Within 48 Hours Sepsis New/Unexplained Change in Mental Status Sepsis Action Taken by Nursing End-Tidal CO2 39 39 02/26/21 20:00 02/26/21 20:06 02/26/21 20:11 Temperature Temperature Source Pulse Rate 79 79 76 Pulse Rate [Right Finger] Pulse Rate from SpO2 Sensor 83 79 78 Respiratory Rate Respiratory Effort / Characteristics Blood Pressure 103/69 107/50 L 95/48 L Blood Pressure [Right Radial Artery] Blood Pressure Mean 80 69 63 Blood Pressure Mean [Right Radial Artery] Pulse Oximetry 94 98 99 Oxygen Delivery Method Fraction of Inspired Oxygen Sepsis Recent Fever Within 48 Hours Sepsis New/Unexplained Change in Mental Status Sepsis Action Taken by Nursing End-Tidal CO2 50 37 35 02/26/21 20:23 02/26/21 20:25 02/26/21 20:31 Temperature 15.9 C L 35.0 C L Temperature Source Pulse Rate 73 74 72 Pulse Rate [Right Finger] Pulse Rate from SpO2 Sensor 73 73 72 Respiratory Rate Respiratory Effort / Characteristics Blood Pressure 97/32 L 93/31 L 88/31 L Blood Pressure [Right Radial Artery] Blood Pressure Mean 53 51 50 Blood Pressure Mean [Right Radial Artery] Pulse Oximetry 94 95 91 Oxygen Delivery Method Fraction of Inspired Oxygen Sepsis Recent Fever Within 48 Hours Sepsis New/Unexplained Change in Mental Status Sepsis Action Taken by Nursing End-Tidal CO2 33 33 33 02/26/21 20:32 02/26/21 20:34 02/26/21 20:41 Temperature 35.6 C L 35 C L Temperature Source Rectal Pulse Rate 70 Pulse Rate [Right Finger] Pulse Rate from SpO2 Sensor 70 Respiratory Rate 28 H Respiratory Effort / Characteristics Blood Pressure 86/40 L Blood Pressure [Right Radial Artery] Blood Pressure Mean 55 Blood Pressure Mean [Right Radial Artery] Pulse Oximetry 93 Oxygen Delivery Method Fraction of Inspired Oxygen 50 Sepsis Recent Fever Within 48 Hours Sepsis New/Unexplained Change in Mental Status Sepsis Action Taken by Nursing End-Tidal CO2 33 02/26/21 20:50 02/26/21 21:00 02/26/21 21:15 Temperature Temperature Source Pulse Rate 70 69 68 Pulse Rate [Right Finger] Pulse Rate from SpO2 Sensor 70 69 69 Respiratory Rate Respiratory Effort / Characteristics Blood Pressure 85/38 L 91/34 L 84/42 L Blood Pressure [Right Radial Artery] Blood Pressure Mean 53 53 56 Blood Pressure Mean [Right Radial Artery] Pulse Oximetry 92 94 94 Oxygen Delivery Method Fraction of Inspired Oxygen Sepsis Recent Fever Within 48 Hours Sepsis New/Unexplained Change in Mental Status Sepsis Action Taken by Nursing End-Tidal CO2 36 33 40 02/26/21 21:31 02/26/21 22:29 Temperature Temperature Source Pulse Rate 57 L Pulse Rate [Right Finger] 57 L Pulse Rate from SpO2 Sensor 58 L Respiratory Rate 28 H Respiratory Effort / Characteristics Blood Pressure 144/71 H Blood Pressure [Right Radial Artery] 160/73 H Blood Pressure Mean 95 Blood Pressure Mean [Right Radial Artery] 102 Pulse Oximetry 91 93 Oxygen Delivery Method Mechanical Vent Fraction of Inspired Oxygen Sepsis Recent Fever Within 48 Hours Sepsis New/Unexplained Change in Mental Status Sepsis Action Taken by Nursing End-Tidal CO2 35 Home Medications Current Medication List: was personally reviewed by me Laboratory Data Attestation: I reviewed the patient's lab results. Result diagrams: 02/26/21 19:14 02/26/21 19:14 Lab Results 02/26/21 02/26/21 02/26/21 Range/Units 19:14 19:14 19:14 WBC 17.09 H (4.8-10.8) K/uL RBC 5.69 (4.7-6.1) M/uL Hgb 16.8 (14.0-18.0) g/dL POC Hgb (14.0-18.0) g/dl Hct 54.2 H (42-52) % POC Hct (42-52) % MCV 95.3 (80-100) fL MCH 29.5 (25-34) pg MCHC 31.0 L (32-36) g/dL RDW Std Deviation 68.6 H (36.4-46.3) fL RDW Coeff of Tim 19.8 H (11.5-14.5) % Plt Count 418 H (130-400) K/uL MPV 10.5 H (7.4-10.4) fL Absolute Nucleated RBC 0.16 H (0-0) K/uL Nucleated RBC % (auto) 0.9 % Neutrophils % (Manual) 76.0 % Lymphocytes % (Manual) 15.0 % Monocytes % (Manual) 9.0 % Neutrophils # (Manual) 12.99 H (1.4-6.5) K/uL Total Absolute Neuts 12.99 H (1.4-6.5) K/uL Lymphocytes # (Manual) 2.56 (1.2-3.4) K/uL Total Abs Lymphocytes 2.56 (1.2-3.4) K/uL Monocytes # (Manual) 1.54 H (0.11-0.59) K/uL Polychromasia 1+ PT 12.2 H (9.0-12.0) Seconds INR 1.2 H (0.9-1.1) APTT 31.8 H (21.0-31.0) Seconds PTT Ratio 1.2 POC pH (7.35-7.45) POC pCO2 (35-46) mmHg POC pO2 (80-95) mmHg POC HCO3 (19-24) yue/L POC Total CO2 (24-31) mmol/L POC Base Excess (-9-1.8) yue/L POC ABG O2 Sat (90-95) % VBG pH (7.36-7.41) VBG pCO2 (38-50) mmHg VBG pO2 mmHg VBG HCO3 mmol/L VBG O2 Saturation % VBG Base Excess mEq/L Barometric Pressure mm/Hg POC Sodium (135-144) mmol/L Sodium 137 (136-145) mmol/L POC Potassium (3.3-5.0) mmol/L Potassium 4.5 (3.5-5.1) mmol/L Chloride 91 L (98-107) mmol/L Carbon Dioxide 27 (21-32) mmol/L Anion Gap 18.0 H (3-11) BUN 93 H (7-18) mg/dl Creatinine 17.40 H* (0.6-1.4) mg/dl Est Cr Clr Drug Dosing Not Reportable Est GFR ( Amer) 3.1 ml/min Est GFR (Non-Af Amer) 2.6 ml/min BUN/Creatinine Ratio 5.4 L (10-20) Glucose 232 H (70-99) mg/dl POC Glucose (70-99) mg/dl Lactate Calcium 7.7 L (8.5-10.1) mg/dl Magnesium 3.7 H (1.8-2.4) mg/dl Total Bilirubin 0.8 (0.2-1) mg/dl AST 131 H (15-37) U/L ALT 182 H (12-78) U/L Alkaline Phosphatase 97 (45-117) U/L Troponin I 0.031 (0-0.045) ng/ml Total Protein 7.0 (6.4-8.2) gm/dl Albumin 2.7 L (3.4-5.0) gm/dl Globulin 4.3 H (2.5-4.0) gm/dl Albumin/Globulin Ratio 0.6 L (0.9-2) Procalcitonin (0-0.5) ng/ml Adenovirus (PCR) (NotDetected) B. pertussis DNA (PCR) (NotDetected) B.parapertussis DNA PCR (NotDetected) C. pneumoniae DNA (PCR) (NotDetected) Coronavirus OC43 (PCR) (NotDetected) Coronavirus HKU1 (PCR) (NotDetected) Coronavirus 229E (PCR) (NotDetected) COVID-19 Eval Order SARS-CoV-2 (PCR) (NotDetected) Coronavirus NL63 (PCR) (NotDetected) Human Metapneumovir PCR (NotDetected) Influenza Type A (PCR) (NotDetected) Influenza Type B (PCR) (NotDetected) M. pneumoniae (PCR) (NotDetected) Parainfluenza 1 (PCR) (NotDetected) Parainfluenza 2 (PCR) (NotDetected) Parainfluenza 3 (PCR) (NotDetected) Parainfluenza 4 (PCR) (NotDetected) RSV (PCR) (NotDetected) Entero/Rhino (PCR) (NotDetected) 02/26/21 02/26/21 02/26/21 Range/Units 19:14 19:14 19:14 WBC (4.8-10.8) K/uL RBC (4.7-6.1) M/uL Hgb (14.0-18.0) g/dL POC Hgb (14.0-18.0) g/dl Hct (42-52) % POC Hct (42-52) % MCV (80-100) fL MCH (25-34) pg MCHC (32-36) g/dL RDW Std Deviation (36.4-46.3) fL RDW Coeff of Tim (11.5-14.5) % Plt Count (130-400) K/uL MPV (7.4-10.4) fL Absolute Nucleated RBC (0-0) K/uL Nucleated RBC % (auto) % Neutrophils % (Manual) % Lymphocytes % (Manual) % Monocytes % (Manual) % Neutrophils # (Manual) (1.4-6.5) K/uL Total Absolute Neuts (1.4-6.5) K/uL Lymphocytes # (Manual) (1.2-3.4) K/uL Total Abs Lymphocytes (1.2-3.4) K/uL Monocytes # (Manual) (0.11-0.59) K/uL Polychromasia PT (9.0-12.0) Seconds INR (0.9-1.1) APTT (21.0-31.0) Seconds PTT Ratio POC pH (7.35-7.45) POC pCO2 (35-46) mmHg POC pO2 (80-95) mmHg POC HCO3 (19-24) yue/L POC Total CO2 (24-31) mmol/L POC Base Excess (-9-1.8) yue/L POC ABG O2 Sat (90-95) % VBG pH 6.87 L (7.36-7.41) VBG pCO2 150 H (38-50) mmHg VBG pO2 47 mmHg VBG HCO3 27 mmol/L VBG O2 Saturation < 60.0 % VBG Base Excess -11.9 mEq/L Barometric Pressure 733.4 mm/Hg POC Sodium (135-144) mmol/L Sodium (136-145) mmol/L POC Potassium (3.3-5.0) mmol/L Potassium (3.5-5.1) mmol/L Chloride (98-107) mmol/L Carbon Dioxide (21-32) mmol/L Anion Gap (3-11) BUN (7-18) mg/dl Creatinine (0.6-1.4) mg/dl Est Cr Clr Drug Dosing Est GFR ( Amer) ml/min Est GFR (Non-Af Amer) ml/min BUN/Creatinine Ratio (10-20) Glucose (70-99) mg/dl POC Glucose (70-99) mg/dl Lactate Cancelled Calcium (8.5-10.1) mg/dl Magnesium (1.8-2.4) mg/dl Total Bilirubin (0.2-1) mg/dl AST (15-37) U/L ALT (12-78) U/L Alkaline Phosphatase (45-117) U/L Troponin I (0-0.045) ng/ml Total Protein (6.4-8.2) gm/dl Albumin (3.4-5.0) gm/dl Globulin (2.5-4.0) gm/dl Albumin/Globulin Ratio (0.9-2) Procalcitonin 0.54 H (0-0.5) ng/ml Adenovirus (PCR) (NotDetected) B. pertussis DNA (PCR) (NotDetected) B.parapertussis DNA PCR (NotDetected) C. pneumoniae DNA (PCR) (NotDetected) Coronavirus OC43 (PCR) (NotDetected) Coronavirus HKU1 (PCR) (NotDetected) Coronavirus 229E (PCR) (NotDetected) COVID-19 Eval Order SARS-CoV-2 (PCR) (NotDetected) Coronavirus NL63 (PCR) (NotDetected) Human Metapneumovir PCR (NotDetected) Influenza Type A (PCR) (NotDetected) Influenza Type B (PCR) (NotDetected) M. pneumoniae (PCR) (NotDetected) Parainfluenza 1 (PCR) (NotDetected) Parainfluenza 2 (PCR) (NotDetected) Parainfluenza 3 (PCR) (NotDetected) Parainfluenza 4 (PCR) (NotDetected) RSV (PCR) (NotDetected) Entero/Rhino (PCR) (NotDetected) 02/26/21 02/26/21 02/26/21 Range/Units 19:19 19:31 19:31 WBC (4.8-10.8) K/uL RBC (4.7-6.1) M/uL Hgb (14.0-18.0) g/dL POC Hgb (14.0-18.0) g/dl Hct (42-52) % POC Hct (42-52) % MCV (80-100) fL MCH (25-34) pg MCHC (32-36) g/dL RDW Std Deviation (36.4-46.3) fL RDW Coeff of Tim (11.5-14.5) % Plt Count (130-400) K/uL MPV (7.4-10.4) fL Absolute Nucleated RBC (0-0) K/uL Nucleated RBC % (auto) % Neutrophils % (Manual) % Lymphocytes % (Manual) % Monocytes % (Manual) % Neutrophils # (Manual) (1.4-6.5) K/uL Total Absolute Neuts (1.4-6.5) K/uL Lymphocytes # (Manual) (1.2-3.4) K/uL Total Abs Lymphocytes (1.2-3.4) K/uL Monocytes # (Manual) (0.11-0.59) K/uL Polychromasia PT (9.0-12.0) Seconds INR (0.9-1.1) APTT (21.0-31.0) Seconds PTT Ratio POC pH (7.35-7.45) POC pCO2 (35-46) mmHg POC pO2 (80-95) mmHg POC HCO3 (19-24) yue/L POC Total CO2 (24-31) mmol/L POC Base Excess (-9-1.8) yue/L POC ABG O2 Sat (90-95) % VBG pH (7.36-7.41) VBG pCO2 (38-50) mmHg VBG pO2 mmHg VBG HCO3 mmol/L VBG O2 Saturation % VBG Base Excess mEq/L Barometric Pressure mm/Hg POC Sodium (135-144) mmol/L Sodium (136-145) mmol/L POC Potassium (3.3-5.0) mmol/L Potassium (3.5-5.1) mmol/L Chloride (98-107) mmol/L Carbon Dioxide (21-32) mmol/L Anion Gap (3-11) BUN (7-18) mg/dl Creatinine (0.6-1.4) mg/dl Est Cr Clr Drug Dosing Est GFR ( Amer) ml/min Est GFR (Non-Af Amer) ml/min BUN/Creatinine Ratio (10-20) Glucose (70-99) mg/dl POC Glucose 235 H (70-99) mg/dl Lactate Calcium (8.5-10.1) mg/dl Magnesium (1.8-2.4) mg/dl Total Bilirubin (0.2-1) mg/dl AST (15-37) U/L ALT (12-78) U/L Alkaline Phosphatase (45-117) U/L Troponin I (0-0.045) ng/ml Total Protein (6.4-8.2) gm/dl Albumin (3.4-5.0) gm/dl Globulin (2.5-4.0) gm/dl Albumin/Globulin Ratio (0.9-2) Procalcitonin (0-0.5) ng/ml Adenovirus (PCR) Not Detected (NotDetected) B. pertussis DNA (PCR) Not Detected (NotDetected) B.parapertussis DNA PCR Not Detected (NotDetected) C. pneumoniae DNA (PCR) Not Detected (NotDetected) Coronavirus OC43 (PCR) Not Detected (NotDetected) Coronavirus HKU1 (PCR) Not Detected (NotDetected) Coronavirus 229E (PCR) Not Detected (NotDetected) COVID-19 Eval Order [facility]PNP at [facility] SARS-CoV-2 (PCR) DETECTED A* (NotDetected) Coronavirus NL63 (PCR) Not Detected (NotDetected) Human Metapneumovir PCR Not Detected (NotDetected) Influenza Type A (PCR) Not Detected (NotDetected) Influenza Type B (PCR) Not Detected (NotDetected) M. pneumoniae (PCR) Not Detected (NotDetected) Parainfluenza 1 (PCR) Not Detected (NotDetected) Parainfluenza 2 (PCR) Not Detected (NotDetected) Parainfluenza 3 (PCR) Not Detected (NotDetected) Parainfluenza 4 (PCR) Not Detected (NotDetected) RSV (PCR) Not Detected (NotDetected) Entero/Rhino (PCR) Not Detected (NotDetected) 02/26/21 02/26/21 02/26/21 Range/Units 19:39 20:25 22:35 WBC (4.8-10.8) K/uL RBC (4.7-6.1) M/uL Hgb (14.0-18.0) g/dL POC Hgb 19.7 H 18.4 H (14.0-18.0) g/dl Hct (42-52) % POC Hct 58 H 54 H (42-52) % MCV (80-100) fL MCH (25-34) pg MCHC (32-36) g/dL RDW Std Deviation (36.4-46.3) fL RDW Coeff of Tim (11.5-14.5) % Plt Count (130-400) K/uL MPV (7.4-10.4) fL Absolute Nucleated RBC (0-0) K/uL Nucleated RBC % (auto) % Neutrophils % (Manual) % Lymphocytes % (Manual) % Monocytes % (Manual) % Neutrophils # (Manual) (1.4-6.5) K/uL Total Absolute Neuts (1.4-6.5) K/uL Lymphocytes # (Manual) (1.2-3.4) K/uL Total Abs Lymphocytes (1.2-3.4) K/uL Monocytes # (Manual) (0.11-0.59) K/uL Polychromasia PT (9.0-12.0) Seconds INR (0.9-1.1) APTT (21.0-31.0) Seconds PTT Ratio POC pH 6.99 L* 7.22 L (7.35-7.45) POC pCO2 90 H 45 (35-46) mmHg POC pO2 262 H 113 H (80-95) mmHg POC HCO3 22 18 L (19-24) yue/L POC Total CO2 25 20 L (24-31) mmol/L POC Base Excess -9.0 -9.0 (-9-1.8) yue/L POC ABG O2 Sat 100.0 H 97.0 H (90-95) % VBG pH (7.36-7.41) VBG pCO2 (38-50) mmHg VBG pO2 mmHg VBG HCO3 mmol/L VBG O2 Saturation % VBG Base Excess mEq/L Barometric Pressure mm/Hg POC Sodium 134 L 131 L (135-144) mmol/L Sodium (136-145) mmol/L POC Potassium 5.9 H 5.9 H (3.3-5.0) mmol/L Potassium (3.5-5.1) mmol/L Chloride (98-107) mmol/L Carbon Dioxide (21-32) mmol/L Anion Gap (3-11) BUN (7-18) mg/dl Creatinine (0.6-1.4) mg/dl Est Cr Clr Drug Dosing Est GFR ( Amer) ml/min Est GFR (Non-Af Amer) ml/min BUN/Creatinine Ratio (10-20) Glucose (70-99) mg/dl POC Glucose 138 H (70-99) mg/dl Lactate Calcium (8.5-10.1) mg/dl Magnesium (1.8-2.4) mg/dl Total Bilirubin (0.2-1) mg/dl AST (15-37) U/L ALT (12-78) U/L Alkaline Phosphatase (45-117) U/L Troponin I (0-0.045) ng/ml Total Protein (6.4-8.2) gm/dl Albumin (3.4-5.0) gm/dl Globulin (2.5-4.0) gm/dl Albumin/Globulin Ratio (0.9-2) Procalcitonin (0-0.5) ng/ml Adenovirus (PCR) (NotDetected) B. pertussis DNA (PCR) (NotDetected) B.parapertussis DNA PCR (NotDetected) C. pneumoniae DNA (PCR) (NotDetected) Coronavirus OC43 (PCR) (NotDetected) Coronavirus HKU1 (PCR) (NotDetected) Coronavirus 229E (PCR) (NotDetected) COVID-19 Eval Order SARS-CoV-2 (PCR) (NotDetected) Coronavirus NL63 (PCR) (NotDetected) Human Metapneumovir PCR (NotDetected) Influenza Type A (PCR) (NotDetected) Influenza Type B (PCR) (NotDetected) M. pneumoniae (PCR) (NotDetected) Parainfluenza 1 (PCR) (NotDetected) Parainfluenza 2 (PCR) (NotDetected) Parainfluenza 3 (PCR) (NotDetected) Parainfluenza 4 (PCR) (NotDetected) RSV (PCR) (NotDetected) Entero/Rhino (PCR) (NotDetected) Administered Medications Epinephrine HCl () 4 mg in 254 mls @ 14.318 mls/hr IV .[id number] [facility]; Protocol Stop: 03/28/21 19:29 Last Titration: 02/26/21 19:38 Dose: 0 mcg/kg/min, 0 mls/hr Documented by: [id number] Admin: 02/26/21 19:10 Dose: 0.02 mcg/kg/min, 14.3 mls/hr Documented by: [id number] Cosigned by: [id number] Fentanyl Citrate (Fentanyl Drip) 1,250 mcg in 250 mls @ 10 mls/hr IV .Q25H [facility]; Protocol Stop: 03/12/21 19:59 Last Titration: 02/26/21 21:57 Dose: 100 mcg/hr, 20 mls/hr Documented by: [id number] Cosigned by: [id number] Titration: 02/26/21 21:08 Dose: 50 mcg/hr, 10 mls/hr Documented by: [id number] Cosigned by: [id number] Admin: 02/26/21 20:10 Dose: 25 mcg/hr, 5 mls/hr Documented by: [id number] Cosigned by: [id number] Propofol (Diprivan) 1,000 mg in 100 mls @ 11.274 mls/hr IV .[id number] [facility]; Protocol Stop: 03/01/21 20:14 Last Titration: 02/26/21 21:02 Dose: 10 mcg/kg/min, 11.3 mls/hr Documented by: [id number] Titration: 02/26/21 20:51 Dose: 15 mcg/kg/min, 16.9 mls/hr Documented by: [id number] Titration: 02/26/21 20:44 Dose: 20 mcg/kg/min, 22.5 mls/hr Documented by: [id number] Titration: 02/26/21 20:34 Dose: 25 mcg/kg/min, 28.2 mls/hr Documented by: [id number] Admin: 02/26/21 20:09 Dose: 30 mcg/kg/min, 33.8 mls/hr Documented by: [id number] Cosigned by: [id number] Norepinephrine Bitartrate (Levophed/D5w) 8 mg in 508 mls @ 35.795 mls/hr IV .[id number] [facility]; Protocol Stop: 03/28/21 21:14 Last Admin: 02/26/21 21:17 Dose: 0.05 mcg/kg/min, 35.8 mls/hr Documented by: [id number] Cosigned by: [id number] Discontinued Medications Dexamethasone Sodium Phosphate (DexamethasonePf 10 Mg/Ml Vial) 10 mg IV NOW ONE Stop: 02/26/21 20:02 Last Admin: 02/26/21 20:16 Dose: 10 mg Documented by: [id number] Piperacillin Sod/Tazobactam Sod (Zosyn) 4.5 gm in 120 mls @ 240 mls/hr IV NOW ONE Stop: 02/26/21 19:52 Last Infusion: 02/26/21 20:31 Dose: 0 mls/hr Documented by: [id number] Admin: 02/26/21 20:01 Dose: 240 mls/hr Documented by: [id number] Miscellaneous (Stat Iv Infusion Titration Per Protocol) 1 ea N/A NOW STA Stop: 02/26/21 19:24 Last Admin: 02/26/21 22:04 Dose: Not Given Documented by: [id number] Miscellaneous (Stat Iv Infusion Titration Per Protocol) 1 ea N/A NOW STA Stop: 02/26/21 19:58 Last Admin: 02/26/21 22:04 Dose: Not Given Documented by: [id number] Miscellaneous (Stat Iv Infusion Titration Per Protocol) 1 ea N/A NOW STA Stop: 02/26/21 20:08 Last Admin: 02/26/21 22:04 Dose: Not Given Documented by: [id number] Propofol (Propofol Iv Emulsion 10 Mg/Ml 100 Ml Vial) Confirm Administered Dose 1,000 mg IV .STK-MED ONE Stop: 02/26/21 19:42 Last Admin: 02/26/21 20:11 Dose: Not Given Documented by: [id number] Imaging Data Radiologist's Impression: Chest X-Ray 02/26/21 19:02 XR chest 1V portable HISTORY: SEPSIS COMPARISON: Chest 02/22/2021. FINDINGS: Interval progression of the multifocal bilateral airspace opacities consistent with a viral pneumonia. The heart remains mildly enlarged. No pneumothorax. No pleural effusions. Endotracheal tube terminates approximately 4.5 cm from the julio césar. IMPRESSION: 1. Interval progression of the multifocal bilateral airspace opacities consistent with a viral pneumonia. 2. Endotracheal tube terminates 4.5 cm from the julio césar. ACT 112: Negative or not required by law. Electronically signed by: Nitin Epps M.D. 02/26/2021 7:43 PM Discharge Plan Visit Data Chief Complaint: Cardiac Arrest/CPR Stated Complaint: CARDIAC ARREST ED Provider: Uli Nguyen Discharge Problem: Cardiac arrest, Hypoglycemia, Renal failure, Respiratory failure, Acidosis Patient Disposition: Being Evaluated by Hospitalist Condition: Critical Forms Stand Alone Forms: [facility] [email or web address] Prescriptions Prescriptions: No Action (DME) Accu-Chek Guide test strips Strip See Rx Instructions .ROUTE .MEDSUPPLY Qty: 400 RF: 3 (DME) lancets [Accu-Chek Fastclix Lancet Drum] Misc See Rx Instructions .ROUTE .MEDSUPPLY Qty: 400 RF: 3 (DME) pen needle, diabetic [BD Ultra-Fine Orig Pen Needle] 29 gauge x 1/2" needle See Rx Instructions .ROUTE .MEDSUPPLY Qty: 400 RF: 3 (DME) blood-glucose meter [Accu-Chek Guide Me Glucose Mtr] Misc See Rx Instructions .ROUTE .MEDSUPPLY Qty: 1 RF: 0 (DME) blood-glucose meter [OneTouch Ultra2 Meter] Misc See Rx Instructions .ROUTE .MEDSUPPLY Qty: 1 RF: 0 Tresiba FlexTouch U-100 100 unit/mL (3 mL) insulin pen 80 unit SUBCUT BID MDD 160 units Qty: 150 RF: 3 Velphoro 500 mg tablet,chewable 500 mg PO TID RF: 0 atorvastatin [Lipitor] 10 mg Tablet 10 mg PO HS RF: 0 levothyroxine [Synthroid] 150 mcg Tablet 150 mcg PO QAM RF: 0 gabapentin 300 mg Capsule 600 mg PO HS RF: 0 aspirin 81 mg Tablet,Chewable 81 mg PO QAM RF: 0 Systane (PF) 0.4-0.3 % Dropperette 1 drp OPHTHALMIC (EYE) BID PRN (Reason: Dry Eye(S)) RF: 0 azelastine 0.15 % (205.5 mcg) Mayer,Non-Aerosol 1 spray INTRANASAL BID RF: 0 omega 1-rmu-ayy-fish oil [Fish Oil] 1,000 mg (120 mg-180 mg) Capsule 1 tab PO BID RF: 0 ProRenal QD 400-500 mcg-unit Capsule 1 tab PO QPM RF: 0 testosterone cypionate 200 mg/mL Kit 200 mg subcut .2XWK RF: 0 alprazolam [Xanax] 1 mg tablet 1 mg PO TID PRN (Reason: Anxiety) RF: 0 acetaminophen [Tylenol Extra Strength] 500 mg Tablet 1,000 mg PO Q6H PRN (Reason: Pain) RF: 0 diclofenac sodium 0.1 % Drops 1 drp OPHTHALMIC (EYE) TID RF: 0 Linzess 290 mcg Capsule 870 mcg PO 4XWK RF: 0 bisacodyl [Dulcolax (bisacodyl)] 5 mg Tablet,Delayed Release (Dr/Ec) 5 mg PO 4XWK RF: 0 lactulose 10 gram/15 mL Solution 10 g PO 4XWK RF: 0 docusate sodium [Stool Softener] 100 mg Capsule 100 mg PO DAILY PRN (Reason: Constipation) RF: 0 Eliquis 5 mg tablet 5 mg PO Q12H Qty: 74 RF: 0 insulin aspart U-100 [Novolog Flexpen U-100 Insulin] 100 unit/mL (3 mL) insu bryanna pen 0 unit subcut BID RF: 0 guaifenesin [Mucinex] 600 mg Tablet Extended Release 12hr 1,200 mg PO Q12 Qty: 20 RF: 0 dexamethasone 6 mg tablet 6 mg PO DAILY Qty: 7 RF: 0 azithromycin 250 mg Tablet 250 mg PO QAM Qty: 3 RF: 0 ascorbic acid (vitamin C) [Vitamin C] 1,000 mg Tablet 1 g PO DAILY RF: 0 Centrum Silver 0.4-300-250 mg-mcg-mcg Tablet 1 tab PO DAILY RF: 0 cholecalciferol (vitamin D3) [Vitamin D3] 125 mcg (5,000 unit) Tablet 125 mcg PO DAILY RF: 0 cinacalcet 90 mg tablet 90 mg PO DAILY RF: 0 Referrals Referrals: Ron Burgos MD [Primary Care Provider] -
[2021-02-26 20:27] LABS: Hematocrit (blood only) 54.2 % (42-52); Hemoglobin 16.8 g/dL (14.0-18.0); Mean Corpuscular Hemoglobin 29.5 pg (25-34); Mean Corpuscular Volume 95.3 fL (80-100); Mean Platelet Volume 10.5 fL (7.4-10.4); Nucleated RBC # (auto) 0.16 K/uL (0-0); Nucleated RBC % (auto) 0.9 %; Platelet Count 418 K/uL (130-400); RDW Coefficient of Variation 19.8 % (11.5-14.5); RDW Standard Deviation 68.6 fL (36.4-46.3); Red Blood Count 5.69 M/uL (4.7-6.1); White Blood Count 17.09 K/uL (4.8-10.8)
[2021-02-26 20:31] LABS: Adenovirus PCR Not Detected (NotDetected); Bordetella parapertussis PCR Not Detected (NotDetected); Bordetella pertussis PCR Not Detected (NotDetected); Chlamydia pneumoniae PCR Not Detected (NotDetected); Coronavirus 229E PCR Not Detected (NotDetected); Coronavirus HKU1 PCR Not Detected (NotDetected); Coronavirus NL63 PCR Not Detected (NotDetected); Coronavirus OC43PCR Not Detected (NotDetected); Human Metapneumovirus PCR Not Detected (NotDetected); Influenza A PCR Not Detected (NotDetected); Influenza B PCR Not Detected (NotDetected); Mycoplasma pneumoniae PCR Not Detected (NotDetected); Parainfluenza Virus 1 PCR Not Detected (NotDetected); Parainfluenza Virus 2 PCR Not Detected (NotDetected); Parainfluenza Virus 3 PCR Not Detected (NotDetected); Parainfluenza Virus 4 PCR Not Detected (NotDetected); Respiratory Syncytial VirusPCR Not Detected (NotDetected); Rhinovirus/Enterovirus PCR Not Detected (NotDetected)
[2021-02-26 20:36] LABS: Coronavirus CoV-2 (COVID19)PCR DETECTED (NotDetected)
[2021-02-26 20:39] LABS: iSTAT Arterial Blood Gas HCO3 18 meg/L (19-24); iSTAT Arterial Blood Gas pCO2 45 mmHg (35-46); iSTAT Arterial Blood Gas pH 7.22 (7.35-7.45); iSTAT Arterial Blood Gas pO2 113 mmHg (80-95); iSTAT Carbon Dioxide 20 mmol/L (24-31); iSTAT Hematocrit 54 % (42-52); iSTAT Hemoglobin 18.4 g/dl (14.0-18.0); iSTAT Potassium 5.9 mmol/L (3.3-5.0); iSTAT Sodium 131 mmol/L (135-144)
[2021-02-26 20:59] LABS: ALC (manual) 2.56 K/uL (1.2-3.4); ANC (manual) 12.99 K/uL (1.4-6.5); Lymphocytes # (manual) 2.56 K/uL (1.2-3.4); Monocytes # (manual) 1.54 K/uL (0.11-0.59); Neutrophils # (manual) 12.99 K/uL (1.4-6.5)
[2021-02-26 21:00] LABS: Polychromasia 1+
--- NOTE | 2021-02-26 21:06 | Critical Care Consultation ---
Date of Consultation February 26, 2021 Assessment & Plan (1) Cardiac arrest: Reason Critically Ill: 56-year-old male with complicated PMH including ESRD on dialysis, HFpEF, and recent hospitalization for COVID-19 pneumonia presents to the ICU following a suspected respiratory induced asystole cardiac arrest in which she is undergoing therapeutic hypothermia as he was unresponsive following ROSC. Neuro - Anoxic injurypatient unresponsive following ROSC, neurological exam as above. -CT head without acute intracranial findings -Patient undergo 24-hour therapeutic hypothermia -Consider EEG once rewarmed Cardiac - Cardiac arrestsuspect this is likely related to the patient's severe respiratory acidosis and COVID-19 pneumonia along with hypoglycemia likely attributed -Witnessed asystole arrest with ROSC achieved following CPR, epinephrine, bicarb -Troponin unremarkable, EKG without ST elevations, QTc 475. Patient was not having chest pain prior to this event. -Patient requiring low-dose Levophed, likely sedation related but cannot rule out cardiogenic shock. Echo pending. Maintain MAP greater than 65 -NSR on monitor, continuous telemetry -Hold antihypertensives for now -We will monitor BMP, ABG, and EKG every 6 hours per therapeutic hypothermia protocol Respiratory - Hypercapnic hypoxic respiratory failurelikely multifactorial in the setting of COVID-19 pneumonia, diastolic heart failure, presumed OHS -Currently mechanically ventilated, ABGs every 6 per therapeutic hypothermia protocol. Will wean vent appropriately -See ID management below for pneumonia -Unable to diurese as patient is anuric and requiring hemodialysis. Will defer to nephrology to manage fluid balance -Respiratory acidosis appears to be improving, monitor -Nebs as needed -Continuous pulse ox and ET CO2 monitoring GI - N.p.o. Transaminitismild elevation LFTs likelyIn the setting of shock liver following cardiac arrest -Trend for now RENAL/LYTES - ESRDPatient undergoes hemodialysis MWF, Unsure if he received dialysis today - Creatinine 17 appears to be consistent with prior BMPs at baseline -No severe electrolyte abnormalities, HCO3 at baseline. No indication for emergent dialysis at this time -Consult nephrology to schedule hemodialysis -We will monitor every 6 hour BMPs per therapeutic hypothermia protocol - Foleystrict I's and O's ENDO - DM type IIpatient was hypoglycemic in the field with EMS but corrected with dextrose/glucagon administration -Currently hyperglycemic, continue with sliding scale for now -ICU hyperglycemic protocol Hypothyroidcontinue Synthroid HEME - H&H stable, monitor routine CBCs ID - Pneumoniapatient initially tested positive for COVID-19 pneumonia on 02/22. He recently completed 5-day course of vancomycin, Zosyn, and azithromycin. -Bio fire reconfirmed Covid 19, otherwise unremarkable -Continue Decadron 6 mg IV daily to complete 10-day course -Received vancomycin and Zosyn in emergency department. Blood cultures pending -Mild elevation procalcitonin, lactate pending -Continue airborne precautions -Will hold on further antibiotics at this time, trend fever curve LINES/IV ACCESS - Heat extreme central venous catheter (triple-lumen access), arterial line, ET tube, OG tube DVT PROPHYLAXIS - SCDs, continue Eliquis I have personally spent 85 minutes of critical care time in the direct management of this patient. This is a life/limb threatening event. This includes time spent evaluating patient, direct bedside care, chart review, placing orders, interpretation of diagnostic studies, discussion with consultants, patient, and family members, as well as other required patient management activities. This time is exclusive of all separately billable procedures, and teaching time and separate from and in addition to any other critical care service time. Thank you for allowing us to participate in the care of this patient. Please refer to my attending physician's documentation for any further recommendations. (2) Hypoglycemia: (3) Renal failure: (4) Respiratory failure: (5) Acidosis: (6) Hypoxia: (7) Pneumonia: (8) COVID-19: (9) Controlled type 2 diabetes mellitus with kidney complication, with long-term current use of insulin: (10) End stage renal disease: (11) Morbid obesity: History of Present Illness History of Present Illness Patient is a 56-year-old male with past medical history significant for ESRD (dialysis MWF), DM type II, HTN, morbid obesity, hypothyroidism, DVT (on Eliquis), HFpEF, and recently underwent admission for COVID-19 pneumonia where he was discharged on 2 L nasal cannula 2 days ago. Earlier this evening, the patient's had called EMS when he was breathing funny and unresponsive. On arrival, EMS apparently found the patient to be hypoglycemic and agonal breathing. He had a questionable seizure and he was also found to be hypoglycemic. Patient then had a witnessed cardiac arrest where he was asystole and ROSC was achieved with epinephrine, bicarbonate, calcium. Patient was debated in field by EMS. I did evaluate the patient in the emergency department and was told he had only received Ativan by EMS in the field. Patient was unresponsive to painful stimuli but did have cough and gag reflexes. Pupils PERRLA. ABG revealed severe respiratory acidosis and ventilator settings were adjusted appropriately. BMP showed creatinine 17 and no significant electrolyte abnormalities or need for emergent dialysis at this time. Case was discussed with profiler hand Dr. Bernal, and given patient's age, decision was made to proceed with therapeutic hypothermia pending CT head results. A-line and heat exchange catheter were inserted in the ED. I did speak with the patient's who was very distraught and updated her on his current condition and plan of care. Patient to be transferred to [facility] unit with ICU bed and to undergo 24- hour therapeutic hypothermia at this time. Allergies Allergy/AdvReac Type Severity Reaction Status Date / Time house dust Allergy Mild Nasal Verified 02/26/21 19:33 congestion pollen extracts Allergy Mild nasal Verified 02/26/21 19:33 congestion Home Medications Medication Instructions Recorded Confirmed Type aspirin 81 mg chewable tablet 81 mg PO QAM 04/13/18 02/26/21 History atorvastatin 10 mg tablet (Lipitor) 10 mg PO HS 04/13/18 02/26/21 History azelastine 205.5 mcg (0.15 %) 1 spray INTRANASAL BID 04/13/18 02/26/21 History nasal spray gabapentin 300 mg capsule 600 mg PO HS 04/13/18 02/26/21 History levothyroxine 150 mcg tablet 150 mcg PO QAM 04/13/18 02/26/21 History (Synthroid) mv,Bz-pmy-LW-N4-MQ-5-bpt-bon-jnjy 1 tab PO QPM 04/13/18 02/26/21 History oil 400 mcg-500 unit capsule (ProRenal QD) omega 1-pdj-ksv-fish oil 1,000 mg 1 tab PO BID 04/13/18 02/26/21 History (120 mg-180 mg) capsule (Fish Oil) peg 400-propylene glycol (PF) 0.4 1 drp OPHTHALMIC (EYE) BID PRN 04/13/18 02/26/21 History %-0.3 % eye drops in a dropperette (Systane (PF)) testosterone cypionate 200 mg/mL 200 mg SUBCUT .2XWK 04/13/18 02/26/21 History intramuscular kit acetaminophen 500 mg tablet 1,000 mg PO Q6H PRN 06/12/18 02/26/21 History (Tylenol Extra Strength) sucroferric oxyhydroxide 500 mg 500 mg PO TID 04/30/19 02/26/21 History chewable tablet (Velphoro) alprazolam 1 mg tablet (Xanax) 1 mg PO TID PRN 03/10/20 02/26/21 History bisacodyl 5 mg tablet,delayed 5 mg PO 4XWK 03/24/20 02/26/21 History release (Dulcolax (bisacodyl)) diclofenac sodium 0.1 % eye drops 1 drp OPHTHALMIC (EYE) TID 03/24/20 02/26/21 History lactulose 10 gram/15 mL oral 10 g PO 4XWK 03/24/20 02/26/21 History solution linaclotide 290 mcg capsule 870 mcg PO 4XWK 03/24/20 02/26/21 History (Linzess) apixaban 5 mg tablet (Eliquis) 5 mg PO Q12H #74 tab 04/07/20 02/26/21 Rx docusate sodium 100 mg capsule 100 mg PO DAILY PRN 04/07/20 02/26/21 History (Stool Softener) Accu-Chek Guide test strips (blood #400 ea NS 04/30/20 10/13/20 Rx sugar diagnostic) lancets (Accu-Chek Fastclix Lancet #400 ea 04/30/20 10/13/20 Rx Drum) blood-glucose meter (Accu-Chek #1 ea 05/04/20 10/13/20 Rx Guide Me Glucose Mtr) pen needle, diabetic 29 gauge x #400 ea 05/04/20 10/13/20 Rx 1/2" (BD Ultra-Fine Original Pen Needle) OneTouch Ultra2 Meter #1 ea NS 05/26/20 10/13/20 Rx (blood-glucose meter) insulin degludec 100 unit/mL (3 80 unit SUBCUT BID #150 ml MDD 160 09/30/20 02/26/21 Rx mL) subcutaneous pen (Tresiba units FlexTouch U-100 insulin) ascorbic acid (vitamin C) 1,000 mg 1 g PO DAILY 12/03/20 02/26/21 History tablet (Vitamin C) cholecalciferol (vitamin D3) 125 125 mcg PO DAILY 12/03/20 02/26/21 History mcg (5,000 unit) tablet (Vitamin D3) larfihzl-buh-awtxf acid 0.4 1 tab PO DAILY 12/03/20 02/26/21 History mg-lycopene 300 mcg-lutein 250 mcg tablet (Centrum Silver) insulin aspart U-100 100 unit/mL 0 unit SUBCUT BID 02/22/21 02/26/21 History (3 mL) subcutaneous pen (Novolog Flexpen U-100 Insulin aspart) azithromycin 250 mg tablet 250 mg PO QAM #3 tab 02/24/21 02/26/21 Rx dexamethasone 6 mg tablet 6 mg PO DAILY #7 tab 02/24/21 02/26/21 Rx guaifenesin 600 mg tablet, 1,200 mg PO Q12 #20 tab 02/24/21 02/26/21 Rx extended release 12 hr (Mucinex) cinacalcet 90 mg tablet 90 mg PO DAILY 02/26/21 02/26/21 History Patient History Medical History Anxiety Aortic valve disease Aortic sclerosis bordering on mild stenosis (CORNEL 1.3 cm, Mean gradient 8.8 mmHg) per 06/28/19 echo Chronic back pain Chronic constipation Chronic kidney disease follows with Dr. Armstrong Diabetes mellitus, type 2 since age 20, IDDM- glucose relatively stable per patient - glucose this AM (05/22/20) was 156 Diabetic foot ulcer right 5th metatarsal and heel; left heel Diabetic nephropathy Diabetic retinopathy DVT (deep venous thrombosis) Dx'ed 04/07/20- to right UE- on Eliquis End-stage renal disease on hemodialysis M-W-F dialysis ([facility]) Hyperlipidemia Hypertension No medications- pt denies- states actually hypotensive Hypothyroidism Osteoarthritis Surgical History Fistula LUE (WITH REVISION ) History of anesthesia reaction BP DROPS "USUALLY" History of appendectomy History of cholecystectomy History of colonoscopy History of esophagogastroduodenoscopy (EGD) History of vascular access device permacath-inserted and removed History of vascular access device rt upper chest (blood clot formed/unable to use but still intact) Hx of eye surgery 5 eye surgeries 3 ON LEFT/2 ON RT Family History Father Diabetes Other Cancer Gallbladder disease Hypertension Lung disease No family history of adverse response to anesthesia Social History Smoking Status: Unknown if ever smoked Second Hand Exposure: No; Hx Alcohol Use: No Hx Substance Use: No Preferred Language: Slovak Communication Ability: Effective Visual Impairment: No Limitations Corporate Compliance Director Required: No Beliefs That Will Affect Care: None marital status: Current Living Situation: Spouse current occupational status: disabled Feels Safe at Home: Yes Assistive Devices: Cane Review of Systems Review of Systems: Unobtainable due to cognitive status and Unobtainable due to endotracheal tube Physical Exam Constitutional: + obese and + mechanically ventilated Eyes: PERRL, conjunctivae normal, anicteric sclerae ENMT: external ear and nose normal, oropharynx normal Neck: trachea midline, no thyromegaly Respiratory: Symmetrical chest wall movement, lungs coarse bilaterally, no wheezes. Cardiovascular: RRR, no murmur, no edema Heart Sounds: normal S1 and normal S2 Extremities: normal capillary refill Gastrointestinal (Abdomen): Abdomen soft/obese, normal bowel sounds Neurologic: PERRLA, cough gag intact. No corneal reflex noted on exam. No response to painful stimuli. Did not follow commands. Psychiatric: Unable to assess due to cognitive status Genitourinary: Indwelling Thibodeaux catheter Results & Data Results & Data ([facility]) Vital Signs (Past 12 Hours) Vital Signs Temp Pulse Resp BP Pulse Ox 02/26/21 20:41 35 C L 70 86/40 L 93 02/26/21 20:34 28 H 02/26/21 20:32 35.6 C L 02/26/21 20:31 35.0 C L 72 88/31 L 91 02/26/21 20:25 15.9 C L 74 93/31 L 95 02/26/21 20:23 73 97/32 L 94 02/26/21 20:11 76 95/48 L 99 02/26/21 20:06 79 107/50 L 98 02/26/21 20:00 79 103/69 94 02/26/21 19:55 86 110/71 98 02/26/21 19:50 92 H 126/61 98 02/26/21 19:47 28 H 02/26/21 19:45 96 H 133/80 98 02/26/21 19:40 96 H 166/77 H 99 02/26/21 19:35 88 99 02/26/21 19:32 82 99 02/26/21 19:25 128/65 88 L 02/26/21 19:21 93 H 134/43 L 97 02/26/21 19:16 119 H 157/77 H 89 L 02/26/21 19:11 153 H 155/87 H 83 L Coding Level of Care Code Critical Care ea addt'l 30 min Diagnoses Cardiac arrest I46.9 Hypoglycemia E16.2 Renal failure N17.9; N18.9; Z99.2 Acute renal failure type: unspecified Chronic kidney disease stage: on chronic dialysis Renal failure chronicity: acute on chronic Respiratory failure J96.01; J96.02 Chronicity: acute Respiratory failure complication: hypoxia and hypercapnia Acidosis E87.2 Hypoxia R09.02 Pneumonia J18.9 Laterality: bilateral Pneumonia type: due to unspecified organism COVID-19 U07.1 Controlled type 2 diabetes mellitus with kidney complication, with long-term current use of insulin E11.29; Z79.4 End stage renal disease N18.6 Morbid obesity E66.01 (1) Renal failure Acute renal failure type: unspecified Chronic kidney disease stage: on chronic dialysis Renal failure chronicity: acute on chronic Qualified Code(s): N17.9 - Acute kidney failure, unspecified; N18.9 - Chronic kidney disease, unspecified; Z99.2 - Dependence on renal dialysis (2) Respiratory failure Chronicity: acute Respiratory failure complication: hypoxia and hypercapnia Qualified Code(s): J96.01 - Acute respiratory failure with hypoxia; J96.02 - Acute respiratory failure with hypercapnia (3) Pneumonia Laterality: bilateral Pneumonia type: due to unspecified organism
[2021-02-26] MEDS: NOREPINEPHRINE/D5W 8 MG/508 ML BAG IV SCH (21:17)
--- NOTE | 2021-02-26 21:27 | History & Physical Report ---
Date of Service February 26, 2021 Assessment & Plan (1) Cardiac arrest: Plan: Post Cardiac arrest x2 with ROSC - Currently on Epinephrine drip- transition to Levophed once stabilized - To ICU for management - CT of head on transfer- evaluate for hypoxic injury, edema, bleed, or large vessel CVA - GCS currently 3T - Post cardiac arrest care regarding cooling deferred to ICU - Continue to correct metabolic disturbances (2) COVID-19: Plan: As per HPI - Reagins COVID positive - Initial symptom date reported as - Defer continued Decadron dosing to ICU - Follow ABG for P/F ratio when on more conventional FiO2 - CRP and Fibrinogen pending - Nebulizers PRN - Ventilator per [facility] protocol- 6ml/IBW ki=201 (3) Pneumonia: Plan: As above - PCT, Lactate pending - Defer ABX to ICU - Received Vancomycin and Zosyn in EMD (4) Hypertension associated with diabetes: Plan: Hold antihypertensives while on Vasopressors (5) Dyslipidemia: Plan: Continue statin (6) Obesity: Plan: Chronic no acute interventions (7) DVT (deep venous thrombosis): Plan: Continue Eliquis (8) Central venous catheter in place: Plan: Placed in EMD emergent/urgent - not with full barrier precautions - recommend to replace when stable - Continue need for vasoactive medicaitons (9) Hypothyroidism: Plan: Continue synthroid (10) End-stage renal disease on hemodialysis: Plan: Dialysis MWF, unsure as per HPI if he got dialyzed today - Nephrology consult History of Present Illness Chief Complaint: out of hospital arrest Primary Care Provider: Ron Burgos MD 56 YOM with past medical history of: Morbid obesity, DM, HTN, ESRD on Dialysis MWF, COVID 19 (02/22/21), Pneumonia, Hypothyroidism, DVT (on Eliquis), HFpEF. Patient was brought into the EMD today via EMS following hypoglycemia, reported seizure from EMS, and cardiac arrest (asystole) in the field and ROSC was achieved on arrival to the EMD. Patient subsequently experienced a loss of pulse in the EMD and required CPR again with epinephrine, NAHCO3, and Calcium administration the patient had return of ROSC. He remains intubated and will go to the ICU for further management. Patient was recently discharged on the February following admission on the 22 of February for COVID 19 and bilateral pneumonia. He completed a 5 day course of Vancomycin, Zosyn, and Azithromycin. He also received Decadron IV and was discharged on oral for an additional 7 days. He was given IV dose of 6mg Decadron in the EMD. The patient was noted to be hypercarbic and acidotic in the EMD, his RR and VT has been adjusted for this at this time to RR 28 and VT of 550. Patient does receive dialysis MWF, unclear if he got dialyzed today. 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 Acid base balance consistent with respiratory alkalosis his HCO3 on serum is 27. Head CT scan ordered following arrest and prior to possible cooling if desired by the ICU team. He was given a dose of Zosyn and Vancomycin in the EMD. Blood cultures, PCT, and lactate are pending. Patient has been Vaccinated against COVID 19 and remains COVID POSITIVE on admission. Allergies Allergy/AdvReac Type Severity Reaction Status Date / Time house dust Allergy Mild Nasal Verified 02/26/21 19:33 congestion pollen extracts Allergy Mild nasal Verified 02/26/21 19:33 congestion Home Medications Medication Instructions Recorded Confirmed Type aspirin 81 mg chewable tablet 81 mg PO QAM 04/13/18 02/26/21 History atorvastatin 10 mg tablet (Lipitor) 10 mg PO HS 04/13/18 02/26/21 History azelastine 205.5 mcg (0.15 %) 1 spray INTRANASAL BID 04/13/18 02/26/21 History nasal spray gabapentin 300 mg capsule 600 mg PO HS 04/13/18 02/26/21 History levothyroxine 150 mcg tablet 150 mcg PO QAM 04/13/18 02/26/21 History (Synthroid) mv,Rs-npe-VF-V4-KH-3-mnf-wfx-lcjj 1 tab PO QPM 04/13/18 02/26/21 History oil 400 mcg-500 unit capsule (ProRenal QD) omega 9-ybj-imr-fish oil 1,000 mg 1 tab PO BID 04/13/18 02/26/21 History (120 mg-180 mg) capsule (Fish Oil) peg 400-propylene glycol (PF) 0.4 1 drp OPHTHALMIC (EYE) BID PRN 04/13/18 02/26/21 History %-0.3 % eye drops in a dropperette (Systane (PF)) testosterone cypionate 200 mg/mL 200 mg SUBCUT .2XWK 04/13/18 02/26/21 History intramuscular kit acetaminophen 500 mg tablet 1,000 mg PO Q6H PRN 06/12/18 02/26/21 History (Tylenol Extra Strength) sucroferric oxyhydroxide 500 mg 500 mg PO TID 04/30/19 02/26/21 History chewable tablet (Velphoro) alprazolam 1 mg tablet (Xanax) 1 mg PO TID PRN 03/10/20 02/26/21 History bisacodyl 5 mg tablet,delayed 5 mg PO 4XWK 03/24/20 02/26/21 History release (Dulcolax (bisacodyl)) diclofenac sodium 0.1 % eye drops 1 drp OPHTHALMIC (EYE) TID 03/24/20 02/26/21 History lactulose 10 gram/15 mL oral 10 g PO 4XWK 03/24/20 02/26/21 History solution linaclotide 290 mcg capsule 870 mcg PO 4XWK 03/24/20 02/26/21 History (Linzess) apixaban 5 mg tablet (Eliquis) 5 mg PO Q12H #74 tab 04/07/20 02/26/21 Rx docusate sodium 100 mg capsule 100 mg PO DAILY PRN 04/07/20 02/26/21 History (Stool Softener) Accu-Chek Guide test strips (blood #400 ea NS 04/30/20 10/13/20 Rx sugar diagnostic) lancets (Accu-Chek Fastclix Lancet #400 ea 04/30/20 10/13/20 Rx Drum) blood-glucose meter (Accu-Chek #1 ea 05/04/20 10/13/20 Rx Guide Me Glucose Mtr) pen needle, diabetic 29 gauge x #400 ea 05/04/20 10/13/20 Rx 1/2" (BD Ultra-Fine Original Pen Needle) OneTouch Ultra2 Meter #1 ea NS 05/26/20 10/13/20 Rx (blood-glucose meter) insulin degludec 100 unit/mL (3 80 unit SUBCUT BID #150 ml MDD 160 09/30/20 02/26/21 Rx mL) subcutaneous pen (Tresiba units FlexTouch U-100 insulin) ascorbic acid (vitamin C) 1,000 mg 1 g PO DAILY 12/03/20 02/26/21 History tablet (Vitamin C) cholecalciferol (vitamin D3) 125 125 mcg PO DAILY 12/03/20 02/26/21 History mcg (5,000 unit) tablet (Vitamin D3) ygfisrzc-wah-qzoeu acid 0.4 1 tab PO DAILY 12/03/20 02/26/21 History mg-lycopene 300 mcg-lutein 250 mcg tablet (Centrum Silver) insulin aspart U-100 100 unit/mL 0 unit SUBCUT BID 02/22/21 02/26/21 History (3 mL) subcutaneous pen (Novolog Flexpen U-100 Insulin aspart) azithromycin 250 mg tablet 250 mg PO QAM #3 tab 02/24/21 02/26/21 Rx dexamethasone 6 mg tablet 6 mg PO DAILY #7 tab 02/24/21 02/26/21 Rx guaifenesin 600 mg tablet, 1,200 mg PO Q12 #20 tab 02/24/21 02/26/21 Rx extended release 12 hr (Mucinex) cinacalcet 90 mg tablet 90 mg PO DAILY 02/26/21 02/26/21 History Past Med/Surg History Medical History Anxiety Aortic valve disease Aortic sclerosis bordering on mild stenosis (CORNEL 1.3 cm, Mean gradient 8.8 mmHg) per 06/28/19 echo Chronic back pain Chronic constipation Chronic kidney disease follows with Dr. Armstrong Diabetes mellitus, type 2 since age 20, IDDM- glucose relatively stable per patient - glucose this AM (05/22/20) was 156 Diabetic foot ulcer right 5th metatarsal and heel; left heel Diabetic nephropathy Diabetic retinopathy DVT (deep venous thrombosis) Dx'ed 04/07/20- to right UE- on Eliquis End-stage renal disease on hemodialysis M-W-F dialysis ([facility]) Hyperlipidemia Hypertension No medications- pt denies- states actually hypotensive Hypothyroidism Osteoarthritis Surgical History Fistula LUE (WITH REVISION ) History of anesthesia reaction BP DROPS "USUALLY" History of appendectomy History of cholecystectomy History of colonoscopy History of esophagogastroduodenoscopy (EGD) History of vascular access device permacath-inserted and removed History of vascular access device rt upper chest (blood clot formed/unable to use but still intact) Hx of eye surgery 5 eye surgeries 3 ON LEFT/2 ON RT Family History Father Diabetes Other Cancer Gallbladder disease Hypertension Lung disease No family history of adverse response to anesthesia Social History Smoking Status: Unknown if ever smoked Second Hand Exposure: No; Hx Alcohol Use: No Hx Substance Use: No Preferred Language: Korean Communication Ability: Effective Visual Impairment: No Limitations Rough Rib Grader Required: No Beliefs That Will Affect Care: None marital status: Current Living Situation: Spouse current occupational status: disabled Feels Safe at Home: Yes Assistive Devices: Cane Review of Systems Review of Systems: Unable to obtain ROS at this time as the patient is sedated and ventilated Physical Exam Physical Exam: PHYSICAL EXAM: General: intubated and sedated Head: Normocephalic, atraumatic Neuro: GCS 3T, pupils 2 unable to appreciate much reaction, withdraws to nailbed pressure, and weak cough/gag with suction. Chest: equal rise and fall of the chest, scattered rhonchi throughout, Cardiac: Regular rate and rhythm, telemetry reviewe-NSR- sinus tach, skin warm dry, peripheral pulses +2 no JVD, no murmur, + 3 edema to lower extremities bilaterally, AV fistula to left arm good thrill GI: NABS x 4 quadrants, soft, :llanos to gravity Extremities: venous stasis Results & Data Results & Data ([facility]) Vital Signs (Past 12 Hours) Vital Signs Temp Pulse Resp BP Pulse Ox 02/26/21 20:34 28 H 02/26/21 20:32 35.6 C L 02/26/21 20:25 15.9 C L 74 93/31 L 95 02/26/21 20:23 73 97/32 L 94 02/26/21 20:11 76 95/48 L 99 02/26/21 20:06 79 107/50 L 98 02/26/21 20:00 79 103/69 94 02/26/21 19:55 86 110/71 98 02/26/21 19:50 92 H 126/61 98 02/26/21 19:47 28 H 02/26/21 19:45 96 H 133/80 98 02/26/21 19:40 96 H 166/77 H 99 02/26/21 19:35 88 99 02/26/21 19:32 82 99 02/26/21 19:25 128/65 88 L 02/26/21 19:21 93 H 134/43 L 97 02/26/21 19:16 119 H 157/77 H 89 L 02/26/21 19:11 153 H 155/87 H 83 L Laboratory Results Abnormal lab results 02/26/21 02/26/21 02/26/21 Range/Units 19:14 19:14 19:14 WBC 17.09 H (4.8-10.8) K/uL POC Hgb (14.0-18.0) g/dl Hct 54.2 H (42-52) % POC Hct (42-52) % MCHC 31.0 L (32-36) g/dL RDW Std Deviation 68.6 H (36.4-46.3) fL RDW Coeff of Tim 19.8 H (11.5-14.5) % Plt Count 418 H (130-400) K/uL MPV 10.5 H (7.4-10.4) fL Absolute Nucleated RBC 0.16 H (0-0) K/uL Neutrophils # (Manual) 12.99 H (1.4-6.5) K/uL Total Absolute Neuts 12.99 H (1.4-6.5) K/uL Monocytes # (Manual) 1.54 H (0.11-0.59) K/uL PT 12.2 H (9.0-12.0) Seconds INR 1.2 H (0.9-1.1) APTT 31.8 H (21.0-31.0) Seconds POC pH (7.35-7.45) POC pCO2 (35-46) mmHg POC pO2 (80-95) mmHg POC HCO3 (19-24) yue/L POC Total CO2 (24-31) mmol/L POC ABG O2 Sat (90-95) % VBG pH (7.36-7.41) VBG pCO2 (38-50) mmHg POC Sodium (135-144) mmol/L POC Potassium (3.3-5.0) mmol/L Chloride 91 L (98-107) mmol/L Anion Gap 18.0 H (3-11) BUN 93 H (7-18) mg/dl Creatinine 17.40 H* (0.6-1.4) mg/dl BUN/Creatinine Ratio 5.4 L (10-20) Glucose 232 H (70-99) mg/dl POC Glucose (70-99) mg/dl Calcium 7.7 L (8.5-10.1) mg/dl Magnesium 3.7 H (1.8-2.4) mg/dl AST 131 H (15-37) U/L ALT 182 H (12-78) U/L Albumin 2.7 L (3.4-5.0) gm/dl Globulin 4.3 H (2.5-4.0) gm/dl Albumin/Globulin Ratio 0.6 L (0.9-2) Procalcitonin (0-0.5) ng/ml SARS-CoV-2 (PCR) (NotDetected) 02/26/21 02/26/21 02/26/21 Range/Units 19:14 19:14 19:19 WBC (4.8-10.8) K/uL POC Hgb (14.0-18.0) g/dl Hct (42-52) % POC Hct (42-52) % MCHC (32-36) g/dL RDW Std Deviation (36.4-46.3) fL RDW Coeff of Tim (11.5-14.5) % Plt Count (130-400) K/uL MPV (7.4-10.4) fL Absolute Nucleated RBC (0-0) K/uL Neutrophils # (Manual) (1.4-6.5) K/uL Total Absolute Neuts (1.4-6.5) K/uL Monocytes # (Manual) (0.11-0.59) K/uL PT (9.0-12.0) Seconds INR (0.9-1.1) APTT (21.0-31.0) Seconds POC pH (7.35-7.45) POC pCO2 (35-46) mmHg POC pO2 (80-95) mmHg POC HCO3 (19-24) yue/L POC Total CO2 (24-31) mmol/L POC ABG O2 Sat (90-95) % VBG pH 6.87 L (7.36-7.41) VBG pCO2 150 H (38-50) mmHg POC Sodium (135-144) mmol/L POC Potassium (3.3-5.0) mmol/L Chloride (98-107) mmol/L Anion Gap (3-11) BUN (7-18) mg/dl Creatinine (0.6-1.4) mg/dl BUN/Creatinine Ratio (10-20) Glucose (70-99) mg/dl POC Glucose 235 H (70-99) mg/dl Calcium (8.5-10.1) mg/dl Magnesium (1.8-2.4) mg/dl AST (15-37) U/L ALT (12-78) U/L Albumin (3.4-5.0) gm/dl Globulin (2.5-4.0) gm/dl Albumin/Globulin Ratio (0.9-2) Procalcitonin 0.54 H (0-0.5) ng/ml SARS-CoV-2 (PCR) (NotDetected) 02/26/21 02/26/21 02/26/21 Range/Units 19:31 19:39 20:25 WBC (4.8-10.8) K/uL POC Hgb 19.7 H 18.4 H (14.0-18.0) g/dl Hct (42-52) % POC Hct 58 H 54 H (42-52) % MCHC (32-36) g/dL RDW Std Deviation (36.4-46.3) fL RDW Coeff of Tim (11.5-14.5) % Plt Count (130-400) K/uL MPV (7.4-10.4) fL Absolute Nucleated RBC (0-0) K/uL Neutrophils # (Manual) (1.4-6.5) K/uL Total Absolute Neuts (1.4-6.5) K/uL Monocytes # (Manual) (0.11-0.59) K/uL PT (9.0-12.0) Seconds INR (0.9-1.1) APTT (21.0-31.0) Seconds POC pH 6.99 L* 7.22 L (7.35-7.45) POC pCO2 90 H (35-46) mmHg POC pO2 262 H 113 H (80-95) mmHg POC HCO3 18 L (19-24) yue/L POC Total CO2 20 L (24-31) mmol/L POC ABG O2 Sat 100.0 H 97.0 H (90-95) % VBG pH (7.36-7.41) VBG pCO2 (38-50) mmHg POC Sodium 134 L 131 L (135-144) mmol/L POC Potassium 5.9 H 5.9 H (3.3-5.0) mmol/L Chloride (98-107) mmol/L Anion Gap (3-11) BUN (7-18) mg/dl Creatinine (0.6-1.4) mg/dl BUN/Creatinine Ratio (10-20) Glucose (70-99) mg/dl POC Glucose (70-99) mg/dl Calcium (8.5-10.1) mg/dl Magnesium (1.8-2.4) mg/dl AST (15-37) U/L ALT (12-78) U/L Albumin (3.4-5.0) gm/dl Globulin (2.5-4.0) gm/dl Albumin/Globulin Ratio (0.9-2) Procalcitonin (0-0.5) ng/ml SARS-CoV-2 (PCR) DETECTED A* (NotDetected) Diagnostic Findings Chest X-Ray 02/26/21 19:02 XR chest 1V portable HISTORY: SEPSIS COMPARISON: Chest 02/22/2021. FINDINGS: Interval progression of the multifocal bilateral airspace opacities consistent with a viral pneumonia. The heart remains mildly enlarged. No pneumothorax. No pleural effusions. Endotracheal tube terminates approximately 4.5 cm from the julio césar. IMPRESSION: 1. Interval progression of the multifocal bilateral airspace opacities consistent with a viral pneumonia. 2. Endotracheal tube terminates 4.5 cm from the julio césar. ACT 112: Negative or not required by law. Electronically signed by: Nitin Epps M.D. 02/26/2021 7:43 PM Medications Administered Epinephrine HCl () 4 mg in 254 mls @ 14.318 mls/hr IV .[id number] YUDITH; Protocol Stop: 03/28/21 19:29 Last Titration: 02/26/21 19:38 Dose: 0 mcg/kg/min, 0 mls/hr Documented by: [id number] Admin: 02/26/21 19:10 Dose: 0.02 mcg/kg/min, 14.3 mls/hr Documented by: [id number] Cosigned by: [id number] Fentanyl Citrate (Fentanyl Drip) 1,250 mcg in 250 mls @ 5 mls/hr IV .Q50H [facility]; Protocol Stop: 03/12/21 19:59 Last Titration: 02/26/21 21:08 Dose: 50 mcg/hr, 10 mls/hr Documented by: [id number] Cosigned by: [id number] Admin: 02/26/21 20:10 Dose: 25 mcg/hr, 5 mls/hr Documented by: [id number] Cosigned by: [id number] Propofol (Diprivan) 1,000 mg in 100 mls @ 22.548 mls/hr IV .Q4H27M YUDITH; Protocol Stop: 03/01/21 20:14 Last Titration: 02/26/21 21:02 Dose: 10 mcg/kg/min, 11.3 mls/hr Documented by: [id number] Titration: 02/26/21 20:51 Dose: 15 mcg/kg/min, 16.9 mls/hr Documented by: [id number] Titration: 02/26/21 20:44 Dose: 20 mcg/kg/min, 22.5 mls/hr Documented by: [id number] Titration: 02/26/21 20:34 Dose: 25 mcg/kg/min, 28.2 mls/hr Documented by: [id number] Admin: 02/26/21 20:09 Dose: 30 mcg/kg/min, 33.8 mls/hr Documented by: [id number] Cosigned by: [id number] Discontinued Medications Dexamethasone Sodium Phosphate (DexamethasonePf 10 Mg/Ml Vial) 10 mg IV NOW ONE Stop: 02/26/21 20:02 Last Admin: 02/26/21 20:16 Dose: 10 mg Documented by: [id number] Piperacillin Sod/Tazobactam Sod (Zosyn) 4.5 gm in 120 mls @ 240 mls/hr IV NOW ONE Stop: 02/26/21 19:52 Last Admin: 09/10/21 20:01 Dose: 240 mls/hr Documented by: [id number] Propofol (Propofol Iv Emulsion 10 Mg/Ml 100 Ml Vial) Confirm Administered Dose 1,000 mg IV .[facility] ONE Stop: 02/26/21 19:42 Last Admin: 02/26/21 20:11 Dose: Not Given Documented by: [id number] Code Status & VTE Plan Code Status CODE: FULL VTE: SCDs, Eliquis VTE Prophylaxis Plan VTE Prophylaxis will be ordered: Yes Supervising Physician Co-Signing Physician Notes Patient discussed with DANIELA Melgar and I agree with his assessment and plan as above. Briefly, patient is a 56yo male with history of ESRD on HD q M/W/F, DM, HTN, prior DVT on Eliquis anticoagulation presenting with [id number] cardiac arrest. EMS responded to call at patient's home - he was found to be hypoglycemic. Combative and altered, seizure prior to arrival. Patient was given Glucagon, Ativan, had asystolic arrest with ROSC achieved. Intubated in the field. He lost pulses again in the ER and CPR was initiated with ROSC. Presently intubated, sedated. Exam deferred due to Covid-19 status. Please see physical exam per DANIELA Melgar above Labs and images reviewed Assessment/Plan- 56yo male with ESRD on HD, DVT on Eliquis, Covid-19 infection presenting with [id number] asystolic arrest. Patient with ROSC, now intubated, sedated, to initiate cooling protocol -Admit to MICU - post cardiac arrest management -Cooling protocol per MICU -Low TV ventilation, monitor ABG -Nephrology consultation for dialysis. Patient does not appear to require HD acutely -Remainder of plan as above PG Care Time/CCT Total # of Minutes Spent Total Time Spent with Patient: Total time spent is greater than 50% in coordination of care (as documented) at patient's floor/unit and/or counseling patient: Coding Level of Care Code 81184 Initial Inpt Care Lvl 3 Diagnoses Cardiac arrest I46.9 COVID-19 U07.1 Pneumonia J18.9 Laterality: bilateral Pneumonia type: due to unspecified organism Hypertension associated with diabetes E11.59; I10 Dyslipidemia E78.5 Obesity E66.9 DVT (deep venous thrombosis) I82.409 Central venous catheter in place Z78.9 Hypothyroidism E03.9 End-stage renal disease on hemodialysis N18.6; Z99.2 (1) Pneumonia Laterality: bilateral Pneumonia type: due to unspecified organism
--- NOTE | 2021-02-26 22:22 | Procedure Note ---
Procedure Note Date of Service February 26, 2021 Note ARTERIAL LINE PROCEDURE NOTE: Procedure: Arterial Line Placement Attending: Dr. Vladimir Bernal Provider: DANIELA Bond Indication: Monitoring on Pressors Anesthesia: Lidocaine 1% Line placed emergently following cardiac arrest in the setting of hypotension and cardiogenic shock A time-out was completed verifying correct patient, procedure, site, positioning, and implant(s) or special equipment if applicable. Allens test was performed to ensure adequate perfusion. Patients right wrist was prepped and draped in the usual sterile fashion. Ultrasound guidance was used to aid needle placement. A 20g Arrow arterial line was introduced into the radial artery. Catheter was threaded, and the needle was removed with appropriate blood return. Good waveform was observed. The patient tolerated the procedure well. Confirmation of placement with ultrasound. Blood Loss: Minimal Complications: None Procedural Ultrasound Guidance: Procedure Date: 02/26/2021 Indication: Arterial line insertion Attending: Dr. Vladimir Bernal Provider: DANIELA Bond Artery Identified: YES Line confirmed in Artery with ultrasound: Yes Complications: NONE Patient tolerated procedure: WELL Coding CPT Codes Tubes, Drains, and Vasc Access - Tubes, Drains, and Vasc Access: [id number] Place Catheter In Artery ([id number]) Tubes, Drains, and Vasc Access - Tubes, Drains, and Vasc Access: [id number] Ultrasound Guidance For Vascular ([id number]) [facility] Procedure Codes (Charges) Tubes, Drains, and Vasc Access Procedure 1: Tubes, Drains, and Vasc Access: [id number] Place Catheter In Artery Procedure 2: Tubes, Drains, and Vasc Access: [id number] Ultrasound Guidance For Vascular
--- NOTE | 2021-02-26 22:22 | Procedure Note ---
Procedure Note Date of Service February 26, 2021 Note FEMORAL CENTRAL LINE PROCEDURE NOTE: Procedure: Femoral heat exchange catheter Attending: Dr. Vladimir Bernal Provider: DANIELA Bond Indication: Central Drug Administration, therapeutic hypothermia Anesthesia: Lidocaine 1% Line placed emergently following cardiac arrest and requiring therapeutic hypothermia A time-out was completed verifying correct patient, procedure, site, positioning, and implants(s) or special equipment if applicable. Patients left groin was cleansed and draped in the typical sterile fashion using Chloraprep. The Femoral Vein and Femoral Artery were identified using ultrasound. The superficial tissue was anesthetized using 5 mL of 1% lidocaine without epinephrine under direct visualization with the ultrasound. After adequate anesthetization was achieved, the Femoral Vein was cannulated under direct ultrasound guidance using an introducer needle on a syringe. Good venous blood return was maintained prior to removal of syringe from introducer needle. Using Seldinger Technique, a guide wire was advanced through the introducer needle without resistance. The introducer needle was removed and ultrasound images were obtained of the guide wire within the Femoral Vein and saved to the patients medical record. A small incision was made in penetrating fashion at the guide wire insertion site utilizing an 11 blade scalpel. The dilator was advanced to the vessel without resistance. The dilator was exchanged for the heat exchange catheter which was advanced into the vessel without resistance. The guide wire was removed intact from the catheter without issue. Claves were placed on each catheter tip with confirmation of good blood flow from each of the 3 central line lumens. Each port was easily flushed with sterile saline. The catheter was placed at the hub and sutured in place. BioPatch was applied to the catheter and a sterile Tegaderm dressing was applied over the catheter with careful attention to sterility. Patient tolerated procedure well. No immediate complications were met. Images obtained are saved for permanent record Procedural Ultrasound Guidance: Procedure Date: 02/26/2021 Indication: Insertion of heat exchange catheter Attending: Dr. Vladimir Bernal Provider: DANIELA Bond Artery AND Vein visualized: Yes Compressible Vein: Yes Guidewire or Short Catheter seen in vein prior to dilation: Yes Line confirmed in Vein with ultrasound: Yes Images obtained are saved for permanent record. Coding CPT Codes Tubes, Drains, and Vasc Access - Tubes, Drains, and Vasc Access: [id number] Place catheter in vein superior or inferior vena cava ([id number]) Tubes, Drains, and Vasc Access - Tubes, Drains, and Vasc Access: [id number] Ultrasound Guidance For Vascular ([id number]) [facility] [place] Codes (Charges) Tubes, Drains, and Vasc Access Procedure 3: Tubes, Drains, and Vasc Access: [id number] Place catheter in vein superior or inferior vena cava Procedure 4: Tubes, Drains, and Vasc Access: [id number] Ultrasound Guidance For Vascular
[2021-02-27] MEDS ORDERED: MIDAZOLAM HCL 1 MG/ML 2ML VIAL IV STA (00:20)
[2021-02-27] MEDS ORDERED: ICU PROTOCOL FOR HYPERGLYCEMIA PRN (00:44)
[2021-02-27] MEDS ORDERED: LEVALBUTEROL HCL 0.63 MG/3 ML NEB INH PRN (00:44)
[2021-02-27] MEDS ORDERED: MEPERIDINE HCL 25 MG/ML CARP/VIAL IV PRN (01:02)
[2021-02-27] MEDS ORDERED: ACETAMINOPHEN 650 MG SUPP PR PRN (01:02)
[2021-02-27] MEDS ORDERED: busPIRone 15 MG TAB NG PRN (01:02)
[2021-02-27 01:54] LABS: Base Excess ABG -5.8 mEq/L (-9-1.8); HCO3 ABG 19 mmol/L (19-24); PCO2 ABG 36 mmHg (35-46); PO2 ABG 64 mmHg (80-95); pH ABG 7.34 (7.35-7.45)
[2021-02-27 02:06] LABS: Allen Test POS (Pos)
[2021-02-27 02:21] LABS: Fibrinogen 553 mg/dl (184-400)
[2021-02-27] MEDS: propofoL 1,000 MG/100 ML VIAL IV SCH ×6 (02:24→19:56)
[2021-02-27] MEDS: NEPHROCAPS PO SCH ×2 (02:35→21:31)
[2021-02-27] MEDS: APIXABAN 5 MG TABLET PO SCH ×3 (02:35→21:31)
[2021-02-27] MEDS: ATORVASTATIN 10 MG TAB PO SCH ×2 (02:36→21:31)
[2021-02-27] MEDS ORDERED: PIPERACILL/TAZOBAC CONSULT ACTIVE PRN (03:02)
[2021-02-27 04:17] LABS: Basophils # (auto) 0.03 K/uL (0-0.2); Basophils % (auto) 0.1 %; Hematocrit (blood only) 54.2 % (42-52); Hemoglobin 17.5 g/dL (14.0-18.0); Immature Granulocytes # (auto) 0.29 K/uL (0.00-0.02); Immature Granulocytes % (auto) 1.4 %; Lymphocytes # (auto) 1.07 K/uL (1.2-3.4); Mean Corpuscular Hemoglobin 29.6 pg (25-34); Mean Corpuscular Hgb Conc 32.3 g/dL (32-36); Mean Corpuscular Volume 91.6 fL (80-100); Mean Platelet Volume 9.8 fL (7.4-10.4); Monocytes # (auto) 0.39 K/uL (0.11-0.59); Monocytes % (auto) 1.8 %; Neutrophils # (auto) 19.63 K/uL (1.4-6.5); Neutrophils % (auto) 91.7 %; Platelet Count 381 K/uL (130-400); RDW Coefficient of Variation 19.2 % (11.5-14.5); RDW Standard Deviation 65.2 fL (36.4-46.3); Red Blood Count 5.92 M/uL (4.7-6.1); White Blood Count 21.41 K/uL (4.8-10.8)
[2021-02-27] MEDS: PIPERACILLIN/TAZOBACTAM 4.5 GM in DEXTROSE 5% 100 ML IV SCH ×2 (04:29→18:02)
[2021-02-27 04:44] LABS: iSTAT Art Bld Gas pCO2 Correct 32 mmHg (35-46); iSTAT Art Bld Gas pH Corrected 7.395 (7.35-7.45); iSTAT Arterial Blood Gas HCO3 20 meg/L (19-24); iSTAT Arterial Blood Gas pCO2 36 mmHg (35-46); iSTAT Arterial Blood Gas pH 7.36 (7.35-7.45); iSTAT Arterial Blood Gas pO2 71 mmHg (80-95); iSTAT Arterial Blood Gas pO2 C 61; iSTAT Carbon Dioxide 21 mmol/L (24-31); iSTAT FiO2 70 %; iSTAT Hematocrit 55 % (42-52); iSTAT Hemoglobin 18.7 g/dl (14.0-18.0); iSTAT Potassium 5.6 mmol/L (3.3-5.0); iSTAT Site Art Line; iSTAT Sodium 135 mmol/L (135-144)
[2021-02-27 04:47] LABS: BUN Creatinine Ratio 6.1 (10-20); Calcium 7.4 mg/dl (8.5-10.1); Creatinine Clr Calc Pharmacy 8.6 ml/min; Est GFR (African American) 3.3 ml/min; Est GFR (Non-African American) 2.8 ml/min
[2021-02-27 04:53] LABS: Albumin Level 2.7 gm/dl (3.4-5.0); Bilirubin Direct 0.2 mg/dl (0-0.2); Magnesium 3.4 mg/dl (1.8-2.4); Total Protein 7.3 gm/dl (6.4-8.2)
[2021-02-27] MEDS ORDERED: DEXTROSE 50% 50 ML SYRINGE IV ONE (05:49)
[2021-02-27] MEDS ORDERED: INSULIN HUMAN REGULAR PER UNIT 10 UNITS in SYRINGE 9.9 ML IV STA (06:12)
[2021-02-27] MEDS: LEVOTHYROXINE SODIUM 150 MCG TABLET PO SCH (06:52)
[2021-02-27] MEDS ORDERED: SODIUM POLYSTYRENE SULFONATE 15G/60ML SUSP PO STA (07:20)
[2021-02-27] MEDS ORDERED: CALCIUM GLUCONATE 10% 1,000 MG in SODIUM CHLORIDE 0.9% 50 ML IV ONE (07:20)
[2021-02-27 07:38] LABS: iSTAT Art Bld Gas pCO2 Correct 26 mmHg (35-46); iSTAT Art Bld Gas pH Corrected 7.438 (7.35-7.45); iSTAT Arterial Blood Gas HCO3 19 meg/L (19-24); iSTAT Arterial Blood Gas pCO2 33 mmHg (35-46); iSTAT Arterial Blood Gas pH 7.37 (7.35-7.45); iSTAT Arterial Blood Gas pO2 62 mmHg (80-95); iSTAT Arterial Blood Gas pO2 C 45; iSTAT Carbon Dioxide 20 mmol/L (24-31); iSTAT FiO2 60 %; iSTAT Hematocrit 55 % (42-52); iSTAT Hemoglobin 18.7 g/dl (14.0-18.0); iSTAT Site Art Line; iSTAT Sodium 135 mmol/L (135-144)
--- NOTE | 2021-02-27 07:42 | CT Scan Report ---
CT head/brain wo con CLINICAL HISTORY: 56 years-old Male with post cardiac arrest. Status post cardiac arrest. TECHNIQUE: Multiple axial CT images of the head were obtained without contrast. A dose lowering tech nique was utilized adhering to the principles of ALARA. CT DOSE: 1092.33 mGy.cm COMPARISON: None FINDINGS: No acute intracranial hemorrhage, midline shift, intracranial mass, hydrocephalus, territorial ischem ia or abnormal extra-axial collection. Subcentimeter hypodensity of the left frontal lobe woo radi gela is suggestive of a chronic lacunar infarct. Senescent calcifications of the right lentiform nucle us. Cerebral vascular calcifications. Motion degraded exam. Artifact from dental amalgam hardware. The calvarium is intact. Endotracheal tube is partially imaged. Secretions within the airway. Severe mucosal thickening of the nasal turbinates and ethmoid air cells with mild to moderate mucosal thick ening of the maxillary and sphenoid sinuses. Air-fluid levels of the sphenoid sinuses and left maxill cece sinus. Mastoid air cells are clear. Unremarkable soft tissues. IMPRESSION: No acute intracranial abnormality. ACT 112: Negative or not required by law. The above report was generated using voice recognition software. It may contain grammatical, syntax o r spelling errors. Electronically signed by: Sammy Lane M.D. 02/27/2021 7:41 AM
[2021-02-27 08:00] LABS: Basophils # (auto) 0.01 K/uL (0-0.2); Basophils % (auto) 0.1 %; Hematocrit (blood only) 52.5 % (42-52); Immature Granulocytes # (auto) 0.22 K/uL (0.00-0.02); Immature Granulocytes % (auto) 1.4 %; Lymphocytes # (auto) 0.31 K/uL (1.2-3.4); Mean Corpuscular Hemoglobin 29.3 pg (25-34); Mean Corpuscular Hgb Conc 32.4 g/dL (32-36); Mean Corpuscular Volume 90.4 fL (80-100); Monocytes # (auto) 0.15 K/uL (0.11-0.59); Monocytes % (auto) 0.9 %; Neutrophils # (auto) 15.18 K/uL (1.4-6.5); Neutrophils % (auto) 95.6 %; Platelet Count 340 K/uL (130-400); RDW Coefficient of Variation 19.3 % (11.5-14.5); RDW Standard Deviation 63.3 fL (36.4-46.3); Red Blood Count 5.81 M/uL (4.7-6.1); White Blood Count 15.87 K/uL (4.8-10.8)
[2021-02-27 08:11] LABS: INR 1.2 (0.9-1.1); Partial Thromboplastin Ratio 1.1; Partial Thromboplastin Time 28.2 Seconds (21.0-31.0)
--- NOTE | 2021-02-27 08:21 | Critical Care Progress Note ---
Date of Service February 27, 2021 Assessment & Plan (1) Cardiac arrest: Plan: Reason Critically Ill: 56-year-old male with complicated PMH including ESRD on dialysis, HFpEF, and recent hospitalization for COVID-19 pneumonia presents to the ICU following a suspected respiratory induced asystole cardiac arrest in which she is undergoing therapeutic hypothermia as he was unresponsive following ROSC. Neuro - Anoxic injurypatient unresponsive following ROSC, neurological exam as above. -CT head without acute intracranial findings -Patient undergo 24-hour therapeutic hypothermia -Consider EEG once rewarmed Cardiac - Cardiac arrestsuspect this is likely related to the patient's severe respiratory acidosis and COVID-19 pneumonia along with hypoglycemia likely attributed -Witnessed asystole arrest with ROSC achieved following CPR, epinephrine, bicarb -Troponin unremarkable, EKG without ST elevations, QTc 475. Patient was not having chest pain prior to this event. -Patient requiring low-dose Levophed, likely sedation related but cannot rule out cardiogenic shock. Echo pending. Maintain MAP greater than 65 -NSR on monitor, continuous telemetry -Hold antihypertensives for now -We will monitor BMP, ABG, and EKG every 6 hours per therapeutic hypothermia protocol Respiratory - Hypercapnic hypoxic respiratory failurelikely multifactorial in the setting of COVID-19 pneumonia, diastolic heart failure, presumed OHS -Currently mechanically ventilated, ABGs every 6 per therapeutic hypothermia protocol. Will wean vent appropriately -See ID management below for pneumonia -Unable to diurese as patient is anuric and requiring hemodialysis. Will defer to nephrology to manage fluid balance -Respiratory acidosis appears to be improving, monitor -Nebs as needed -Continuous pulse ox and ET CO2 monitoring GI - N.p.o. Transaminitismild elevation LFTs likelyIn the setting of shock liver following cardiac arrest -Trend for now RENAL/LYTES - ESRDPatient undergoes hemodialysis MWF, Unsure if he received dialysis today - Creatinine 17 appears to be consistent with prior BMPs at baseline -No severe electrolyte abnormalities, HCO3 at baseline. No indication for emergent dialysis at this time -Consult nephrology to schedule hemodialysis -We will monitor every 6 hour BMPs per therapeutic hypothermia protocol - Foleystrict I's and O's ENDO - DM type IIpatient was hypoglycemic in the field with EMS but corrected with dextrose/glucagon administration -Currently hyperglycemic, continue with sliding scale for now -ICU hyperglycemic protocol Hypothyroidcontinue Synthroid HEME - H&H stable, monitor routine CBCs ID - Pneumoniapatient initially tested positive for COVID-19 pneumonia on 02/22. He recently completed 5-day course of vancomycin, Zosyn, and azithromycin. -Bio fire reconfirmed Covid 19, otherwise unremarkable -Continue Decadron 6 mg IV daily to complete 10-day course -Received vancomycin and Zosyn in emergency department. Blood cultures pending -Mild elevation procalcitonin, lactate pending -Continue airborne precautions -Will hold on further antibiotics at this time, trend fever curve LINES/IV ACCESS - Heat extreme central venous catheter (triple-lumen access), arterial line, ET t ube, OG tube DVT PROPHYLAXIS - SCDs, continue Anusha I have personally spent 45 minutes of critical care time in the direct management of this patient. This is a life/limb threatening event. This includes time spent evaluating patient, direct bedside care, chart review, placing orders, interpretation of diagnostic studies, discussion with consultants, patient, and family members, as well as other required patient management activities. This time is exclusive of all separately billable procedures, and teaching time and separate from and in addition to any other critical care service time. (2) Hypoglycemia: (3) Renal failure: (4) Respiratory failure: (5) Acidosis: (6) Hypoxia: (7) Pneumonia: (8) COVID-19: (9) Controlled type 2 diabetes mellitus with kidney complication, with long-term current use of insulin: (10) End stage renal disease: (11) Morbid obesity: Admission and Anticipated Discharge Date Admission Date: February 26, 2021 Subjective No overnight events Physical Exam Physical Exam: General: 3 T. nontoxic. Skin: Warm, dry, Head: Atraumatic Ears, nose, mouth and throat: airway obscured by endotracheal tube Cardiovascular: Normal peripheral perfusion Respiratory: Distant breath sounds Gastrointestinal: Rotund abdomen Musculoskeletal: 2+ edema, evidence of vascular insufficiency Results & Data Results & Data ([facility]) Vital Signs (Past 12 Hours) Vital Signs Temp Pulse Pulse Resp BP BP Pulse Ox 02/27/21 07:15 53 L 24 94 02/27/21 06:00 32.1 C L 43 L 24 144/73 H 94 02/27/21 05:00 32 C L 64 22 152/80 H 94 02/27/21 04:47 32 C L 63 22 149/80 H 95 02/27/21 04:20 48 L 24 93 02/27/21 03:47 32.6 C L 49 L 24 132/73 94 02/27/21 02:47 33.1 C L 53 L 26 H 128/71 93 02/27/21 02:32 33.3 C L 52 L 24 117/64 92 02/27/21 02:17 33.5 C L 53 L 24 130/72 94 02/27/21 02:02 33.7 C L 54 L 26 H 127/70 94 02/27/21 01:47 33.9 C L 56 L 24 127/70 94 02/27/21 01:32 34.1 C L 58 L 25 H 126/70 93 02/27/21 01:17 34.4 C L 65 24 140/71 92 02/27/21 01:02 35.6 C L 71 28 H 160/80 H 95 02/27/21 00:57 24 02/27/21 00:44 60 02/27/21 00:33 60 28 H 94 02/26/21 23:49 35.6 C L 72 32 H 156/64 H 93 02/26/21 23:17 55 L 28 H 159/71 H 94 02/26/21 22:45 56 L 28 H 153/70 H 93 02/26/21 22:29 57 L 28 H 160/73 H 93 02/26/21 21:31 57 L 144/71 H 91 02/26/21 21:15 68 84/42 L 94 02/26/21 21:00 69 91/34 L 94 02/26/21 20:50 70 85/38 L 92 02/26/21 20:41 35 C L 70 86/40 L 93 02/26/21 20:34 28 H 02/26/21 20:32 35.6 C L 02/26/21 20:31 35.0 C L 72 88/31 L 91 02/26/21 20:25 15.9 C L 74 93/31 L 95 02/26/21 20:23 73 97/32 L 94 Laboratory Results 02/27/21 02/27/21 02/27/21 Range/Units 07:15 06:58 06:58 WBC (4.8-10.8) K/uL RBC (4.7-6.1) M/uL Hgb (14.0-18.0) g/dL POC Hgb 18.7 H (14.0-18.0) g/dl Hct (42-52) % POC Hct 55 H (42-52) % MCV (80-100) fL MCH (25-34) pg MCHC (32-36) g/dL RDW Std Deviation (36.4-46.3) fL RDW Coeff of Tim (11.5-14.5) % Plt Count (130-400) K/uL MPV (7.4-10.4) fL Immature Gran % (Auto) % Neut % (Auto) % Lymph % (Auto) % Antelope % (Auto) % Eos % (Auto) % Baso % (Auto) % Neut # (Auto) (1.4-6.5) K/uL Lymph # (Auto) (1.2-3.4) K/uL Antelope # (Auto) (0.11-0.59) K/uL Eos # (Auto) (0-0.5) K/uL Baso # (Auto) (0-0.2) K/uL Immature Gran # (Auto) (0.00-0.02) K/uL Absolute Nucleated RBC (0-0) K/uL Nucleated RBC % (auto) % Neutrophils % (Manual) % Lymphocytes % (Manual) % Monocytes % (Manual) % Neutrophils # (Manual) (1.4-6.5) K/uL Total Absolute Neuts (1.4-6.5) K/uL Lymphocytes # (Manual) (1.2-3.4) K/uL Total Abs Lymphocytes (1.2-3.4) K/uL Monocytes # (Manual) (0.11-0.59) K/uL Polychromasia PT 12.0 (9.0-12.0) Seconds INR 1.2 H (0.9-1.1) APTT 28.2 (21.0-31.0) Seconds PTT Ratio 1.1 Fibrinogen (184-400) mg/dl Sample Site Art Line POC pH 7.37 (7.35-7.45) POC pCO2 33 L (35-46) mmHg POC pO2 62 L (80-95) mmHg POC HCO3 19 (19-24) yue/L POC Total CO2 20 L (24-31) mmol/L POC Base Excess -7.0 (-9-1.8) yue/L ABG pH (7.35-7.45) ABG pH (Temp Correct) 7.438 (7.35-7.45) ABG pCO2 (35-46) mmHg ABG pCO2 (Temp Corrct 26 L (35-46) mmHg ABG pO2 (80-95) mmHg POC ABG pO2 at Pt Temp 45 ABG HCO3 (19-24) mmol/L POC ABG O2 Sat 91.0 (90-95) % ABG O2 Saturation (90-95) % ABG Base Excess (-9-1.8) mEq/L Isidoro Test NA VBG pH (7.36-7.41) VBG pCO2 (38-50) mmHg VBG pO2 mmHg VBG HCO3 mmol/L VBG O2 Saturation % VBG Base Excess mEq/L Barometric Pressure mm/Hg Oxygen Given O2 Delivery Device Ventilator POC O2 Rate 24 Minute Ventilation 13.2 POC FiO2 60 % Tidal Volume 550 PEEP 10 POC Sodium 135 (135-144) mmol/L Sodium Pending (136-145) mmol/L POC Potassium 5.0 (3.3-5.0) mmol/L Potassium Pending (3.5-5.1) mmol/L Chloride Pending (98-107) mmol/L Carbon Dioxide Pending (21-32) mmol/L Anion Gap Pending (3-11) BUN Pending (7-18) mg/dl Creatinine Pending (0.6-1.4) mg/dl Est Cr Clr Drug Dosing Pending Est GFR ( Amer) Pending ml/min Est GFR (Non-Af Amer) Pending ml/min BUN/Creatinine Ratio Pending (10-20) Glucose Pending (70-99) mg/dl POC Glucose (70-99) mg/dl POC Glucose (other) (70-99) mg/dl Lactate Calcium Pending (8.5-10.1) mg/dl Phosphorus Pending Magnesium Pending (1.8-2.4) mg/dl Total Bilirubin (0.2-1) mg/dl Direct Bilirubin (0-0.2) mg/dl AST (15-37) U/L ALT (12-78) U/L Alkaline Phosphatase (45-117) U/L Troponin I (0-0.045) ng/ml C-Reactive Protein (0-0.29) mg/dl Total Protein (6.4-8.2) gm/dl Albumin (3.4-5.0) gm/dl Globulin (2.5-4.0) gm/dl Albumin/Globulin Ratio (0.9-2) Procalcitonin (0-0.5) ng/ml Nasal Screen MRSA (PCR) (Negative) Adenovirus (PCR) (NotDetected) B. pertussis DNA (PCR) (NotDetected) B.parapertussis DNA PCR (NotDetected) C. pneumoniae DNA (PCR) (NotDetected) Coronavirus OC43 (PCR) (NotDetected) Coronavirus HKU1 (PCR) (NotDetected) Coronavirus 229E (PCR) (NotDetected) COVID-19 Eval Order SARS-CoV-2 (PCR) (NotDetected) Coronavirus NL63 (PCR) (NotDetected) Human Metapneumovir PCR (NotDetected) Influenza Type A (PCR) (NotDetected) Influenza Type B (PCR) (NotDetected) M. pneumoniae (PCR) (NotDetected) Parainfluenza 1 (PCR) (NotDetected) Parainfluenza 2 (PCR) (NotDetected) Parainfluenza 3 (PCR) (NotDetected) Parainfluenza 4 (PCR) (NotDetected) RSV (PCR) (NotDetected) Entero/Rhino (PCR) (NotDetected) 02/27/21 02/27/21 02/27/21 Range/Units 06:58 04:30 04:04 WBC 15.87 H (4.8-10.8) K/uL RBC 5.81 (4.7-6.1) M/uL Hgb 17.0 (14.0-18.0) g/dL POC Hgb (14.0-18.0) g/dl Hct 52.5 H (42-52) % POC Hct (42-52) % MCV 90.4 (80-100) fL MCH 29.3 (25-34) pg MCHC 32.4 (32-36) g/dL RDW Std Deviation 63.3 H (36.4-46.3) fL RDW Coeff of Tim 19.3 H (11.5-14.5) % Plt Count 340 (130-400) K/uL MPV 10.0 (7.4-10.4) fL Immature Gran % (Auto) 1.4 % Neut % (Auto) 95.6 % Lymph % (Auto) 2.0 % Antelope % (Auto) 0.9 % Eos % (Auto) 0.0 % Baso % (Auto) 0.1 % Neut # (Auto) 15.18 H (1.4-6.5) K/uL Lymph # (Auto) 0.31 L (1.2-3.4) K/uL Antelope # (Auto) 0.15 (0.11-0.59) K/uL Eos # (Auto) 0.00 (0-0.5) K/uL Baso # (Auto) 0.01 (0-0.2) K/uL Immature Gran # (Auto) 0.22 H (0.00-0.02) K/uL Absolute Nucleated RBC (0-0) K/uL Nucleated RBC % (auto) % Neutrophils % (Manual) % Lymphocytes % (Manual) % Monocytes % (Manual) % Neutrophils # (Manual) (1.4-6.5) K/uL Total Absolute Neuts (1.4-6.5) K/uL Lymphocytes # (Manual) (1.2-3.4) K/uL Total Abs Lymphocytes (1.2-3.4) K/uL Monocytes # (Manual) (0.11-0.59) K/uL Polychromasia PT (9.0-12.0) Seconds INR (0.9-1.1) APTT (21.0-31.0) Seconds PTT Ratio Fibrinogen (184-400) mg/dl Sample Site POC pH (7.35-7.45) POC pCO2 (35-46) mmHg POC pO2 (80-95) mmHg POC HCO3 (19-24) yue/L POC Total CO2 (24-31) mmol/L POC Base Excess (-9-1.8) yue/L ABG pH (7.35-7.45) ABG pH (Temp Correct) (7.35-7.45) ABG pCO2 (35-46) mmHg ABG pCO2 (Temp Corrct (35-46) mmHg ABG pO2 (80-95) mmHg POC ABG pO2 at Pt Temp ABG HCO3 (19-24) mmol/L POC ABG O2 Sat (90-95) % ABG O2 Saturation (90-95) % ABG Base Excess (-9-1.8) mEq/L Isidoro Test VBG pH (7.36-7.41) VBG pCO2 (38-50) mmHg VBG pO2 mmHg VBG HCO3 mmol/L VBG O2 Saturation % VBG Base Excess mEq/L Barometric Pressure mm/Hg Oxygen Given O2 Delivery Device POC O2 Rate Minute Ventilation POC FiO2 % Tidal Volume PEEP POC Sodium (135-144) mmol/L Sodium 135 L (136-145) mmol/L POC Potassium (3.3-5.0) mmol/L Potassium 6.0 H D (3.5-5.1) mmol/L Chloride 95 L (98-107) mmol/L Carbon Dioxide 23 (21-32) mmol/L Anion Gap 17.0 H (3-11) BUN 101 H (7-18) mg/dl Creatinine 16.50 H* D (0.6-1.4) mg/dl Est Cr Clr Drug Dosing 8.6 Est GFR ( Amer) 3.3 ml/min Est GFR (Non-Af Amer) 2.8 ml/min BUN/Creatinine Ratio 6.1 L (10-20) Glucose 123 H (70-99) mg/dl POC Glucose (70-99) mg/dl POC Glucose (other) 122 H (70-99) mg/dl Lactate Calcium 7.4 L (8.5-10.1) mg/dl Phosphorus Magnesium (1.8-2.4) mg/dl Total Bilirubin (0.2-1) mg/dl Direct Bilirubin (0-0.2) mg/dl AST (15-37) U/L ALT (12-78) U/L Alkaline Phosphatase (45-117) U/L Troponin I (0-0.045) ng/ml C-Reactive Protein (0-0.29) mg/dl Total Protein (6.4-8.2) gm/dl Albumin (3.4-5.0) gm/dl Globulin (2.5-4.0) gm/dl Albumin/Globulin Ratio (0.9-2) Procalcitonin (0-0.5) ng/ml Nasal Screen MRSA (PCR) (Negative) Adenovirus (PCR) (NotDetected) B. pertussis DNA (PCR) (NotDetected) B.parapertussis DNA PCR (NotDetected) C. pneumoniae DNA (PCR) (NotDetected) Coronavirus OC43 (PCR) (NotDetected) Coronavirus HKU1 (PCR) (NotDetected) Coronavirus 229E (PCR) (NotDetected) COVID-19 Eval Order SARS-CoV-2 (PCR) (NotDetected) Coronavirus NL63 (PCR) (NotDetected) Human Metapneumovir PCR (NotDetected) Influenza Type A (PCR) (NotDetected) Influenza Type B (PCR) (NotDetected) M. pneumoniae (PCR) (NotDetected) Parainfluenza 1 (PCR) (NotDetected) Parainfluenza 2 (PCR) (NotDetected) Parainfluenza 3 (PCR) (NotDetected) Parainfluenza 4 (PCR) (NotDetected) RSV (PCR) (NotDetected) Entero/Rhino (PCR) (NotDetected) 02/27/21 02/27/21 02/27/21 Range/Units 04:04 04:04 04:04 WBC 21.41 H (4.8-10.8) K/uL RBC 5.92 (4.7-6.1) M/uL Hgb 17.5 (14.0-18.0) g/dL POC Hgb (14.0-18.0) g/dl Hct 54.2 H (42-52) % POC Hct (42-52) % MCV 91.6 (80-100) fL MCH 29.6 (25-34) pg MCHC 32.3 (32-36) g/dL RDW Std Deviation 65.2 H (36.4-46.3) fL RDW Coeff of Tim 19.2 H (11.5-14.5) % Plt Count 381 (130-400) K/uL MPV 9.8 (7.4-10.4) fL Immature Gran % (Auto) 1.4 % Neut % (Auto) 91.7 % Lymph % (Auto) 5.0 % Antelope % (Auto) 1.8 % Eos % (Auto) 0.0 % Baso % (Auto) 0.1 % Neut # (Auto) 19.63 H (1.4-6.5) K/uL Lymph # (Auto) 1.07 L (1.2-3.4) K/uL Antelope # (Auto) 0.39 (0.11-0.59) K/uL Eos # (Auto) 0.00 (0-0.5) K/uL Baso # (Auto) 0.03 (0-0.2) K/uL Immature Gran # (Auto) 0.29 H (0.00-0.02) K/uL Absolute Nucleated RBC (0-0) K/uL Nucleated RBC % (auto) % Neutrophils % (Manual) % Lymphocytes % (Manual) % Monocytes % (Manual) % Neutrophils # (Manual) (1.4-6.5) K/uL Total Absolute Neuts (1.4-6.5) K/uL Lymphocytes # (Manual) (1.2-3.4) K/uL Total Abs Lymphocytes (1.2-3.4) K/uL Monocytes # (Manual) (0.11-0.59) K/uL Polychromasia PT (9.0-12.0) Seconds INR (0.9-1.1) APTT (21.0-31.0) Seconds PTT Ratio Fibrinogen (184-400) mg/dl Sample Site POC pH (7.35-7.45) POC pCO2 (35-46) mmHg POC pO2 (80-95) mmHg POC HCO3 (19-24) yue/L POC Total CO2 (24-31) mmol/L POC Base Excess (-9-1.8) yue/L ABG pH (7.35-7.45) ABG pH (Temp Correct) (7.35-7.45) ABG pCO2 (35-46) mmHg ABG pCO2 (Temp Corrct (35-46) mmHg ABG pO2 (80-95) mmHg POC ABG pO2 at Pt Temp ABG HCO3 (19-24) mmol/L POC ABG O2 Sat (90-95) % ABG O2 Saturation (90-95) % ABG Base Excess (-9-1.8) mEq/L Isidoro Test VBG pH (7.36-7.41) VBG pCO2 (38-50) mmHg VBG pO2 mmHg VBG HCO3 mmol/L VBG O2 Saturation % VBG Base Excess mEq/L Barometric Pressure mm/Hg Oxygen Given O2 Delivery Device POC O2 Rate Minute Ventilation POC FiO2 % Tidal Volume PEEP POC Sodium (135-144) mmol/L Sodium Cancelled (136-145) mmol/L POC Potassium (3.3-5.0) mmol/L Potassium Cancelled (3.5-5.1) mmol/L Chloride Cancelled (98-107) mmol/L Carbon Dioxide Cancelled (21-32) mmol/L Anion Gap Cancelled (3-11) BUN Cancelled (7-18) mg/dl Creatinine Cancelled (0.6-1.4) mg/dl Est Cr Clr Drug Dosing Cancelled Est GFR ( Amer) Cancelled ml/min Est GFR (Non-Af Amer) Cancelled ml/min BUN/Creatinine Ratio Cancelled (10-20) Glucose Cancelled (70-99) mg/dl POC Glucose (70-99) mg/dl POC Glucose (other) (70-99) mg/dl Lactate 1.5 Calcium Cancelled (8.5-10.1) mg/dl Phosphorus Magnesium 3.4 H (1.8-2.4) mg/dl Total Bilirubin 1.0 (0.2-1) mg/dl Direct Bilirubin 0.2 (0-0.2) mg/dl AST 246 H (15-37) U/L ALT 360 H (12-78) U/L Alkaline Phosphatase 93 (45-117) U/L Troponin I (0-0.045) ng/ml C-Reactive Protein (0-0.29) mg/dl Total Protein 7.3 (6.4-8.2) gm/dl Albumin 2.7 L (3.4-5.0) gm/dl Globulin (2.5-4.0) gm/dl Albumin/Globulin Ratio (0.9-2) Procalcitonin (0-0.5) ng/ml Nasal Screen MRSA (PCR) (Negative) Adenovirus (PCR) (NotDetected) B. pertussis DNA (PCR) (NotDetected) B.parapertussis DNA PCR (NotDetected) C. pneumoniae DNA (PCR) (NotDetected) Coronavirus OC43 (PCR) (NotDetected) Coronavirus HKU1 (PCR) (NotDetected) Coronavirus 229E (PCR) (NotDetected) COVID-19 Eval Order SARS-CoV-2 (PCR) (NotDetected) Coronavirus NL63 (PCR) (NotDetected) Human Metapneumovir PCR (NotDetected) Influenza Type A (PCR) (NotDetected) Influenza Type B (PCR) (NotDetected) M. pneumoniae (PCR) (NotDetected) Parainfluenza 1 (PCR) (NotDetected) Parainfluenza 2 (PCR) (NotDetected) Parainfluenza 3 (PCR) (NotDetected) Parainfluenza 4 (PCR) (NotDetected) RSV (PCR) (NotDetected) Entero/Rhino (PCR) (NotDetected) 02/27/21 02/27/21 02/27/21 Range/Units 01:37 01:23 01:23 WBC (4.8-10.8) K/uL RBC (4.7-6.1) M/uL Hgb (14.0-18.0) g/dL POC Hgb (14.0-18.0) g/dl Hct (42-52) % POC Hct (42-52) % MCV (80-100) fL MCH (25-34) pg MCHC (32-36) g/dL RDW Std Deviation (36.4-46.3) fL RDW Coeff of Tim (11.5-14.5) % Plt Count (130-400) K/uL MPV (7.4-10.4) fL Immature Gran % (Auto) % Neut % (Auto) % Lymph % (Auto) % Antelope % (Auto) % Eos % (Auto) % Baso % (Auto) % Neut # (Auto) (1.4-6.5) K/uL Lymph # (Auto) (1.2-3.4) K/uL Antelope # (Auto) (0.11-0.59) K/uL Eos # (Auto) (0-0.5) K/uL Baso # (Auto) (0-0.2) K/uL Immature Gran # (Auto) (0.00-0.02) K/uL Absolute Nucleated RBC (0-0) K/uL Nucleated RBC % (auto) % Neutrophils % (Manual) % Lymphocytes % (Manual) % Monocytes % (Manual) % Neutrophils # (Manual) (1.4-6.5) K/uL Total Absolute Neuts (1.4-6.5) K/uL Lymphocytes # (Manual) (1.2-3.4) K/uL Total Abs Lymphocytes (1.2-3.4) K/uL Monocytes # (Manual) (0.11-0.59) K/uL Polychromasia PT (9.0-12.0) Seconds INR (0.9-1.1) APTT (21.0-31.0) Seconds PTT Ratio Fibrinogen (184-400) mg/dl Sample Site POC pH (7.35-7.45) POC pCO2 (35-46) mmHg POC pO2 (80-95) mmHg POC HCO3 (19-24) yue/L POC Total CO2 (24-31) mmol/L POC Base Excess (-9-1.8) yue/L ABG pH (7.35-7.45) ABG pH (Temp Correct) (7.35-7.45) ABG pCO2 (35-46) mmHg ABG pCO2 (Temp Corrct (35-46) mmHg ABG pO2 (80-95) mmHg POC ABG pO2 at Pt Temp ABG HCO3 (19-24) mmol/L POC ABG O2 Sat (90-95) % ABG O2 Saturation (90-95) % ABG Base Excess (-9-1.8) mEq/L Isidoro Test VBG pH (7.36-7.41) VBG pCO2 (38-50) mmHg VBG pO2 mmHg VBG HCO3 mmol/L VBG O2 Saturation % VBG Base Excess mEq/L Barometric Pressure mm/Hg Oxygen Given O2 Delivery Device POC O2 Rate Minute Ventilation POC FiO2 % Tidal Volume PEEP POC Sodium (135-144) mmol/L Sodium (136-145) mmol/L POC Potassium (3.3-5.0) mmol/L Potassium (3.5-5.1) mmol/L Chloride (98-107) mmol/L Carbon Dioxide (21-32) mmol/L Anion Gap (3-11) BUN (7-18) mg/dl Creatinine (0.6-1.4) mg/dl Est Cr Clr Drug Dosing Est GFR ( Amer) ml/min Est GFR (Non-Af Amer) ml/min BUN/Creatinine Ratio (10-20) Glucose (70-99) mg/dl POC Glucose (70-99) mg/dl POC Glucose (other) (70-99) mg/dl Lactate Calcium (8.5-10.1) mg/dl Phosphorus Magnesium (1.8-2.4) mg/dl Total Bilirubin (0.2-1) mg/dl Direct Bilirubin (0-0.2) mg/dl AST (15-37) U/L ALT (12-78) U/L Alkaline Phosphatase (45-117) U/L Troponin I (0-0.045) ng/ml C-Reactive Protein 2.97 H (0-0.29) mg/dl Total Protein (6.4-8.2) gm/dl Albumin (3.4-5.0) gm/dl Globulin (2.5-4.0) gm/dl Albumin/Globulin Ratio (0.9-2) Procalcitonin 1.45 H (0-0.5) ng/ml Nasal Screen MRSA (PCR) Negative (Negative) Adenovirus (PCR) (NotDetected) B. pertussis DNA (PCR) (NotDetected) B.parapertussis DNA PCR (NotDetected) C. pneumoniae DNA (PCR) (NotDetected) Coronavirus OC43 (PCR) (NotDetected) Coronavirus HKU1 (PCR) (NotDetected) Coronavirus 229E (PCR) (NotDetected) COVID-19 Eval Order SARS-CoV-2 (PCR) (NotDetected) Coronavirus NL63 (PCR) (NotDetected) Human Metapneumovir PCR (NotDetected) Influenza Type A (PCR) (NotDetected) Influenza Type B (PCR) (NotDetected) M. pneumoniae (PCR) (NotDetected) Parainfluenza 1 (PCR) (NotDetected) Parainfluenza 2 (PCR) (NotDetected) Parainfluenza 3 (PCR) (NotDetected) Parainfluenza 4 (PCR) (NotDetected) RSV (PCR) (NotDetected) Entero/Rhino (PCR) (NotDetected) 02/27/21 02/27/21 02/27/21 Range/Units 01:23 01:23 01:04 WBC (4.8-10.8) K/uL RBC (4.7-6.1) M/uL Hgb (14.0-18.0) g/dL POC Hgb (14.0-18.0) g/dl Hct (42-52) % POC Hct (42-52) % MCV (80-100) fL MCH (25-34) pg MCHC (32-36) g/dL RDW Std Deviation (36.4-46.3) fL RDW Coeff of Tim (11.5-14.5) % Plt Count (130-400) K/uL MPV (7.4-10.4) fL Immature Gran % (Auto) % Neut % (Auto) % Lymph % (Auto) % Antelope % (Auto) % Eos % (Auto) % Baso % (Auto) % Neut # (Auto) (1.4-6.5) K/uL Lymph # (Auto) (1.2-3.4) K/uL Antelope # (Auto) (0.11-0.59) K/uL Eos # (Auto) (0-0.5) K/uL Baso # (Auto) (0-0.2) K/uL Immature Gran # (Auto) (0.00-0.02) K/uL Absolute Nucleated RBC (0-0) K/uL Nucleated RBC % (auto) % Neutrophils % (Manual) % Lymphocytes % (Manual) % Monocytes % (Manual) % Neutrophils # (Manual) (1.4-6.5) K/uL Total Absolute Neuts (1.4-6.5) K/uL Lymphocytes # (Manual) (1.2-3.4) K/uL Total Abs Lymphocytes (1.2-3.4) K/uL Monocytes # (Manual) (0.11-0.59) K/uL Polychromasia PT (9.0-12.0) Seconds INR (0.9-1.1) APTT (21.0-31.0) Seconds PTT Ratio Fibrinogen 553 H (184-400) mg/dl Sample Site POC pH (7.35-7.45) POC pCO2 (35-46) mmHg POC pO2 (80-95) mmHg POC HCO3 (19-24) yue/L POC Total CO2 (24-31) mmol/L POC Base Excess (-9-1.8) yue/L ABG pH 7.34 L (7.35-7.45) ABG pH (Temp Correct) (7.35-7.45) ABG pCO2 36 (35-46) mmHg ABG pCO2 (Temp Corrct (35-46) mmHg ABG pO2 64 L (80-95) mmHg POC ABG pO2 at Pt Temp ABG HCO3 19 (19-24) mmol/L POC ABG O2 Sat (90-95) % ABG O2 Saturation 90.0 (90-95) % ABG Base Excess -5.8 (-9-1.8) mEq/L Isidoro Test POS VBG pH (7.36-7.41) VBG pCO2 (38-50) mmHg VBG pO2 mmHg VBG HCO3 mmol/L VBG O2 Saturation % VBG Base Excess mEq/L Barometric Pressure 735.8 mm/Hg Oxygen Given 60% FIO2 O2 Delivery Device POC O2 Rate Minute Ventilation POC FiO2 % Tidal Volume PEEP POC Sodium (135-144) mmol/L Sodium (136-145) mmol/L POC Potassium (3.3-5.0) mmol/L Potassium (3.5-5.1) mmol/L Chloride (98-107) mmol/L Carbon Dioxide (21-32) mmol/L Anion Gap (3-11) BUN (7-18) mg/dl Creatinine (0.6-1.4) mg/dl Est Cr Clr Drug Dosing Est GFR ( Amer) ml/min Est GFR (Non-Af Amer) ml/min BUN/Creatinine Ratio (10-20) Glucose (70-99) mg/dl POC Glucose (70-99) mg/dl POC Glucose (other) 140 H (70-99) mg/dl Lactate Calcium (8.5-10.1) mg/dl Phosphorus Magnesium (1.8-2.4) mg/dl Total Bilirubin (0.2-1) mg/dl Direct Bilirubin (0-0.2) mg/dl AST (15-37) U/L ALT (12-78) U/L Alkaline Phosphatase (45-117) U/L Troponin I (0-0.045) ng/ml C-Reactive Protein (0-0.29) mg/dl Total Protein (6.4-8.2) gm/dl Albumin (3.4-5.0) gm/dl Globulin (2.5-4.0) gm/dl Albumin/Globulin Ratio (0.9-2) Procalcitonin (0-0.5) ng/ml Nasal Screen MRSA (PCR) (Negative) Adenovirus (PCR) (NotDetected) B. pertussis DNA (PCR) (NotDetected) B.parapertussis DNA PCR (NotDetected) C. pneumoniae DNA (PCR) (NotDetected) Coronavirus OC43 (PCR) (NotDetected) Coronavirus HKU1 (PCR) (NotDetected) Coronavirus 229E (PCR) (NotDetected) COVID-19 Eval Order SARS-CoV-2 (PCR) (NotDetected) Coronavirus NL63 (PCR) (NotDetected) Human Metapneumovir PCR (NotDetected) Influenza Type A (PCR) (NotDetected) Influenza Type B (PCR) (NotDetected) M. pneumoniae (PCR) (NotDetected) Parainfluenza 1 (PCR) (NotDetected) Parainfluenza 2 (PCR) (NotDetected) Parainfluenza 3 (PCR) (NotDetected) Parainfluenza 4 (PCR) (NotDetected) RSV (PCR) (NotDetected) Entero/Rhino (PCR) (NotDetected) 02/27/21 02/26/21 02/26/21 Range/Units 00:52 22:35 20:25 WBC (4.8-10.8) K/uL RBC (4.7-6.1) M/uL Hgb (14.0-18.0) g/dL POC Hgb 18.7 H 18.4 H (14.0-18.0) g/dl Hct (42-52) % POC Hct 55 H 54 H (42-52) % MCV (80-100) fL MCH (25-34) pg MCHC (32-36) g/dL RDW Std Deviation (36.4-46.3) fL RDW Coeff of Tim (11.5-14.5) % Plt Count (130-400) K/uL MPV (7.4-10.4) fL Immature Gran % (Auto) % Neut % (Auto) % Lymph % (Auto) % Antelope % (Auto) % Eos % (Auto) % Baso % (Auto) % Neut # (Auto) (1.4-6.5) K/uL Lymph # (Auto) (1.2-3.4) K/uL Antelope # (Auto) (0.11-0.59) K/uL Eos # (Auto) (0-0.5) K/uL Baso # (Auto) (0-0.2) K/uL Immature Gran # (Auto) (0.00-0.02) K/uL Absolute Nucleated RBC (0-0) K/uL Nucleated RBC % (auto) % Neutrophils % (Manual) % Lymphocytes % (Manual) % Monocytes % (Manual) % Neutrophils # (Manual) (1.4-6.5) K/uL Total Absolute Neuts (1.4-6.5) K/uL Lymphocytes # (Manual) (1.2-3.4) K/uL Total Abs Lymphocytes (1.2-3.4) K/uL Monocytes # (Manual) (0.11-0.59) K/uL Polychromasia PT (9.0-12.0) Seconds INR (0.9-1.1) APTT (21.0-31.0) Seconds PTT Ratio Fibrinogen (184-400) mg/dl Sample Site Art Line POC pH 7.36 7.22 L (7.35-7.45) POC pCO2 36 45 (35-46) mmHg POC pO2 71 L 113 H (80-95) mmHg POC HCO3 20 18 L (19-24) yue/L POC Total CO2 21 L 20 L (24-31) mmol/L POC Base Excess -5.0 -9.0 (-9-1.8) yue/L ABG pH (7.35-7.45) ABG pH (Temp Correct) 7.395 (7.35-7.45) ABG pCO2 (35-46) mmHg ABG pCO2 (Temp Corrct 32 L (35-46) mmHg ABG pO2 (80-95) mmHg POC ABG pO2 at Pt Temp 61 ABG HCO3 (19-24) mmol/L POC ABG O2 Sat 94.0 97.0 H (90-95) % ABG O2 Saturation (90-95) % ABG Base Excess (-9-1.8) mEq/L Isidoro Test NA VBG pH (7.36-7.41) VBG pCO2 (38-50) mmHg VBG pO2 mmHg VBG HCO3 mmol/L VBG O2 Saturation % VBG Base Excess mEq/L Barometric Pressure mm/Hg Oxygen Given O2 Delivery Device Ventilator POC O2 Rate 28 Minute Ventilation POC FiO2 70 % Tidal Volume 550 PEEP 5 POC Sodium 135 131 L (135-144) mmol/L Sodium (136-145) mmol/L POC Potassium 5.6 H 5.9 H (3.3-5.0) mmol/L Potassium (3.5-5.1) mmol/L Chloride (98-107) mmol/L Carbon Dioxide (21-32) mmol/L Anion Gap (3-11) BUN (7-18) mg/dl Creatinine (0.6-1.4) mg/dl Est Cr Clr Drug Dosing Est GFR ( Amer) ml/min Est GFR (Non-Af Amer) ml/min BUN/Creatinine Ratio (10-20) Glucose (70-99) mg/dl POC Glucose 138 H (70-99) mg/dl POC Glucose (other) (70-99) mg/dl Lactate Calcium (8.5-10.1) mg/dl Phosphorus Magnesium (1.8-2.4) mg/dl Total Bilirubin (0.2-1) mg/dl Direct Bilirubin (0-0.2) mg/dl AST (15-37) U/L ALT (12-78) U/L Alkaline Phosphatase (45-117) U/L Troponin I (0-0.045) ng/ml C-Reactive Protein (0-0.29) mg/dl Total Protein (6.4-8.2) gm/dl Albumin (3.4-5.0) gm/dl Globulin (2.5-4.0) gm/dl Albumin/Globulin Ratio (0.9-2) Procalcitonin (0-0.5) ng/ml Nasal Screen MRSA (PCR) (Negative) Adenovirus (PCR) (NotDetected) B. pertussis DNA (PCR) (NotDetected) B.parapertussis DNA PCR (NotDetected) C. pneumoniae DNA (PCR) (NotDetected) Coronavirus OC43 (PCR) (NotDetected) Coronavirus HKU1 (PCR) (NotDetected) Coronavirus 229E (PCR) (NotDetected) COVID-19 Eval Order SARS-CoV-2 (PCR) (NotDetected) Coronavirus NL63 (PCR) (NotDetected) Human Metapneumovir PCR (NotDetected) Influenza Type A (PCR) (NotDetected) Influenza Type B (PCR) (NotDetected) M. pneumoniae (PCR) (NotDetected) Parainfluenza 1 (PCR) (NotDetected) Parainfluenza 2 (PCR) (NotDetected) Parainfluenza 3 (PCR) (NotDetected) Parainfluenza 4 (PCR) (NotDetected) RSV (PCR) (NotDetected) Entero/Rhino (PCR) (NotDetected) 02/26/21 02/26/21 02/26/21 Range/Units 19:39 19:31 19:31 WBC (4.8-10.8) K/uL RBC (4.7-6.1) M/uL Hgb (14.0-18.0) g/dL POC Hgb 19.7 H (14.0-18.0) g/dl Hct (42-52) % POC Hct 58 H (42-52) % MCV (80-100) fL MCH (25-34) pg MCHC (32-36) g/dL RDW Std Deviation (36.4-46.3) fL RDW Coeff of Tim (11.5-14.5) % Plt Count (130-400) K/uL MPV (7.4-10.4) fL Immature Gran % (Auto) % Neut % (Auto) % Lymph % (Auto) % Antelope % (Auto) % Eos % (Auto) % Baso % (Auto) % Neut # (Auto) (1.4-6.5) K/uL Lymph # (Auto) (1.2-3.4) K/uL Antelope # (Auto) (0.11-0.59) K/uL Eos # (Auto) (0-0.5) K/uL Baso # (Auto) (0-0.2) K/uL Immature Gran # (Auto) (0.00-0.02) K/uL Absolute Nucleated RBC (0-0) K/uL Nucleated RBC % (auto) % Neutrophils % (Manual) % Lymphocytes % (Manual) % Monocytes % (Manual) % Neutrophils # (Manual) (1.4-6.5) K/uL Total Absolute Neuts (1.4-6.5) K/uL Lymphocytes # (Manual) (1.2-3.4) K/uL Total Abs Lymphocytes (1.2-3.4) K/uL Monocytes # (Manual) (0.11-0.59) K/uL Polychromasia PT (9.0-12.0) Seconds INR (0.9-1.1) APTT (21.0-31.0) Seconds PTT Ratio Fibrinogen (184-400) mg/dl Sample Site POC pH 6.99 L* (7.35-7.45) POC pCO2 90 H (35-46) mmHg POC pO2 262 H (80-95) mmHg POC HCO3 22 (19-24) yue/L POC Total CO2 25 (24-31) mmol/L POC Base Excess -9.0 (-9-1.8) yue/L ABG pH (7.35-7.45) ABG pH (Temp Correct) (7.35-7.45) ABG pCO2 (35-46) mmHg ABG pCO2 (Temp Corrct (35-46) mmHg ABG pO2 (80-95) mmHg POC ABG pO2 at Pt Temp ABG HCO3 (19-24) mmol/L POC ABG O2 Sat 100.0 H (90-95) % ABG O2 Saturation (90-95) % ABG Base Excess (-9-1.8) mEq/L Isidoro Test VBG pH (7.36-7.41) VBG pCO2 (38-50) mmHg VBG pO2 mmHg VBG HCO3 mmol/L VBG O2 Saturation % VBG Base Excess mEq/L Barometric Pressure mm/Hg Oxygen Given O2 Delivery Device POC O2 Rate Minute Ventilation POC FiO2 % Tidal Volume PEEP POC Sodium 134 L (135-144) mmol/L Sodium (136-145) mmol/L POC Potassium 5.9 H (3.3-5.0) mmol/L Potassium (3.5-5.1) mmol/L Chloride (98-107) mmol/L Carbon Dioxide (21-32) mmol/L Anion Gap (3-11) BUN (7-18) mg/dl Creatinine (0.6-1.4) mg/dl Est Cr Clr Drug Dosing Est GFR ( Amer) ml/min Est GFR (Non-Af Amer) ml/min BUN/Creatinine Ratio (10-20) Glucose (70-99) mg/dl POC Glucose (70-99) mg/dl POC Glucose (other) (70-99) mg/dl Lactate Calcium (8.5-10.1) mg/dl Phosphorus Magnesium (1.8-2.4) mg/dl Total Bilirubin (0.2-1) mg/dl Direct Bilirubin (0-0.2) mg/dl AST (15-37) U/L ALT (12-78) U/L Alkaline Phosphatase (45-117) U/L Troponin I (0-0.045) ng/ml C-Reactive Protein (0-0.29) mg/dl Total Protein (6.4-8.2) gm/dl Albumin (3.4-5.0) gm/dl Globulin (2.5-4.0) gm/dl Albumin/Globulin Ratio (0.9-2) Procalcitonin (0-0.5) ng/ml Nasal Screen MRSA (PCR) (Negative) Adenovirus (PCR) Not Detected (NotDetected) B. pertussis DNA (PCR) Not Detected (NotDetected) B.parapertussis DNA PCR Not Detected (NotDetected) C. pneumoniae DNA (PCR) Not Detected (NotDetected) Coronavirus OC43 (PCR) Not Detected (NotDetected) Coronavirus HKU1 (PCR) Not Detected (NotDetected) Coronavirus 229E (PCR) Not Detected (NotDetected) COVID-19 Eval Order [facility]PNP at [facility] SARS-CoV-2 (PCR) DETECTED A* (NotDetected) Coronavirus NL63 (PCR) Not Detected (NotDetected) Human Metapneumovir PCR Not Detected (NotDetected) Influenza Type A (PCR) Not Detected (NotDetected) Influenza Type B (PCR) Not Detected (NotDetected) M. pneumoniae (PCR) Not Detected (NotDetected) Parainfluenza 1 (PCR) Not Detected (NotDetected) Parainfluenza 2 (PCR) Not Detected (NotDetected) Parainfluenza 3 (PCR) Not Detected (NotDetected) Parainfluenza 4 (PCR) Not Detected (NotDetected) RSV (PCR) Not Detected (NotDetected) Entero/Rhino (PCR) Not Detected (NotDetected) 02/26/21 02/26/21 02/26/21 Range/Units 19:19 19:14 19:14 WBC (4.8-10.8) K/uL RBC (4.7-6.1) M/uL Hgb (14.0-18.0) g/dL POC Hgb (14.0-18.0) g/dl Hct (42-52) % POC Hct (42-52) % MCV (80-100) fL MCH (25-34) pg MCHC (32-36) g/dL RDW Std Deviation (36.4-46.3) fL RDW Coeff of Tim (11.5-14.5) % Plt Count (130-400) K/uL MPV (7.4-10.4) fL Immature Gran % (Auto) % Neut % (Auto) % Lymph % (Auto) % Antelope % (Auto) % Eos % (Auto) % Baso % (Auto) % Neut # (Auto) (1.4-6.5) K/uL Lymph # (Auto) (1.2-3.4) K/uL Antelope # (Auto) (0.11-0.59) K/uL Eos # (Auto) (0-0.5) K/uL Baso # (Auto) (0-0.2) K/uL Immature Gran # (Auto) (0.00-0.02) K/uL Absolute Nucleated RBC (0-0) K/uL Nucleated RBC % (auto) % Neutrophils % (Manual) % Lymphocytes % (Manual) % Monocytes % (Manual) % Neutrophils # (Manual) (1.4-6.5) K/uL Total Absolute Neuts (1.4-6.5) K/uL Lymphocytes # (Manual) (1.2-3.4) K/uL Total Abs Lymphocytes (1.2-3.4) K/uL Monocytes # (Manual) (0.11-0.59) K/uL Polychromasia PT (9.0-12.0) Seconds INR (0.9-1.1) APTT (21.0-31.0) Seconds PTT Ratio Fibrinogen (184-400) mg/dl Sample Site POC pH (7.35-7.45) POC pCO2 (35-46) mmHg POC pO2 (80-95) mmHg POC HCO3 (19-24) yue/L POC Total CO2 (24-31) mmol/L POC Base Excess (-9-1.8) yue/L ABG pH (7.35-7.45) ABG pH (Temp Correct) (7.35-7.45) ABG pCO2 (35-46) mmHg ABG pCO2 (Temp Corrct (35-46) mmHg ABG pO2 (80-95) mmHg POC ABG pO2 at Pt Temp ABG HCO3 (19-24) mmol/L POC ABG O2 Sat (90-95) % ABG O2 Saturation (90-95) % ABG Base Excess (-9-1.8) mEq/L Isidoro Test VBG pH 6.87 L (7.36-7.41) VBG pCO2 150 H (38-50) mmHg VBG pO2 47 mmHg VBG HCO3 27 mmol/L VBG O2 Saturation < 60.0 % VBG Base Excess -11.9 mEq/L Barometric Pressure 733.4 mm/Hg Oxygen Given O2 Delivery Device POC O2 Rate Minute Ventilation POC FiO2 % Tidal Volume PEEP POC Sodium (135-144) mmol/L Sodium (136-145) mmol/L POC Potassium (3.3-5.0) mmol/L Potassium (3.5-5.1) mmol/L Chloride (98-107) mmol/L Carbon Dioxide (21-32) mmol/L Anion Gap (3-11) BUN (7-18) mg/dl Creatinine (0.6-1.4) mg/dl Est Cr Clr Drug Dosing Est GFR ( Amer) ml/min Est GFR (Non-Af Amer) ml/min BUN/Creatinine Ratio (10-20) Glucose (70-99) mg/dl POC Glucose 235 H (70-99) mg/dl POC Glucose (other) (70-99) mg/dl Lactate Calcium (8.5-10.1) mg/dl Phosphorus Magnesium (1.8-2.4) mg/dl Total Bilirubin (0.2-1) mg/dl Direct Bilirubin (0-0.2) mg/dl AST (15-37) U/L ALT (12-78) U/L Alkaline Phosphatase (45-117) U/L Troponin I (0-0.045) ng/ml C-Reactive Protein (0-0.29) mg/dl Total Protein (6.4-8.2) gm/dl Albumin (3.4-5.0) gm/dl Globulin (2.5-4.0) gm/dl Albumin/Globulin Ratio (0.9-2) Procalcitonin 0.54 H (0-0.5) ng/ml Nasal Screen MRSA (PCR) (Negative) Adenovirus (PCR) (NotDetected) B. pertussis DNA (PCR) (NotDetected) B.parapertussis DNA PCR (NotDetected) C. pneumoniae DNA (PCR) (NotDetected) Coronavirus OC43 (PCR) (NotDetected) Coronavirus HKU1 (PCR) (NotDetected) Coronavirus 229E (PCR) (NotDetected) COVID-19 Eval Order SARS-CoV-2 (PCR) (NotDetected) Coronavirus NL63 (PCR) (NotDetected) Human Metapneumovir PCR (NotDetected) Influenza Type A (PCR) (NotDetected) Influenza Type B (PCR) (NotDetected) M. pneumoniae (PCR) (NotDetected) Parainfluenza 1 (PCR) (NotDetected) Parainfluenza 2 (PCR) (NotDetected) Parainfluenza 3 (PCR) (NotDetected) Parainfluenza 4 (PCR) (NotDetected) RSV (PCR) (NotDetected) Entero/Rhino (PCR) (NotDetected) 02/26/21 02/26/21 02/26/21 Range/Units 19:14 19:14 19:14 WBC (4.8-10.8) K/uL RBC (4.7-6.1) M/uL Hgb (14.0-18.0) g/dL POC Hgb (14.0-18.0) g/dl Hct (42-52) % POC Hct (42-52) % MCV (80-100) fL MCH (25-34) pg MCHC (32-36) g/dL RDW Std Deviation (36.4-46.3) fL RDW Coeff of Tim (11.5-14.5) % Plt Count (130-400) K/uL MPV (7.4-10.4) fL Immature Gran % (Auto) % Neut % (Auto) % Lymph % (Auto) % Antelope % (Auto) % Eos % (Auto) % Baso % (Auto) % Neut # (Auto) (1.4-6.5) K/uL Lymph # (Auto) (1.2-3.4) K/uL Antelope # (Auto) (0.11-0.59) K/uL Eos # (Auto) (0-0.5) K/uL Baso # (Auto) (0-0.2) K/uL Immature Gran # (Auto) (0.00-0.02) K/uL Absolute Nucleated RBC (0-0) K/uL Nucleated RBC % (auto) % Neutrophils % (Manual) % Lymphocytes % (Manual) % Monocytes % (Manual) % Neutrophils # (Manual) (1.4-6.5) K/uL Total Absolute Neuts (1.4-6.5) K/uL Lymphocytes # (Manual) (1.2-3.4) K/uL Total Abs Lymphocytes (1.2-3.4) K/uL Monocytes # (Manual) (0.11-0.59) K/uL Polychromasia PT 12.2 H (9.0-12.0) Seconds INR 1.2 H (0.9-1.1) APTT 31.8 H (21.0-31.0) Seconds PTT Ratio 1.2 Fibrinogen (184-400) mg/dl Sample Site POC pH (7.35-7.45) POC pCO2 (35-46) mmHg POC pO2 (80-95) mmHg POC HCO3 (19-24) yue/L POC Total CO2 (24-31) mmol/L POC Base Excess (-9-1.8) yue/L ABG pH (7.35-7.45) ABG pH (Temp Correct) (7.35-7.45) ABG pCO2 (35-46) mmHg ABG pCO2 (Temp Corrct (35-46) mmHg ABG pO2 (80-95) mmHg POC ABG pO2 at Pt Temp ABG HCO3 (19-24) mmol/L POC ABG O2 Sat (90-95) % ABG O2 Saturation (90-95) % ABG Base Excess (-9-1.8) mEq/L Isidoro Test VBG pH (7.36-7.41) VBG pCO2 (38-50) mmHg VBG pO2 mmHg VBG HCO3 mmol/L VBG O2 Saturation % VBG Base Excess mEq/L Barometric Pressure mm/Hg Oxygen Given O2 Delivery Device POC O2 Rate Minute Ventilation POC FiO2 % Tidal Volume PEEP POC Sodium (135-144) mmol/L Sodium 137 (136-145) mmol/L POC Potassium (3.3-5.0) mmol/L Potassium 4.5 (3.5-5.1) mmol/L Chloride 91 L (98-107) mmol/L Carbon Dioxide 27 (21-32) mmol/L Anion Gap 18.0 H (3-11) BUN 93 H (7-18) mg/dl Creatinine 17.40 H* (0.6-1.4) mg/dl Est Cr Clr Drug Dosing Not Reportable Est GFR ( Amer) 3.1 ml/min Est GFR (Non-Af Amer) 2.6 ml/min BUN/Creatinine Ratio 5.4 L (10-20) Glucose 232 H (70-99) mg/dl POC Glucose (70-99) mg/dl POC Glucose (other) (70-99) mg/dl Lactate Cancelled Calcium 7.7 L (8.5-10.1) mg/dl Phosphorus Magnesium 3.7 H (1.8-2.4) mg/dl Total Bilirubin 0.8 (0.2-1) mg/dl Direct Bilirubin (0-0.2) mg/dl AST 131 H (15-37) U/L ALT 182 H (12-78) U/L Alkaline Phosphatase 97 (45-117) U/L Troponin I 0.031 (0-0.045) ng/ml C-Reactive Protein (0-0.29) mg/dl Total Protein 7.0 (6.4-8.2) gm/dl Albumin 2.7 L (3.4-5.0) gm/dl Globulin 4.3 H (2.5-4.0) gm/dl Albumin/Globulin Ratio 0.6 L (0.9-2) Procalcitonin (0-0.5) ng/ml Nasal Screen MRSA (PCR) (Negative) Adenovirus (PCR) (NotDetected) B. pertussis DNA (PCR) (NotDetected) B.parapertussis DNA PCR (NotDetected) C. pneumoniae DNA (PCR) (NotDetected) Coronavirus OC43 (PCR) (NotDetected) Coronavirus HKU1 (PCR) (NotDetected) Coronavirus 229E (PCR) (NotDetected) COVID-19 Eval Order SARS-CoV-2 (PCR) (NotDetected) Coronavirus NL63 (PCR) (NotDetected) Human Metapneumovir PCR (NotDetected) Influenza Type A (PCR) (NotDetected) Influenza Type B (PCR) (NotDetected) M. pneumoniae (PCR) (NotDetected) Parainfluenza 1 (PCR) (NotDetected) Parainfluenza 2 (PCR) (NotDetected) Parainfluenza 3 (PCR) (NotDetected) Parainfluenza 4 (PCR) (NotDetected) RSV (PCR) (NotDetected) Entero/Rhino (PCR) (NotDetected) 02/26/21 Range/Units 19:14 WBC 17.09 H (4.8-10.8) K/uL RBC 5.69 (4.7-6.1) M/uL Hgb 16.8 (14.0-18.0) g/dL POC Hgb (14.0-18.0) g/dl Hct 54.2 H (42-52) % POC Hct (42-52) % MCV 95.3 (80-100) fL MCH 29.5 (25-34) pg MCHC 31.0 L (32-36) g/dL RDW Std Deviation 68.6 H (36.4-46.3) fL RDW Coeff of Tim 19.8 H (11.5-14.5) % Plt Count 418 H (130-400) K/uL MPV 10.5 H (7.4-10.4) fL Immature Gran % (Auto) % Neut % (Auto) % Lymph % (Auto) % Antelope % (Auto) % Eos % (Auto) % Baso % (Auto) % Neut # (Auto) (1.4-6.5) K/uL Lymph # (Auto) (1.2-3.4) K/uL Antelope # (Auto) (0.11-0.59) K/uL Eos # (Auto) (0-0.5) K/uL Baso # (Auto) (0-0.2) K/uL Immature Gran # (Auto) (0.00-0.02) K/uL Absolute Nucleated RBC 0.16 H (0-0) K/uL Nucleated RBC % (auto) 0.9 % Neutrophils % (Manual) 76.0 % Lymphocytes % (Manual) 15.0 % Monocytes % (Manual) 9.0 % Neutrophils # (Manual) 12.99 H (1.4-6.5) K/uL Total Absolute Neuts 12.99 H (1.4-6.5) K/uL Lymphocytes # (Manual) 2.56 (1.2-3.4) K/uL Total Abs Lymphocytes 2.56 (1.2-3.4) K/uL Monocytes # (Manual) 1.54 H (0.11-0.59) K/uL Polychromasia 1+ PT (9.0-12.0) Seconds INR (0.9-1.1) APTT (21.0-31.0) Seconds PTT Ratio Fibrinogen (184-400) mg/dl Sample Site POC pH (7.35-7.45) POC pCO2 (35-46) mmHg POC pO2 (80-95) mmHg POC HCO3 (19-24) yue/L POC Total CO2 (24-31) mmol/L POC Base Excess (-9-1.8) yue/L ABG pH (7.35-7.45) ABG pH (Temp Correct) (7.35-7.45) ABG pCO2 (35-46) mmHg ABG pCO2 (Temp Corrct (35-46) mmHg ABG pO2 (80-95) mmHg POC ABG pO2 at Pt Temp ABG HCO3 (19-24) mmol/L POC ABG O2 Sat (90-95) % ABG O2 Saturation (90-95) % ABG Base Excess (-9-1.8) mEq/L Isidoro Test VBG pH (7.36-7.41) VBG pCO2 (38-50) mmHg VBG pO2 mmHg VBG HCO3 mmol/L VBG O2 Saturation % VBG Base Excess mEq/L Barometric Pressure mm/Hg Oxygen Given O2 Delivery Device POC O2 Rate Minute Ventilation POC FiO2 % Tidal Volume PEEP POC Sodium (135-144) mmol/L Sodium (136-145) mmol/L POC Potassium (3.3-5.0) mmol/L Potassium (3.5-5.1) mmol/L Chloride (98-107) mmol/L Carbon Dioxide (21-32) mmol/L Anion Gap (3-11) BUN (7-18) mg/dl Creatinine (0.6-1.4) mg/dl Est Cr Clr Drug Dosing Est GFR ( Amer) ml/min Est GFR (Non-Af Amer) ml/min BUN/Creatinine Ratio (10-20) Glucose (70-99) mg/dl POC Glucose (70-99) mg/dl POC Glucose (other) (70-99) mg/dl Lactate Calcium (8.5-10.1) mg/dl Phosphorus Magnesium (1.8-2.4) mg/dl Total Bilirubin (0.2-1) mg/dl Direct Bilirubin (0-0.2) mg/dl AST (15-37) U/L ALT (12-78) U/L Alkaline Phosphatase (45-117) U/L Troponin I (0-0.045) ng/ml C-Reactive Protein (0-0.29) mg/dl Total Protein (6.4-8.2) gm/dl Albumin (3.4-5.0) gm/dl Globulin (2.5-4.0) gm/dl Albumin/Globulin Ratio (0.9-2) Procalcitonin (0-0.5) ng/ml Nasal Screen MRSA (PCR) (Negative) Adenovirus (PCR) (NotDetected) B. pertussis DNA (PCR) (NotDetected) B.parapertussis DNA PCR (NotDetected) C. pneumoniae DNA (PCR) (NotDetected) Coronavirus OC43 (PCR) (NotDetected) Coronavirus HKU1 (PCR) (NotDetected) Coronavirus 229E (PCR) (NotDetected) COVID-19 Eval Order SARS-CoV-2 (PCR) (NotDetected) Coronavirus NL63 (PCR) (NotDetected) Human Metapneumovir PCR (NotDetected) Influenza Type A (PCR) (NotDetected) Influenza Type B (PCR) (NotDetected) M. pneumoniae (PCR) (NotDetected) Parainfluenza 1 (PCR) (NotDetected) Parainfluenza 2 (PCR) (NotDetected) Parainfluenza 3 (PCR) (NotDetected) Parainfluenza 4 (PCR) (NotDetected) RSV (PCR) (NotDetected) Entero/Rhino (PCR) (NotDetected) Coding Level of Care Code Critical Care 1st 30-74 mins Diagnoses Cardiac arrest I46.9 Hypoglycemia E16.2 Renal failure N17.9; N18.9; Z99.2 Acute renal failure type: unspecified Chronic kidney disease stage: on chronic dialysis Renal failure chronicity: acute on chronic Respiratory failure J96.01; J96.02 Chronicity: acute Respiratory failure complication: hypoxia and hypercapnia Acidosis E87.2 Hypoxia R09.02 Pneumonia J18.9 Laterality: bilateral Pneumonia type: due to unspecified organism COVID-19 U07.1 Controlled type 2 diabetes mellitus with kidney complication, with long-term current use of insulin E11.29; Z79.4 End stage renal disease N18.6 Morbid obesity E66.01 (1) Renal failure Acute renal failure type: unspecified Chronic kidney disease stage: on chronic dialysis Renal failure chronicity: acute on chronic Qualified Code(s): N17.9 - Acute kidney failure, unspecified; N18.9 - Chronic kidney disease, unspecified; Z99.2 - Dependence on renal dialysis (2) Respiratory failure Chronicity: acute Respiratory failure complication: hypoxia and hypercapnia Qualified Code(s): J96.01 - Acute respiratory failure with hypoxia; J96.02 - Acute respiratory failure with hypercapnia (3) Pneumonia Laterality: bilateral Pneumonia type: due to unspecified organism
[2021-02-27] MEDS: dexAMETHasone 6 MG in SYRINGE 0 ML IV SCH (08:35)
[2021-02-27] MEDS: LACTULOSE SYRUP 20 GM/30 ML UDC PO SCH (08:35)
[2021-02-27] MEDS: ASPIRIN 81 MG CHEW PO SCH (08:38)
[2021-02-27] MEDS: CINACALCET HCL 90 MG TAB PO SCH (08:38)
[2021-02-27] MEDS: CHOLECALCIFEROL 1,000 UNITS 25 MCG TAB PO SCH (08:39)
[2021-02-27] MEDS: bisacodyL 5 MG TABEC PO SCH ×2 (08:41→08:42)
[2021-02-27 08:48] LABS: BUN Creatinine Ratio 6.3 (10-20); Calcium 7.6 mg/dl (8.5-10.1); Creatinine Clr Calc Pharmacy 8.8 ml/min; Est GFR (African American) 3.4 ml/min; Est GFR (Non-African American) 2.9 ml/min; Magnesium 3.4 mg/dl (1.8-2.4); Potassium 5.3 mmol/L (3.5-5.1)
--- NOTE | 2021-02-27 09:08 | XRay Report ---
AP view of the chest; KUB HISTORY: Acute respiratory failure OG tube placement COMPARISON: Chest radiograph 02/26/2021 FINDINGS: CHEST: Endotracheal tube overlies the midline, 6.5 cm superior to the julio césar. Enteric tube courses below the diaphragm with distal tip outside the [id number]. No pneumothorax. Persistent bilateral airspace opacities with questioned trace pleural effusions. Mildly improved aeration of the right midlung. Car diomegaly. Degenerative changes of the shoulders and spine. KUB: Distal tip of enteric tube projects over the right paracentral abdomen in the expected location of th e mid to distal gastric lumen. Lower abdomen is excluded from the [id number]. Nonobstructive bowel gas pattern. Cholecystectomy. No pneumoperitoneum identified. IMPRESSION: 1. Lines and tubes as above. 2. Mildly improved aeration of the right midlung with persistent bilateral airspace opacities compati ble multifocal pneumonia. 3. Cardiomegaly. ACT 112: Negative or not required by law. The above report was generated using voice recognition software. It may contain grammatical, syntax o r spelling errors. Electronically signed by: Sammy Lane M.D. 02/27/2021 9:06 AM
--- NOTE | 2021-02-27 09:08 | XRay Report ---
AP view of the chest; KUB HISTORY: Acute respiratory failure OG tube placement COMPARISON: Chest radiograph 02/26/2021 FINDINGS: CHEST: Endotracheal tube overlies the midline, 6.5 cm superior to the julio césar. Enteric tube courses below the diaphragm with distal tip outside the [id number]. No pneumothorax. Persistent bilateral airspace opacities with questioned trace pleural effusions. Mildly improved aeration of the right midlung. Car diomegaly. Degenerative changes of the shoulders and spine. KUB: Distal tip of enteric tube projects over the right paracentral abdomen in the expected location of th e mid to distal gastric lumen. Lower abdomen is excluded from the [id number]. Nonobstructive bowel gas pattern. Cholecystectomy. No pneumoperitoneum identified. IMPRESSION: 1. Lines and tubes as above. 2. Mildly improved aeration of the right midlung with persistent bilateral airspace opacities compati ble multifocal pneumonia. 3. Cardiomegaly. ACT 112: Negative or not required by law. The above report was generated using voice recognition software. It may contain grammatical, syntax o r spelling errors. Electronically signed by: Sammy Lane M.D. 02/27/2021 9:06 AM
[2021-02-27] MEDS: fentaNYL DRIP 1,250 MCG/250 ML BAG IV SCH ×2 (09:55→21:29)
--- NOTE | 2021-02-27 12:06 | Hospitalist Progress Note ---
Date of Service February 27, 2021 Assessment & Plan (1) Cardiac arrest: Plan: Post Cardiac arrest x2 with ROSC-thought to be secondary to hypoglycemia -Initially on Epinephrine drip- transitioned to Levophed-remains on this - CT of head negative for evidence of hypoxic injury, edema, bleed, or large vessel CVA - Post cardiac arrest care with hypothermic protocol ongoing Appreciate integrated specialist management (2) COVID-19: Plan: Recently admitted for Covid-19 pneumonia with hypoxia and discharged on 02/24 on 2 L nasal cannula with ambulation - Initial symptom date reported as -Continue dexamethasone 6 mg IV once daily Ventilator management as per ICU Follow daily chest x-ray (3) Pneumonia: Plan: Covid-19 pneumonia Procalcitonin mildly elevated but is also in the setting of ESRD Continues on Zosyn for now Blood cultures-no growth to date (4) Central venous catheter in place: Plan: Noted (5) Hypothyroidism: Plan: Continue synthroid TSH recently normal in 12/2020 at 2.2 (6) Controlled type 2 diabetes mellitus with neurologic complication, with long- term current use of insulin: Plan: Presented with hypoglycemia leading to cardiac arrest Holding all insulin at this time Follow glucose (7) Hypoxia: Plan: Acute respiratory failure with hypoxia as above secondary to cardiac arrest and Covid-19 pneumonia As per integrated specialist (8) Hyperkalemia: Plan: Potassium elevated upon admission during cardiac arrest and was given calcium gluconate, insulin and glucose, Kayexalate Received urgent hemodialysis today with low potassium bath Follow labs (9) End-stage renal disease on hemodialysis: Plan: Received urgent dialysis on 02/27 - Nephrology consult and management appreciated Has recently revised AV fistula in place (10) Transaminitis: Plan: AST and ALT up in the 300s likely secondary to cardiac arrest and acute liver injury Follow LFTs, coags (11) Obesity: Plan: Chronic no acute interventions BMI 52.2 (12) Dyslipidemia: Plan: Hold statin with acute liver injury (13) DVT (deep venous thrombosis): Plan: With a history of such Continue Eliquis Plan: Disposition-continued stay in ICU Full code The integrated specialist updated the patient's family by phone today Admission and Anticipated Discharge Date Admission Date: February 26, 2021 Subjective Patient remains sedated and on ventilator, undergoing cooling protocol status post cardiac arrest. Review of Systems Review of Systems: Unobtainable due to endotracheal tube and Unobtainable due to reduced consciousness Physical Exam Constitutional: WD/WN, vitals as above + morbidly obese and + mechanically ventilated Sedated ENMT: ET tube in place Neck: trachea midline, no thyromegaly Respiratory: normal respiratory effort, lungs clear to auscultation Cardiovascular: Rate/Rhythm: regular rate and regular rhythm Extremities: + edema (Chronic 2+ woody edema bilateral lower extremities) Chest (Breasts): Chest: normal inspection of chest Gastrointestinal (Abdomen): normal bowel sounds, soft, nontender, no hepatosplenomegaly Musculoskeletal: Extremities: extremities normal to inspection; no cyanosis and no clubbing Skin: no rashes, warm and dry Neurologic: + not awake Results & Data Results & Data ([facility]) Vital Signs (Past 12 Hours) Vital Signs Temp Temp Pulse Pulse Resp BP BP 02/27/21 12:00 32 C L 42 L 24 112/68 130/68 02/27/21 11:00 32 C L 42 L 24 118/73 122/65 02/27/21 10:00 32 C L 45 L 24 117/72 123/62 02/27/21 09:00 32 C L 42 L 24 115/71 103/45 L 02/27/21 08:00 32.1 C L 42 L 24 115/71 124/65 02/27/21 07:15 53 L 24 02/27/21 06:00 32.1 C L 43 L 24 144/73 H 02/27/21 05:00 32 C L 64 22 152/80 H 02/27/21 04:47 32 C L 63 22 149/80 H 02/27/21 04:20 48 L 24 02/27/21 03:47 32.6 C L 49 L 24 132/73 02/27/21 02:47 33.1 C L 53 L 26 H 128/71 02/27/21 02:32 33.3 C L 52 L 24 117/64 02/27/21 02:17 33.5 C L 53 L 24 130/72 02/27/21 02:02 33.7 C L 54 L 26 H 127/70 02/27/21 01:47 33.9 C L 56 L 24 127/70 02/27/21 01:32 34.1 C L 58 L 25 H 126/70 02/27/21 01:17 34.4 C L 65 24 140/71 02/27/21 01:02 35.6 C L 71 28 H 160/80 H 02/27/21 00:57 24 02/27/21 00:44 60 02/27/21 00:33 60 28 H Pulse Ox 02/27/21 12:00 95 02/27/21 11:00 95 02/27/21 10:00 94 02/27/21 09:00 94 02/27/21 08:00 94 02/27/21 07:15 94 02/27/21 06:00 94 02/27/21 05:00 94 02/27/21 04:47 95 02/27/21 04:20 93 02/27/21 03:47 94 02/27/21 02:47 93 02/27/21 02:32 92 02/27/21 02:17 94 02/27/21 02:02 94 02/27/21 01:47 94 02/27/21 01:32 93 02/27/21 01:17 92 02/27/21 01:02 95 02/27/21 00:57 02/27/21 00:44 02/27/21 00:33 94 Laboratory Results Labs reviewed PG Care Time/CCT Total # of Minutes Spent Total Time Spent with Patient: Total time spent is greater than 50% in coordination of care (as documented) at patient's floor/unit and/or counseling patient: Coding Level of Care Code 80123 Subseq Hosp Care Lvl 3 Diagnoses Cardiac arrest I46.9 COVID-19 U07.1 Pneumonia J18.9 Laterality: bilateral Pneumonia type: due to unspecified organism Dyslipidemia E78.5 Obesity E66.9 DVT (deep venous thrombosis) I82.409 Central venous catheter in place Z78.9 Hypothyroidism E03.9 End-stage renal disease on hemodialysis N18.6; Z99.2 Controlled type 2 diabetes mellitus with neurologic complication, with long-term current use of insulin E11.49; Z79.4 Hypoxia R09.02 Hyperkalemia E87.5 Transaminitis R74.01 (1) Pneumonia Laterality: bilateral Pneumonia type: due to unspecified organism
[2021-02-27] MEDS: PANTOprazole 40 MG in SYRINGE 0 ML IV SCH (12:12)
--- NOTE | 2021-02-27 12:26 | Electrocardiogram Report ---
Test Reason : Blood Pressure : / mmHG Vent. Rate : 072 BPM Atrial Rate : 072 BPM P-R Int : 176 ms QRS Dur : 106 ms QT Int : 434 ms P-R-T Axes : 048 060 050 degrees QTc Int : 475 ms Normal sinus rhythm Incomplete right bundle branch block Abnormal ECG When compared with ECG of 22-FEB-2021 00:30, No significant change was found Confirmed by Aly Pichardo ([id number]) on 02/27/2021 12:25:34 PM Referred By: REFERRED SELF Confirmed By:Aly Pichardo
--- NOTE | 2021-02-27 12:28 | Electrocardiogram Report ---
Test Reason : Blood Pressure : / mmHG Vent. Rate : 047 BPM Atrial Rate : 047 BPM P-R Int : 232 ms QRS Dur : 116 ms QT Int : 556 ms P-R-T Axes : 043 025 070 degrees QTc Int : 492 ms Poor data quality, interpretation may be adversely affected Sinus bradycardia with 1st degree A-V block Incomplete right bundle branch block Prolonged QT Abnormal ECG When compared with ECG of 27-FEB-2021 00:10, (unconfirmed) OR interval has increased Vent. rate has decreased BY 25 BPM QT has prolonged Confirmed by Aly Pichardo ([id number]) on 02/27/2021 12:28:05 PM Referred By: REFERRED SELF Confirmed By:Aly Pichardo
--- NOTE | 2021-02-27 12:33 | Electrocardiogram Report ---
Test Reason : Blood Pressure : / mmHG Vent. Rate : 047 BPM Atrial Rate : 047 BPM P-R Int : 212 ms QRS Dur : 130 ms QT Int : 586 ms P-R-T Axes : 048 036 071 degrees QTc Int : 518 ms Sinus bradycardia with 1st degree A-V block Right bundle branch block Prolonged QTc Abnormal ECG When compared with ECG of 27-FEB-2021 04:09, (unconfirmed) No significant change was found Confirmed by Aly Pichardo ([id number]) on 02/27/2021 12:33:19 PM Referred By: REFERRED SELF Confirmed By:Aly Pichardo
--- NOTE | 2021-02-27 12:36 | Electrocardiogram Report ---
Test Reason : Blood Pressure : / mmHG Vent. Rate : 042 BPM Atrial Rate : 042 BPM P-R Int : 232 ms QRS Dur : 120 ms QT Int : 612 ms P-R-T Axes : 056 035 077 degrees QTc Int : 511 ms Marked sinus bradycardia with 1st degree A-V block Right bundle branch block Prolonged QTc Abnormal ECG When compared with ECG of 27-FEB-2021 08:28, (unconfirmed) No significant change was found Confirmed by Aly Pichardo ([id number]) on 02/27/2021 12:36:09 PM Referred By: REFERRED SELF Confirmed By:Aly Pichardo
--- NOTE | 2021-02-27 12:46 | Nephrology Consultation ---
Date of Consultation February 27, 2021 Assessment & Plan (1) End stage renal disease: Maintained on HD. AVF has been functioning appropriately following recent revision. Outpatient Rx 4 hrs [id number] 550/800. EDW has been 174 kg. Wt 181 kg on 02/24 prior to last HD treatment. Orders for emergent HD today entered into EMR and discussed with HD nurse. Will attempt 3-4 L UF, as tolerated. Avoid hypotension. Levophed adjusted PRN to MAP goal >65. Dialysate adjusted for hypothermic protocol. Low K bath for hyperkalemia. HC03 adjusted. Medications appropriately dosed for IHD. Remains on Eliquis. (2) COVID-19: Multifocal pneumonia. Decadron 6 mg IV daily. Received vancomycin and Zosyn. Blood cultures pending. (3) Dialysis AV fistula malfunction: Functioning well following recent revision. Good thrill and bruit. (4) Acidosis: (5) Cardiac arrest: 24 hour hypothermic protocol. updated by phone. History of Present Illness Reason for Consultation: ESRD on HD Requesting Physician: Helen Kat MD Attending Physician: Helen Kat MD History of Present Illness Mr. Yoshi Kebede is a 56 year-old male with morbid obesity, diabetes mellitus, hypothyroidism, hypogonadism, h/o DVT, HFpEF, and ESRD. He typically dialyzes on a MWF schedule at [facility]. I know Yoshi well from the outpatient dialys is unit. I had a long conversation with Yoshi's (Jacinta) today. I also discussed the patient's status and overall plan of care with Dr. Bernal. Yoshi was seen and evaluated in the ICU this AM. He was recently admitted to [facility] from February 22- with COVID pneumonia. Yoshi was referred for evaluation from the dialysis unit on Monday with progressive shortness of breath and increasing abdominal pain. Symptoms started on February 17. Yoshi had been started on antibiotic therapy for URI by his PCP several days prior. On admission to [facility], he was diagnosed with multifocal pneumonia due to COVID. He was treated with vanco/zosyn/azithromycin and IV Decadron. Supplemental O2 provided. His last dialysis treatment was on Monday and on discharge arrangements were made to start outpatient HD at the COVID unit in [place] today. Unfortunately, Yoshi continued to struggle with severe weakness and WAGONER s/p discharge home. Jacinta notes that he complained of increasing heaviness in his chest throughout the day yesterday. She notes that he had been unable to sleep since Monday and finally fell asleep yesterday afternoon. He woke suddenly in distress yesterday. Yoshi alerted Jacinta that his blood sugar was low and was in and out of responsiveness. Blood glucose was checked and found to be 41. Jacinta called 911 while she attempted to get oYshi to eat. By EMS account, Yoshi suffered an out of hospital cardiac arrest with ROSC. He suffered a second arrest in the ER. After ROSC, he was placed on hypothermic protocol and admitted to the ICU. Jacinta would like everything that can be done to assist Yoshi with recovery. BP supported with levophed gtt. Oxygenating on FIO2 60%, PEEP 10. Allergies Allergy/AdvReac Type Severity Reaction Status Date / Time house dust Allergy Mild Nasal Verified 02/26/21 19:33 congestion pollen extracts Allergy Mild nasal Verified 02/26/21 19:33 congestion Home Medications Medication Instructions Recorded Confirmed Type aspirin 81 mg chewable tablet 81 mg PO QAM 04/13/18 02/26/21 History atorvastatin 10 mg tablet (Lipitor) 10 mg PO HS 04/13/18 02/26/21 History azelastine 205.5 mcg (0.15 %) 1 spray INTRANASAL BID 04/13/18 02/26/21 History nasal spray gabapentin 300 mg capsule 600 mg PO HS 04/13/18 02/26/21 History levothyroxine 150 mcg tablet 150 mcg PO QAM 04/13/18 02/26/21 History (Synthroid) mv,Lj-[id number]-BL-[id number]-HE-4-rrc-uxk-[id number] 1 tab PO QPM 04/13/18 02/26/21 History oil 400 mcg-500 unit capsule (ProRenal QD) omega 3-eny-wnr-fish oil 1,000 mg 1 tab PO BID 04/13/18 02/26/21 History (120 mg-180 mg) capsule (Fish Oil) peg 400-propylene glycol (PF) 0.4 1 drp OPHTHALMIC (EYE) BID PRN 04/13/18 02/26/21 History %-0.3 % eye drops in a dropperette (Systane (PF)) testosterone cypionate 200 mg/mL 200 mg SUBCUT .2XWK 04/13/18 02/26/21 History intramuscular kit acetaminophen 500 mg tablet 1,000 mg PO Q6H PRN 06/12/18 02/26/21 History (Tylenol Extra Strength) sucroferric oxyhydroxide 500 mg 500 mg PO TID 04/30/19 02/26/21 History chewable tablet (Velphoro) alprazolam 1 mg tablet (Xanax) 1 mg PO TID PRN 03/10/20 02/26/21 History bisacodyl 5 mg tablet,delayed 5 mg PO 4XWK 03/24/20 02/26/21 History release (Dulcolax (bisacodyl)) diclofenac sodium 0.1 % eye drops 1 drp OPHTHALMIC (EYE) TID 03/24/20 02/26/21 History lactulose 10 gram/15 mL oral 10 g PO 4XWK 03/24/20 02/26/21 History solution linaclotide 290 mcg capsule 870 mcg PO 4XWK 03/24/20 02/26/21 History (Linzess) apixaban 5 mg tablet (Eliquis) 5 mg PO Q12H #74 tab 04/07/20 02/26/21 Rx docusate sodium 100 mg capsule 100 mg PO DAILY PRN 04/07/20 02/26/21 History (Stool Softener) Accu-Chek Guide test strips (blood #400 ea NS 04/30/20 10/13/20 Rx sugar diagnostic) lancets (Accu-Chek Fastclix Lancet #400 ea 04/30/20 10/13/20 Rx Drum) blood-glucose meter (Accu-Chek #1 ea 05/04/20 10/13/20 Rx Guide Me Glucose Mtr) pen needle, diabetic 29 gauge x #400 ea 05/04/20 10/13/20 Rx 1/2" (BD Ultra-Fine Original Pen Needle) OneTouch Ultra2 Meter #1 ea NS 05/26/20 10/13/20 Rx (blood-glucose meter) insulin degludec 100 unit/mL (3 80 unit SUBCUT BID #150 ml MDD 160 09/30/20 02/26/21 Rx mL) subcutaneous pen (Tresiba units FlexTouch U-100 insulin) ascorbic acid (vitamin C) 1,000 mg 1 g PO DAILY 12/03/20 02/26/21 History tablet (Vitamin C) cholecalciferol (vitamin D3) 125 125 mcg PO DAILY 12/03/20 02/26/21 History mcg (5,000 unit) tablet (Vitamin D3) dhsdnwjt-tpr-euqmw acid 0.4 1 tab PO DAILY 12/03/20 02/26/21 History mg-lycopene 300 mcg-lutein 250 mcg tablet (Centrum Silver) insulin aspart U-100 100 unit/mL 0 unit SUBCUT BID 02/22/21 02/26/21 History (3 mL) subcutaneous pen (Novolog Flexpen U-100 Insulin aspart) azithromycin 250 mg tablet 250 mg PO QAM #3 tab 02/24/21 02/26/21 Rx dexamethasone 6 mg tablet 6 mg PO DAILY #7 tab 02/24/21 02/26/21 Rx guaifenesin 600 mg tablet, 1,200 mg PO Q12 #20 tab 02/24/21 02/26/21 Rx extended release 12 hr (Mucinex) cinacalcet 90 mg tablet 90 mg PO DAILY 02/26/21 02/26/21 History Patient History Medical History Anxiety Aortic valve disease Aortic sclerosis bordering on mild stenosis (CORNEL 1.3 cm, Mean gradient 8.8 mmHg) per 06/28/19 echo Chronic back pain Chronic constipation Chronic kidney disease follows with Dr. Armstrong Diabetes mellitus, type 2 since age 20, IDDM- glucose relatively stable per patient - glucose this AM (05/22/20) was 156 Diabetic foot ulcer right 5th metatarsal and heel; left heel Diabetic nephropathy Diabetic retinopathy DVT (deep venous thrombosis) Dx'ed 04/07/20- to right UE- on Eliquis End-stage renal disease on hemodialysis M-W-F dialysis ([facility]) Hyperlipidemia Hypertension No medications- pt denies- states actually hypotensive Hypothyroidism Osteoarthritis Surgical History Fistula LUE (WITH REVISION ) History of anesthesia reaction BP DROPS "USUALLY" History of appendectomy History of cholecystectomy History of colonoscopy History of esophagogastroduodenoscopy (EGD) History of vascular access device permacath-inserted and removed History of vascular access device rt upper chest (blood clot formed/unable to use but still intact) Hx of eye surgery 5 eye surgeries 3 ON LEFT/2 ON RT Family History Father Diabetes Other Cancer Gallbladder disease Hypertension Lung disease No family history of adverse response to anesthesia Social History Smoking Status: Never smoker Second Hand Exposure: Yes; Hx Alcohol Use: No Hx Substance Use: No Preferred Language: Telugu Communication Ability: Unable Visual Impairment: No Limitations Platform Operations Director Required: No Beliefs That Will Affect Care: None marital status: Current Living Situation: Spouse current occupational status: disabled Feels Safe at Home: Yes Assistive Devices: Cane Review of Systems 2 Review of Systems: Unobtainable due to cognitive status and Unobtainable due to endotracheal tube Physical Exam Constitutional: + ill appearing, + morbidly obese and + mechanically ventilated; no acute distress Eyes: + anicteric sclerae Neck: normal visual inspection, trachea midline and + thick neck Respiratory: symmetric chest movement Auscultation: + rhonchi Cardiovascular: Rate/Rhythm: + bradycardic Heart Sounds: normal S1, normal S2 and + murmur Extremities: + edema and + AV fistula Gastrointestinal (Abdomen): Inspection/Auscultation: + abdomen distended and + hypoactive bowel sounds Musculoskeletal: Extremities: + cyanosis; no clubbing Skin: normal turgor; no lesions Neurologic: Motor/Sensory: no tremor and no asterixis Results & Data ([facility]) Vital Signs (Past 12 Hours) Vital Signs Temp Temp Pulse Pulse Resp BP BP 02/27/21 12:30 42 L 02/27/21 12:28 42 L 24 02/27/21 12:00 32 C L 42 L 24 112/68 130/68 02/27/21 11:00 32 C L 42 L 24 118/73 122/65 02/27/21 10:00 32 C L 42 L 24 117/72 123/62 02/27/21 09:00 32 C L 42 L 24 115/71 103/45 L 02/27/21 08:00 32.1 C L 42 L 24 115/71 124/65 02/27/21 07:15 53 L 24 02/27/21 06:00 32.1 C L 43 L 24 144/73 H 02/27/21 05:00 32 C L 64 22 152/80 H 02/27/21 04:47 32 C L 63 22 149/80 H 02/27/21 04:20 48 L 24 02/27/21 03:47 32.6 C L 49 L 24 132/73 02/27/21 02:47 33.1 C L 53 L 26 H 128/71 02/27/21 02:32 33.3 C L 52 L 24 117/64 02/27/21 02:17 33.5 C L 53 L 24 130/72 02/27/21 02:02 33.7 C L 54 L 26 H 127/70 02/27/21 01:47 33.9 C L 56 L 24 127/70 02/27/21 01:32 34.1 C L 58 L 25 H 126/70 02/27/21 01:17 34.4 C L 65 24 140/71 02/27/21 01:02 35.6 C L 71 28 H 160/80 H 02/27/21 00:57 24 Pulse Ox 02/27/21 12:30 02/27/21 12:28 95 02/27/21 12:00 95 02/27/21 11:00 95 02/27/21 10:00 94 02/27/21 09:00 94 02/27/21 08:00 94 02/27/21 07:15 94 02/27/21 06:00 94 02/27/21 05:00 94 02/27/21 04:47 95 02/27/21 04:20 93 02/27/21 03:47 94 02/27/21 02:47 93 02/27/21 02:32 92 02/27/21 02:17 94 02/27/21 02:02 94 02/27/21 01:47 94 02/27/21 01:32 93 02/27/21 01:17 92 02/27/21 01:02 95 02/27/21 00:57 Diagnostic Findings AP view of the chest; KUB HISTORY: Acute respiratory failure OG tube placement COMPARISON: Chest radiograph 02/26/2021 FINDINGS: CHEST: Endotracheal tube overlies the midline, 6.5 cm superior to the julio césar. Enteric tube courses below the diaphragm with distal tip outside the [id number]. No pneumothorax. Persistent bilateral airspace opacities with questioned trace pleural effusions. Mildly improved aeration of the right midlung. Cardiomegaly. Degenerative changes of the shoulders and spine. KUB: Distal tip of enteric tube projects over the right paracentral abdomen in the expected location of the mid to distal gastric lumen. Lower abdomen is excluded from the [id number]. Nonobstructive bowel gas pattern. Cholecystectomy. No pneumoperitoneum identified. IMPRESSION: 1. Lines and tubes as above. 2. Mildly improved aeration of the right midlung with persistent bilateral airspace opacities compatible multifocal pneumonia. 3. Cardiomegaly. PG Care Time/CCT Total # of Minutes Spent Total Time Spent with Patient: Total time spent is greater than 50% in coordination of care (as documented) at patient's floor/unit and/or counseling patient: 45 minutes Coding Level of Care Code 07500 Inpt Consult Level 5 Diagnoses COVID-19 U07.1 End stage renal disease N18.6 Dialysis AV fistula malfunction T82.590A Acidosis E87.2 Cardiac arrest I46.9
[2021-02-27 13:22] LABS: iSTAT Arterial Blood Gas HCO3 17 meg/L (19-24); iSTAT Arterial Blood Gas pCO2 28 mmHg (35-46); iSTAT Arterial Blood Gas pO2 73 mmHg (80-95); iSTAT Carbon Dioxide 18 mmol/L (24-31); iSTAT FiO2 60 %; iSTAT Site Art Line
[2021-02-27 13:44] LABS: Basophils # (auto) 0.02 K/uL (0-0.2); Basophils % (auto) 0.1 %; Hematocrit (blood only) 52.9 % (42-52); Hemoglobin 17.1 g/dL (14.0-18.0); Immature Granulocytes # (auto) 0.16 K/uL (0.00-0.02); Lymphocytes # (auto) 0.37 K/uL (1.2-3.4); Lymphocytes % (auto) 2.3 %; Mean Corpuscular Hemoglobin 28.9 pg (25-34); Mean Corpuscular Hgb Conc 32.3 g/dL (32-36); Mean Corpuscular Volume 89.4 fL (80-100); Mean Platelet Volume 9.9 fL (7.4-10.4); Monocytes # (auto) 0.64 K/uL (0.11-0.59); Neutrophils # (auto) 14.96 K/uL (1.4-6.5); Neutrophils % (auto) 92.6 %; Platelet Count 347 K/uL (130-400); RDW Coefficient of Variation 19.3 % (11.5-14.5); Red Blood Count 5.92 M/uL (4.7-6.1); White Blood Count 16.15 K/uL (4.8-10.8)
[2021-02-27 14:03] LABS: INR 1.2 (0.9-1.1); Partial Thromboplastin Ratio 1.1; Partial Thromboplastin Time 28.8 Seconds (21.0-31.0); Prothrombin Time 11.7 Seconds (9.0-12.0)
[2021-02-27 14:11] LABS: BUN Creatinine Ratio 6.3 (10-20); Calcium 7.7 mg/dl (8.5-10.1); Creatinine Clr Calc Pharmacy 8.5 ml/min; Est GFR (African American) 3.3 ml/min; Est GFR (Non-African American) 2.8 ml/min; Magnesium 3.4 mg/dl (1.8-2.4); Potassium 5.4 mmol/L (3.5-5.1)
[2021-02-27 19:49] LABS: Basophils # (auto) 0.02 K/uL (0-0.2); Basophils % (auto) 0.1 %; Eosinophils # (auto) 0.01 K/uL (0-0.5); Eosinophils % (auto) 0.1 %; Hematocrit (blood only) 55.9 % (42-52); Hemoglobin 18.4 g/dL (14.0-18.0); Immature Granulocytes # (auto) 0.21 K/uL (0.00-0.02); Immature Granulocytes % (auto) 1.5 %; Lymphocytes % (auto) 3.5 %; Mean Corpuscular Hemoglobin 29.2 pg (25-34); Mean Corpuscular Volume 88.6 fL (80-100); Mean Platelet Volume 9.8 fL (7.4-10.4); Monocytes # (auto) 0.61 K/uL (0.11-0.59); Monocytes % (auto) 4.2 %; Neutrophils # (auto) 13.09 K/uL (1.4-6.5); Neutrophils % (auto) 90.6 %; Platelet Count 378 K/uL (130-400); RDW Coefficient of Variation 19.9 % (11.5-14.5); Red Blood Count 6.31 M/uL (4.7-6.1); White Blood Count 14.44 K/uL (4.8-10.8)
[2021-02-27 20:02] LABS: INR 1.2 (0.9-1.1); Mean Corpuscular Hgb Conc 32.9 g/dL (32-36); Partial Thromboplastin Ratio 1.1; Partial Thromboplastin Time 28.9 Seconds (21.0-31.0); Prothrombin Time 11.8 Seconds (9.0-12.0)
[2021-02-27 20:35] LABS: BUN Creatinine Ratio 5.4 (10-20); Calcium 8.4 mg/dl (8.5-10.1); Creatinine Clr Calc Pharmacy 12.2 ml/min; Est GFR (African American) 5.1 ml/min; Est GFR (Non-African American) 4.4 ml/min; Potassium 4.8 mmol/L (3.5-5.1)
[2021-02-27 20:50] LABS: Phosphorus 8.3 mg/dl (2.5-4.9)
[2021-02-28] MEDS: propofoL 1,000 MG/100 ML VIAL IV SCH ×9 (00:24→20:36)
[2021-02-28 00:39] LABS: iSTAT Art Bld Gas pCO2 Correct 37 mmHg (35-46); iSTAT Art Bld Gas pH Corrected 7.436 (7.35-7.45); iSTAT Arterial Blood Gas HCO3 26 meg/L (19-24); iSTAT Arterial Blood Gas pCO2 46 mmHg (35-46); iSTAT Arterial Blood Gas pH 7.36 (7.35-7.45); iSTAT Arterial Blood Gas pO2 88 mmHg (80-95); iSTAT Arterial Blood Gas pO2 C 64; iSTAT Carbon Dioxide 28 mmol/L (24-31); iSTAT FiO2 60 %; iSTAT Hematocrit 58 % (42-52); iSTAT Hemoglobin 19.7 g/dl (14.0-18.0); iSTAT Potassium 4.7 mmol/L (3.3-5.0); iSTAT Site Art Line; iSTAT Sodium 135 mmol/L (135-144)
[2021-02-28 00:39] LABS: iSTAT Arterial Blood Gas HCO3 24 meg/L (19-24); iSTAT Arterial Blood Gas pCO2 47 mmHg (35-46); iSTAT Arterial Blood Gas pH 7.31 (7.35-7.45); iSTAT Arterial Blood Gas pO2 98 mmHg (80-95); iSTAT Carbon Dioxide 25 mmol/L (24-31); iSTAT Site Art Line
[2021-02-28] MEDS: NOREPINEPHRINE/D5W 8 MG/508 ML BAG IV SCH ×2 (00:49→12:08)
[2021-02-28 01:13] LABS: iSTAT Art Bld Gas pCO2 Correct 37 mmHg (35-46); iSTAT Art Bld Gas pH Corrected 7.411 (7.35-7.45); iSTAT Arterial Blood Gas HCO3 25 meg/L (19-24); iSTAT Arterial Blood Gas pCO2 46 mmHg (35-46); iSTAT Arterial Blood Gas pH 7.34 (7.35-7.45); iSTAT Arterial Blood Gas pO2 93 mmHg (80-95); iSTAT Arterial Blood Gas pO2 C 68; iSTAT Carbon Dioxide 26 mmol/L (24-31); iSTAT FiO2 50 %; iSTAT Hematocrit 59 % (42-52); iSTAT Hemoglobin 20.1 g/dl (14.0-18.0); iSTAT Potassium 5.4 mmol/L (3.3-5.0); iSTAT Site Art Line; iSTAT Sodium 136 mmol/L (135-144)
[2021-02-28 01:18] LABS: Basophils # (auto) 0.02 K/uL (0-0.2); Basophils % (auto) 0.1 %; Hematocrit (blood only) 56.2 % (42-52); Hemoglobin 18.3 g/dL (14.0-18.0); Immature Granulocytes # (auto) 0.18 K/uL (0.00-0.02); Immature Granulocytes % (auto) 1.3 %; Lymphocytes # (auto) 1.04 K/uL (1.2-3.4); Lymphocytes % (auto) 7.3 %; Mean Corpuscular Hemoglobin 29.3 pg (25-34); Mean Corpuscular Volume 89.9 fL (80-100); Mean Platelet Volume 10.2 fL (7.4-10.4); Monocytes # (auto) 0.24 K/uL (0.11-0.59); Monocytes % (auto) 1.7 %; Neutrophils % (auto) 89.6 %; Platelet Count 384 K/uL (130-400); RDW Coefficient of Variation 19.6 % (11.5-14.5); RDW Standard Deviation 64.1 fL (36.4-46.3); Red Blood Count 6.25 M/uL (4.7-6.1); White Blood Count 14.28 K/uL (4.8-10.8)
[2021-02-28 01:25] LABS: Mean Corpuscular Hgb Conc 32.6 g/dL (32-36)
[2021-02-28 02:04] LABS: BUN Creatinine Ratio 5.4 (10-20); Calcium 8.3 mg/dl (8.5-10.1); Creatinine Clr Calc Pharmacy 10.9 ml/min; Est GFR (African American) 4.5 ml/min; Est GFR (Non-African American) 3.8 ml/min; Potassium 5.5 mmol/L (3.5-5.1)
[2021-02-28 02:11] LABS: Phosphorus 10.5 mg/dl (2.5-4.9)
[2021-02-28 02:11] LABS: INR 1.1 (0.9-1.1); Partial Thromboplastin Time 26.8 Seconds (21.0-31.0); Prothrombin Time 11.4 Seconds (9.0-12.0)
[2021-02-28] MEDS: PIPERACILLIN/TAZOBACTAM 4.5 GM in DEXTROSE 5% 100 ML IV SCH ×2 (04:25→16:27)
[2021-02-28 07:00] LABS: Basophils # (auto) 0.01 K/uL (0-0.2); Basophils % (auto) 0.1 %; Hematocrit (blood only) 55.8 % (42-52); Hemoglobin 17.7 g/dL (14.0-18.0); Immature Granulocytes # (auto) 0.16 K/uL (0.00-0.02); Immature Granulocytes % (auto) 1.1 %; Lymphocytes # (auto) 0.91 K/uL (1.2-3.4); Lymphocytes % (auto) 6.1 %; Mean Corpuscular Hemoglobin 28.7 pg (25-34); Mean Corpuscular Volume 90.4 fL (80-100); Mean Platelet Volume 10.1 fL (7.4-10.4); Monocytes # (auto) 0.57 K/uL (0.11-0.59); Monocytes % (auto) 3.8 %; Neutrophils # (auto) 13.22 K/uL (1.4-6.5); Neutrophils % (auto) 88.9 %; Platelet Count 389 K/uL (130-400); RDW Coefficient of Variation 19.6 % (11.5-14.5); RDW Standard Deviation 64.2 fL (36.4-46.3); Red Blood Count 6.17 M/uL (4.7-6.1); White Blood Count 14.87 K/uL (4.8-10.8)
[2021-02-28 07:12] LABS: INR 1.2 (0.9-1.1); Partial Thromboplastin Ratio 1.1; Partial Thromboplastin Time 29.7 Seconds (21.0-31.0); Prothrombin Time 12.2 Seconds (9.0-12.0)
[2021-02-28 07:47] LABS: Mean Corpuscular Hgb Conc 31.7 g/dL (32-36)
[2021-02-28 07:54] LABS: Albumin Level 2.8 gm/dl (3.4-5.0); BUN Creatinine Ratio 5.5 (10-20); Bilirubin Direct 0.2 mg/dl (0-0.2); Bilirubin,Total 0.8 mg/dl (0.2-1); Calcium 7.9 mg/dl (8.5-10.1); Creatinine Clr Calc Pharmacy 10.7 ml/min; Est GFR (African American) 4.3 ml/min; Est GFR (Non-African American) 3.7 ml/min; Magnesium 2.9 mg/dl (1.8-2.4); Phosphorus 11.5 mg/dl (2.5-4.9); Potassium 5.6 mmol/L (3.5-5.1); Total Protein 7.7 gm/dl (6.4-8.2)
--- NOTE | 2021-02-28 08:17 | Critical Care Progress Note ---
Date of Service February 28, 2021 Assessment & Plan (1) Cardiac arrest: Plan: Reason Critically Ill: 56-year-old male with complicated PMH including ESRD on dialysis, HFpEF, and recent hospitalization for COVID-19 pneumonia presents to the ICU following a suspected respiratory induced asystole cardiac arrest in which she is undergoing therapeutic hypothermia as he was unresponsive following ROSC. Neuro - Anoxic injurypatient unresponsive following ROSC, neurological exam as above. -CT head without acute intracranial findings -Patient underwent 24-hour therapeutic hypothermia: Active rewarming -EEG ordered for 0700 on 03/01/2021 Cardiac - Cardiac arrestsuspect this is likely related to the patient's severe respiratory acidosis and COVID-19 pneumonia along with hypoglycemia likely attributed -Witnessed asystole arrest with ROSC achieved following CPR, epinephrine, bicarb -Troponin unremarkable, EKG without ST elevations, QTc 475. Patient was not having chest pain prior to this event. -Patient requiring low-dose Levophed, likely sedation related but cannot rule out cardiogenic shock. Echo pending. Maintain MAP greater than 65 -NSR on monitor, continuous telemetry -Hold antihypertensives for now -Echocardiogram from 02/27/2021 reviewed Respiratory - Hypercapnic hypoxic respiratory failurelikely multifactorial in the setting of COVID-19 pneumonia, diastolic heart failure, presumed OHS -Currently mechanically ventilated, ABGs every 6 per therapeutic hypothermia protocol. Will wean vent appropriately -See ID management below for pneumonia -Unable to diurese as patient is anuric and requiring hemodialysis. Will defer to nephrology to manage fluid balance -Respiratory acidosis appears to be improving, monitor -Nebs as needed -Continuous pulse ox and ET CO2 monitoring GI - N.p.o. Transaminitismild elevation LFTs likelyIn the setting of shock liver following cardiac arrest -Downtrending RENAL/LYTES - ESRDPatient undergoes hemodialysis MWF -Nephrology following - Foleydiscontinue ENDO - DM type IIpatient was hypoglycemic in the field with EMS but corrected with dextrose/glucagon administration -Currently hyperglycemic, continue with sliding scale for now -ICU hyperglycemic protocol Hypothyroidcontinue Synthroid HEME - H&H stable, monitor routine CBCs ID - Pneumoniapatient initially tested positive for COVID-19 pneumonia on 02/22. He recently completed 5-day course of vancomycin, Zosyn, and azithromycin. -Bio fire reconfirmed Covid 19, otherwise unremarkable -Continue Decadron 6 mg IV daily to complete 10-day course -Received vancomycin and Zosyn in emergency department. Blood cultures pending -Mild elevation procalcitonin, lactate pending -Continue airborne precautions -Will hold on further antibiotics at this time, trend fever curve LINES/IV ACCESS - Heat extreme central venous catheter (triple-lumen access), arterial line, ET tube, OG tube DVT PROPHYLAXIS - SCDs, continue Anusha I have personally spent 40 minutes of critical care time in the direct management of this patient. This is a life/limb threatening event. This includes time spent evaluating patient, direct bedside care, chart review, placing orders, interpretation of diagnostic studies, discussion with consultants, patient, and family members, as well as other required patient management activities. This time is exclusive of all separately billable procedures, and teaching time and separate from and in addition to any other critical care service time. (2) Hypoglycemia: (3) Renal failure: (4) Respiratory failure: (5) Acidosis: (6) Hypoxia: (7) Pneumonia: (8) COVID-19: (9) Controlled type 2 diabetes mellitus with kidney complication, with long-term current use of insulin: (10) End stage renal disease: (11) Morbid obesity: Admission and Anticipated Discharge Date Admission Date: February 26, 2021 Subjective No overnight events, patient has restarted rewarming phase of therapeutic hypothermia Review of Systems Review of Systems: Unobtainable due to endotracheal tube and Unobtainable due to reduced consciousness Physical Exam Physical Exam: General: 3 T. nontoxic. Skin: Warm, dry, Head: Atraumatic Ears, nose, mouth and throat: airway obscured by endotracheal tube Cardiovascular: Normal peripheral perfusion Respiratory: Distant breath sounds Gastrointestinal: Rotund abdomen Musculoskeletal: 2+ edema, evidence of vascular insufficiency Results & Data Results & Data ([facility]) Vital Signs (Past 12 Hours) Vital Signs Temp Pulse Resp BP BP Pulse Ox 02/28/21 08:00 33.1 C L 54 L 18 139/86 132/64 100 02/28/21 07:00 54 L 02/28/21 06:54 33.1 C L 54 L 18 112/72 125/62 100 02/28/21 06:18 51 L 02/28/21 06:00 32.8 C L 50 L 16 106/72 111/60 100 02/28/21 05:00 32.1 C L 53 L 16 97/69 L 108/59 L 100 02/28/21 04:28 48 L 02/28/21 04:00 32.1 C L 47 L 18 102/73 116/62 100 02/28/21 03:40 60 19 100 02/28/21 03:28 51 L 02/28/21 03:00 32.1 C L 51 L 16 101/69 104/59 L 100 02/28/21 02:00 32.1 C L 47 L 16 112/78 122/68 100 02/28/21 01:00 32.1 C L 48 L 16 126/98 138/76 99 02/28/21 00:28 47 L 02/28/21 00:00 32.1 C L 58 L 19 119/83 139/71 99 02/27/21 23:52 62 19 99 02/27/21 23:28 45 L 02/27/21 23:00 32.1 C L 53 L 18 107/70 120/67 99 02/27/21 22:28 48 L 02/27/21 22:00 32 C L 52 L 18 103/67 117/68 98 02/27/21 21:23 69 02/27/21 21:00 32.1 C L 54 L 16 101/68 114/64 100 02/27/21 20:21 56 L Laboratory Results 02/28/21 02/28/21 02/28/21 Range/Units 07:35 05:55 05:55 WBC 14.87 H (4.8-10.8) K/uL RBC 6.17 H (4.7-6.1) M/uL Hgb 17.7 (14.0-18.0) g/dL POC Hgb (14.0-18.0) g/dl Hct 55.8 H (42-52) % POC Hct (42-52) % MCV 90.4 (80-100) fL MCH 28.7 (25-34) pg MCHC 31.7 L (32-36) g/dL RDW Std Deviation 64.2 H (36.4-46.3) fL RDW Coeff of Tim 19.6 H (11.5-14.5) % Plt Count 389 (130-400) K/uL MPV 10.1 (7.4-10.4) fL Immature Gran % (Auto) 1.1 % Neut % (Auto) 88.9 % Lymph % (Auto) 6.1 % [place] % (Auto) 3.8 % Eos % (Auto) 0.0 % Baso % (Auto) 0.1 % Neut # (Auto) 13.22 H (1.4-6.5) K/uL Lymph # (Auto) 0.91 L (1.2-3.4) K/uL [place] # (Auto) 0.57 (0.11-0.59) K/uL Eos # (Auto) 0.00 (0-0.5) K/uL Baso # (Auto) 0.01 (0-0.2) K/uL Immature Gran # (Auto) 0.16 H (0.00-0.02) K/uL PT (9.0-12.0) Seconds INR (0.9-1.1) APTT (21.0-31.0) Seconds PTT Ratio Sample Site POC pH (7.35-7.45) POC pCO2 (35-46) mmHg POC pO2 (80-95) mmHg POC HCO3 (19-24) yue/L POC Total CO2 (24-31) mmol/L POC Base Excess (-9-1.8) yue/L ABG pH (Temp Correct) (7.35-7.45) ABG pCO2 (Temp Corrct (35-46) mmHg POC ABG pO2 at Pt Temp POC ABG O2 Sat (90-95) % Isidoro Test O2 Delivery Device POC O2 Rate Minute Ventilation POC FiO2 % Tidal Volume PEEP POC Sodium (135-144) mmol/L Sodium 132 L (136-145) mmol/L POC Potassium (3.3-5.0) mmol/L Potassium 5.6 H (3.5-5.1) mmol/L Chloride 94 L (98-107) mmol/L Carbon Dioxide 21 (21-32) mmol/L Anion Gap 17.0 H (3-11) BUN 73 H (7-18) mg/dl Creatinine 13.20 H* D (0.6-1.4) mg/dl Est Cr Clr Drug Dosing 10.7 ml/min Est GFR ( Amer) 4.3 ml/min Est GFR (Non-Af Amer) 3.7 ml/min BUN/Creatinine Ratio 5.5 L (10-20) Glucose 139 H (70-99) mg/dl POC Glucose (70-99) mg/dl POC Glucose (other) 136 H (70-99) mg/dl Calcium 7.9 L (8.5-10.1) mg/dl Phosphorus 11.5 H (2.5-4.9) mg/dl Magnesium 2.9 H (1.8-2.4) mg/dl Total Bilirubin 0.8 (0.2-1) mg/dl Direct Bilirubin 0.2 (0-0.2) mg/dl AST 103 H (15-37) U/L ALT 287 H (12-78) U/L Alkaline Phosphatase 93 (45-117) U/L Total Protein 7.7 (6.4-8.2) gm/dl Albumin 2.8 L (3.4-5.0) gm/dl 02/28/21 02/28/21 02/28/21 Range/Units 05:55 04:12 01:49 WBC (4.8-10.8) K/uL RBC (4.7-6.1) M/uL Hgb (14.0-18.0) g/dL POC Hgb (14.0-18.0) g/dl Hct (42-52) % POC Hct (42-52) % MCV (80-100) fL MCH (25-34) pg MCHC (32-36) g/dL RDW Std Deviation (36.4-46.3) fL RDW Coeff of Tim (11.5-14.5) % Plt Count (130-400) K/uL MPV (7.4-10.4) fL Immature Gran % (Auto) % Neut % (Auto) % Lymph % (Auto) % [place] % (Auto) % Eos % (Auto) % Baso % (Auto) % Neut # (Auto) (1.4-6.5) K/uL Lymph # (Auto) (1.2-3.4) K/uL [place] # (Auto) (0.11-0.59) K/uL Eos # (Auto) (0-0.5) K/uL Baso # (Auto) (0-0.2) K/uL Immature Gran # (Auto) (0.00-0.02) K/uL PT 12.2 H 11.4 (9.0-12.0) Seconds INR 1.2 H 1.1 (0.9-1.1) APTT 29.7 26.8 (21.0-31.0) Seconds PTT Ratio 1.1 1.0 Sample Site POC pH (7.35-7.45) POC pCO2 (35-46) mmHg POC pO2 (80-95) mmHg POC HCO3 (19-24) yue/L POC Total CO2 (24-31) mmol/L POC Base Excess (-9-1.8) yue/L ABG pH (Temp Correct) (7.35-7.45) ABG pCO2 (Temp Corrct (35-46) mmHg POC ABG pO2 at Pt Temp POC ABG O2 Sat (90-95) % Isidoro Test O2 Delivery Device POC O2 Rate Minute Ventilation POC FiO2 % Tidal Volume PEEP POC Sodium (135-144) mmol/L Sodium (136-145) mmol/L POC Potassium (3.3-5.0) mmol/L Potassium (3.5-5.1) mmol/L Chloride (98-107) mmol/L Carbon Dioxide (21-32) mmol/L Anion Gap (3-11) BUN (7-18) mg/dl Creatinine (0.6-1.4) mg/dl Est Cr Clr Drug Dosing ml/min Est GFR ( Amer) ml/min Est GFR (Non-Af Amer) ml/min BUN/Creatinine Ratio (10-20) Glucose (70-99) mg/dl POC Glucose (70-99) mg/dl POC Glucose (other) 138 H (70-99) mg/dl Calcium (8.5-10.1) mg/dl Phosphorus (2.5-4.9) mg/dl Magnesium (1.8-2.4) mg/dl Total Bilirubin (0.2-1) mg/dl Direct Bilirubin (0-0.2) mg/dl AST (15-37) U/L ALT (12-78) U/L Alkaline Phosphatase (45-117) U/L Total Protein (6.4-8.2) gm/dl Albumin (3.4-5.0) gm/dl 02/28/21 02/28/21 02/28/21 Range/Units 01:08 01:07 01:07 WBC 14.28 H (4.8-10.8) K/uL RBC 6.25 H (4.7-6.1) M/uL Hgb 18.3 H (14.0-18.0) g/dL POC Hgb (14.0-18.0) g/dl Hct 56.2 H (42-52) % POC Hct (42-52) % MCV 89.9 (80-100) fL MCH 29.3 (25-34) pg MCHC 32.6 (32-36) g/dL RDW Std Deviation 64.1 H (36.4-46.3) fL RDW Coeff of Tim 19.6 H (11.5-14.5) % Plt Count 384 (130-400) K/uL MPV 10.2 (7.4-10.4) fL Immature Gran % (Auto) 1.3 % Neut % (Auto) 89.6 % Lymph % (Auto) 7.3 % [place] % (Auto) 1.7 % Eos % (Auto) 0.0 % Baso % (Auto) 0.1 % Neut # (Auto) 12.80 H (1.4-6.5) K/uL Lymph # (Auto) 1.04 L (1.2-3.4) K/uL [place] # (Auto) 0.24 (0.11-0.59) K/uL Eos # (Auto) 0.00 (0-0.5) K/uL Baso # (Auto) 0.02 (0-0.2) K/uL Immature Gran # (Auto) 0.18 H (0.00-0.02) K/uL PT Cancelled (9.0-12.0) Seconds INR Cancelled (0.9-1.1) APTT Cancelled (21.0-31.0) Seconds PTT Ratio Cancelled Sample Site POC pH (7.35-7.45) POC pCO2 (35-46) mmHg POC pO2 (80-95) mmHg POC HCO3 (19-24) yue/L POC Total CO2 (24-31) mmol/L POC Base Excess (-9-1.8) yue/L ABG pH (Temp Correct) (7.35-7.45) ABG pCO2 (Temp Corrct (35-46) mmHg POC ABG pO2 at Pt Temp POC ABG O2 Sat (90-95) % Isidoro Test O2 Delivery Device POC O2 Rate Minute Ventilation POC FiO2 % Tidal Volume PEEP POC Sodium (135-144) mmol/L Sodium 133 L (136-145) mmol/L POC Potassium (3.3-5.0) mmol/L Potassium 5.5 H (3.5-5.1) mmol/L Chloride 95 L (98-107) mmol/L Carbon Dioxide 22 (21-32) mmol/L Anion Gap 16.0 H (3-11) BUN 69 H (7-18) mg/dl Creatinine 12.80 H* D (0.6-1.4) mg/dl Est Cr Clr Drug Dosing 10.9 ml/min Est GFR ( Amer) 4.5 ml/min Est GFR (Non-Af Amer) 3.8 ml/min BUN/Creatinine Ratio 5.4 L (10-20) Glucose 158 H (70-99) mg/dl POC Glucose (70-99) mg/dl POC Glucose (other) (70-99) mg/dl Calcium 8.3 L (8.5-10.1) mg/dl Phosphorus 10.5 H D (2.5-4.9) mg/dl Magnesium 3.0 H (1.8-2.4) mg/dl Total Bilirubin (0.2-1) mg/dl Direct Bilirubin (0-0.2) mg/dl AST (15-37) U/L ALT (12-78) U/L Alkaline Phosphatase (45-117) U/L Total Protein (6.4-8.2) gm/dl Albumin (3.4-5.0) gm/dl 02/28/21 02/28/21 02/28/21 Range/Units 00:58 00:33 00:26 WBC (4.8-10.8) K/uL RBC (4.7-6.1) M/uL Hgb (14.0-18.0) g/dL POC Hgb 20.1 H* (14.0-18.0) g/dl Hct (42-52) % POC Hct 59 H (42-52) % MCV (80-100) fL MCH (25-34) pg MCHC (32-36) g/dL RDW Std Deviation (36.4-46.3) fL RDW Coeff of Tim (11.5-14.5) % Plt Count (130-400) K/uL MPV (7.4-10.4) fL Immature Gran % (Auto) % Neut % (Auto) % Lymph % (Auto) % [place] % (Auto) % Eos % (Auto) % Baso % (Auto) % Neut # (Auto) (1.4-6.5) K/uL Lymph # (Auto) (1.2-3.4) K/uL [place] # (Auto) (0.11-0.59) K/uL Eos # (Auto) (0-0.5) K/uL Baso # (Auto) (0-0.2) K/uL Immature Gran # (Auto) (0.00-0.02) K/uL PT (9.0-12.0) Seconds INR (0.9-1.1) APTT (21.0-31.0) Seconds PTT Ratio Sample Site Art Line Art Line POC pH 7.34 L 7.31 L (7.35-7.45) POC pCO2 46 47 H (35-46) mmHg POC pO2 93 98 H (80-95) mmHg POC HCO3 25 H 24 (19-24) yue/L POC Total CO2 26 25 (24-31) mmol/L POC Base Excess -1.0 -3.0 (-9-1.8) yue/L ABG pH (Temp Correct) 7.411 (7.35-7.45) ABG pCO2 (Temp Corrct 37 (35-46) mmHg POC ABG pO2 at Pt Temp 68 POC ABG O2 Sat 97.0 H 97.0 H (90-95) % Isidoro Test NA NA O2 Delivery Device Ventilator Ventilator POC O2 Rate 14 14 Minute Ventilation POC FiO2 50 % Tidal Volume 550 550 PEEP 10 10 POC Sodium 136 (135-144) mmol/L Sodium (136-145) mmol/L POC Potassium 5.4 H (3.3-5.0) mmol/L Potassium (3.5-5.1) mmol/L Chloride (98-107) mmol/L Carbon Dioxide (21-32) mmol/L Anion Gap (3-11) BUN (7-18) mg/dl Creatinine (0.6-1.4) mg/dl Est Cr Clr Drug Dosing ml/min Est GFR ( Amer) ml/min Est GFR (Non-Af Amer) ml/min BUN/Creatinine Ratio (10-20) Glucose (70-99) mg/dl POC Glucose (70-99) mg/dl POC Glucose (other) 150 H (70-99) mg/dl Calcium (8.5-10.1) mg/dl Phosphorus (2.5-4.9) mg/dl Magnesium (1.8-2.4) mg/dl Total Bilirubin (0.2-1) mg/dl Direct Bilirubin (0-0.2) mg/dl AST (15-37) U/L ALT (12-78) U/L Alkaline Phosphatase (45-117) U/L Total Protein (6.4-8.2) gm/dl Albumin (3.4-5.0) gm/dl 02/27/21 02/27/21 02/27/21 Range/Units 20:16 19:30 19:15 WBC (4.8-10.8) K/uL RBC (4.7-6.1) M/uL Hgb (14.0-18.0) g/dL POC Hgb 19.7 H (14.0-18.0) g/dl Hct (42-52) % POC Hct 58 H (42-52) % MCV (80-100) fL MCH (25-34) pg MCHC (32-36) g/dL RDW Std Deviation (36.4-46.3) fL RDW Coeff of Tim (11.5-14.5) % Plt Count (130-400) K/uL MPV (7.4-10.4) fL Immature Gran % (Auto) % Neut % (Auto) % Lymph % (Auto) % [place] % (Auto) % Eos % (Auto) % Baso % (Auto) % Neut # (Auto) (1.4-6.5) K/uL Lymph # (Auto) (1.2-3.4) K/uL [place] # (Auto) (0.11-0.59) K/uL Eos # (Auto) (0-0.5) K/uL Baso # (Auto) (0-0.2) K/uL Immature Gran # (Auto) (0.00-0.02) K/uL PT (9.0-12.0) Seconds INR (0.9-1.1) APTT (21.0-31.0) Seconds PTT Ratio Sample Site Art Line POC pH 7.36 (7.35-7.45) POC pCO2 46 (35-46) mmHg POC pO2 88 (80-95) mmHg POC HCO3 26 H (19-24) yue/L POC Total CO2 28 (24-31) mmol/L POC Base Excess 1.0 (-9-1.8) yue/L ABG pH (Temp Correct) 7.436 (7.35-7.45) ABG pCO2 (Temp Corrct 37 (35-46) mmHg POC ABG pO2 at Pt Temp 64 POC ABG O2 Sat 96.0 H (90-95) % Isidoro Test NA O2 Delivery Device Ventilator POC O2 Rate 14 Minute Ventilation POC FiO2 60 % Tidal Volume 550 PEEP 10 POC Sodium 135 (135-144) mmol/L Sodium 134 L (136-145) mmol/L POC Potassium 4.7 (3.3-5.0) mmol/L Potassium 4.8 (3.5-5.1) mmol/L Chloride 98 (98-107) mmol/L Carbon Dioxide 23 (21-32) mmol/L Anion Gap 13.0 H (3-11) BUN 62 H (7-18) mg/dl Creatinine 11.40 H* D (0.6-1.4) mg/dl Est Cr Clr Drug Dosing 12.2 ml/min Est GFR ( Amer) 5.1 ml/min Est GFR (Non-Af Amer) 4.4 ml/min BUN/Creatinine Ratio 5.4 L (10-20) Glucose 145 H (70-99) mg/dl POC Glucose (70-99) mg/dl POC Glucose (other) 151 H (70-99) mg/dl Calcium 8.4 L (8.5-10.1) mg/dl Phosphorus 8.3 H (2.5-4.9) mg/dl Magnesium 3.0 H (1.8-2.4) mg/dl Total Bilirubin (0.2-1) mg/dl Direct Bilirubin (0-0.2) mg/dl AST (15-37) U/L ALT (12-78) U/L Alkaline Phosphatase (45-117) U/L Total Protein (6.4-8.2) gm/dl Albumin (3.4-5.0) gm/dl 02/27/21 02/27/21 02/27/21 Range/Units 19:15 19:15 16:18 WBC 14.44 H (4.8-10.8) K/uL RBC 6.31 H (4.7-6.1) M/uL Hgb 18.4 H (14.0-18.0) g/dL POC Hgb (14.0-18.0) g/dl Hct 55.9 H (42-52) % POC Hct (42-52) % MCV 88.6 (80-100) fL MCH 29.2 (25-34) pg MCHC 32.9 (32-36) g/dL RDW Std Deviation 63.0 H (36.4-46.3) fL RDW Coeff of Tim 19.9 H (11.5-14.5) % Plt Count 378 (130-400) K/uL MPV 9.8 (7.4-10.4) fL Immature Gran % (Auto) 1.5 % Neut % (Auto) 90.6 % Lymph % (Auto) 3.5 % [place] % (Auto) 4.2 % Eos % (Auto) 0.1 % Baso % (Auto) 0.1 % Neut # (Auto) 13.09 H (1.4-6.5) K/uL Lymph # (Auto) 0.50 L (1.2-3.4) K/uL [place] # (Auto) 0.61 H (0.11-0.59) K/uL Eos # (Auto) 0.01 (0-0.5) K/uL Baso # (Auto) 0.02 (0-0.2) K/uL Immature Gran # (Auto) 0.21 H (0.00-0.02) K/uL PT 11.8 (9.0-12.0) Seconds INR 1.2 H (0.9-1.1) APTT 28.9 (21.0-31.0) Seconds PTT Ratio 1.1 Sample Site POC pH (7.35-7.45) POC pCO2 (35-46) mmHg POC pO2 (80-95) mmHg POC HCO3 (19-24) yue/L POC Total CO2 (24-31) mmol/L POC Base Excess (-9-1.8) yue/L ABG pH (Temp Correct) (7.35-7.45) ABG pCO2 (Temp Corrct (35-46) mmHg POC ABG pO2 at Pt Temp POC ABG O2 Sat (90-95) % Isidoro Test O2 Delivery Device POC O2 Rate Minute Ventilation POC FiO2 % Tidal Volume PEEP POC Sodium (135-144) mmol/L Sodium (136-145) mmol/L POC Potassium (3.3-5.0) mmol/L Potassium (3.5-5.1) mmol/L Chloride (98-107) mmol/L Carbon Dioxide (21-32) mmol/L Anion Gap (3-11) BUN (7-18) mg/dl Creatinine (0.6-1.4) mg/dl Est Cr Clr Drug Dosing ml/min Est GFR ( Amer) ml/min Est GFR (Non-Af Amer) ml/min BUN/Creatinine Ratio (10-20) Glucose (70-99) mg/dl POC Glucose (70-99) mg/dl POC Glucose (other) 124 H (70-99) mg/dl Calcium (8.5-10.1) mg/dl Phosphorus (2.5-4.9) mg/dl Magnesium (1.8-2.4) mg/dl Total Bilirubin (0.2-1) mg/dl Direct Bilirubin (0-0.2) mg/dl AST (15-37) U/L ALT (12-78) U/L Alkaline Phosphatase (45-117) U/L Total Protein (6.4-8.2) gm/dl Albumin (3.4-5.0) gm/dl 02/27/21 02/27/21 02/27/21 Range/Units 13:15 13:15 13:15 WBC 16.15 H (4.8-10.8) K/uL RBC 5.92 (4.7-6.1) M/uL Hgb 17.1 (14.0-18.0) g/dL POC Hgb (14.0-18.0) g/dl Hct 52.9 H (42-52) % POC Hct (42-52) % MCV 89.4 (80-100) fL MCH 28.9 (25-34) pg MCHC 32.3 (32-36) g/dL RDW Std Deviation 63.0 H (36.4-46.3) fL RDW Coeff of Tim 19.3 H (11.5-14.5) % Plt Count 347 (130-400) K/uL MPV 9.9 (7.4-10.4) fL Immature Gran % (Auto) 1.0 % Neut % (Auto) 92.6 % Lymph % (Auto) 2.3 % [place] % (Auto) 4.0 % Eos % (Auto) 0.0 % Baso % (Auto) 0.1 % Neut # (Auto) 14.96 H (1.4-6.5) K/uL Lymph # (Auto) 0.37 L (1.2-3.4) K/uL [place] # (Auto) 0.64 H (0.11-0.59) K/uL Eos # (Auto) 0.00 (0-0.5) K/uL Baso # (Auto) 0.02 (0-0.2) K/uL Immature Gran # (Auto) 0.16 H (0.00-0.02) K/uL PT 11.7 (9.0-12.0) Seconds INR 1.2 H (0.9-1.1) APTT 28.8 (21.0-31.0) Seconds PTT Ratio 1.1 Sample Site POC pH (7.35-7.45) POC pCO2 (35-46) mmHg POC pO2 (80-95) mmHg POC HCO3 (19-24) yue/L POC Total CO2 (24-31) mmol/L POC Base Excess (-9-1.8) yue/L ABG pH (Temp Correct) (7.35-7.45) ABG pCO2 (Temp Corrct (35-46) mmHg POC ABG pO2 at Pt Temp POC ABG O2 Sat (90-95) % Isidoro Test O2 Delivery Device POC O2 Rate Minute Ventilation POC FiO2 % Tidal Volume PEEP POC Sodium (135-144) mmol/L Sodium 134 L (136-145) mmol/L POC Potassium (3.3-5.0) mmol/L Potassium 5.4 H (3.5-5.1) mmol/L Chloride 97 L (98-107) mmol/L Carbon Dioxide 17 L (21-32) mmol/L Anion Gap 20.0 H (3-11) BUN 105 H (7-18) mg/dl Creatinine 16.60 H* D (0.6-1.4) mg/dl Est Cr Clr Drug Dosing 8.5 ml/min Est GFR ( Amer) 3.3 ml/min Est GFR (Non-Af Amer) 2.8 ml/min BUN/Creatinine Ratio 6.3 L (10-20) Glucose 155 H (70-99) mg/dl POC Glucose (70-99) mg/dl POC Glucose (other) (70-99) mg/dl Calcium 7.7 L (8.5-10.1) mg/dl Phosphorus 9.0 H (2.5-4.9) mg/dl Magnesium 3.4 H (1.8-2.4) mg/dl Total Bilirubin (0.2-1) mg/dl Direct Bilirubin (0-0.2) mg/dl AST (15-37) U/L ALT (12-78) U/L Alkaline Phosphatase (45-117) U/L Total Protein (6.4-8.2) gm/dl Albumin (3.4-5.0) gm/dl 02/27/21 02/27/21 02/27/21 Range/Units 13:05 11:54 08:19 WBC (4.8-10.8) K/uL RBC (4.7-6.1) M/uL Hgb (14.0-18.0) g/dL POC Hgb (14.0-18.0) g/dl Hct (42-52) % POC Hct (42-52) % MCV (80-100) fL MCH (25-34) pg MCHC (32-36) g/dL RDW Std Deviation (36.4-46.3) fL RDW Coeff of Tim (11.5-14.5) % Plt Count (130-400) K/uL MPV (7.4-10.4) fL Immature Gran % (Auto) % Neut % (Auto) % Lymph % (Auto) % [place] % (Auto) % Eos % (Auto) % Baso % (Auto) % Neut # (Auto) (1.4-6.5) K/uL Lymph # (Auto) (1.2-3.4) K/uL [place] # (Auto) (0.11-0.59) K/uL Eos # (Auto) (0-0.5) K/uL Baso # (Auto) (0-0.2) K/uL Immature Gran # (Auto) (0.00-0.02) K/uL PT (9.0-12.0) Seconds INR (0.9-1.1) APTT (21.0-31.0) Seconds PTT Ratio Sample Site Art Line POC pH 7.40 (7.35-7.45) POC pCO2 28 L (35-46) mmHg POC pO2 73 L (80-95) mmHg POC HCO3 17 L (19-24) yue/L POC Total CO2 18 L (24-31) mmol/L POC Base Excess -8.0 (-9-1.8) yue/L ABG pH (Temp Correct) (7.35-7.45) ABG pCO2 (Temp Corrct (35-46) mmHg POC ABG pO2 at Pt Temp POC ABG O2 Sat 95.0 (90-95) % Isidoro Test NA O2 Delivery Device Ventilator POC O2 Rate 24 Minute Ventilation 12.9 POC FiO2 60 % Tidal Volume 550 PEEP 10 POC Sodium (135-144) mmol/L Sodium (136-145) mmol/L POC Potassium (3.3-5.0) mmol/L Potassium (3.5-5.1) mmol/L Chloride (98-107) mmol/L Carbon Dioxide (21-32) mmol/L Anion Gap (3-11) BUN (7-18) mg/dl Creatinine (0.6-1.4) mg/dl Est Cr Clr Drug Dosing ml/min Est GFR ( Amer) ml/min Est GFR (Non-Af Amer) ml/min BUN/Creatinine Ratio (10-20) Glucose (70-99) mg/dl POC Glucose 156 H (70-99) mg/dl POC Glucose (other) 154 H (70-99) mg/dl Calcium (8.5-10.1) mg/dl Phosphorus (2.5-4.9) mg/dl Magnesium (1.8-2.4) mg/dl Total Bilirubin (0.2-1) mg/dl Direct Bilirubin (0-0.2) mg/dl AST (15-37) U/L ALT (12-78) U/L Alkaline Phosphatase (45-117) U/L Total Protein (6.4-8.2) gm/dl Albumin (3.4-5.0) gm/dl 02/27/21 Range/Units 06:58 WBC (4.8-10.8) K/uL RBC (4.7-6.1) M/uL Hgb (14.0-18.0) g/dL POC Hgb (14.0-18.0) g/dl Hct (42-52) % POC Hct (42-52) % MCV (80-100) fL MCH (25-34) pg MCHC (32-36) g/dL RDW Std Deviation (36.4-46.3) fL RDW Coeff of Tim (11.5-14.5) % Plt Count (130-400) K/uL MPV (7.4-10.4) fL Immature Gran % (Auto) % Neut % (Auto) % Lymph % (Auto) % [place] % (Auto) % Eos % (Auto) % Baso % (Auto) % Neut # (Auto) (1.4-6.5) K/uL Lymph # (Auto) (1.2-3.4) K/uL [place] # (Auto) (0.11-0.59) K/uL Eos # (Auto) (0-0.5) K/uL Baso # (Auto) (0-0.2) K/uL Immature Gran # (Auto) (0.00-0.02) K/uL PT (9.0-12.0) Seconds INR (0.9-1.1) APTT (21.0-31.0) Seconds PTT Ratio Sample Site POC pH (7.35-7.45) POC pCO2 (35-46) mmHg POC pO2 (80-95) mmHg POC HCO3 (19-24) yue/L POC Total CO2 (24-31) mmol/L POC Base Excess (-9-1.8) yue/L ABG pH (Temp Correct) (7.35-7.45) ABG pCO2 (Temp Corrct (35-46) mmHg POC ABG pO2 at Pt Temp POC ABG O2 Sat (90-95) % Isidoro Test O2 Delivery Device POC O2 Rate Minute Ventilation POC FiO2 % [place] Volume PEEP POC Sodium (135-144) mmol/L Sodium 134 L (136-145) mmol/L POC Potassium (3.3-5.0) mmol/L Potassium 5.3 H (3.5-5.1) mmol/L Chloride 96 L (98-107) mmol/L Carbon Dioxide 19 L (21-32) mmol/L Anion Gap 19.0 H (3-11) BUN 101 H (7-18) mg/dl Creatinine 16.10 H* D (0.6-1.4) mg/dl Est Cr Clr Drug Dosing 8.8 ml/min Est GFR ( Amer) 3.4 ml/min Est GFR (Non-Af Amer) 2.9 ml/min BUN/Creatinine Ratio 6.3 L (10-20) Glucose 258 H (70-99) mg/dl POC Glucose (70-99) mg/dl POC Glucose (other) (70-99) mg/dl Calcium 7.6 L (8.5-10.1) mg/dl Phosphorus 10.0 H (2.5-4.9) mg/dl Magnesium 3.4 H (1.8-2.4) mg/dl Total Bilirubin (0.2-1) mg/dl Direct Bilirubin (0-0.2) mg/dl AST (15-37) U/L ALT (12-78) U/L Alkaline Phosphatase (45-117) U/L Total Protein (6.4-8.2) gm/dl Albumin (3.4-5.0) gm/dl Coding Level of Care Code Critical Care 1st 30-74 mins Diagnoses Cardiac arrest I46.9 Hypoglycemia E16.2 Renal failure N17.9; N18.9; Z99.2 Acute renal failure type: unspecified Chronic kidney disease stage: on chronic dialysis Renal failure chronicity: acute on chronic Respiratory failure J96.01; J96.02 Chronicity: acute Respiratory failure complication: hypoxia and hypercapnia Acidosis E87.2 Hypoxia R09.02 Pneumonia J18.9 Laterality: bilateral Pneumonia type: due to unspecified organism COVID-19 U07.1 Controlled type 2 diabetes mellitus with kidney complication, with long-term current use of insulin E11.29; Z79.4 End stage renal disease N18.6 Morbid obesity E66.01 (1) Renal failure Acute renal failure type: unspecified Chronic kidney disease stage: on chronic dialysis Renal failure chronicity: acute on chronic Qualified Code(s): N17.9 - Acute kidney failure, unspecified; N18.9 - Chronic kidney disease, unspecified; Z99.2 - Dependence on renal dialysis (2) Respiratory failure Chronicity: acute Respiratory failure complication: hypoxia and hypercapnia Qualified Code(s): J96.01 - Acute respiratory failure with hypoxia; J96.02 - Acute respiratory failure with hypercapnia (3) Pneumonia Laterality: bilateral Pneumonia type: due to unspecified organism
[2021-02-28] MEDS: ASPIRIN 81 MG CHEW PO SCH (08:44)
[2021-02-28] MEDS: dexAMETHasone 6 MG in SYRINGE 0 ML IV SCH (08:44)
[2021-02-28] MEDS: APIXABAN 5 MG TABLET PO SCH ×2 (08:45→21:22)
[2021-02-28] MEDS: CINACALCET HCL 90 MG TAB PO SCH (08:45)
[2021-02-28] MEDS: CHOLECALCIFEROL 1,000 UNITS 25 MCG TAB PO SCH (08:45)
[2021-02-28] MEDS: LEVOTHYROXINE SODIUM 150 MCG TABLET PO SCH (08:46)
[2021-02-28 09:05] LABS: iSTAT Art Bld Gas pCO2 Correct 39 mmHg (35-46); iSTAT Arterial Blood Gas HCO3 23 meg/L (19-24); iSTAT Arterial Blood Gas pCO2 45 mmHg (35-46); iSTAT Arterial Blood Gas pH 7.33 (7.35-7.45); iSTAT Arterial Blood Gas pO2 90 mmHg (80-95); iSTAT Arterial Blood Gas pO2 C 75; iSTAT Carbon Dioxide 25 mmol/L (24-31); iSTAT Hematocrit 58 % (42-52); iSTAT Hemoglobin 19.7 g/dl (14.0-18.0); iSTAT Potassium 5.4 mmol/L (3.3-5.0); iSTAT Site Art Line; iSTAT Sodium 134 mmol/L (135-144)
[2021-02-28] MEDS: fentaNYL DRIP 1,250 MCG/250 ML BAG IV SCH ×2 (09:14→23:30)
--- NOTE | 2021-02-28 09:34 | Electrocardiogram Report ---
Test Reason : Blood Pressure : / mmHG Vent. Rate : 046 BPM Atrial Rate : 046 BPM P-R Int : 200 ms QRS Dur : 124 ms QT Int : 608 ms P-R-T Axes : 056 037 079 degrees QTc Int : 532 ms Sinus bradycardia Right bundle branch block Long QTc When compared with ECG of 27-FEB-2021 11:34, ME interval has decreased Confirmed by Aly Pichardo ([id number]) on 02/28/2021 9:34:14 AM Referred By: REFERRED SELF Confirmed By:Aly Pichardo
--- NOTE | 2021-02-28 09:43 | XRay Report ---
XR chest 1V portable HISTORY: 56 years-old Male evaluate ETT placment acute respiratory failure COMPARISON: Chest radiograph 02/27/2021 TECHNIQUE: Portable AP view of the chest FINDINGS: Cardiac silhouette is enlarged. Endotracheal tube overlies the midline approximately 6 7 m superior t o the julio césar. The study is limited secondary to patient body habitus. An enteric tube is noted with d istal tip not visualized. Cardiomegaly with hypoinflation. Pulmonary vascular congestion with bilater al mixed interstitial and alveolar opacities, worsened from comparison. No pneumothorax or large pleu ral effusion identified. Bones appear grossly intact. IMPRESSION: 1. Lines and tubes as above. 2. Cardiomegaly with progressively worsened bilateral pulmonary opacities, left greater than right. ACT 112: Negative or not required by law. The above report was generated using voice recognition software. It may contain grammatical, syntax o r spelling errors. Electronically signed by: Sammy Lane M.D. 02/28/2021 9:41 AM
--- NOTE | 2021-02-28 09:55 | Electrocardiogram Report ---
Test Reason : Blood Pressure : / mmHG Vent. Rate : 048 BPM Atrial Rate : 048 BPM P-R Int : 210 ms QRS Dur : 118 ms QT Int : 588 ms P-R-T Axes : 048 031 076 degrees QTc Int : 525 ms Sinus bradycardia with 1st degree A-V block Incomplete right bundle branch block Prolonged QT Abnormal ECG When compared with ECG of 27-FEB-2021 16:04, (unconfirmed) No significant change was found Confirmed by Aly Pichardo ([id number]) on 02/28/2021 9:54:38 AM Referred By: REFERRED SELF Confirmed By:Aly Pichardo
--- NOTE | 2021-02-28 10:27 | Nephrology Progress Note ---
Date of Service February 28, 2021 Assessment & Plan (1) End stage renal disease: Plan: HD MWF. Completed emergent treatment for UF/clearance yesterday. Adequate clearance. UF 4 L. Electrolytes acceptable at this time. Volume status improved. Will hold HD today during rewarming. Plan next treatment tomorrow. Outpatient Rx 4 hrs [id number]. EDW has been 174 kg. Medications appropriately dosed for IHD. Remains on Eliquis. (2) COVID-19: Plan: Multifocal pneumonia. Remains on Zosyn and Decadron. Blood cultures NGTD. (3) Dialysis AV fistula malfunction: Plan: Functioning well following recent revision. Good thrill and bruit. (4) Cardiac arrest: Plan: 24 hour hypothermic protocol. Rewarming in progress. I updated [facility] by phone. Admission and Anticipated Discharge Date Admission Date: February 26, 2021 Subjective No overnight events. Started rewarming. Sedation recently increased. Remains on levo gtt @ 0.2. Tolerated HD yesterday without complication, net UF 4 L. Review of Systems Review of Systems: Unobtainable due to endotracheal tube Physical Exam Constitutional: + ill appearing, + morbidly obese and + mechanically ventilated; no acute distress Eyes: + anicteric sclerae Neck: normal visual inspection, trachea midline and + thick neck Respiratory: symmetric chest movement Auscultation: + rhonchi Cardiovascular: Rate/Rhythm: + bradycardic Heart Sounds: normal S1, normal S2 and + murmur Extremities: + edema and + AV fistula Gastrointestinal (Abdomen): Inspection/Auscultation: + abdomen distended and + hypoactive bowel sounds Musculoskeletal: Extremities: extremities normal to inspection; no clubbing Skin: normal turgor; no lesions Genitourinary: anuric Results & Data ([facility]) Vital Signs (Past 12 Hours) Vital Signs Temp Pulse Resp BP BP Pulse Ox 02/28/21 10:00 65 02/28/21 09:54 34 C L 65 18 82/58 L 101/47 L 98 02/28/21 09:00 34 C L 65 18 114/65 112/58 L 100 02/28/21 08:00 33.1 C L 65 18 139/86 132/64 100 02/28/21 07:33 59 L 19 100 02/28/21 07:00 54 L 02/28/21 06:54 33.1 C L 54 L 18 112/72 125/62 100 02/28/21 06:18 51 L 02/28/21 06:00 32.8 C L 50 L 16 106/72 111/60 100 02/28/21 05:00 32.1 C L 53 L 16 97/69 L 108/59 L 100 02/28/21 04:28 48 L 02/28/21 04:00 32.1 C L 47 L 18 102/73 116/62 100 02/28/21 03:40 60 19 100 02/28/21 03:28 51 L 02/28/21 03:00 32.1 C L 51 L 16 101/69 104/59 L 100 02/28/21 02:00 32.1 C L 47 L 16 112/78 122/68 100 02/28/21 01:00 32.1 C L 48 L 16 126/98 138/76 99 02/28/21 00:28 47 L 02/28/21 00:00 32.1 C L 58 L 19 119/83 139/71 99 02/27/21 23:52 62 19 99 02/27/21 23:28 45 L 02/27/21 23:00 32.1 C L 53 L 18 107/70 120/67 99 02/27/21 22:28 48 L Laboratory Results Laboratory Results - last 24 hr 02/27/21 02/27/21 02/27/21 11:54 13:05 13:15 WBC 16.15 H RBC 5.92 Hgb 17.1 POC Hgb Hct 52.9 H POC Hct MCV 89.4 MCH 28.9 MCHC 32.3 RDW Std Deviation 63.0 H RDW Coeff of Tim 19.3 H Plt Count 347 MPV 9.9 Immature Gran % (Auto) 1.0 Neut % (Auto) 92.6 Lymph % (Auto) 2.3 [place] % (Auto) 4.0 Eos % (Auto) 0.0 Baso % (Auto) 0.1 Neut # (Auto) 14.96 H Lymph # (Auto) 0.37 L [place] # (Auto) 0.64 H Eos # (Auto) 0.00 Baso # (Auto) 0.02 Immature Gran # (Auto) 0.16 H PT INR APTT PTT Ratio Sample Site Art Line POC pH 7.40 POC pCO2 28 L POC pO2 73 L POC HCO3 17 L POC Total CO2 18 L POC Base Excess -8.0 ABG pH (Temp Correct) ABG pCO2 (Temp Corrct POC ABG pO2 at Pt Temp POC ABG O2 Sat 95.0 Isidoro Test NA O2 Delivery Device Ventilator POC O2 Rate 24 Minute Ventilation 12.9 POC FiO2 60 Tidal Volume 550 PEEP 10 POC Sodium Sodium POC Potassium Potassium Chloride Carbon Dioxide Anion Gap BUN Creatinine Est Cr Clr Drug Dosing Est GFR ( Amer) Est GFR (Non-Af Amer) BUN/Creatinine Ratio Glucose POC Glucose (other) 154 H Calcium Phosphorus Magnesium Total Bilirubin Direct Bilirubin AST ALT Alkaline Phosphatase Total Protein Albumin 02/27/21 02/27/21 02/27/21 13:15 13:15 16:18 WBC RBC Hgb POC Hgb Hct POC Hct MCV MCH MCHC RDW Std Deviation RDW Coeff of Tim Plt Count MPV Immature Gran % (Auto) Neut % (Auto) Lymph % (Auto) [place] % (Auto) Eos % (Auto) Baso % (Auto) Neut # (Auto) Lymph # (Auto) [place] # (Auto) Eos # (Auto) Baso # (Auto) Immature Gran # (Auto) PT 11.7 INR 1.2 H APTT 28.8 PTT Ratio 1.1 Sample Site POC pH POC pCO2 POC pO2 POC HCO3 POC Total CO2 POC Base Excess ABG pH (Temp Correct) ABG pCO2 (Temp Corrct POC ABG pO2 at Pt Temp POC ABG O2 Sat Isidoro Test O2 Delivery Device POC O2 Rate Minute Ventilation POC FiO2 Tidal Volume PEEP POC Sodium Sodium 134 L POC Potassium Potassium 5.4 H Chloride 97 L Carbon Dioxide 17 L Anion Gap 20.0 H BUN 105 H Creatinine 16.60 H* D Est Cr Clr Drug Dosing 8.5 Est GFR ( Amer) 3.3 Est GFR (Non-Af Amer) 2.8 BUN/Creatinine Ratio 6.3 L Glucose 155 H POC Glucose (other) 124 H Calcium 7.7 L Phosphorus 9.0 H Magnesium 3.4 H Total Bilirubin Direct Bilirubin AST ALT Alkaline Phosphatase Total Protein Albumin 02/27/21 02/27/21 02/27/21 19:15 19:15 19:15 WBC 14.44 H RBC 6.31 H Hgb 18.4 H POC Hgb Hct 55.9 H POC Hct MCV 88.6 MCH 29.2 MCHC 32.9 RDW Std Deviation 63.0 H RDW Coeff of Tim 19.9 H Plt Count 378 MPV 9.8 Immature Gran % (Auto) 1.5 Neut % (Auto) 90.6 Lymph % (Auto) 3.5 [place] % (Auto) 4.2 Eos % (Auto) 0.1 Baso % (Auto) 0.1 Neut # (Auto) 13.09 H Lymph # (Auto) 0.50 L [place] # (Auto) 0.61 H Eos # (Auto) 0.01 Baso # (Auto) 0.02 Immature Gran # (Auto) 0.21 H PT 11.8 INR 1.2 H APTT 28.9 PTT Ratio 1.1 Sample Site POC pH POC pCO2 POC pO2 POC HCO3 POC Total CO2 POC Base Excess ABG pH (Temp Correct) ABG pCO2 (Temp Corrct POC ABG pO2 at Pt Temp POC ABG O2 Sat Isidoro Test O2 Delivery Device POC O2 Rate Minute Ventilation POC FiO2 Tidal Volume PEEP POC Sodium Sodium 134 L POC Potassium Potassium 4.8 Chloride 98 Carbon Dioxide 23 Anion Gap 13.0 H BUN 62 H Creatinine 11.40 H* D Est Cr Clr Drug Dosing 12.2 Est GFR ( Amer) 5.1 Est GFR (Non-Af Amer) 4.4 BUN/Creatinine Ratio 5.4 L Glucose 145 H POC Glucose (other) Calcium 8.4 L Phosphorus 8.3 H Magnesium 3.0 H Total Bilirubin Direct Bilirubin AST ALT Alkaline Phosphatase Total Protein Albumin 02/27/21 02/27/21 02/28/21 19:30 20:16 00:26 WBC RBC Hgb POC Hgb 19.7 H Hct POC Hct 58 H MCV MCH MCHC RDW Std Deviation RDW Coeff of Tim Plt Count MPV Immature Gran % (Auto) Neut % (Auto) Lymph % (Auto) [place] % (Auto) Eos % (Auto) Baso % (Auto) Neut # (Auto) Lymph # (Auto) [place] # (Auto) Eos # (Auto) Baso # (Auto) Immature Gran # (Auto) PT INR APTT PTT Ratio Sample Site Art Line Art Line POC pH 7.36 7.31 L POC pCO2 46 47 H POC pO2 88 98 H POC HCO3 26 H 24 POC Total CO2 28 25 POC Base Excess 1.0 -3.0 ABG pH (Temp Correct) 7.436 ABG pCO2 (Temp Corrct 37 POC ABG pO2 at Pt Temp 64 POC ABG O2 Sat 96.0 H 97.0 H Isidoro Test NA NA O2 Delivery Device Ventilator Ventilator POC O2 Rate 14 14 Minute Ventilation POC FiO2 60 Tidal Volume 550 550 PEEP 10 10 POC Sodium 135 Sodium POC Potassium 4.7 Potassium Chloride Carbon Dioxide Anion Gap BUN Creatinine Est Cr Clr Drug Dosing Est GFR ( Amer) Est GFR (Non-Af Amer) BUN/Creatinine Ratio Glucose POC Glucose (other) 151 H Calcium Phosphorus Magnesium Total Bilirubin Direct Bilirubin AST ALT Alkaline Phosphatase Total Protein Albumin 02/28/21 02/28/21 02/28/21 00:33 00:58 01:07 WBC RBC Hgb POC Hgb 20.1 H* Hct POC Hct 59 H MCV MCH MCHC RDW Std Deviation RDW Coeff of Tim Plt Count MPV Immature Gran % (Auto) Neut % (Auto) Lymph % (Auto) [place] % (Auto) Eos % (Auto) Baso % (Auto) Neut # (Auto) Lymph # (Auto) [place] # (Auto) Eos # (Auto) Baso # (Auto) Immature Gran # (Auto) PT Cancelled INR Cancelled APTT Cancelled PTT Ratio Cancelled Sample Site Art Line POC pH 7.34 L POC pCO2 46 POC pO2 93 POC HCO3 25 H POC Total CO2 26 POC Base Excess -1.0 ABG pH (Temp Correct) 7.411 ABG pCO2 (Temp Corrct 37 POC ABG pO2 at Pt Temp 68 POC ABG O2 Sat 97.0 H Isidoro Test NA O2 Delivery Device Ventilator POC O2 Rate 14 Minute Ventilation POC FiO2 50 Tidal Volume 550 PEEP 10 POC Sodium 136 Sodium POC Potassium 5.4 H Potassium Chloride Carbon Dioxide Anion Gap BUN Creatinine Est Cr Clr Drug Dosing Est GFR ( Amer) Est GFR (Non-Af Amer) BUN/Creatinine Ratio Glucose POC Glucose (other) 150 H Calcium Phosphorus Magnesium Total Bilirubin Direct Bilirubin AST ALT Alkaline Phosphatase Total Protein Albumin 02/28/21 02/28/21 02/28/21 01:07 01:08 01:49 WBC 14.28 H RBC 6.25 H Hgb 18.3 H POC Hgb Hct 56.2 H POC Hct MCV 89.9 MCH 29.3 MCHC 32.6 RDW Std Deviation 64.1 H RDW Coeff of Tim 19.6 H Plt Count 384 MPV 10.2 Immature Gran % (Auto) 1.3 Neut % (Auto) 89.6 Lymph % (Auto) 7.3 [place] % (Auto) 1.7 Eos % (Auto) 0.0 Baso % (Auto) 0.1 Neut # (Auto) 12.80 H Lymph # (Auto) 1.04 L [place] # (Auto) 0.24 Eos # (Auto) 0.00 Baso # (Auto) 0.02 Immature Gran # (Auto) 0.18 H PT 11.4 INR 1.1 APTT 26.8 PTT Ratio 1.0 Sample Site POC pH POC pCO2 POC pO2 POC HCO3 POC Total CO2 POC Base Excess ABG pH (Temp Correct) ABG pCO2 (Temp Corrct POC ABG pO2 at Pt Temp POC ABG O2 Sat Isidoro Test O2 Delivery Device POC O2 Rate Minute Ventilation POC FiO2 Tidal Volume PEEP POC Sodium Sodium 133 L POC Potassium Potassium 5.5 H Chloride 95 L Carbon Dioxide 22 Anion Gap 16.0 H BUN 69 H Creatinine 12.80 H* D Est Cr Clr Drug Dosing 10.9 Est GFR ( Amer) 4.5 Est GFR (Non-Af Amer) 3.8 BUN/Creatinine Ratio 5.4 L Glucose 158 H POC Glucose (other) Calcium 8.3 L Phosphorus 10.5 H D Magnesium 3.0 H Total Bilirubin Direct Bilirubin AST ALT Alkaline Phosphatase Total Protein Albumin 02/28/21 02/28/21 02/28/21 04:12 05:55 05:55 WBC RBC Hgb POC Hgb Hct POC Hct MCV MCH MCHC RDW Std Deviation RDW Coeff of Tim Plt Count MPV Immature Gran % (Auto) Neut % (Auto) Lymph % (Auto) [place] % (Auto) Eos % (Auto) Baso % (Auto) Neut # (Auto) Lymph # (Auto) [place] # (Auto) Eos # (Auto) Baso # (Auto) Immature Gran # (Auto) PT 12.2 H INR 1.2 H APTT 29.7 PTT Ratio 1.1 Sample Site POC pH POC pCO2 POC pO2 POC HCO3 POC Total CO2 POC Base Excess ABG pH (Temp Correct) ABG pCO2 (Temp Corrct POC ABG pO2 at Pt Temp POC ABG O2 Sat Isidoro Test O2 Delivery Device POC O2 Rate Minute Ventilation POC FiO2 Tidal Volume PEEP POC Sodium Sodium 132 L POC Potassium Potassium 5.6 H Chloride 94 L Carbon Dioxide 21 Anion Gap 17.0 H BUN 73 H Creatinine 13.20 H* D Est Cr Clr Drug Dosing 10.7 Est GFR ( Amer) 4.3 Est GFR (Non-Af Amer) 3.7 BUN/Creatinine Ratio 5.5 L Glucose 139 H POC Glucose (other) 138 H Calcium 7.9 L Phosphorus 11.5 H Magnesium 2.9 H Total Bilirubin 0.8 Direct Bilirubin 0.2 AST 103 H ALT 287 H Alkaline Phosphatase 93 Total Protein 7.7 Albumin 2.8 L 02/28/21 02/28/21 02/28/21 05:55 07:35 08:53 WBC 14.87 H RBC 6.17 H Hgb 17.7 POC Hgb 19.7 H Hct 55.8 H POC Hct 58 H MCV 90.4 MCH 28.7 MCHC 31.7 L RDW Std Deviation 64.2 H RDW Coeff of Tim 19.6 H Plt Count 389 MPV 10.1 Immature Gran % (Auto) 1.1 Neut % (Auto) 88.9 Lymph % (Auto) 6.1 [place] % (Auto) 3.8 Eos % (Auto) 0.0 Baso % (Auto) 0.1 Neut # (Auto) 13.22 H Lymph # (Auto) 0.91 L [place] # (Auto) 0.57 Eos # (Auto) 0.00 Baso # (Auto) 0.01 Immature Gran # (Auto) 0.16 H PT INR APTT PTT Ratio Sample Site Art Line POC pH 7.33 L POC pCO2 45 POC pO2 90 POC HCO3 23 POC Total CO2 25 POC Base Excess -3.0 ABG pH (Temp Correct) 7.370 ABG pCO2 (Temp Corrct 39 POC ABG pO2 at Pt Temp 75 POC ABG O2 Sat 96.0 H Isidoro Test NA O2 Delivery Device Ventilator POC O2 Rate 14 Minute Ventilation 7.7 POC FiO2 Tidal Volume 550 PEEP 8 POC Sodium 134 L Sodium POC Potassium 5.4 H Potassium Chloride Carbon Dioxide Anion Gap BUN Creatinine Est Cr Clr Drug Dosing Est GFR ( Amer) Est GFR (Non-Af Amer) BUN/Creatinine Ratio Glucose POC Glucose (other) 136 H Calcium Phosphorus Magnesium Total Bilirubin Direct Bilirubin AST ALT Alkaline Phosphatase Total Protein Albumin PG Care Time/CCT Total # of Minutes Spent Total Time Spent with Patient: Total time spent is greater than 50% in coordination of care (as documented) at patient's floor/unit and/or counseling patient: 25 Coding Level of Care Code 08835 Subseq Hosp Care Lvl 3 Diagnoses End stage renal disease N18.6 COVID-19 U07.1 Dialysis AV fistula malfunction T82.590A Cardiac arrest I46.9
[2021-02-28] MEDS: PANTOprazole 40 MG in SYRINGE 0 ML IV SCH (12:08)
[2021-02-28 13:29] LABS: Basophils # (auto) 0.02 K/uL (0-0.2); Basophils % (auto) 0.1 %; Hematocrit (blood only) 53.6 % (42-52); Hemoglobin 17.7 g/dL (14.0-18.0); Immature Granulocytes # (auto) 0.14 K/uL (0.00-0.02); Immature Granulocytes % (auto) 0.8 %; Lymphocytes # (auto) 0.58 K/uL (1.2-3.4); Lymphocytes % (auto) 3.3 %; Mean Corpuscular Hemoglobin 29.6 pg (25-34); Mean Corpuscular Volume 89.6 fL (80-100); Mean Platelet Volume 9.7 fL (7.4-10.4); Monocytes # (auto) 1.03 K/uL (0.11-0.59); Monocytes % (auto) 5.9 %; Neutrophils # (auto) 15.72 K/uL (1.4-6.5); Neutrophils % (auto) 89.9 %; Platelet Count 350 K/uL (130-400); RDW Coefficient of Variation 20.1 % (11.5-14.5); Red Blood Count 5.98 M/uL (4.7-6.1); White Blood Count 17.49 K/uL (4.8-10.8)
[2021-02-28 13:40] LABS: INR 1.2 (0.9-1.1); Partial Thromboplastin Ratio 1.1; Partial Thromboplastin Time 29.6 Seconds (21.0-31.0)
[2021-02-28 13:57] LABS: Creatinine Clr Calc Pharmacy 10.5 ml/min; Est GFR (African American) 4.2 ml/min; Est GFR (Non-African American) 3.6 ml/min; Magnesium 2.9 mg/dl (1.8-2.4); Potassium 6.2 mmol/L (3.5-5.1)
[2021-02-28] MEDS ORDERED: LORazepam 2 MG/4 ML VIAL ONE (14:05)
[2021-02-28 14:09] LABS: Phosphorus 11.7 mg/dl (2.5-4.9)
[2021-02-28 14:10] LABS: RBC Morphology Unremarkable
[2021-02-28] MEDS ORDERED: LORazepam 1 MG/2 ML VIAL IV PRN (14:36)
--- NOTE | 2021-02-28 19:45 | Hospitalist Progress Note ---
Date of Service February 28, 2021 Assessment & Plan (1) Cardiac arrest: Plan: Post asystole cardiac arrest x2 with ROSC achieved following CPR, epinephrine, bicarb-thought to be secondary to hypoglycemia, severe respiratory acidosis, and Covid-19 pneumonia Troponin unremarkable, EKG without ST elevations, QTc 475, was not having chest pain prior to the event Echocardiogram from 02/27 with preserved EF 60-65%, moderate LVH, mild left ear, mild AI -Initially on Epinephrine drip- transitioned to Levophed-remains on this He was noted to be unresponsive after resuscitation achieved-underwent hypothermic protocol - CT of head negative for evidence of hypoxic injury, edema, bleed, or large vessel CVA - Post cardiac arrest care with hypothermic protocol ongoing-now being rewarmed Remains in sinus bradycardia to normal sinus rhythm as being rewarmed Appreciate certified hearing instrument dispenser management -Plan for EEG in the morning on 03/01 (2) COVID-19: Plan: Recently admitted for Covid-19 pneumonia with hypoxia and discharged on 02/24 on 2 L nasal cannula with ambulation With cardiac arrest as above - Initial symptom date reported as -Continue dexamethasone 6 mg IV once daily Ventilator management as per ICU-respiratory acidosis is improving, volume management with dialysis deferred to nephrology Wean off ventilator as per certified hearing instrument dispenser management Continue levalbuterol as needed Follow daily chest x-ray (3) Pneumonia: Plan: Covid-19 pneumonia Procalcitonin mildly elevated but is also in the setting of ESRD He recently completed a 5-day course of vancomycin, Zosyn, and azithromycin during previous hospital stay Blood cultures-no growth to date Continues on Zosyn (4) Central venous catheter in place: Plan: Noted (5) Hypothyroidism: Plan: Continue synthroid TSH recently normal in 12/2020 at 2.2 (6) Controlled type 2 diabetes mellitus with neurologic complication, with long- term current use of insulin: Plan: Presented with hypoglycemia leading to cardiac arrest Holding all insulin at this time Follow glucose-ranges from 120s to 160s (7) Hypoxia: Plan: Acute respiratory failure with hypoxia as above secondary to cardiac arrest and Covid-19 pneumonia As per certified hearing instrument dispenser (8) Hyperkalemia: Plan: Potassium elevated upon admission during cardiac arrest and was given calcium gluconate, insulin and glucose, Kayexalate Received urgent hemodialysis on 02/27 with low potassium bath Follow labs-remains mildly hyperkalemic, no EKG changes Plan for dialysis tomorrow Follow serial chemistries (9) End-stage renal disease on hemodialysis: Plan: Received urgent dialysis on 02/27 - Nephrology consult and management appreciated Has recently revised AV fistula in place With significant hyperphosphatemia Plan for dialysis on 03/01 (10) Transaminitis: Plan: AST and ALT up in the 300s likely secondary to cardiac arrest and acute liver injury-now trending downward INR only minimally elevated at 1.2, platelets normal Follow LFTs, coags (11) Obesity: Plan: Chronic no acute interventions BMI 52.2 (12) Dyslipidemia: Plan: Hold statin with acute liver injury (13) DVT (deep venous thrombosis): Plan: With a history of such Continue Eliquis 5 mg p.o. twice daily Plan: Disposition-continued stay in ICU in Covid unit Full code Admission and Anticipated Discharge Date Admission Date: February 26, 2021 Subjective Patient is currently being rewarmed after therapeutic hypothermia. Remains on Levophed. No significant overnight events. I discussed his care with the [facility]-no plan for dialysis today. Review of Systems Review of Systems: Unobtainable due to cognitive status Physical Exam Constitutional: WD/WN, vitals as above + morbidly obese and + mechanically ventilated ENMT: ET tube in place Neck: trachea midline, no thyromegaly Respiratory: normal respiratory effort, lungs clear to auscultation Cardiovascular: Rate/Rhythm: regular rate and regular rhythm Extremities: + edema (Chronic 3+ woody edema bilateral lower extremities) Chest (Breasts): Chest: normal inspection of chest Gastrointestinal (Abdomen): normal bowel sounds, soft, nontender, no hepatosplenomegaly Musculoskeletal: Extremities: extremities normal to inspection; no cyanosis and no clubbing Skin: no rashes, warm and dry Neurologic: + not awake Results & Data Results & Data ([facility]) Vital Signs (Past 12 Hours) Vital Signs Temp Pulse Resp BP BP BP Pulse Ox 02/28/21 18:52 37.0 C 02/28/21 18:37 36.9 C 02/28/21 18:00 36.7 C 97 H 18 138/69 108/55 L 02/28/21 17:51 107 H 138/69 94 02/28/21 17:00 36.5 C 97 H 18 136/74 117/56 L 94 02/28/21 16:51 101 H 136/74 94 02/28/21 16:00 36.3 C L 93 H 18 106/66 103/52 L 94 02/28/21 15:51 98 H 106/66 94 02/28/21 15:49 89 20 94 02/28/21 15:00 36.2 C L 89 18 121/68 115/55 L 94 02/28/21 14:51 89 121/68 94 02/28/21 14:00 36.0 C L 89 21 113/57 L 123/55 L 98 02/28/21 13:51 79 113/57 L 95 02/28/21 13:00 36.0 C L 69 18 92/71 L 123/56 L 98 02/28/21 12:51 74 92/71 L 96 02/28/21 12:24 69 02/28/21 12:00 35 C L 69 18 85/68 L 126/59 L 98 02/28/21 11:51 70 85/68 L 97 02/28/21 11:44 74 20 96 02/28/21 11:00 35.0 C L 65 18 82/58 L 118/65 98 02/28/21 10:52 60 104/59 L 99 02/28/21 10:00 65 02/28/21 09:54 34 C L 65 18 82/58 L 101/47 L 98 02/28/21 09:51 64 82/58 L 98 02/28/21 09:00 34 C L 65 18 114/65 112/58 L 100 02/28/21 08:51 67 114/65 98 02/28/21 08:00 33.1 C L 65 18 139/86 132/64 100 02/28/21 07:51 92 H 139/86 100 Laboratory Results Laboratory values reviewed Diagnostic Findings Chest X-Ray 02/28/21 06:00 XR chest 1V portable HISTORY: 56 years-old Male evaluate ETT placment acute respiratory failure COMPARISON: Chest radiograph 02/27/2021 TECHNIQUE: Portable AP view of the chest FINDINGS: Cardiac silhouette is enlarged. Endotracheal tube overlies the midline approximately 6 7 m superior to the julio césar. The study is limited secondary to patient body habitus. An enteric tube is noted with distal tip not visualized. Cardiomegaly with hypoinflation. Pulmonary vascular congestion with bilateral mixed interstitial and alveolar opacities, worsened from comparison. No pneumothorax or large pleural effusion identified. Bones appear grossly intact. IMPRESSION: 1. Lines and tubes as above. 2. Cardiomegaly with progressively worsened bilateral pulmonary opacities, left greater than right. ACT 112: Negative or not required by law. The above report was generated using voice recognition software. It may contain grammatical, syntax or spelling errors. Electronically signed by: Sammy Lane M.D. 02/28/2021 9:41 AM PG Care Time/CCT Total # of Minutes Spent Total Time Spent with Patient: Total time spent is greater than 50% in coordination of care (as documented) at patient's floor/unit and/or counseling patient: Coding Level of Care Code 94533 Subseq Hosp Care Lvl 3 Diagnoses Cardiac arrest I46.9 COVID-19 U07.1 Pneumonia J18.9 Laterality: bilateral Pneumonia type: due to unspecified organism Central venous catheter in place Z78.9 Hypothyroidism E03.9 Controlled type 2 diabetes mellitus with neurologic complication, with long-term current use of insulin E11.49; Z79.4 Hypoxia R09.02 Hyperkalemia E87.5 End-stage renal disease on hemodialysis N18.6; Z99.2 Transaminitis R74.01 Obesity E66.9 Dyslipidemia E78.5 DVT (deep venous thrombosis) I82.409 (1) Pneumonia Laterality: bilateral Pneumonia type: due to unspecified organism
[2021-02-28 19:58] LABS: Basophils # (auto) 0.02 K/uL (0-0.2); Basophils % (auto) 0.1 %; Immature Granulocytes # (auto) 0.12 K/uL (0.00-0.02); Immature Granulocytes % (auto) 0.8 %; Lymphocytes # (auto) 1.16 K/uL (1.2-3.4); Lymphocytes % (auto) 7.5 %; Mean Corpuscular Hemoglobin 29.1 pg (25-34); Mean Corpuscular Hgb Conc 32.1 g/dL (32-36); Mean Corpuscular Volume 90.6 fL (80-100); Mean Platelet Volume 10.2 fL (7.4-10.4); Monocytes # (auto) 0.45 K/uL (0.11-0.59); Monocytes % (auto) 2.9 %; Neutrophils # (auto) 13.71 K/uL (1.4-6.5); Neutrophils % (auto) 88.7 %; Platelet Count 383 K/uL (130-400); RDW Coefficient of Variation 19.7 % (11.5-14.5); RDW Standard Deviation 65.1 fL (36.4-46.3); Red Blood Count 5.85 M/uL (4.7-6.1); White Blood Count 15.46 K/uL (4.8-10.8)
[2021-02-28 20:13] LABS: INR 1.2 (0.9-1.1); Partial Thromboplastin Ratio 1.2; Partial Thromboplastin Time 30.5 Seconds (21.0-31.0); Prothrombin Time 11.9 Seconds (9.0-12.0)
[2021-02-28 20:31] LABS: BUN Creatinine Ratio 6.2 (10-20); Creatinine Clr Calc Pharmacy 10.3 ml/min; Est GFR (African American) 4.1 ml/min; Est GFR (Non-African American) 3.5 ml/min; Magnesium 2.8 mg/dl (1.8-2.4); Potassium 6.7 mmol/L (3.5-5.1)
[2021-02-28] MEDS ORDERED: SODIUM POLYSTYRENE SULFONATE 15G/60ML SUSP PO STA (20:44)
[2021-02-28] MEDS ORDERED: DEXTROSE 50% 50 ML SYRINGE IV ONE (20:44)
[2021-02-28 20:51] LABS: Phosphorus 12.2 mg/dl (2.5-4.9)
[2021-02-28] MEDS ORDERED: CALCIUM GLUCONATE 10% 1,000 MG in SODIUM CHLORIDE 0.9% 50 ML IV ONE (21:00)
[2021-02-28] MEDS ORDERED: INSULIN HUMAN REGULAR PER UNIT 10 UNITS in SYRINGE 9.9 ML IV ONE (21:00)
[2021-02-28] MEDS: NEPHROCAPS PO SCH (21:22)
[2021-02-28] MEDS ORDERED: PANTOprazole 40 MG in SYRINGE 0 ML IV ONE (23:58)
[2021-03-01] MEDS ORDERED: SODIUM BICARB 8.4% INJ 50 MEQ/50 ML SYR IV STA (00:10)
[2021-03-01] MEDS ORDERED: DEXTROSE 50% 50 ML SYRINGE IV ONE (00:10)
[2021-03-01] MEDS ORDERED: INSULIN HUMAN REGULAR PER UNIT 10 UNITS in SYRINGE 9.9 ML IV STA (00:16)
[2021-03-01] MEDS: propofoL 1,000 MG/100 ML VIAL IV SCH ×4 (00:18→12:00)
[2021-03-01 01:28] LABS: Basophils # (auto) 0.02 K/uL (0-0.2); Basophils % (auto) 0.1 %; Hematocrit (blood only) 51.8 % (42-52); Hemoglobin 16.9 g/dL (14.0-18.0); Immature Granulocytes # (auto) 0.19 K/uL (0.00-0.02); Immature Granulocytes % (auto) 1.3 %; Lymphocytes # (auto) 0.34 K/uL (1.2-3.4); Lymphocytes % (auto) 2.3 %; Mean Corpuscular Hgb Conc 32.6 g/dL (32-36); Mean Platelet Volume 9.6 fL (7.4-10.4); Monocytes # (auto) 1.77 K/uL (0.11-0.59); Monocytes % (auto) 12.2 %; Neutrophils % (auto) 84.1 %; Nucleated RBC # (auto) 0.07 K/uL (0-0); Nucleated RBC % (auto) 0.5 %; Platelet Count 359 K/uL (130-400); RDW Standard Deviation 63.4 fL (36.4-46.3); Red Blood Count 5.82 M/uL (4.7-6.1); White Blood Count 14.52 K/uL (4.8-10.8)
[2021-03-01 01:39] LABS: INR 1.2 (0.9-1.1); Partial Thromboplastin Ratio 1.1; Prothrombin Time 11.9 Seconds (9.0-12.0)
[2021-03-01 01:50] LABS: Anisocytosis Present
[2021-03-01 02:03] LABS: BUN Creatinine Ratio 6.2 (10-20); Calcium 8.1 mg/dl (8.5-10.1); Creatinine Clr Calc Pharmacy 9.7 ml/min; Est GFR (African American) 3.8 ml/min; Est GFR (Non-African American) 3.3 ml/min; Magnesium 2.5 mg/dl (1.8-2.4); Potassium 6.1 mmol/L (3.5-5.1)
[2021-03-01] MEDS ORDERED: ACETAMINOPHEN SUSP 325 MG/10.15 ML UDC PO PRN (03:24)
[2021-03-01] MEDS: PIPERACILLIN/TAZOBACTAM 4.5 GM in DEXTROSE 5% 100 ML IV SCH (03:50)
[2021-03-01] MEDS: LEVOTHYROXINE SODIUM 150 MCG TABLET PO SCH (03:51)
[2021-03-01 04:40] LABS: iSTAT Art Bld Gas pCO2 Correct 40 mmHg (35-46); iSTAT Art Bld Gas pH Corrected 7.364 (7.35-7.45); iSTAT Arterial Blood Gas HCO3 23 meg/L (19-24); iSTAT Arterial Blood Gas pCO2 39 mmHg (35-46); iSTAT Arterial Blood Gas pH 7.38 (7.35-7.45); iSTAT Arterial Blood Gas pO2 70 mmHg (80-95); iSTAT Arterial Blood Gas pO2 C 75; iSTAT Carbon Dioxide 24 mmol/L (24-31); iSTAT FiO2 35 %; iSTAT Hematocrit 53 % (42-52); iSTAT Potassium 6.2 mmol/L (3.3-5.0); iSTAT Site Art Line; iSTAT Sodium 132 mmol/L (135-144)
[2021-03-01] MEDS: PANTOprazole 40 MG in SYRINGE 0 ML IV SCH ×2 (08:46→20:51)
[2021-03-01] MEDS: dexAMETHasone 6 MG in SYRINGE 0 ML IV SCH (08:46)
--- NOTE | 2021-03-01 09:24 | XRay Report ---
XR chest 1V portable INDICATION: MN ^Resp failure . TECHNIQUE: Single frontal radiograph of the chest was obtained. Comparison: Comparison is made to chest one view 02/28/2021 FINDINGS: Lungs are underinflated. Exam is limited by underpenetration. Endotracheal tube is 28 mm from the car dunia. An enteric tube is seen, but the side-port and tip are not clearly seen due to technique. Cardia c silhouette is stably prominent. Hazy airspace opacities in the bilateral lower lungs including left retrocardiac region. There is prominence and indistinctness of the vasculature and Cristian B lines ar e noted. No definite pleural effusion. No pneumothorax. IMPRESSION: 1. Diffuse airspace opacities favoring the lower lungs, worsened from prior exam. 2. Pulmonary edema, increased from prior exam. ACT 112: Negative or not required by law. Electronically signed by: Mich Miranda M.D. 03/01/2021 9:22 AM
[2021-03-01] MEDS: CINACALCET HCL 90 MG TAB PO SCH (09:27)
[2021-03-01 10:08] LABS: iSTAT Blood Urea Nitrogen 124 mg/dl (7-18); iSTAT Carbon Dioxide < 5 mmol/L (24-31); iSTAT Chloride 94 mmol/L (101-112); iSTAT Creatinine 12.3 mg/dl (0.6-1.3); iSTAT Glucose 216 mg/dl (70-99); iSTAT Hematocrit 56 % (42-52); iSTAT Ionized Calcium 0.77 mmol/l (1.12-1.32); iSTAT Potassium 4.5 mmol/L (3.3-5.0); iSTAT Sodium 137 mmol/L (135-144)
[2021-03-01] MEDS: ASPIRIN 81 MG CHEW PO SCH (10:40)
[2021-03-01] MEDS: LACTULOSE SYRUP 20 GM/30 ML UDC PO SCH (10:41)
[2021-03-01] MEDS: CHOLECALCIFEROL 1,000 UNITS 25 MCG TAB PO SCH (10:41)
--- NOTE | 2021-03-01 10:44 | Electroencephalogram ---
EEG Procedure Note Date of Service March 01, 2021 Start / End Times Start Time: 10:06 AM End Time: 10:26 AM Referring Physician Vladimir Bernal History Cardiac arrest, cerebral anoxia Home Medication List Medication Instructions Recorded Confirmed Type aspirin 81 mg chewable tablet 81 mg PO QAM 04/13/18 02/26/21 History atorvastatin 10 mg tablet (Lipitor) 10 mg PO HS 04/13/18 02/26/21 History azelastine 205.5 mcg (0.15 %) 1 spray INTRANASAL BID 04/13/18 02/26/21 History nasal spray gabapentin 300 mg capsule 600 mg PO HS 04/13/18 02/26/21 History levothyroxine 150 mcg tablet 150 mcg PO QAM 04/13/18 02/26/21 History (Synthroid) mv,Yy-[id number]-[id number]-ckt-gxne 1 tab PO QPM 04/13/18 02/26/21 History oil 400 mcg-500 unit capsule (ProRenal QD) omega 6-cax-ezi-fish oil 1,000 mg 1 tab PO BID 04/13/18 02/26/21 History (120 mg-180 mg) capsule (Fish Oil) peg 400-propylene glycol (PF) 0.4 1 drp OPHTHALMIC (EYE) BID PRN 04/13/18 02/26/21 History %-0.3 % eye drops in a dropperette (Systane (PF)) testosterone cypionate 200 mg/mL 200 mg SUBCUT .2XWK 04/13/18 02/26/21 History intramuscular kit acetaminophen 500 mg tablet 1,000 mg PO Q6H PRN 06/12/18 02/26/21 History (Tylenol Extra Strength) sucroferric oxyhydroxide 500 mg 500 mg PO TID 04/30/19 02/26/21 History chewable tablet (Velphoro) alprazolam 1 mg tablet (Xanax) 1 mg PO TID PRN 03/10/20 02/26/21 History bisacodyl 5 mg tablet,delayed 5 mg PO 4XWK 03/24/20 02/26/21 History release (Dulcolax (bisacodyl)) diclofenac sodium 0.1 % eye drops 1 drp OPHTHALMIC (EYE) TID 03/24/20 02/26/21 History lactulose 10 gram/15 mL oral 10 g PO 4XWK 03/24/20 02/26/21 History solution linaclotide 290 mcg capsule 870 mcg PO 4XWK 03/24/20 02/26/21 History (Linzess) apixaban 5 mg tablet (Eliquis) 5 mg PO Q12H #74 tab 04/07/20 02/26/21 Rx docusate sodium 100 mg capsule 100 mg PO DAILY PRN 04/07/20 02/26/21 History (Stool Softener) Accu-Chek Guide test strips (blood #400 ea NS 04/30/20 10/13/20 Rx sugar diagnostic) lancets (Accu-Chek Fastclix Lancet #400 ea 04/30/20 10/13/20 Rx Drum) blood-glucose meter (Accu-Chek #1 ea 05/04/20 10/13/20 Rx Guide Me Glucose Mtr) pen needle, diabetic 29 gauge x #400 ea 05/04/20 10/13/20 Rx 1/2" (BD Ultra-Fine Original Pen Needle) OneTouch Ultra2 Meter #1 ea NS 05/26/20 10/13/20 Rx (blood-glucose meter) insulin degludec 100 unit/mL (3 80 unit SUBCUT BID #150 ml MDD 160 09/30/20 02/26/21 Rx mL) subcutaneous pen (Tresiba units FlexTouch U-100 insulin) ascorbic acid (vitamin C) 1,000 mg 1 g PO DAILY 12/03/20 02/26/21 History tablet (Vitamin C) cholecalciferol (vitamin D3) 125 125 mcg PO DAILY 12/03/20 02/26/21 History mcg (5,000 unit) tablet (Vitamin D3) yiqxixxc-krs-pszmf acid 0.4 1 tab PO DAILY 12/03/20 02/26/21 History mg-lycopene 300 mcg-lutein 250 mcg tablet (Centrum Silver) insulin aspart U-100 100 unit/mL 0 unit SUBCUT BID 02/22/21 02/26/21 History (3 mL) subcutaneous pen (Novolog Flexpen U-100 Insulin aspart) azithromycin 250 mg tablet 250 mg PO QAM #3 tab 02/24/21 02/26/21 Rx dexamethasone 6 mg tablet 6 mg PO DAILY #7 tab 02/24/21 02/26/21 Rx guaifenesin 600 mg tablet, 1,200 mg PO Q12 #20 tab 02/24/21 02/26/21 Rx extended release 12 hr (Mucinex) cinacalcet 90 mg tablet 90 mg PO DAILY 02/26/21 02/26/21 History Inpatient Medication List Acetaminophen (Acetaminophen Susp 325 Mg/10.15 Ml Udc) 650 mg PO Q4H PRN PRN Reason: Fever Stop: 03/31/21 03:23 Last Admin: 03/01/21 03:51 Dose: 650 mg Documented by: [id number] Apixaban (Apixaban 5 Mg Tablet) 5 mg PO Q12 [facility] Stop: 03/29/21 00:43 Last Admin: 02/28/21 21:22 Dose: 5 mg Documented by: [id number] Admin: 02/28/21 08:45 Dose: 5 mg Documented by: [id number] Admin: 02/27/21 21:31 Dose: 5 mg Documented by: [id number] Admin: 02/27/21 09:56 Dose: 5 mg Documented by: [id number] Admin: 02/27/21 02:35 Dose: 5 mg Documented by: [id number] Aspirin (Aspirin 81 Mg Chew) 81 mg PO QAM [facility] Stop: 03/29/21 08:59 Last Admin: 03/01/21 10:40 Dose: Not Given Documented by: [id number] Admin: 02/28/21 08:44 Dose: 81 mg Documented by: [id number] Admin: 02/27/21 08:38 Dose: 81 mg Documented by: [id number] Bisacodyl (Bisacodyl 5 Mg Tabec) 5 mg PO MoWeFrSa@0900 [facility] Stop: 03/29/21 08:59 Last Admin: 02/27/21 08:42 Dose: 5 mg Documented by: [id number] Admin: 02/27/21 08:41 Dose: 5 mg Documented by: [id number] Cinacalcet (Cinacalcet Hcl 90 Mg Tab) 90 mg PO DAILY [facility] Stop: 03/29/21 08:59 Last Admin: 03/01/21 09:27 Dose: Not Given Documented by: [id number] Admin: 02/28/21 08:45 Dose: Not Given Documented by: [id number] Admin: 02/27/21 08:38 Dose: 90 mg Documented by: [id number] Fentanyl Citrate (Fentanyl Bolus From Bag) 50 mcg IV Q60M PRN PRN Reason: Pain or Agitation Stop: 03/12/21 19:56 Last Admin: 02/26/21 22:55 Dose: 50 mcg Documented by: [id number] Fentanyl Citrate (Fentanyl Drip) 1,250 mcg in 250 mls @ 20 mls/hr IV .[id number] [facility]; Protocol Stop: 03/12/21 19:59 Last Titration: 03/01/21 07:16 Dose: 100 mcg/hr, 20 mls/hr Documented by: [id number] Cosigned by: [id number] Admin: 02/28/21 23:30 Dose: 100 mcg/hr, 20 mls/hr Documented by: [id number] Cosigned by: [id number] Titration: 02/28/21 23:30 Dose: 100 mcg/hr, 20 mls/hr Documented by: [id number] Cosigned by: [id number] Titration: 02/28/21 09:14 Dose: 100 mcg/hr, 20 mls/hr Documented by: [id number] Cosigned by: [id number] Admin: 02/28/21 09:14 Dose: 100 mcg/hr, 20 mls/hr Documented by: [id number] Cosigned by: [id number] Titration: 02/28/21 07:06 Dose: 100 mcg/hr, 20 mls/hr Documented by: [id number] Cosigned by: [id number] Admin: 02/27/21 21:29 Dose: 100 mcg/hr, 20 mls/hr Documented by: [id number] Cosigned by: [id number] Titration: 02/27/21 21:29 Dose: 100 mcg/hr, 20 mls/hr Documented by: [id number] Cosigned by: [id number] Titration: 02/27/21 19:02 Dose: 100 mcg/hr, 20 mls/hr Documented by: [id number] Cosigned by: [id number] Admin: 02/27/21 09:55 Dose: 100 mcg/hr, 20 mls/hr Documented by: [id number] Cosigned by: [id number] Titration: 02/27/21 09:48 Dose: 100 mcg/hr, 20 mls/hr Documented by: [id number] Cosigned by: [id number] Titration: 02/27/21 07:29 Dose: 100 mcg/hr, 20 mls/hr Documented by: [id number] Cosigned by: [id number] Titration: 02/26/21 21:57 Dose: 100 mcg/hr, 20 mls/hr Documented by: [id number] Cosigned by: [id number] Titration: 02/26/21 21:08 Dose: 50 mcg/hr, 10 mls/hr Documented by: [id number] Cosigned by: [id number] Admin: 02/26/21 20:10 Dose: 25 mcg/hr, 5 mls/hr Documented by: [id number] Cosigned by: [id number] Propofol (Diprivan) 1,000 mg in 100 mls @ 28.185 mls/hr IV .[id number] [facility]; Protocol Stop: 03/01/21 20:14 Last Admin: 03/01/21 08:05 Dose: 25 mcg/kg/min, 28.2 mls/hr Documented by: [id number] Cosigned by: [id number] Titration: 03/01/21 07:36 Dose: 25 mcg/kg/min, 28.2 mls/hr Documented by: [id number] Cosigned by: [id number] Titration: 03/01/21 07:16 Dose: 25 mcg/kg/min, 28.2 mls/hr Documented by: [id number] Cosigned by: [id number] Admin: 03/01/21 04:03 Dose: 25 mcg/kg/min, 28.2 mls/hr Documented by: [id number] Cosigned by: [id number] Titration: 03/01/21 04:03 Dose: 25 mcg/kg/min, 28.2 mls/hr Documented by: [id number] Cosigned by: [id number] Admin: 03/01/21 00:18 Dose: 25 mcg/kg/min, 28.2 mls/hr Documented by: [id number] Cosigned by: [id number] Titration: 03/01/21 00:18 Dose: 25 mcg/kg/min, 28.2 mls/hr Documented by: [id number] Cosigned by: [id number] Admin: 02/28/21 20:36 Dose: 25 mcg/kg/min, 28.2 mls/hr Documented by: [id number] Cosigned by: [id number] Titration: 02/28/21 20:36 Dose: 25 mcg/kg/min, 28.2 mls/hr Documented by: [id number] Cosigned by: [id number] Titration: 02/28/21 19:02 Dose: 25 mcg/kg/min, 28.2 mls/hr Documented by: [id number] Cosigned by: [id number] Titration: 02/28/21 17:56 Dose: 25 mcg/kg/min, 28.2 mls/hr Documented by: [id number] Admin: 02/28/21 16:17 Dose: 20 mcg/kg/min, 22.5 mls/hr Documented by: [id number] Cosigned by: [id number] Titration: 02/28/21 15:16 Dose: 25 mcg/kg/min, 28.2 mls/hr Documented by: [id number] Cosigned by: [id number] Titration: 02/28/21 14:09 Dose: 25 mcg/kg/min, 28.2 mls/hr Documented by: [id number] Admin: 02/28/21 12:07 Dose: 30 mcg/kg/min, 33.8 mls/hr Documented by: [id number] Cosigned by: [id number] Titration: 02/28/21 12:06 Dose: 30 mcg/kg/min, 33.8 mls/hr Documented by: [id number] Cosigned by: [id number] Titration: 02/28/21 09:55 Dose: 30 mcg/kg/min, 33.8 mls/hr Documented by: [id number] Admin: 02/28/21 09:46 Dose: Not Given Documented by: [id number] Admin: 02/28/21 09:46 Dose: Not Given Documented by: [id number] Admin: 02/28/21 09:45 Dose: Not Given Documented by: [id number] Admin: 02/28/21 09:45 Dose: Not Given Documented by: [id number] Admin: 02/28/21 09:45 Dose: Not Given Documented by: [id number] Admin: 02/28/21 09:15 Dose: 35 mcg/kg/min, 39.5 mls/hr Documented by: [id number] Cosigned by: [id number] Titration: 02/28/21 09:15 Dose: 35 mcg/kg/min, 39.5 mls/hr Documented by: [id number] Cosigned by: [id number] Titration: 02/28/21 09:03 Dose: 35 mcg/kg/min, 39.5 mls/hr Documented by: [id number] Titration: 02/28/21 07:51 Dose: 30 mcg/kg/min, 33.8 mls/hr Documented by: [id number] Admin: 02/28/21 07:06 Dose: 20 mcg/kg/min, 22.5 mls/hr Documented by: [id number] Cosigned by: [id number] Titration: 02/28/21 06:20 Dose: 20 mcg/kg/min, 22.5 mls/hr Documented by: [id number] Cosigned by: [id number] Admin: 02/28/21 04:35 Dose: Not Given Documented by: [id number] Admin: 02/28/21 04:35 Dose: Not Given Documented by: [id number] Titration: 02/28/21 02:00 Dose: 20 mcg/kg/min, 22.5 mls/hr Documented by: [id number] Admin: 02/28/21 00:24 Dose: 15 mcg/kg/min, 16.9 mls/hr Documented by: [id number] Cosigned by: [id number] Titration: 02/28/21 00:24 Dose: 15 mcg/kg/min, 16.9 mls/hr Documented by: [id number] Cosigned by: [id number] Titration: 02/27/21 22:37 Dose: 15 mcg/kg/min, 16.9 mls/hr Documented by: [id number] Titration: 02/27/21 21:36 Dose: 20 mcg/kg/min, 22.5 mls/hr Documented by: [id number] Admin: 02/27/21 19:56 Dose: 25 mcg/kg/min, 28.2 mls/hr Documented by: [id number] Cosigned by: [id number] Titration: 02/27/21 19:56 Dose: 25 mcg/kg/min, 28.2 mls/hr Documented by: [id number] Cosigned by: [id number] Titration: 02/27/21 19:02 Dose: 25 mcg/kg/min, 28.2 mls/hr Documented by: [id number] Cosigned by: [id number] Admin: 02/27/21 16:23 Dose: 25 mcg/kg/min, 28.2 mls/hr Documented by: [id number] Cosigned by: [id number] Titration: 02/27/21 15:45 Dose: 25 mcg/kg/min, 28.2 mls/hr Documented by: [id number] Cosigned by: [id number] Admin: 02/27/21 12:12 Dose: 25 mcg/kg/min, 28.2 mls/hr Documented by: [id number] Cosigned by: [id number] Titration: 02/27/21 12:03 Dose: 25 mcg/kg/min, 28.2 mls/hr Documented by: [id number] Cosigned by: [id number] Titration: 02/27/21 09:55 Dose: 25 mcg/kg/min, 28.2 mls/hr Documented by: [id number] Titration: 02/27/21 08:45 Dose: 30 mcg/kg/min, 33.8 mls/hr Documented by: [id number] Admin: 02/27/21 08:42 Dose: 15 mcg/kg/min, 16.9 mls/hr Documented by: [id number] Cosigned by: [id number] Titration: 02/27/21 08:42 Dose: 15 mcg/kg/min, 16.9 mls/hr Documented by: [id number] Cosigned by: [id number] Titration: 02/27/21 07:28 Dose: 15 mcg/kg/min, 16.9 mls/hr Documented by: [id number] Cosigned by: [id number] Admin: 02/27/21 05:33 Dose: 15 mcg/kg/min, 16.9 mls/hr Documented by: [id number] Cosigned by: [id number] Titration: 02/27/21 05:33 Dose: 15 mcg/kg/min, 16.9 mls/hr Documented by: [id number] Cosigned by: [id number] Admin: 02/27/21 02:24 Dose: 15 mcg/kg/min, 16.9 mls/hr Documented by: [id number] Cosigned by: [id number] Titration: 02/27/21 02:24 Dose: 15 mcg/kg/min, 16.9 mls/hr Documented by: [id number] Cosigned by: [id number] Titration: 02/27/21 02:24 Dose: 15 mcg/kg/min, 16.9 mls/hr Documented by: [id number] Titration: 02/26/21 21:02 Dose: 10 mcg/kg/min, 11.3 mls/hr Documented by: [id number] Titration: 02/26/21 20:51 Dose: 15 mcg/kg/min, 16.9 mls/hr Documented by: [id number] Titration: 02/26/21 20:44 Dose: 20 mcg/kg/min, 22.5 mls/hr Documented by: [id number] Titration: 02/26/21 20:34 Dose: 25 mcg/kg/min, 28.2 mls/hr Documented by: [id number] Admin: 02/26/21 20:09 Dose: 30 mcg/kg/min, 33.8 mls/hr Documented by: [id number] Cosigned by: [id number] Norepinephrine Bitartrate (Levophed/D5w) 8 mg in 508 mls @ 28.636 mls/hr IV .[id number] [facility]; Protocol Stop: 03/28/21 21:14 Last Titration: 03/01/21 07:16 Dose: 0.04 mcg/kg/min, 28.6 mls/hr Documented by: [id number] Cosigned by: [id number] Titration: 02/28/21 20:19 Dose: 0.04 mcg/kg/min, 28.6 mls/hr Documented by: [id number] Titration: 02/28/21 19:02 Dose: 0.02 mcg/kg/min, 14.3 mls/hr Documented by: [id number] Cosigned by: [id number] Titration: 02/28/21 18:35 Dose: 0.02 mcg/kg/min, 14.3 mls/hr Documented by: [id number] Titration: 02/28/21 16:33 Dose: 0.025 mcg/kg/min, 17.9 mls/hr Documented by: [id number] Admin: 02/28/21 12:08 Dose: 0.02 mcg/kg/min, 14.3 mls/hr Documented by: [id number] Cosigned by: [id number] Titration: 02/28/21 12:08 Dose: 0.02 mcg/kg/min, 14.3 mls/hr Documented by: [id number] Cosigned by: [id number] Titration: 02/28/21 11:05 Dose: 0.02 mcg/kg/min, 14.3 mls/hr Documented by: [id number] Titration: 02/28/21 10:50 Dose: 0.03 mcg/kg/min, 21.5 mls/hr Documented by: [id number] Titration: 02/28/21 10:00 Dose: 0.02 mcg/kg/min, 14.3 mls/hr Documented by: [id number] Titration: 02/28/21 09:57 Dose: 0.01 mcg/kg/min, 7.2 mls/hr Documented by: [id number] Titration: 02/28/21 07:06 Dose: 0.01 mcg/kg/min, 7.2 mls/hr Documented by: [id number] Cosigned by: [id number] Admin: 02/28/21 00:49 Dose: Not Given Documented by: [id number] Titration: 02/27/21 19:02 Dose: 0.01 mcg/kg/min, 7.2 mls/hr Documented by: [id number] Cosigned by: [id number] Titration: 02/27/21 18:02 Dose: 0.01 mcg/kg/min, 7.2 mls/hr Documented by: [id number] Titration: 02/27/21 16:55 Dose: 0.02 mcg/kg/min, 14.3 mls/hr Documented by: [id number] Titration: 02/27/21 07:29 Dose: 0.01 mcg/kg/min, 7.2 mls/hr Documented by: [id number] Cosigned by: [id number] Titration: 02/27/21 01:24 Dose: 0.02 mcg/kg/min, 14.3 mls/hr Documented by: [id number] Admin: 02/26/21 21:17 Dose: 0.05 mcg/kg/min, 35.8 mls/hr Documented by: [id number] Cosigned by: [id number] Dexamethasone 6 mg/ Syringe 1.5 mls @ 1 mls/min IV Q24H [facility] Stop: 03/29/21 08:59 Last Admin: 03/01/21 08:46 Dose: 1 mls/min Documented by: [id number] Admin: 02/28/21 08:44 Dose: 1 mls/min Documented by: [id number] Admin: 02/27/21 08:35 Dose: 1 mls/min Documented by: [id number] Piperacillin Sod/Tazobactam (Sod 4.5 gm/ Dextrose) 120 mls @ 30 mls/hr IV Q12H [facility]; Protocol Stop: 03/06/21 03:59 Last Infusion: 03/01/21 07:16 Dose: 0 mls/hr Documented by: [id number] Admin: 03/01/21 03:50 Dose: 30 mls/hr Documented by: [id number] Infusion: 02/28/21 20:28 Dose: 0 mls/hr Documented by: [id number] Infusion: 02/28/21 19:02 Dose: 30 mls/hr Documented by: [id number] Admin: 02/28/21 16:27 Dose: 30 mls/hr Documented by: [id number] Infusion: 02/28/21 08:01 Dose: 0 mls/hr Documented by: [id number] Admin: 02/28/21 04:25 Dose: 30 mls/hr Documented by: [id number] Infusion: 02/27/21 22:03 Dose: 0 mls/hr Documented by: [id number] Admin: 02/27/21 18:02 Dose: 30 mls/hr Documented by: [id number] Infusion: 02/27/21 09:13 Dose: 0 mls/hr Documented by: [id number] Admin: 02/27/21 04:29 Dose: 30 mls/hr Documented by: [id number] Pantoprazole Sodium 40 mg/ (Syringe) 10 mls @ 5 mls/min IV BID [facility]; Protocol Stop: 03/31/21 08:59 Last Admin: 03/01/21 08:46 Dose: 5 mls/min Documented by: [id number] Lactulose (Lactulose Syrup 20 Gm/30 Ml Udc) 10 gm PO MoWeFrSa@0900 [facility] Stop: 03/29/21 08:59 Last Admin: 03/01/21 10:41 Dose: Not Given Documented by: [id number] Admin: 02/27/21 08:35 Dose: 10 gm Documented by: [id number] Levalbuterol HCl (Levalbuterol Hcl 0.63 Mg/3 Ml Neb) 0.63 mg INH Q4H PRN PRN Reason: Dyspnea Stop: 03/29/21 00:43 Last Admin: 03/01/21 08:27 Dose: 0.63 mg Documented by: [id number] Levothyroxine Sodium (Levothyroxine Sodium 150 Mcg Tablet) 150 mcg PO DAILYBB [facility] Stop: 03/29/21 06:29 Last Admin: 03/01/21 03:51 Dose: 150 mcg Documented by: [id number] Admin: 02/28/21 08:46 Dose: 150 mcg Documented by: [id number] Admin: 02/27/21 06:52 Dose: 150 mcg Documented by: [id number] Vitamin B Complex/Folic Acid (Nephrocaps) 1 cap PO QPM [facility] Stop: 03/29/21 00:43 Last Admin: 02/28/21 21:22 Dose: 1 cap Documented by: [id number] Admin: 02/27/21 21:31 Dose: 1 cap Documented by: [id number] Admin: 02/27/21 02:35 Dose: 1 cap Documented by: [id number] Vitamin D (Cholecalciferol 1,000 Units 25 Mcg Tab) 5,000 units PO DAILY [facility] Stop: 03/29/21 08:59 Last Admin: 03/01/21 10:41 Dose: Not Given Documented by: [id number] Admin: 02/28/21 08:45 Dose: 5,000 units Documented by: [id number] Admin: 02/27/21 08:39 Dose: 5,000 units Documented by: [id number] Discontinued Medications Atorvastatin Calcium (Atorvastatin 10 Mg Tab) 10 mg PO HS [facility] Stop: 03/29/21 00:43 Last Admin: 02/27/21 21:31 Dose: 10 mg Documented by: [id number] Admin: 02/27/21 02:36 Dose: 10 mg Documented by: [id number] Dexamethasone Sodium Phosphate (DexamethasonePf 10 Mg/Ml Vial) 10 mg IV NOW ONE Stop: 02/26/21 20:02 Last Admin: 02/26/21 20:16 Dose: 10 mg Documented by: [id number] Dextrose (Dextrose 50% 50 Ml Syringe) 50 ml IV NOW ONE Stop: 02/27/21 05:50 Last Admin: 02/27/21 06:46 Dose: 50 ml Documented by: [id number] Dextrose (Dextrose 50% 50 Ml Syringe) 50 ml IV NOW ONE Stop: 02/28/21 20:45 Last Admin: 02/28/21 21:19 Dose: 50 ml Documented by: [id number] Dextrose (Dextrose 50% 50 Ml Syringe) 50 ml IV NOW ONE Stop: 03/01/21 00:11 Last Admin: 03/01/21 00:36 Dose: 50 ml Documented by: [id number] Piperacillin Sod/Tazobactam Sod (Zosyn) 4.5 gm in 120 mls @ 240 mls/hr IV NOW ONE Stop: 02/26/21 19:52 Last Infusion: 02/26/21 20:31 Dose: 0 mls/hr Documented by: [id number] Admin: 02/26/21 20:01 Dose: 240 mls/hr Documented by: [id number] Epinephrine HCl () 4 mg in 254 mls @ 14.318 mls/hr IV .[id number] [facility]; Protocol Stop: 03/28/21 19:29 Last Titration: 02/27/21 10:18 Dose: 0 mcg/kg/min, 0 mls/hr Documented by: [id number] Titration: 02/27/21 05:57 Dose: 0 mcg/kg/min, 0 mls/hr Documented by: [id number] Titration: 02/26/21 19:38 Dose: 0 mcg/kg/min, 0 mls/hr Documented by: [id number] Admin: 02/26/21 19:10 Dose: 0.02 mcg/kg/min, 14.3 mls/hr Documented by: [id number] Cosigned by: [id number] Pantoprazole Sodium 40 mg/ (Syringe) 10 mls @ 5 mls/min IV DAILY@1100 [facility]; Protocol Stop: 03/02/21 23:59 Last Admin: 02/28/21 12:08 Dose: 5 mls/min Documented by: [id number] Admin: 02/27/21 12:12 Dose: 5 mls/min Documented by: [id number] Insulin Human Regular 10 units (/ Syringe) 10 mls @ 0 mls/hr IV ONE STA Stop: 02/27/21 06:13 Last Admin: 02/27/21 06:47 Dose: 9.9 mls/hr Documented by: [id number] Cosigned by: [id number] Calcium Gluconate 1,000 mg/ (Sodium Chloride) 60 mls @ 240 mls/hr IV NOW ONE Stop: 02/27/21 07:34 Last Infusion: 02/27/21 09:14 Dose: 0 mls/hr Documented by: [id number] Admin: 02/27/21 08:35 Dose: 240 mls/hr Documented by: [id number] Insulin Human Regular 10 units (/ Syringe) 10 mls @ 20 mls/min IV 2100 ONE Stop: 02/28/21 21:01 Last Admin: 02/28/21 21:19 Dose: 20 mls/min Documented by: [id number] Cosigned by: [id number] Calcium Gluconate 1,000 mg/ (Sodium Chloride) 60 mls @ 240 mls/hr IV NOW ONE Stop: 02/28/21 21:14 Last Infusion: 02/28/21 21:43 Dose: 0 mls/hr Documented by: [id number] Admin: 02/28/21 21:19 Dose: 240 mls/hr Documented by: [id number] Pantoprazole Sodium 40 mg/ (Syringe) 10 mls @ 5 mls/min IV NOW ONE Stop: 02/28/21 23:59 Last Admin: 03/01/21 00:36 Dose: 5 mls/min Documented by: [id number] Insulin Human Regular 10 units (/ Syringe) 10 mls @ 0 mls/hr IV ONE STA Stop: 03/01/21 00:17 Last Admin: 03/01/21 00:36 Dose: 100 mls/hr Documented by: [id number] Cosigned by: [id number] Lorazepam (Lorazepam 2 Mg/4 Ml Vial) Confirm Administered Dose 2 mg .ROUTE .STK- MED ONE Stop: 02/28/21 14:06 Last Admin: 02/28/21 14:10 Dose: 2 mg Documented by: [id number] Midazolam HCl (Midazolam Hcl 1 Mg/Ml 2ml Vial) 2 mg IV NOW STA Stop: 02/27/21 00:21 Last Admin: 02/27/21 03:42 Dose: Not Given Documented by: [id number] Miscellaneous (Stat Iv Infusion Titration Per Protocol) 1 ea N/A NOW STA Stop: 02/26/21 19:24 Last Admin: 02/26/21 22:04 Dose: Not Given Documented by: [id number] Miscellaneous (Stat Iv Infusion Titration Per Protocol) 1 ea N/A NOW STA Stop: 02/26/21 19:58 Last Admin: 02/26/21 22:04 Dose: Not Given Documented by: [id number] Miscellaneous (Stat Iv Infusion Titration Per Protocol) 1 ea N/A NOW STA Stop: 02/26/21 20:08 Last Admin: 02/26/21 22:04 Dose: Not Given Documented by: [id number] Propofol (Propofol Iv Emulsion 10 Mg/Ml 100 Ml Vial) Confirm Administered Dose 1,000 mg IV .STK-MED ONE Stop: 02/26/21 19:42 Last Admin: 02/26/21 20:11 Dose: Not Given Documented by: [id number] Sodium Bicarbonate (Sodium Bicarb 8.4% Inj 50 Meq/50 Ml Syr) 50 meq IV NOW STA Stop: 03/01/21 00:11 Last Admin: 03/01/21 00:36 Dose: 50 meq Documented by: [id number] Sodium Polystyrene Sulfonate (Sodium Polystyrene Sulfonate 15g/60ml Susp) 30 gm PO NOW STA Stop: 02/27/21 07:21 Last Admin: 02/27/21 08:36 Dose: 30 gm Documented by: [id number] Sodium Polystyrene Sulfonate (Sodium Polystyrene Sulfonate 15g/60ml Susp) 30 gm PO NOW STA Stop: 02/28/21 20:45 Last Admin: 02/28/21 21:19 Dose: 30 gm Documented by: [id number] Description This is a 21 electrode EEG with a single channel dedicated to limited EKG. The electrodes were placed in accordance with the International 10-20 system. This EEG was performed in the ICU with the patient on the ventilator. The background rhythm consists of low amplitude poorly organized mixed alpha and beta frequencies. There is no focal or lateralized slowing. Photic stimulation was unremarkable. No paroxysmal or epileptiform abnormalities appreciated. Interpretation This awake/drowsy EEG reveals evidence of severe encephalopathy. Does not have a burst suppression pattern although the background amplitude is considerably reduced. No epileptiform abnormalities. Clinical Correlation The observed EEG findings are consistent with cerebral anoxia. However, the increase in beta activity is likely related to propofol. No evidence of subclinical seizure activity. [facility] EEG Procedure Codes Indication for Procedure (1) Cardiac arrest: (2) Anoxic encephalopathy: Neurology Neurology: 90011 EEG include record awake & drowsy
[2021-03-01] MEDS: NOREPINEPHRINE/D5W 8 MG/508 ML BAG IV SCH (10:45)
[2021-03-01] MEDS ORDERED: CARBOHYDRATES FOR HYPOGLYCEMIA PO PRN (10:45)
[2021-03-01] MEDS ORDERED: GLUCOSE 40% GEL 15 GM TUBE PO PRN (10:45)
[2021-03-01] MEDS ORDERED: GLUCAGON FOR INJ 1 MG VIAL SQ PRN (10:45)
[2021-03-01] MEDS ORDERED: DEXTROSE 50% 50 ML SYRINGE IV PRN (10:45)
[2021-03-01] MEDS ORDERED: GLUCOSE 10 TABS/TUBE PO PRN (10:45)
[2021-03-01] MEDS: INSULIN ASPART 100 UNITS/ML 3 ML PEN SC SCH ×3 (12:00→20:37)
[2021-03-01] MEDS: DOXYCYCLINE HYCLATE 100 MG in DEXTROSE 5% 100 ML IV SCH (12:00)
[2021-03-01] MEDS: fentaNYL DRIP 1,250 MCG/250 ML BAG IV SCH (12:14)
--- NOTE | 2021-03-01 12:32 | Hospitalist Progress Note ---
Date of Service March 01, 2021 Assessment & Plan (1) Cardiac arrest: Plan: Post asystole cardiac arrest x2 with ROSC achieved following CPR, epinephrine, bicarb-thought to be secondary to hypoglycemia, severe respiratory acidosis unsure is COVID pneumonia actually contributed to arrest as he is on minimal ventilator settings with FiO2 35% Troponin unremarkable, EKG without ST elevations, QTc 475, was not having chest pain prior to the event Echocardiogram from 02/27 with preserved EF 60-65%, moderate LVH, mild left ear, mild AI -Initially on Epinephrine drip- transitioned to Levophed - titrating down He was noted to be unresponsive after resuscitation achieved-underwent hypothermic protocol, now re-warming EEG with severe encephalopathy on 03/01, suggestive of cerebral anoxia will wean back sedation and see how he responds palliative consultation to help discuss goals of care, discussed with Dr. Lewis today (2) COVID-19: Plan: Recently admitted for Covid-19 pneumonia with hypoxia and discharged on 02/24 on 2 L nasal cannula with ambulation With cardiac arrest as above highly doubt that cardiac arrest was related to COVID 19 infection - Initial symptom date reported as -Continue dexamethasone 6 mg IV once daily Ventilator management as per ICU-respiratory acidosis is improving, volume management with HD today Wean off ventilator as per lab director management (3) Pneumonia: Plan: Covid-19 pneumonia Procalcitonin mildly elevated but is also in the setting of ESRD He recently completed a 5-day course of vancomycin, Zosyn, and azithromycin during previous hospital stay Blood cultures-no growth to date (4) Central venous catheter in place: Plan: Noted (5) Hypothyroidism: Plan: Continue synthroid TSH recently normal in 12/2020 at 2.2 (6) Controlled type 2 diabetes mellitus with neurologic complication, with long- term current use of insulin: Plan: Presented with hypoglycemia leading to cardiac arrest Holding all insulin at this time Follow glucose-ranges from 120s to 160s (7) Hypoxia: Plan: Acute respiratory failure with hypoxia as above secondary to cardiac arrest and Covid-19 pneumonia As per lab director (8) Hyperkalemia: Plan: Potassium elevated upon admission during cardiac arrest and was given calcium gluconate, insulin and glucose, Kayexalate Received urgent hemodialysis on 02/27 with low potassium bath Follow BMP daily, nephrology managing electrolytes (9) End-stage renal disease on hemodialysis: Plan: Received urgent dialysis on 02/27 - Nephrology consult and management appreciated Has recently revised AV fistula in place HD completed 03/01 (10) Transaminitis: Plan: AST and ALT up in the 300s likely secondary to cardiac arrest and acute liver injury-now trending downward INR only minimally elevated at 1.2, platelets normal Follow LFTs, coags (11) Obesity: Plan: Chronic no acute interventions BMI 52.2 (12) Dyslipidemia: Plan: Hold statin with acute liver injury (13) DVT (deep venous thrombosis): Plan: With a history of such Continue Eliquis 5 mg p.o. twice daily Plan: Disposition-continued stay in ICU in Covid unit Full code Admission and Anticipated Discharge Date Admission Date: February 26, 2021 Subjective chart reviewed EEG today with severe encephalopathy, likely cerebral anoxia getting HD this morning defer to ICU on further management Review of Systems Review of Systems: Unobtainable due to cognitive status and Unobtainable due to endotracheal tube Physical Exam Constitutional: well developed, well nourished, + ill appearing, + morbidly obese and + mechanically ventilated; no acute distress Neck: trachea midline and + thick neck Respiratory: symmetric chest movement (ventilated) Auscultation: no crackles, no rales, no rhonchi and no wheezes Cardiovascular: Rate/Rhythm: regular rate and regular rhythm Heart Sounds: normal S1 and normal S2; no murmur Extremities: normal capillary refill and + edema Gastrointestinal (Abdomen): normal bowel sounds, soft, nontender, no hepatosplenomegaly Skin: no rashes, warm and dry Neurologic: CN's II-XI intact bilaterally and + obtunded Results & Data Results & Data ([facility]) Vital Signs (Past 12 Hours) Vital Signs Temp Pulse Pulse Resp BP BP Pulse Ox 03/01/21 12:00 37.5 C 94 H 109/69 03/01/21 11:15 95 H 112/74 03/01/21 11:00 95 H 113/70 03/01/21 10:45 94 H 118/65 03/01/21 10:30 94 H 110/74 03/01/21 10:15 94 H 114/58 L 03/01/21 10:00 94 H 112/68 03/01/21 09:45 93 H 109/62 03/01/21 09:30 93 H 107/67 03/01/21 09:15 95 H 105/66 03/01/21 09:00 95 H 110/73 03/01/21 08:45 98 H 103/59 L 03/01/21 08:30 97 H 107/65 03/01/21 08:27 97 H 17 99 03/01/21 08:15 97 H 114/63 03/01/21 08:00 97 H 107/59 L 03/01/21 07:45 97 H 119/67 03/01/21 07:41 99 H 124/63 03/01/21 07:18 37.5 C 100 H 03/01/21 04:59 37.9 C H 105 H 19 131/77 92 03/01/21 04:06 38.1 C H 118 H 18 111/64 94 03/01/21 04:01 38.1 C H 123 H 18 163/75 H 98 03/01/21 03:59 38.1 C H 126 H 18 180/101 H 98 03/01/21 03:55 120 H 23 93 03/01/21 02:51 37.8 C H 110 H 18 91/61 L 91 03/01/21 01:51 37.7 C H 109 H 19 118/61 91 03/01/21 01:48 37.7 C H 110 H 19 117/64 92 03/01/21 00:51 37.6 C H 112 H 18 118/64 92 Laboratory Results Laboratory Results - last 24 hr 02/26/21 02/28/21 02/28/21 19:26 13:11 13:11 WBC 17.49 H RBC 5.98 Hgb 17.7 POC Hgb 19.0 H Hct 53.6 H POC Hct 56 H MCV 89.6 MCH 29.6 MCHC 33.0 RDW Std Deviation 64.0 H RDW Coeff of Tim 20.1 H Plt Count 350 MPV 9.7 Immature Gran % (Auto) 0.8 Neut % (Auto) 89.9 Lymph % (Auto) 3.3 [place] % (Auto) 5.9 Eos % (Auto) 0.0 Baso % (Auto) 0.1 Neut # (Auto) 15.72 H Lymph # (Auto) 0.58 L [place] # (Auto) 1.03 H Eos # (Auto) 0.00 Baso # (Auto) 0.02 Immature Gran # (Auto) 0.14 H Absolute Nucleated RBC Nucleated RBC % (auto) RBC Morphology Unremarkable Anisocytosis PT 12.0 INR 1.2 H APTT 29.6 PTT Ratio 1.1 Sample Site POC pH POC pCO2 POC pO2 POC HCO3 POC Base Excess ABG pH (Temp Correct) ABG pCO2 (Temp Corrct POC ABG pO2 at Pt Temp POC ABG O2 Sat Isidoro Test O2 Delivery Device POC O2 Rate POC FiO2 Tidal Volume PEEP POC Sodium 137 Sodium POC Potassium 4.5 Potassium POC Chloride 94 L Chloride Carbon Dioxide POC Total CO2 < 5 L* Anion Gap POC Anion Gap TNP POC BUN 124 H* BUN Creatinine POC Creatinine 12.3 H* Est Cr Clr Drug Dosing Est GFR ( Amer) Est GFR (Non-Af Amer) BUN/Creatinine Ratio Glucose POC Glucose POC Glucose (other) 216 H Calcium POC Ioniz Calcium Brady 0.77 L* Phosphorus Magnesium 02/28/21 02/28/21 02/28/21 13:11 16:18 19:36 WBC 15.46 H RBC 5.85 Hgb 17.0 POC Hgb Hct 53.0 H POC Hct MCV 90.6 MCH 29.1 MCHC 32.1 RDW Std Deviation 65.1 H RDW Coeff of Tim 19.7 H Plt Count 383 MPV 10.2 Immature Gran % (Auto) 0.8 Neut % (Auto) 88.7 Lymph % (Auto) 7.5 [place] % (Auto) 2.9 Eos % (Auto) 0.0 Baso % (Auto) 0.1 Neut # (Auto) 13.71 H Lymph # (Auto) 1.16 L [place] # (Auto) 0.45 Eos # (Auto) 0.00 Baso # (Auto) 0.02 Immature Gran # (Auto) 0.12 H Absolute Nucleated RBC Nucleated RBC % (auto) RBC Morphology Anisocytosis PT INR APTT PTT Ratio Sample Site POC pH POC pCO2 POC pO2 POC HCO3 POC Base Excess ABG pH (Temp Correct) ABG pCO2 (Temp Corrct POC ABG pO2 at Pt Temp POC ABG O2 Sat Isidoro Test O2 Delivery Device POC O2 Rate POC FiO2 Tidal Volume PEEP POC Sodium Sodium 132 L POC Potassium Potassium 6.2 H* POC Chloride Chloride 93 L Carbon Dioxide 21 POC Total CO2 Anion Gap 18.0 H POC Anion Gap POC BUN BUN 81 H Creatinine 13.50 H* D POC Creatinine Est Cr Clr Drug Dosing 10.5 Est GFR ( Amer) 4.2 Est GFR (Non-Af Amer) 3.6 BUN/Creatinine Ratio 6.0 L Glucose 163 H POC Glucose POC Glucose (other) 165 H Calcium 8.0 L POC Ioniz Calcium Brady Phosphorus 11.7 H Magnesium 2.9 H 02/28/21 02/28/21 02/28/21 19:36 19:36 23:05 WBC RBC Hgb POC Hgb Hct POC Hct MCV MCH MCHC RDW Std Deviation RDW Coeff of Tim Plt Count MPV Immature Gran % (Auto) Neut % (Auto) Lymph % (Auto) [place] % (Auto) Eos % (Auto) Baso % (Auto) Neut # (Auto) Lymph # (Auto) [place] # (Auto) Eos # (Auto) Baso # (Auto) Immature Gran # (Auto) Absolute Nucleated RBC Nucleated RBC % (auto) RBC Morphology Anisocytosis PT 11.9 INR 1.2 H APTT 30.5 PTT Ratio 1.2 Sample Site POC pH POC pCO2 POC pO2 POC HCO3 POC Base Excess ABG pH (Temp Correct) ABG pCO2 (Temp Corrct POC ABG pO2 at Pt Temp POC ABG O2 Sat Isidoro Test O2 Delivery Device POC O2 Rate POC FiO2 Tidal Volume PEEP POC Sodium Sodium 132 L POC Potassium Potassium 6.7 H* 6.4 H* POC Chloride Chloride 92 L Carbon Dioxide 21 POC Total CO2 Anion Gap 18.0 H POC Anion Gap POC BUN BUN 86 H Creatinine 13.70 H* POC Creatinine Est Cr Clr Drug Dosing 10.3 Est GFR ( Amer) 4.1 Est GFR (Non-Af Amer) 3.5 BUN/Creatinine Ratio 6.2 L Glucose 177 H POC Glucose POC Glucose (other) Calcium 8.0 L POC Ioniz Calcium Brady Phosphorus 12.2 H Magnesium 2.8 H 03/01/21 03/01/21 03/01/21 00:37 01:15 01:15 WBC 14.52 H RBC 5.82 Hgb 16.9 POC Hgb Hct 51.8 POC Hct MCV 89.0 MCH 29.0 MCHC 32.6 RDW Std Deviation 63.4 H RDW Coeff of Tim 20.0 H Plt Count 359 MPV 9.6 Immature Gran % (Auto) 1.3 Neut % (Auto) 84.1 Lymph % (Auto) 2.3 [place] % (Auto) 12.2 Eos % (Auto) 0.0 Baso % (Auto) 0.1 Neut # (Auto) 12.20 H Lymph # (Auto) 0.34 L [place] # (Auto) 1.77 H Eos # (Auto) 0.00 Baso # (Auto) 0.02 Immature Gran # (Auto) 0.19 H Absolute Nucleated RBC 0.07 H Nucleated RBC % (auto) 0.5 RBC Morphology Anisocytosis Present PT 11.9 INR 1.2 H APTT 29.0 PTT Ratio 1.1 Sample Site POC pH POC pCO2 POC pO2 POC HCO3 POC Base Excess ABG pH (Temp Correct) ABG pCO2 (Temp Corrct POC ABG pO2 at Pt Temp POC ABG O2 Sat Isidoro Test O2 Delivery Device POC O2 Rate POC FiO2 Tidal Volume PEEP POC Sodium Sodium POC Potassium Potassium POC Chloride Chloride Carbon Dioxide POC Total CO2 Anion Gap POC Anion Gap POC BUN BUN Creatinine POC Creatinine Est Cr Clr Drug Dosing Est GFR ( Amer) Est GFR (Non-Af Amer) BUN/Creatinine Ratio Glucose POC Glucose POC Glucose (other) 180 H Calcium POC Ioniz Calcium Brady Phosphorus Magnesium 03/01/21 03/01/21 03/01/21 01:15 04:26 08:34 WBC RBC Hgb POC Hgb 18.0 Hct POC Hct 53 H MCV MCH MCHC RDW Std Deviation RDW Coeff of Tim Plt Count MPV Immature Gran % (Auto) Neut % (Auto) Lymph % (Auto) [place] % (Auto) Eos % (Auto) Baso % (Auto) Neut # (Auto) Lymph # (Auto) [place] # (Auto) Eos # (Auto) Baso # (Auto) Immature Gran # (Auto) Absolute Nucleated RBC Nucleated RBC % (auto) RBC Morphology Anisocytosis PT INR APTT PTT Ratio Sample Site Art Line POC pH 7.38 POC pCO2 39 POC pO2 70 L POC HCO3 23 POC Base Excess -2.0 ABG pH (Temp Correct) 7.364 ABG pCO2 (Temp Corrct 40 POC ABG pO2 at Pt Temp 75 POC ABG O2 Sat 94.0 Isidoro Test NA O2 Delivery Device Ventilator POC O2 Rate 14 POC FiO2 35 Tidal Volume 550 PEEP 8 POC Sodium 132 L Sodium 131 L POC Potassium 6.2 H* Potassium 6.1 H* POC Chloride Chloride 92 L Carbon Dioxide 21 POC Total CO2 24 Anion Gap 19.0 H POC Anion Gap POC BUN BUN 90 H Creatinine 14.50 H* D POC Creatinine Est Cr Clr Drug Dosing 9.7 Est GFR ( Amer) 3.8 Est GFR (Non-Af Amer) 3.3 BUN/Creatinine Ratio 6.2 L Glucose 218 H POC Glucose 165 H POC Glucose (other) Calcium 8.1 L POC Ioniz Calcium Brady Phosphorus 12.0 H Magnesium 2.5 H 03/01/21 11:54 WBC RBC Hgb POC Hgb Hct POC Hct MCV MCH MCHC RDW Std Deviation RDW Coeff of Tim Plt Count MPV Immature Gran % (Auto) Neut % (Auto) Lymph % (Auto) [place] % (Auto) Eos % (Auto) Baso % (Auto) Neut # (Auto) Lymph # (Auto) [place] # (Auto) Eos # (Auto) Baso # (Auto) Immature Gran # (Auto) Absolute Nucleated RBC Nucleated RBC % (auto) RBC Morphology Anisocytosis PT INR APTT PTT Ratio Sample Site POC pH POC pCO2 POC pO2 POC HCO3 POC Base Excess ABG pH (Temp Correct) ABG pCO2 (Temp Corrct POC ABG pO2 at Pt Temp POC ABG O2 Sat Isidoro Test O2 Delivery Device POC O2 Rate POC FiO2 Tidal Volume PEEP POC Sodium Sodium POC Potassium Potassium POC Chloride Chloride Carbon Dioxide POC Total CO2 Anion Gap POC Anion Gap POC BUN BUN Creatinine POC Creatinine Est Cr Clr Drug Dosing Est GFR ( Amer) Est GFR (Non-Af Amer) BUN/Creatinine Ratio Glucose POC Glucose 158 H POC Glucose (other) Calcium POC Ioniz Calcium Brady Phosphorus Magnesium Medications Administered Current Inpatient Medications Acetaminophen (Acetaminophen Susp 325 Mg/10.15 Ml Udc) 650 mg PO Q4H PRN PRN Reason: Fever Stop: 03/31/21 03:23 Last Admin: 03/01/21 03:51 Dose: 650 mg Documented by: Apixaban (Apixaban 5 Mg Tablet) 5 mg PO Q12 [facility] Stop: 03/29/21 00:43 Last Admin: 02/28/21 21:22 Dose: 5 mg Documented by: Aspirin (Aspirin 81 Mg Chew) 81 mg PO QAM YUDITH Stop: 03/29/21 08:59 Last Admin: 03/01/21 10:40 Dose: Not Given Documented by: Bisacodyl (Bisacodyl 5 Mg Tabec) 5 mg PO MoWeFrSa@0900 [facility] Stop: 03/29/21 08:59 Last Admin: 02/27/21 08:42 Dose: 5 mg Documented by: Cinacalcet (Cinacalcet Hcl 90 Mg Tab) 90 mg PO DAILY [facility] Stop: 03/29/21 08:59 Last Admin: 03/01/21 09:27 Dose: Not Given Documented by: Dextrose (Dextrose 50% 50 Ml Syringe) 25 - 50 ml IV UD PRN; Protocol PRN Reason: Hypoglycemia Protocol Stop: 03/31/21 10:44 Fentanyl Citrate (Fentanyl Bolus From Bag) 50 mcg IV Q60M PRN PRN Reason: Pain or Agitation Stop: 03/12/21 19:56 Last Admin: 02/26/21 22:55 Dose: 50 mcg Documented by: Glucagon (Glucagon For Inj 1 Mg Vial) 1 mg SQ UD PRN; Protocol PRN Reason: Hypoglycemia Protocol Stop: 03/31/21 10:44 Glucose (Glucose 40% Gel 15 Gm Tube) 15 - 30 gm PO UD PRN; Protocol PRN Reason: Hypoglycemia Protocol Stop: 03/31/21 10:44 Glucose (Glucose 10 Tabs/Tube) 4 - 8 tabs PO UD PRN; Protocol PRN Reason: Hypoglycemia Protocol Stop: 03/31/21 10:44 Fentanyl Citrate (Fentanyl Drip) 1,250 mcg in 250 mls @ 20 mls/hr IV .[id number] [facility]; Protocol Stop: 03/12/21 19:59 Last Admin: 03/01/21 12:14 Dose: 100 mcg/hr, 20 mls/hr Documented by: Propofol (Diprivan) 1,000 mg in 100 mls @ 28.185 mls/hr IV .[id number] [facility]; Protocol Stop: 03/01/21 20:14 Last Admin: 03/01/21 12:00 Dose: 25 mcg/kg/min, 28.2 mls/hr Documented by: Norepinephrine Bitartrate (Levophed/D5w) 8 mg in 508 mls @ 28.636 mls/hr IV .[id number] [facility]; Protocol Stop: 03/28/21 21:14 Last Admin: 03/01/21 10:45 Dose: 0.04 mcg/kg/min, 28.6 mls/hr Documented by: Dexamethasone 6 mg/ Syringe 1.5 mls @ 1 mls/min IV Q24H [facility] Stop: 03/29/21 08:59 Last Admin: 03/01/21 08:46 Dose: 1 mls/min Documented by: Piperacillin Sod/Tazobactam (Sod 4.5 gm/ Dextrose) 120 mls @ 30 mls/hr IV Q12H [facility]; Protocol Stop: 03/06/21 03:59 Last Infusion: 03/01/21 07:16 Dose: Infused Documented by: Lorazepam (Ativan) 1 mg in 2 mls @ 2 mls/min IV Q4H PRN PRN Reason: muscle jerks Stop: 03/30/21 14:35 Pantoprazole Sodium 40 mg/ (Syringe) 10 mls @ 5 mls/min IV BID [facility]; Protocol Stop: 03/31/21 08:59 Last Admin: 03/01/21 08:46 Dose: 5 mls/min Documented by: Doxycycline Hyclate 100 mg/ (Dextrose) 110 mls @ 55 mls/hr IV Q12H [facility] Stop: 03/08/21 11:59 Last Admin: 03/01/21 12:00 Dose: 55 mls/hr Documented by: Insulin Aspart (Insulin Aspart 100 Units/Ml 3 Ml Pen) 0 units SC Q4 [facility] Stop: 03/31/21 11:59 Last Admin: 03/01/21 12:00 Dose: Not Given Documented by: Lactulose (Lactulose Syrup 20 Gm/30 Ml Udc) 10 gm PO MoWeFrSa@0900 [facility] Stop: 03/29/21 08:59 Last Admin: 03/01/21 10:41 Dose: Not Given Documented by: Levalbuterol HCl (Levalbuterol Hcl 0.63 Mg/3 Ml Neb) 0.63 mg INH Q4H PRN PRN Reason: Dyspnea Stop: 03/29/21 00:43 Last Admin: 03/01/21 08:27 Dose: 0.63 mg Documented by: Levothyroxine Sodium (Levothyroxine Sodium 150 Mcg Tablet) 150 mcg PO DAILYBB [facility] Stop: 03/29/21 06:29 Last Admin: 03/01/21 03:51 Dose: 150 mcg Documented by: Miscellaneous (Carbohydrates For Hypoglycemia ) 15 - 30 gm PO UD PRN PRN Reason: Hypoglycemia Treatment Stop: 03/31/21 10:44 Miscellaneous Information (Piperacill/Tazobac Consult Active) 1 ea N/A UD PRN PRN Reason: Consult Stop: 03/29/21 03:01 Vitamin B Complex/Folic Acid (Nephrocaps) 1 cap PO QPM YUDITH Stop: 03/29/21 00:43 Last Admin: 02/28/21 21:22 Dose: 1 cap Documented by: Vitamin D (Cholecalciferol 1,000 Units 25 Mcg Tab) 5,000 units PO DAILY YUDITH Stop: 03/29/21 08:59 Last Admin: 03/01/21 10:41 Dose: Not Given Documented by: PG Care Time/CCT Total # of Minutes Spent Total Time Spent with Patient: Total time spent is greater than 50% in coordination of care (as documented) at patient's floor/unit and/or counseling patient: Coding Level of Care Code 16923 Subseq Hosp Care Lvl 3 Diagnoses Cardiac arrest I46.9 COVID-19 U07.1 Pneumonia J18.9 Laterality: bilateral Pneumonia type: due to unspecified organism Central venous catheter in place Z78.9 Hypothyroidism E03.9 Controlled type 2 diabetes mellitus with neurologic complication, with long-term current use of insulin E11.49; Z79.4 Hypoxia R09.02 Hyperkalemia E87.5 End-stage renal disease on hemodialysis N18.6; Z99.2 Transaminitis R74.01 Obesity E66.9 Dyslipidemia E78.5 DVT (deep venous thrombosis) I82.409 (1) Pneumonia Laterality: bilateral Pneumonia type: due to unspecified organism
--- NOTE | 2021-03-01 12:42 | Critical Care Progress Note ---
Date of Service March 01, 2021 Assessment & Plan (1) Cardiac arrest: Plan: Reason Critically Ill: 56-year-old male with complicated PMH including ESRD on dialysis, HFpEF, and recent hospitalization for COVID-19 pneumonia presents to the ICU following a suspected respiratory induced asystole cardiac arrest in which she is undergoing therapeutic hypothermia as he was unresponsive following ROSC. Neuro - Anoxic injurypatient unresponsive following ROSC, neurological exam as above. -CT head without acute intracranial findings -Patient completed targeted temperature management. -EEG with findings concerning for hypoxic induced injury Cardiac - Cardiac arrestsuspect this is likely related to the patient's severe respiratory acidosis and COVID-19 pneumonia along with hypoglycemia likely attributed -Witnessed asystole arrest with ROSC achieved following CPR, epinephrine, bicarb -Troponin unremarkable, EKG without ST elevations, QTc 475. Patient was not having chest pain prior to this event. -Patient requiring low-dose Levophed, likely sedation related but cannot rule out cardiogenic shock. Echo pending. Maintain MAP greater than 65 -NSR on monitor, continuous telemetry -Hold antihypertensives for now -Echocardiogram from 02/27/2021 reviewed Respiratory - Hypercapnic hypoxic respiratory failurelikely multifactorial in the setting of COVID-19 pneumonia, diastolic heart failure, presumed OHS -Continue lung protective ventilation strategy. -Unable to diurese as patient is anuric and requiring hemodialysis. Will defer to nephrology to manage fluid balance -Nebs as needed -Continuous pulse ox and ET CO2 monitoring GI - N.p.o. Transaminitismild elevation LFTs likelyIn the setting of shock liver following cardiac arrest -Downtrending Concern for possible upper GI bleed. Continue tonics twice daily. Hold p.o. meds. Trend hemoglobin. Hold antiplatelets and Eliquis. RENAL/LYTES - ESRDPatient undergoes hemodialysis MWF -Nephrology following - Foleydiscontinue ENDO - DM type IIpatient was hypoglycemic in the field with EMS but corrected with dextrose/glucagon administration -Currently hyperglycemic, continue with sliding scale for now -ICU hyperglycemic protocol Hypothyroidcontinue Synthroid HEME - H&H stable, monitor routine CBCs. Check CBC now given concern for upper GI bleed. ID - Pneumoniapatient initially tested positive for COVID-19 pneumonia on 02/22. He recently completed 5-day course of vancomycin, Zosyn, and azithromycin. -Bio fire reconfirmed Covid 19, otherwise unremarkable -Continue Decadron 6 mg IV daily to complete 10-day course. -Doxycycline started 03/01/2021. Will discontinue Zosyn. Will obtain sputum culture. LINES/IV ACCESS - central venous catheter (triple-lumen access), arterial line, ET tube, OG tube DVT PROPHYLAXIS - SCDs, holding Eliquis Overall prognosis very guarded. Will consult palliative care. I have personally spent 40 minutes of critical care time in the direct management of this patient. This is a life/limb threatening event. This includes time spent evaluating patient, direct bedside care, chart review, placing orders, interpretation of diagnostic studies, discussion with consultants, patient, and family members, as well as other required patient management activities. This time is exclusive of all separately billable procedures, and teaching time and separate from and in addition to any other critical care service time. (2) Hypoglycemia: (3) Renal failure: (4) Respiratory failure: (5) Acidosis: (6) Hypoxia: (7) Pneumonia: (8) COVID-19: (9) Controlled type 2 diabetes mellitus with kidney complication, with long-term current use of insulin: (10) End stage renal disease: (11) Morbid obesity: Admission and Anticipated Discharge Date Admission Date: February 26, 2021 Subjective Patient seen and examined today. He is on propofol and fentanyl. He is not responsive to commands. Currently undergoing hemodialysis. Review of systems limited given his altered mental status and intubated status. Physical Exam 2 Physical Exam: General: 3 T. nontoxic. Skin: Warm, dry, Head: Atraumatic Ears, nose, mouth and throat: airway obscured by endotracheal tube Cardiovascular: Normal peripheral perfusion Respiratory: Distant breath sounds Gastrointestinal: Rotund abdomen Musculoskeletal: 2+ edema, evidence of vascular insufficiency Results & Data Results & Data ([facility]) Vital Signs (Past 12 Hours) Vital Signs Temp Pulse Pulse Resp BP BP Pulse Ox 03/01/21 12:00 99.5 F 94 H 109/69 03/01/21 11:15 95 H 112/74 03/01/21 11:00 95 H 113/70 03/01/21 10:45 94 H 118/65 03/01/21 10:30 94 H 110/74 03/01/21 10:15 94 H 114/58 L 03/01/21 10:00 94 H 112/68 03/01/21 09:45 93 H 109/62 03/01/21 09:30 93 H 107/67 03/01/21 09:15 95 H 105/66 03/01/21 09:00 95 H 110/73 03/01/21 08:45 98 H 103/59 L 03/01/21 08:30 97 H 107/65 03/01/21 08:27 97 H 17 99 03/01/21 08:15 97 H 114/63 03/01/21 08:00 97 H 107/59 L 03/01/21 07:45 97 H 119/67 03/01/21 07:41 99 H 124/63 03/01/21 07:18 99.5 F 100 H 03/01/21 04:59 100.2 F H 105 H 19 131/77 92 03/01/21 04:06 100.6 F H 118 H 18 111/64 94 03/01/21 04:01 100.6 F H 123 H 18 163/75 H 98 03/01/21 03:59 100.6 F H 126 H 18 180/101 H 98 03/01/21 03:55 120 H 23 93 03/01/21 02:51 100.0 F H 110 H 18 91/61 L 91 03/01/21 01:51 99.9 F H 109 H 19 118/61 91 03/01/21 01:48 99.9 F H 110 H 19 117/64 92 03/01/21 00:51 99.7 F H 112 H 18 118/64 92 Vital signs, labs and image improved reviewed Coding Level of Care Code Critical Care 1st 30-74 mins Diagnoses Cardiac arrest I46.9 Hypoglycemia E16.2 Renal failure N17.9; N18.9; Z99.2 Acute renal failure type: unspecified Chronic kidney disease stage: on chronic dialysis Renal failure chronicity: acute on chronic Respiratory failure J96.01; J96.02 Chronicity: acute Respiratory failure complication: hypoxia and hypercapnia Acidosis E87.2 Hypoxia R09.02 Pneumonia J18.9 Laterality: bilateral Pneumonia type: due to unspecified organism COVID-19 U07.1 Controlled type 2 diabetes mellitus with kidney complication, with long-term current use of insulin E11.29; Z79.4 End stage renal disease N18.6 Morbid obesity E66.01 Time Spent (min) 40 (1) Renal failure Acute renal failure type: unspecified Chronic kidney disease stage: on [facility] dialysis Renal failure chronicity: acute on chronic Qualified Code(s): N17.9 - Acute kidney failure, unspecified; N18.9 - Chronic kidney disease, unspecified; Z99.2 - Dependence on renal dialysis (2) Respiratory failure Chronicity: acute Respiratory failure complication: hypoxia and hypercapnia Qualified Code(s): J96.01 - Acute respiratory failure with hypoxia; J96.02 - Acute respiratory failure with hypercapnia (3) Pneumonia Laterality: bilateral Pneumonia type: due to unspecified organism
--- NOTE | 2021-03-01 14:35 | Palliative Care Consultation ---
Date of Consultation March 01, 2021 Assessment & Plan (1) Anoxic encephalopathy: Plan for wean on sedation to further assess cognitive function. (2) Palliative care encounter: I spoke with Deangelo's , Jacinta, on the phone for forty minutes. She tells me that she has been home alone, "It's just the two of us" but that she does have support and a lot of people are praying for Deangelo. We reviewed results of EEG and plan to wean sedation later today. 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 She is concerned about his elevated weight and fluid overload as well as constipation. We discussed the many challenges that he is facing right now and I asked her if Deangelo had ever talked about what he would want for his care. She tells me that he never talked about end of life issues and has refused to fill out advance directive in the past. Deangelo and Jacinta have a strong Rastafarian kevin and she remains hopeful that he will recover. I assured her that we are doing everything that we can to help him at this point and will continue to do so. We will talk further as we have more information about his cognitive function. She does say that she understands that he may not recover and that she would not want him to return home if he were unable to care for himself or have any reasonable interaction with her. Palliative care will follow. Discussed with Dr. Serrano. (3) Cardiac arrest: S/P hypothermia protocol (4) Renal failure: On hemodialysis Acute renal failure type: unspecified Chronic kidney disease stage: on chronic dialysis Renal failure chronicity: acute on chronic Qualified Code(s): N17.9 - Acute kidney failure, unspecified; N18.9 - Chronic kidney disease, unspecified; Z99.2 - Dependence on renal dialysis (5) Respiratory failure: Intubated. On vent support Chronicity: acute Respiratory failure complication: hypoxia and hypercapnia Qualified Code(s): J96.01 - Acute respiratory failure with hypoxia; J96.02 - Acute respiratory failure with hypercapnia (6) COVID-19: History of Present Illness Reason for Consultation: goals of care Requesting Physician: Dr. Moon Attending Physician: Mich Serrano DO History of Present Illness 56 yo gentleman with diabetes, HFpEF and ESRD who has been on hemodialysis since age 49. Per his , he had been having problems with foot ulcers but had otherwise been independent at home until he developed Covid infection. He was hospitalized 02/22-02/24 with covid pneumonia and was discharged to home. He was readmitted with cardiac arrest in the field. He had been on hypothermia protocol and has been rewarmed for approximately [address] was negative but EEG done earlier today shows severe encephalopathy. He also remains 10 lbs above his reported dry weight and continues on dialysis management per nephr ology with hypotension and pressors. He is currently sedated on vent support and does not respond to voice, touch or painful stimuli. Allergies Allergy/AdvReac Type Severity Reaction Status Date / Time house dust Allergy Mild Nasal Verified 02/26/21 19:33 congestion pollen extracts Allergy Mild nasal Verified 02/26/21 19:33 congestion Home Medications Medication Instructions Recorded Confirmed Type aspirin 81 mg chewable tablet 81 mg PO QAM 04/13/18 02/26/21 History atorvastatin 10 mg tablet (Lipitor) 10 mg PO HS 04/13/18 02/26/21 History azelastine 205.5 mcg (0.15 %) 1 spray INTRANASAL BID 04/13/18 02/26/21 History nasal spray gabapentin 300 mg capsule 600 mg PO HS 04/13/18 02/26/21 History levothyroxine 150 mcg tablet 150 mcg PO QAM 04/13/18 02/26/21 History (Synthroid) mv,[id number]-xlo-[id number]-gyu-oevp 1 tab PO QPM 04/13/18 02/26/21 History oil 400 mcg-500 unit capsule (ProRenal QD) omega 3-ppq-rzv-fish oil 1,000 mg 1 tab PO BID 04/13/18 02/26/21 History (120 mg-180 mg) capsule (Fish Oil) peg 400-propylene glycol (PF) 0.4 1 drp OPHTHALMIC (EYE) BID PRN 04/13/18 02/26/21 History %-0.3 % eye drops in a dropperette (Systane (PF)) testosterone cypionate 200 mg/mL 200 mg SUBCUT .2XWK 04/13/18 02/26/21 History intramuscular kit acetaminophen 500 mg tablet 1,000 mg PO Q6H PRN 06/12/18 02/26/21 History (Tylenol Extra Strength) sucroferric oxyhydroxide 500 mg 500 mg PO TID 04/30/19 02/26/21 History chewable tablet (Velphoro) alprazolam 1 mg tablet (Xanax) 1 mg PO TID PRN 03/10/20 02/26/21 History bisacodyl 5 mg tablet,delayed 5 mg PO 4XWK 03/24/20 02/26/21 History release (Dulcolax (bisacodyl)) diclofenac sodium 0.1 % eye drops 1 drp OPHTHALMIC (EYE) TID 03/24/20 02/26/21 History lactulose 10 gram/15 mL oral 10 g PO 4XWK 03/24/20 02/26/21 History solution linaclotide 290 mcg capsule 870 mcg PO 4XWK 03/24/20 02/26/21 History (Linzess) apixaban 5 mg tablet (Eliquis) 5 mg PO Q12H #74 tab 04/07/20 02/26/21 Rx docusate sodium 100 mg capsule 100 mg PO DAILY PRN 04/07/20 02/26/21 History (Stool Softener) Accu-Chek Guide test strips (blood #400 ea NS 04/30/20 10/13/20 Rx sugar diagnostic) lancets (Accu-Chek Fastclix Lancet #400 ea 04/30/20 10/13/20 Rx Drum) blood-glucose meter (Accu-Chek #1 ea 05/04/20 10/13/20 Rx Guide Me Glucose Mtr) pen needle, diabetic 29 gauge x #400 ea 05/04/20 10/13/20 Rx 1/2" (BD Ultra-Fine Original Pen Needle) OneTouch Ultra2 Meter #1 ea NS 05/26/20 10/13/20 Rx (blood-glucose meter) insulin degludec 100 unit/mL (3 80 unit SUBCUT BID #150 ml MDD 160 09/30/20 02/26/21 Rx mL) subcutaneous pen (Tresiba units FlexTouch U-100 insulin) ascorbic acid (vitamin C) 1,000 mg 1 g PO DAILY 12/03/20 02/26/21 History tablet (Vitamin C) cholecalciferol (vitamin D3) 125 125 mcg PO DAILY 12/03/20 02/26/21 History mcg (5,000 unit) tablet (Vitamin D3) ozpmrjpy-mkg-jcvaa acid 0.4 1 tab PO DAILY 12/03/20 02/26/21 History mg-lycopene 300 mcg-lutein 250 mcg tablet (Centrum Silver) insulin aspart U-100 100 unit/mL 0 unit SUBCUT BID 02/22/21 02/26/21 History (3 mL) subcutaneous pen (Novolog Flexpen U-100 Insulin aspart) azithromycin 250 mg tablet 250 mg PO QAM #3 tab 02/24/21 02/26/21 Rx dexamethasone 6 mg tablet 6 mg PO DAILY #7 tab 02/24/21 02/26/21 Rx guaifenesin 600 mg tablet, 1,200 mg PO Q12 #20 tab 02/24/21 02/26/21 Rx extended release 12 hr (Mucinex) cinacalcet 90 mg tablet 90 mg PO DAILY 02/26/21 02/26/21 History Patient History Medical History Anxiety Aortic valve disease Aortic sclerosis bordering on mild stenosis (CORNEL 1.3 cm, Mean gradient 8.8 mmHg) per 06/28/19 echo Chronic back pain Chronic constipation Chronic kidney disease follows with Dr. Armstrong Diabetes mellitus, type 2 since age 20, IDDM- glucose relatively stable per patient - glucose this AM (05/22/20) was 156 Diabetic foot ulcer right 5th metatarsal and heel; left heel Diabetic nephropathy Diabetic retinopathy DVT (deep venous thrombosis) Dx'ed 04/07/20- to right UE- on Eliquis End-stage renal disease on hemodialysis M-W-F dialysis ([facility]) Hyperlipidemia Hypertension No medications- pt denies- states actually hypotensive Hypothyroidism Osteoarthritis Surgical History Fistula LUE (WITH REVISION ) History of anesthesia reaction BP DROPS "USUALLY" History of appendectomy History of cholecystectomy History of colonoscopy History of esophagogastroduodenoscopy (EGD) History of vascular access device permacath-inserted and removed History of vascular access device rt upper chest (blood clot formed/unable to use but still intact) Hx of eye surgery 5 eye surgeries 3 ON LEFT/2 ON RT Family History Father Diabetes Other Cancer Gallbladder disease Hypertension Lung disease No family history of adverse response to anesthesia Social History Smoking Status: Never smoker Second Hand Exposure: Yes; Hx Alcohol Use: No Hx Substance Use: No Preferred Language: Irish Communication Ability: Unable Visual Impairment: No Limitations Polisher Eyeglass Frames Required: No Beliefs That Will Affect Care: None marital status: Current Living Situation: Spouse current occupational status: disabled Feels Safe at Home: Yes Assistive Devices: Cane Review of Systems Review of Systems: Unobtainable due to endotracheal tube and Unobtainable due to reduced consciousness [place] Symptom Assessment Scale PainAD 0/3 Palliative Performance Score 10% Physical Exam Constitutional: + morbidly obese and + mechanically ventilated Respiratory: + uses accessory muscles Cardiovascular: Rate/Rhythm: regular rhythm and + tachycardic Gastrointestinal (Abdomen): Inspection/Auscultation: + significant pannus Skin: cool to touch Neurologic: + obtunded Results & Data ([facility]) Vital Signs (Past 12 Hours) Vital Signs Temp Pulse Pulse Resp BP BP Pulse Ox 03/01/21 12:34 111 H 20 97 03/01/21 12:00 99.5 F 94 H 109/69 03/01/21 11:15 95 H 112/74 03/01/21 11:00 95 H 113/70 03/01/21 10:45 94 H 118/65 03/01/21 10:30 94 H 110/74 03/01/21 10:15 94 H 114/58 L 03/01/21 10:00 94 H 112/68 03/01/21 09:45 93 H 109/62 03/01/21 09:30 93 H 107/67 03/01/21 09:15 95 H 105/66 03/01/21 09:00 95 H 110/73 03/01/21 08:45 98 H 103/59 L 03/01/21 08:30 97 H 107/65 03/01/21 08:27 97 H 17 99 03/01/21 08:15 97 H 114/63 03/01/21 08:00 97 H 107/59 L 03/01/21 07:45 97 H 119/67 03/01/21 07:41 99 H 124/63 09/13/21 07:18 99.5 F 100 H 03/01/21 04:59 100.2 F H 105 H 19 131/77 92 03/01/21 04:06 100.6 F H 118 H 18 111/64 94 03/01/21 04:01 100.6 F H 123 H 18 163/75 H 98 03/01/21 03:59 100.6 F H 126 H 18 180/101 H 98 03/01/21 03:55 120 H 23 93 03/01/21 02:51 100.0 F H 110 H 18 91/61 L 91 PG Care Time/CCT Total # of Minutes Spent Total Time Spent: 115 Total Time Spent with Patient: Total time spent is greater than 50% in coordination of care (as documented) at patient's floor/unit and/or counseling patient: family education and support, goals of care, coordination of care. Coding Level of Care Code 36796 Initial Inpt Care Lvl 3 Diagnoses Anoxic encephalopathy G93.1 Cardiac arrest I46.9 Renal failure N17.9; N18.9; Z99.2 Acute renal failure type: unspecified Chronic kidney disease stage: on chronic dialysis Renal failure chronicity: acute on chronic Respiratory failure J96.01; J96.02 Chronicity: acute Respiratory failure complication: hypoxia and hypercapnia COVID-19 U07.1 Palliative care encounter Z51.5
--- NOTE | 2021-03-01 15:04 | Electrocardiogram Report ---
Test Reason : Blood Pressure : / mmHG Vent. Rate : 067 BPM Atrial Rate : 067 BPM P-R Int : 166 ms QRS Dur : 102 ms QT Int : 458 ms P-R-T Axes : 058 055 061 degrees QTc Int : 483 ms Normal sinus rhythm Incomplete right bundle branch block Prolonged QT Abnormal ECG When compared with ECG of 28-FEB-2021 07:21, (unconfirmed) Premature atrial complexes are no longer Present Confirmed by Uli Dickson ([id number]) on 03/01/2021 3:04:17 PM Referred By: REFERRED SELF Confirmed By:Uli Dickson
--- NOTE | 2021-03-01 17:01 | Nephrology Progress Note ---
Date of Service March 01, 2021 Assessment & Plan (1) End stage renal disease: Plan: Orders for HD today entered into EMR and reviewed with dialysis nurse. Treatment completed without complications. Qb at goal. UF 5 L. Electrolytes acceptable at this time. Volume status improved. Next anticipated HD will be Monday. Outpatient Rx: MWF 4 hrs [id number]/800. EDW has been 174 kg. Medications appropriately dosed for IHD. (2) COVID-19: Plan: Multifocal pneumonia. Remains on Zosyn and Decadron. Blood cultures NGTD. (3) Dialysis AV fistula malfunction: Plan: Functioning well following recent revision. Good thrill and bruit. (4) Cardiac arrest: Plan: Rewarming completed yesterday. Weaning sedation today. EEG updated. Palliative care consultation reviewed. Admission and Anticipated Discharge Date Admission Date: February 26, 2021 Subjective No acute events overnight. Tolerated HD this AM without complications. Remains on responsive. Sedation weaning. Review of Systems Review of Systems: Unobtainable due to endotracheal tube and Unobtainable due to reduced consciousness Physical Exam Constitutional: + ill appearing, + morbidly obese and + mechanically ventilated; no acute distress Eyes: + anicteric sclerae Neck: normal visual inspection, trachea midline and + thick neck Respiratory: symmetric chest movement Auscultation: + rhonchi Cardiovascular: Rate/Rhythm: regular rhythm Heart Sounds: normal S1, normal S2 and + murmur Extremities: + edema and + AV fistula Gastrointestinal (Abdomen): Inspection/Auscultation: + abdomen distended and + hypoactive bowel sounds Musculoskeletal: Extremities: extremities normal to inspection; no clubbing Skin: normal turgor; no lesions Neurologic: Motor/Sensory: no tremor and no asterixis Results & Data ([facility]) Vital Signs (Past 12 Hours) Vital Signs Temp Pulse Pulse Resp BP BP Pulse Ox 03/01/21 12:34 111 H 20 97 03/01/21 12:00 37.5 C 94 H 109/69 03/01/21 11:15 95 H 112/74 03/01/21 11:00 95 H 113/70 03/01/21 10:45 94 H 118/65 03/01/21 10:30 94 H 110/74 03/01/21 10:15 94 H 114/58 L 03/01/21 10:00 94 H 112/68 03/01/21 09:45 93 H 109/62 03/01/21 09:30 93 H 107/67 03/01/21 09:15 95 H 105/66 03/01/21 09:00 95 H 110/73 03/01/21 08:45 98 H 103/59 L 03/01/21 08:30 97 H 107/65 03/01/21 08:27 97 H 17 99 03/01/21 08:15 97 H 114/63 03/01/21 08:00 97 H 107/59 L 03/01/21 07:45 97 H 119/67 03/01/21 07:41 99 H 124/63 03/01/21 07:18 37.5 C 100 H 03/01/21 04:59 37.9 C H 105 H 19 131/77 92 Laboratory Results Laboratory Results - last 24 hr 02/26/21 02/28/21 02/28/21 19:26 19:36 19:36 WBC 15.46 H RBC 5.85 Hgb 17.0 POC Hgb 19.0 H Hct 53.0 H POC Hct 56 H MCV 90.6 MCH 29.1 MCHC 32.1 RDW Std Deviation 65.1 H RDW Coeff of Tim 19.7 H Plt Count 383 MPV 10.2 Immature Gran % (Auto) 0.8 Neut % (Auto) 88.7 Lymph % (Auto) 7.5 [place] % (Auto) 2.9 Eos % (Auto) 0.0 Baso % (Auto) 0.1 Neut # (Auto) 13.71 H Lymph # (Auto) 1.[address] [place] # (Auto) 0.45 Eos # (Auto) 0.00 Baso # (Auto) 0.02 Immature Gran # (Auto) 0.12 H Absolute Nucleated RBC Nucleated RBC % (auto) Anisocytosis PT 11.9 INR 1.2 H APTT 30.5 PTT Ratio 1.2 Sample Site POC pH POC pCO2 POC pO2 POC HCO3 POC Base Excess ABG pH (Temp Correct) ABG pCO2 (Temp Corrct POC ABG pO2 at Pt Temp POC ABG O2 Sat Isidoro Test O2 Delivery Device POC O2 Rate POC FiO2 Tidal Volume PEEP POC Sodium 137 Sodium POC Potassium 4.5 Potassium POC Chloride 94 L Chloride Carbon Dioxide POC Total CO2 < 5 L* Anion Gap POC Anion Gap TNP POC BUN 124 H* BUN Creatinine POC Creatinine 12.3 H* Est Cr Clr Drug Dosing Est GFR ( Amer) Est GFR (Non-Af Amer) BUN/Creatinine Ratio Glucose POC Glucose POC Glucose (other) 216 H Calcium POC Ioniz Calcium Brady 0.77 L* Phosphorus Magnesium 02/28/21 02/28/21 03/01/21 19:36 23:05 00:37 WBC RBC Hgb POC Hgb Hct POC Hct MCV MCH MCHC RDW Std Deviation RDW Coeff of Tim Plt Count MPV Immature Gran % (Auto) Neut % (Auto) Lymph % (Auto) [place] % (Auto) Eos % (Auto) Baso % (Auto) Neut # (Auto) Lymph # (Auto) [place] # (Auto) Eos # (Auto) Baso # (Auto) Immature Gran # (Auto) Absolute Nucleated RBC Nucleated RBC % (auto) Anisocytosis PT INR APTT PTT Ratio Sample Site POC pH POC pCO2 POC pO2 POC HCO3 POC Base Excess ABG pH (Temp Correct) ABG pCO2 (Temp Corrct POC ABG pO2 at Pt Temp POC ABG O2 Sat Isidoro Test O2 Delivery Device POC O2 Rate POC FiO2 Tidal Volume PEEP POC Sodium Sodium 132 L POC Potassium Potassium 6.7 H* 6.4 H* POC Chloride Chloride 92 L Carbon Dioxide 21 POC Total CO2 Anion Gap 18.0 H POC Anion Gap POC BUN BUN 86 H Creatinine 13.70 H* POC Creatinine Est Cr Clr Drug Dosing 10.3 Est GFR ( Amer) 4.1 Est GFR (Non-Af Amer) 3.5 BUN/Creatinine Ratio 6.2 L Glucose 177 H POC Glucose POC Glucose (other) 180 H Calcium 8.0 L POC Ioniz Calcium Brady Phosphorus 12.2 H Magnesium 2.8 H 03/01/21 03/01/21 03/01/21 01:15 01:15 01:15 WBC 14.52 H RBC 5.82 Hgb 16.9 POC Hgb Hct 51.8 POC Hct MCV 89.0 MCH 29.0 MCHC 32.6 RDW Std Deviation 63.4 H RDW Coeff of Tim 20.0 H Plt Count 359 MPV 9.6 Immature Gran % (Auto) 1.3 Neut % (Auto) 84.1 Lymph % (Auto) 2.3 [place] % (Auto) 12.2 Eos % (Auto) 0.0 Baso % (Auto) 0.1 Neut # (Auto) 12.20 H Lymph # (Auto) 0.[address] [place] # (Auto) 1.77 H Eos # (Auto) 0.00 Baso # (Auto) 0.02 Immature Gran # (Auto) 0.19 H Absolute Nucleated RBC 0.07 H Nucleated RBC % (auto) 0.5 Anisocytosis Present PT 11.9 INR 1.2 H APTT 29.0 PTT Ratio 1.1 Sample Site POC pH POC pCO2 POC pO2 POC HCO3 POC Base Excess ABG pH (Temp Correct) ABG pCO2 (Temp Corrct POC ABG pO2 at Pt Temp POC ABG O2 Sat Isidoro Test O2 Delivery Device POC O2 Rate POC FiO2 Tidal Volume PEEP POC Sodium Sodium 131 L POC Potassium Potassium 6.1 H* POC Chloride Chloride 92 L Carbon Dioxide 21 POC Total CO2 Anion Gap 19.0 H POC Anion Gap POC BUN BUN 90 H Creatinine 14.50 H* D POC Creatinine Est Cr Clr Drug Dosing 9.7 Est GFR ( Amer) 3.8 Est GFR (Non-Af Amer) 3.3 BUN/Creatinine Ratio 6.2 L Glucose 218 H POC Glucose POC Glucose (other) Calcium 8.1 L POC Ioniz Calcium Brady Phosphorus 12.0 H Magnesium 2.5 H 03/01/21 03/01/21 03/01/21 04:26 08:34 11:54 WBC RBC Hgb POC Hgb 18.0 Hct POC Hct 53 H MCV MCH MCHC RDW Std Deviation RDW Coeff of Tim Plt Count MPV Immature Gran % (Auto) Neut % (Auto) Lymph % (Auto) [place] % (Auto) Eos % (Auto) Baso % (Auto) Neut # (Auto) Lymph # (Auto) [place] # (Auto) Eos # (Auto) Baso # (Auto) Immature Gran # (Auto) Absolute Nucleated RBC Nucleated RBC % (auto) Anisocytosis PT INR APTT PTT Ratio Sample Site Art Line POC pH 7.38 POC pCO2 39 POC pO2 70 L POC HCO3 23 POC Base Excess -2.0 ABG pH (Temp Correct) 7.364 ABG pCO2 (Temp Corrct 40 POC ABG pO2 at Pt Temp 75 POC ABG O2 Sat 94.0 Isidoro Test NA O2 Delivery Device Ventilator POC O2 Rate 14 POC FiO2 35 Tidal Volume 550 PEEP 8 POC Sodium 132 L Sodium POC Potassium 6.2 H* Potassium POC Chloride Chloride Carbon Dioxide POC Total CO2 24 Anion Gap POC Anion Gap POC BUN BUN Creatinine POC Creatinine Est Cr Clr Drug Dosing Est GFR ( Amer) Est GFR (Non-Af Amer) BUN/Creatinine Ratio Glucose POC Glucose 165 H 158 H POC Glucose (other) Calcium POC Ioniz Calcium Brady Phosphorus Magnesium 03/01/21 16:38 WBC RBC Hgb POC Hgb Hct POC Hct MCV MCH MCHC RDW Std Deviation RDW Coeff of Tim Plt Count MPV Immature Gran % (Auto) Neut % (Auto) Lymph % (Auto) [place] % (Auto) Eos % (Auto) Baso % (Auto) Neut # (Auto) Lymph # (Auto) [place] # (Auto) Eos # (Auto) Baso # (Auto) Immature Gran # (Auto) Absolute Nucleated RBC Nucleated RBC % (auto) Anisocytosis PT INR APTT PTT Ratio Sample Site POC pH POC pCO2 POC pO2 POC HCO3 POC Base Excess ABG pH (Temp Correct) ABG pCO2 (Temp Corrct POC ABG pO2 at Pt Temp POC ABG O2 Sat Isidoro Test O2 Delivery Device POC O2 Rate POC FiO2 Tidal Volume PEEP POC Sodium Sodium POC Potassium Potassium POC Chloride Chloride Carbon Dioxide POC Total CO2 Anion Gap POC Anion Gap POC BUN BUN Creatinine POC Creatinine Est Cr Clr Drug Dosing Est GFR ( Amer) Est GFR (Non-Af Amer) BUN/Creatinine Ratio Glucose POC Glucose 176 H POC Glucose (other) Calcium POC Ioniz Calcium Brady Phosphorus Magnesium PG Care Time/CCT Total # of Minutes Spent Total Time Spent with Patient: Total time spent is greater than 50% in coordination of care (as documented) at patient's floor/unit and/or counseling patient: Coding Level of Care Code 78235 Subseq Hosp Care Lvl 3 Diagnoses End stage renal disease N18.6 COVID-19 U07.1 Dialysis AV fistula malfunction T82.590A Cardiac arrest I46.9
[2021-03-01 20:32] LABS: Basophils # (auto) 0.02 K/uL (0-0.2); Basophils % (auto) 0.1 %; Hematocrit (blood only) 53.8 % (42-52); Hemoglobin 17.6 g/dL (14.0-18.0); Immature Granulocytes # (auto) 0.23 K/uL (0.00-0.02); Immature Granulocytes % (auto) 1.4 %; Lymphocytes # (auto) 0.59 K/uL (1.2-3.4); Lymphocytes % (auto) 3.7 %; Mean Corpuscular Hemoglobin 29.7 pg (25-34); Mean Corpuscular Hgb Conc 32.7 g/dL (32-36); Mean Corpuscular Volume 90.9 fL (80-100); Mean Platelet Volume 10.3 fL (7.4-10.4); Monocytes # (auto) 1.56 K/uL (0.11-0.59); Monocytes % (auto) 9.8 %; Neutrophils # (auto) 13.58 K/uL (1.4-6.5); Nucleated RBC # (auto) 0.09 K/uL (0-0); Nucleated RBC % (auto) 0.6 %; Platelet Count 349 K/uL (130-400); RDW Coefficient of Variation 20.3 % (11.5-14.5); RDW Standard Deviation 66.1 fL (36.4-46.3); Red Blood Count 5.92 M/uL (4.7-6.1); White Blood Count 15.98 K/uL (4.8-10.8)
[2021-03-01 20:43] LABS: Partial Thromboplastin Ratio 1.1; Partial Thromboplastin Time 29.4 Seconds (21.0-31.0)
[2021-03-01] MEDS: NEPHROCAPS PO SCH (20:51)
[2021-03-01 21:16] LABS: Anisocytosis Present
[2021-03-01 21:46] LABS: Albumin Level 2.9 gm/dl (3.4-5.0); BUN Creatinine Ratio 4.9 (10-20); Bilirubin Direct 0.2 mg/dl (0-0.2); Bilirubin,Total 0.9 mg/dl (0.2-1); Calcium 9.1 mg/dl (8.5-10.1); Creatinine Clr Calc Pharmacy 13.6 ml/min; Est GFR (African American) 5.9 ml/min; Est GFR (Non-African American) 5.1 ml/min; Magnesium 2.7 mg/dl (1.8-2.4); Potassium 5.4 mmol/L (3.5-5.1); Total Protein 8.1 gm/dl (6.4-8.2)
[2021-03-02] MEDS: INSULIN ASPART 100 UNITS/ML 3 ML PEN SC SCH ×7 (00:15→23:46)
[2021-03-02] MEDS: DOXYCYCLINE HYCLATE 100 MG in DEXTROSE 5% 100 ML IV SCH ×3 (00:23→23:43)
[2021-03-02 04:13] LABS: iSTAT Art Bld Gas pCO2 Correct 37 mmHg (35-46); iSTAT Art Bld Gas pH Corrected 7.423 (7.35-7.45); iSTAT Arterial Blood Gas HCO3 24 meg/L (19-24); iSTAT Arterial Blood Gas pCO2 37 mmHg (35-46); iSTAT Arterial Blood Gas pH 7.43 (7.35-7.45); iSTAT Arterial Blood Gas pO2 70 mmHg (80-95); iSTAT Arterial Blood Gas pO2 C 71; iSTAT Carbon Dioxide 25 mmol/L (24-31); iSTAT Hematocrit 52 % (42-52); iSTAT Hemoglobin 17.7 g/dl (14.0-18.0); iSTAT Potassium 5.9 mmol/L (3.3-5.0); iSTAT Site Art Line; iSTAT Sodium 133 mmol/L (135-144)
[2021-03-02] MEDS: LEVOTHYROXINE SODIUM 150 MCG TABLET PO SCH (05:51)
[2021-03-02 07:49] LABS: Basophils # (auto) 0.02 K/uL (0-0.2); Basophils % (auto) 0.1 %; Hematocrit (blood only) 49.7 % (42-52); Hemoglobin 16.1 g/dL (14.0-18.0); Immature Granulocytes # (auto) 0.17 K/uL (0.00-0.02); Immature Granulocytes % (auto) 1.2 %; Lymphocytes # (auto) 0.37 K/uL (1.2-3.4); Lymphocytes % (auto) 2.5 %; Mean Corpuscular Hgb Conc 32.4 g/dL (32-36); Mean Corpuscular Volume 89.5 fL (80-100); Mean Platelet Volume 10.3 fL (7.4-10.4); Monocytes # (auto) 1.65 K/uL (0.11-0.59); Monocytes % (auto) 11.2 %; Neutrophils # (auto) 12.55 K/uL (1.4-6.5); Platelet Count 257 K/uL (130-400); RDW Standard Deviation 64.5 fL (36.4-46.3); Red Blood Count 5.55 M/uL (4.7-6.1); White Blood Count 14.76 K/uL (4.8-10.8)
[2021-03-02] MEDS: fentaNYL DRIP 1,250 MCG/250 ML BAG IV SCH (07:50)
[2021-03-02] MEDS: PANTOprazole 40 MG in SYRINGE 0 ML IV SCH ×2 (08:05→19:58)
[2021-03-02] MEDS: dexAMETHasone 6 MG in SYRINGE 0 ML IV SCH (08:05)
[2021-03-02] MEDS: CHOLECALCIFEROL 1,000 UNITS 25 MCG TAB PO SCH (08:05)
[2021-03-02 08:28] LABS: Albumin Globulin Ratio 0.5 (0.9-2); Albumin Level 2.5 gm/dl (3.4-5.0); BUN Creatinine Ratio 5.9 (10-20); Bilirubin,Total 0.8 mg/dl (0.2-1); Calcium 8.9 mg/dl (8.5-10.1); Creatinine Clr Calc Pharmacy 10.9 ml/min; Est GFR (African American) 4.5 ml/min; Est GFR (Non-African American) 3.9 ml/min; Globulin 4.8 gm/dl (2.5-4.0); Magnesium 2.9 mg/dl (1.8-2.4); Potassium 5.8 mmol/L (3.5-5.1); Total Protein 7.3 gm/dl (6.4-8.2)
[2021-03-02 09:05] LABS: Anisocytosis Present
--- NOTE | 2021-03-02 09:40 | Nephrology Progress Note ---
Date of Service March 02, 2021 Assessment & Plan (1) End stage renal disease: Plan: Will plan a short HD treatment later today for additional clearance. Volume status improved. Outpatient Rx: MWF 4 hrs [id number]/800. EDW has been 174 kg. Medications appropriately dosed for IHD. (2) COVID-19: Plan: Multifocal pneumonia. Remains on Zosyn and Decadron. Blood cultures negative. (3) Dialysis AV fistula malfunction: Plan: Functioning well following recent revision. Good thrill and bruit. (4) Cardiac arrest: Plan: Persistents signs of notable anoxic brain injury. Palliative care following. Admission and Anticipated Discharge Date Admission Date: February 26, 2021 Subjective No acute events overnight. Completed HD yesterday without complications, UF 5 L. Sedation weaned. Yoshi remains unresponsive. BP acceptable off vasopressors. CPAP on vent. Review of Systems Review of Systems: Unobtainable due to endotracheal tube and Unobtainable due to reduced consciousness Physical Exam Constitutional: + ill appearing, + morbidly obese and + mechanically ventilated; no acute distress Eyes: + anicteric sclerae Neck: normal visual inspection, trachea midline and + thick neck Respiratory: symmetric chest movement Auscultation: + rhonchi Cardiovascular: Rate/Rhythm: regular rhythm Heart Sounds: normal S1, normal S2 and + murmur Extremities: + AV fistula Gastrointestinal (Abdomen): Inspection/Auscultation: + abdomen distended and + hypoactive bowel sounds Musculoskeletal: Extremities: extremities normal to inspection; no clubbing Skin: normal turgor; no lesions Neurologic: Motor/Sensory: no tremor and no asterixis Results & Data ([facility]) Vital Signs (Past 12 Hours) Vital Signs Temp Pulse Resp BP Pulse Ox 03/02/21 09:17 37.4 C 106 H 25 H 172/68 H 92 03/02/21 08:16 37.5 C 106 H 26 H 107/81 91 03/02/21 07:33 107 H 21 92 03/02/21 07:16 37.4 C 108 H 24 160/68 H 92 03/02/21 04:16 37.4 C 105 H 152/69 H 93 03/02/21 03:57 105 H 26 H 95 03/02/21 03:46 37.3 C 105 H 133/69 94 03/02/21 03:16 37.3 C 103 H 132/82 94 03/02/21 02:46 37.3 C 99 H 157/67 H 95 03/02/21 02:16 37.3 C 104 H 135/74 95 03/02/21 01:46 37.3 C 106 H 159/74 H 95 03/02/21 01:00 37.5 C 110 H 176/77 H 93 03/02/21 00:48 123 H 90 03/02/21 00:16 37.1 C 112 H 115/86 94 03/01/21 23:46 37.1 C 105 H 105/57 L 94 03/01/21 23:16 37.1 C 107 H 142/72 H 94 03/01/21 22:46 37.2 C 105 H 120/74 95 03/01/21 22:43 121 H 24 95 03/01/21 22:16 37.1 C 123 H 142/103 H 90 03/01/21 21:46 37.1 C 105 H 139/66 93 Laboratory Results Laboratory Results - last 24 hr 02/26/21 03/01/21 03/01/21 19:26 11:54 12:29 WBC 15.98 H RBC 5.92 Hgb 17.6 POC Hgb 19.0 H Hct 53.8 H POC Hct 56 H MCV 90.9 MCH 29.7 MCHC 32.7 RDW Std Deviation 66.1 H RDW Coeff of Tim 20.3 H Plt Count 349 MPV 10.3 Immature Gran % (Auto) 1.4 Neut % (Auto) 85.0 Lymph % (Auto) 3.7 [place] % (Auto) 9.8 Eos % (Auto) 0.0 Baso % (Auto) 0.1 Neut # (Auto) 13.58 H Lymph # (Auto) 0.[address] [place] # (Auto) 1.56 H Eos # (Auto) 0.00 Baso # (Auto) 0.02 Immature Gran # (Auto) 0.23 H Absolute Nucleated RBC 0.09 H Nucleated RBC % (auto) 0.6 Anisocytosis Present APTT PTT Ratio Sample Site POC pH POC pCO2 POC pO2 POC HCO3 POC Base Excess ABG pH (Temp Correct) ABG pCO2 (Temp Corrct POC ABG pO2 at Pt Temp POC ABG O2 Sat Isidoro Test O2 Delivery Device POC O2 Rate Minute Ventilation Tidal Volume PEEP POC Sodium 137 Sodium POC Potassium 4.5 Potassium POC Chloride 94 L Chloride Carbon Dioxide POC Total CO2 < 5 L* Anion Gap POC Anion Gap TNP POC BUN 124 H* BUN Creatinine POC Creatinine 12.3 H* Est Cr Clr Drug Dosing Est GFR ( Amer) Est GFR (Non-Af Amer) BUN/Creatinine Ratio Glucose POC Glucose 158 H POC Glucose (other) 216 H Calcium POC Ioniz Calcium Brady 0.77 L* Phosphorus Magnesium Total Bilirubin Direct Bilirubin AST ALT Alkaline Phosphatase Total Protein Albumin Globulin Albumin/Globulin Ratio 03/01/21 03/01/21 03/01/21 12:29 12:29 16:38 WBC RBC Hgb POC Hgb Hct POC Hct MCV MCH MCHC RDW Std Deviation RDW Coeff of Tim Plt Count MPV Immature Gran % (Auto) Neut % (Auto) Lymph % (Auto) [place] % (Auto) Eos % (Auto) Baso % (Auto) Neut # (Auto) Lymph # (Auto) [place] # (Auto) Eos # (Auto) Baso # (Auto) Immature Gran # (Auto) Absolute Nucleated RBC Nucleated RBC % (auto) Anisocytosis APTT 29.4 PTT Ratio 1.1 Sample Site POC pH POC pCO2 POC pO2 POC HCO3 POC Base Excess ABG pH (Temp Correct) ABG pCO2 (Temp Corrct POC ABG pO2 at Pt Temp POC ABG O2 Sat Isidoro Test O2 Delivery Device POC O2 Rate Minute Ventilation Tidal Volume PEEP POC Sodium Sodium 134 L POC Potassium Potassium 5.4 H POC Chloride Chloride 93 L Carbon Dioxide 24 POC Total CO2 Anion Gap 17.0 H POC Anion Gap POC BUN BUN 49 H Creatinine 10.20 H* D POC Creatinine Est Cr Clr Drug Dosing 13.6 Est GFR ( Amer) 5.9 Est GFR (Non-Af Amer) 5.1 BUN/Creatinine Ratio 4.9 L Glucose 119 H POC Glucose 176 H POC Glucose (other) Calcium 9.1 POC Ioniz Calcium Brady Phosphorus Magnesium 2.7 H Total Bilirubin 0.9 Direct Bilirubin 0.2 AST 68 H ALT 189 H Alkaline Phosphatase 90 Total Protein 8.1 Albumin 2.9 L Globulin Albumin/Globulin Ratio 03/01/21 03/02/21 03/02/21 20:14 00:15 03:51 WBC RBC Hgb POC Hgb 17.7 Hct POC Hct 52 MCV MCH MCHC RDW Std Deviation RDW Coeff of Tim Plt Count MPV Immature Gran % (Auto) Neut % (Auto) Lymph % (Auto) [place] % (Auto) Eos % (Auto) Baso % (Auto) Neut # (Auto) Lymph # (Auto) [place] # (Auto) Eos # (Auto) Baso # (Auto) Immature Gran # (Auto) Absolute Nucleated RBC Nucleated RBC % (auto) Anisocytosis APTT PTT Ratio Sample Site Art Line POC pH 7.43 POC pCO2 37 POC pO2 70 L POC HCO3 24 POC Base Excess 0.0 ABG pH (Temp Correct) 7.423 ABG pCO2 (Temp Corrct 37 POC ABG pO2 at Pt Temp 71 POC ABG O2 Sat 94.0 Isidoro Test NA O2 Delivery Device Ventilator POC O2 Rate 14 Minute Ventilation 11.3 Tidal Volume 450 PEEP 8 POC Sodium 133 L Sodium POC Potassium 5.9 H Potassium POC Chloride Chloride Carbon Dioxide POC Total CO2 25 Anion Gap POC Anion Gap POC BUN BUN Creatinine POC Creatinine Est Cr Clr Drug Dosing Est GFR ( Amer) Est GFR (Non-Af Amer) BUN/Creatinine Ratio Glucose POC Glucose 205 H 226 H POC Glucose (other) Calcium POC Ioniz Calcium Brady Phosphorus Magnesium Total Bilirubin Direct Bilirubin AST ALT Alkaline Phosphatase Total Protein Albumin Globulin Albumin/Globulin Ratio 03/02/21 03/02/21 03/02/21 04:09 07:08 07:08 WBC 14.76 H RBC 5.55 Hgb 16.1 POC Hgb Hct 49.7 POC Hct MCV 89.5 MCH 29.0 MCHC 32.4 RDW Std Deviation 64.5 H RDW Coeff of Tim 20.0 H Plt Count 257 MPV 10.3 Immature Gran % (Auto) 1.2 Neut % (Auto) 85.0 Lymph % (Auto) 2.5 [place] % (Auto) 11.2 Eos % (Auto) 0.0 Baso % (Auto) 0.1 Neut # (Auto) 12.55 H Lymph # (Auto) 0.[address] [place] # (Auto) 1.65 H Eos # (Auto) 0.00 Baso # (Auto) 0.02 Immature Gran # (Auto) 0.17 H Absolute Nucleated RBC Nucleated RBC % (auto) Anisocytosis Present APTT PTT Ratio Sample Site POC pH POC pCO2 POC pO2 POC HCO3 POC Base Excess ABG pH (Temp Correct) ABG pCO2 (Temp Corrct POC ABG pO2 at Pt Temp POC ABG O2 Sat Isidoro Test O2 Delivery Device POC O2 Rate Minute Ventilation Tidal Volume PEEP POC Sodium Sodium 132 L POC Potassium Potassium 5.8 H POC Chloride Chloride 92 L Carbon Dioxide 21 POC Total CO2 Anion Gap 19.0 H POC Anion Gap POC BUN BUN 74 H D Creatinine 12.70 H* D POC Creatinine Est Cr Clr Drug Dosing 10.9 Est GFR ( Amer) 4.5 Est GFR (Non-Af Amer) 3.9 BUN/Creatinine Ratio 5.9 L Glucose 193 H POC Glucose 229 H POC Glucose (other) Calcium 8.9 POC Ioniz Calcium Brady Phosphorus 14.0 H Magnesium 2.9 H Total Bilirubin 0.8 Direct Bilirubin AST 46 H ALT 122 H Alkaline Phosphatase 77 Total Protein 7.3 Albumin 2.5 L Globulin 4.8 H Albumin/Globulin Ratio 0.5 L 03/02/21 07:18 WBC RBC Hgb POC Hgb Hct POC Hct MCV MCH MCHC RDW Std Deviation RDW Coeff of Tim Plt Count MPV Immature Gran % (Auto) Neut % (Auto) Lymph % (Auto) [place] % (Auto) Eos % (Auto) Baso % (Auto) Neut # (Auto) Lymph # (Auto) [place] # (Auto) Eos # (Auto) Baso # (Auto) Immature Gran # (Auto) Absolute Nucleated RBC Nucleated RBC % (auto) Anisocytosis APTT PTT Ratio Sample Site POC pH POC pCO2 POC pO2 POC HCO3 POC Base Excess ABG pH (Temp Correct) ABG pCO2 (Temp Corrct POC ABG pO2 at Pt Temp POC ABG O2 Sat Isidoro Test O2 Delivery Device POC O2 Rate Minute Ventilation Tidal Volume PEEP POC Sodium Sodium POC Potassium Potassium POC Chloride Chloride Carbon Dioxide POC Total CO2 Anion Gap POC Anion Gap POC BUN BUN Creatinine POC Creatinine Est Cr Clr Drug Dosing Est GFR ( Amer) Est GFR (Non-Af Amer) BUN/Creatinine Ratio Glucose POC Glucose 195 H POC Glucose (other) Calcium POC Ioniz Calcium Brady Phosphorus Magnesium Total Bilirubin Direct Bilirubin AST ALT Alkaline Phosphatase Total Protein Albumin Globulin Albumin/Globulin Ratio PG Care Time/CCT Total # of Minutes Spent Total Time Spent with Patient: Total time spent is greater than 50% in coordination of care (as documented) at patient's floor/unit and/or counseling patient: Coding Level of Care Code 26831 Subseq Hosp Care Lvl 3 Diagnoses End stage renal disease N18.6 COVID-19 U07.1 Dialysis AV fistula malfunction T82.590A Cardiac arrest I46.9
--- NOTE | 2021-03-02 10:55 | Hospitalist Progress Note ---
Date of Service March 02, 2021 Assessment & Plan (1) Anoxic encephalopathy: Plan: sedation now off, not waking up, not fighting the ventilator no response to painful stimuli, having myoclonic jerks EEG on 03/01 showed severe encephalopathy, suggestive of anoxic injury will consult neurology to comment on this to help speak with about goals of care (2) Cardiac arrest: Plan: Post asystole cardiac arrest x2 with ROSC achieved following CPR, epinephrine, bicarb-thought to be secondary to hypoglycemia, severe respiratory acidosis unsure is COVID pneumonia actually contributed to arrest as he is on minimal ventilator settings with FiO2 35% Troponin unremarkable, EKG without ST elevations, QTc 475, was not having chest pain prior to the event Echocardiogram from 02/27 with preserved EF 60-65%, moderate LVH, mild left ear, mild AI -Initially on Epinephrine drip- transitioned to Levophed - now hypertensive without medications He was noted to be unresponsive after resuscitation achieved-underwent hypothermic protocol, now re-warming EEG with severe encephalopathy on 03/01, suggestive of cerebral anoxia now off of sedation, unresponsive palliative consultation to help discuss goals of care, discussed with Dr. 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 (4) Pneumonia: Plan: Covid-19 pneumonia Procalcitonin mildly elevated but is also in the setting of ESRD He recently completed a 5-day course of vancomycin, Zosyn, and azithromycin during previous hospital stay Blood cultures-no growth to date (5) Central venous catheter in place: Plan: Noted (6) Hypothyroidism: Plan: Continue synthroid TSH recently normal in 12/2020 at 2.2 (7) Controlled type 2 diabetes mellitus with neurologic complication, with long- term current use of insulin: Plan: Presented with hypoglycemia Holding all insulin at this time Follow glucose-ranges from 120s to 160s (8) Hypoxia: Plan: Acute respiratory failure with hypoxia as above As per 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 crane operator minimal settings, PEEP 8 and FiO2 of 30%, doubt that COVID pneumonia lead to cardiac arrest (9) Hyperkalemia: Plan: Potassium elevated upon admission during cardiac arrest and was given calcium gluconate, insulin and glucose, Kayexalate Received urgent hemodialysis on 02/27 with low potassium bath Follow BMP daily, nephrology managing electrolytes had HD on 03/01 (10) End-stage renal disease on hemodialysis: Plan: Received urgent dialysis on 02/27 - Nephrology consult and management appreciated Has recently revised AV fistula in place HD completed 03/01 (11) Transaminitis: Plan: AST and ALT up in the 300s likely secondary to cardiac arrest and acute liver injury-now trending downward INR only minimally elevated at 1.2, platelets normal Follow LFTs, coags (12) Obesity: Plan: Chronic no acute interventions BMI 52.2 (13) Dyslipidemia: Plan: Hold statin with acute liver injury (14) DVT (deep venous thrombosis): Plan: With a history of such Continue Eliquis 5 mg p.o. twice daily Plan: Disposition-continued stay in ICU in Covid unit Full code very poor prognosis, suspected anoxic brain injury, unresponsive on ventilator, myoclonic jerking palliative care will speak with again today, discuss goals of care Admission and Anticipated Discharge Date Admission Date: February 26, 2021 Subjective patient is now off sedation, he is not fighting the ventilator he is having myoclonic jerks, he did not withdraw to pain in fingers bilaterally reviewed labs spoke with Dr. Moon, will get neurology consult to comment on anoxic brain injury Dr. Lewis will speak with the again this afternoon, appreciate her help in this difficult case Review of Systems Review of Systems: Unobtainable due to cognitive status and Unobtainable due to endotracheal tube Physical Exam Constitutional: + ill appearing, + morbidly obese, + altered mental status, + lethargic and + mechanically ventilated; no acute distress Neck: trachea midline and + thick neck Respiratory: symmetric chest movement (ventilated) Auscultation: no crackles, no rales, no rhonchi and no wheezes Cardiovascular: Rate/Rhythm: regular rate and regular rhythm Heart Sounds: normal S1 and normal S2; no murmur Extremities: normal capillary refill and + edema Gastrointestinal (Abdomen): normal bowel sounds, soft, nontender, no hepatosplenomegaly Skin: no rashes, warm and dry Neurologic: CN's II-XI intact bilaterally and + obtunded Motor/Sensory: + abnormal movement (myoclonic jerks, diffuse) Comatose Patient: + response to noxious stimuli absent Results & Data Results & Data ([facility]) Vital Signs (Past 12 Hours) Vital Signs Temp Pulse Resp BP Pulse Ox 03/02/21 09:17 37.4 C 106 H 25 H 172/68 H 92 03/02/21 08:16 37.5 C 106 H 26 H 107/81 91 03/02/21 07:33 107 H 21 92 03/02/21 07:16 37.4 C 108 H 24 160/68 H 92 03/02/21 04:16 37.4 C 105 H 152/69 H 93 03/02/21 03:57 105 H 26 H 95 03/02/21 03:46 37.3 C 105 H 133/69 94 03/02/21 03:16 37.3 C 103 H 132/82 94 03/02/21 02:46 37.3 C 99 H 157/67 H 95 03/02/21 02:16 37.3 C 104 H 135/74 95 03/02/21 01:46 37.3 C 106 H 159/74 H 95 03/02/21 01:00 37.5 C 110 H 176/77 H 93 03/02/21 00:48 123 H 90 03/02/21 00:16 37.1 C 112 H 115/86 94 03/01/21 23:46 37.1 C 105 H 105/57 L 94 03/01/21 23:16 37.1 C 107 H 142/72 H 94 03/01/21 22:46 37.2 C 105 H 120/74 95 Laboratory Results Laboratory Results - last 24 hr 03/01/21 03/01/21 03/01/21 11:54 12:29 12:29 WBC 15.98 H RBC 5.92 Hgb 17.6 POC Hgb Hct 53.8 H POC Hct MCV 90.9 MCH 29.7 MCHC 32.7 RDW Std Deviation 66.1 H RDW Coeff of Tim 20.3 H Plt Count 349 MPV 10.3 Immature Gran % (Auto) 1.4 Neut % (Auto) 85.0 Lymph % (Auto) 3.7 [place] % (Auto) 9.8 Eos % (Auto) 0.0 Baso % (Auto) 0.1 Neut # (Auto) 13.58 H Lymph # (Auto) 0.59 L [place] # (Auto) 1.56 H Eos # (Auto) 0.00 Baso # (Auto) 0.02 Immature Gran # (Auto) 0.23 H Absolute Nucleated RBC 0.09 H Nucleated RBC % (auto) 0.6 Anisocytosis Present APTT 29.4 PTT Ratio 1.1 Sample Site POC pH POC pCO2 POC pO2 POC HCO3 POC Total CO2 POC Base Excess ABG pH (Temp Correct) ABG pCO2 (Temp Corrct POC ABG pO2 at Pt Temp POC ABG O2 Sat Isidoro Test O2 Delivery Device POC O2 Rate Minute Ventilation Tidal Volume PEEP POC Sodium Sodium POC Potassium Potassium Chloride Carbon Dioxide Anion Gap BUN Creatinine Est Cr Clr Drug Dosing Est GFR ( Amer) Est GFR (Non-Af Amer) BUN/Creatinine Ratio Glucose POC Glucose 158 H Calcium Phosphorus Magnesium Total Bilirubin Direct Bilirubin AST ALT Alkaline Phosphatase Total Protein Albumin Globulin Albumin/Globulin Ratio 03/01/21 03/01/21 03/01/21 12:29 16:38 20:14 WBC RBC Hgb POC Hgb Hct POC Hct MCV MCH MCHC RDW Std Deviation RDW Coeff of Tim Plt Count MPV Immature Gran % (Auto) Neut % (Auto) Lymph % (Auto) [place] % (Auto) Eos % (Auto) Baso % (Auto) Neut # (Auto) Lymph # (Auto) [place] # (Auto) Eos # (Auto) Baso # (Auto) Immature Gran # (Auto) Absolute Nucleated RBC Nucleated RBC % (auto) Anisocytosis APTT PTT Ratio Sample Site POC pH POC pCO2 POC pO2 POC HCO3 POC Total CO2 POC Base Excess ABG pH (Temp Correct) ABG pCO2 (Temp Corrct POC ABG pO2 at Pt Temp POC ABG O2 Sat Isidoro Test O2 Delivery Device POC O2 Rate Minute Ventilation Tidal Volume PEEP POC Sodium Sodium 134 L POC Potassium Potassium 5.4 H Chloride 93 L Carbon Dioxide 24 Anion Gap 17.0 H BUN 49 H Creatinine 10.20 H* D Est Cr Clr Drug Dosing 13.6 Est GFR ( Amer) 5.9 Est GFR (Non-Af Amer) 5.1 BUN/Creatinine Ratio 4.9 L Glucose 119 H POC Glucose 176 H 205 H Calcium 9.1 Phosphorus Magnesium 2.7 H Total Bilirubin 0.9 Direct Bilirubin 0.2 AST 68 H ALT 189 H Alkaline Phosphatase 90 Total Protein 8.1 Albumin 2.9 L Globulin Albumin/Globulin Ratio 03/02/21 03/02/21 03/02/21 00:15 03:51 04:09 WBC RBC Hgb POC Hgb 17.7 Hct POC Hct 52 MCV MCH MCHC RDW Std Deviation RDW Coeff of Tim Plt Count MPV Immature Gran % (Auto) Neut % (Auto) Lymph % (Auto) [place] % (Auto) Eos % (Auto) Baso % (Auto) Neut # (Auto) Lymph # (Auto) [place] # (Auto) Eos # (Auto) Baso # (Auto) Immature Gran # (Auto) Absolute Nucleated RBC Nucleated RBC % (auto) Anisocytosis APTT PTT Ratio Sample Site Art Line POC pH 7.43 POC pCO2 37 POC pO2 70 L POC HCO3 24 POC Total CO2 25 POC Base Excess 0.0 ABG pH (Temp Correct) 7.423 ABG pCO2 (Temp Corrct 37 POC ABG pO2 at Pt Temp 71 POC ABG O2 Sat 94.0 Isidoro Test NA O2 Delivery Device Ventilator POC O2 Rate 14 Minute Ventilation 11.3 Tidal Volume 450 PEEP 8 POC Sodium 133 L Sodium POC Potassium 5.9 H Potassium Chloride Carbon Dioxide Anion Gap BUN Creatinine Est Cr Clr Drug Dosing Est GFR ( Amer) Est GFR (Non-Af Amer) BUN/Creatinine Ratio Glucose POC Glucose 226 H 229 H Calcium Phosphorus Magnesium Total Bilirubin Direct Bilirubin AST ALT Alkaline Phosphatase Total Protein Albumin Globulin Albumin/Globulin Ratio 03/02/21 03/02/21 03/02/21 07:08 07:08 07:18 WBC 14.76 H RBC 5.55 Hgb 16.1 POC Hgb Hct 49.7 POC Hct MCV 89.5 MCH 29.0 MCHC 32.4 RDW Std Deviation 64.5 H RDW Coeff of Tim 20.0 H Plt Count 257 MPV 10.3 Immature Gran % (Auto) 1.2 Neut % (Auto) 85.0 Lymph % (Auto) 2.5 [place] % (Auto) 11.2 Eos % (Auto) 0.0 Baso % (Auto) 0.1 Neut # (Auto) 12.55 H Lymph # (Auto) 0.37 L [place] # (Auto) 1.65 H Eos # (Auto) 0.00 Baso # (Auto) 0.02 Immature Gran # (Auto) 0.17 H Absolute Nucleated RBC Nucleated RBC % (auto) Anisocytosis Present APTT PTT Ratio Sample Site POC pH POC pCO2 POC pO2 POC HCO3 POC Total CO2 POC Base Excess ABG pH (Temp Correct) ABG pCO2 (Temp Corrct POC ABG pO2 at Pt Temp POC ABG O2 Sat Isidoro Test O2 Delivery Device POC O2 Rate Minute Ventilation Tidal Volume PEEP POC Sodium Sodium 132 L POC Potassium Potassium 5.8 H Chloride 92 L Carbon Dioxide 21 Anion Gap 19.0 H BUN 74 H D Creatinine 12.70 H* D Est Cr Clr Drug Dosing 10.9 Est GFR ( Amer) 4.5 Est GFR (Non-Af Amer) 3.9 BUN/Creatinine Ratio 5.9 L Glucose 193 H POC Glucose 195 H Calcium 8.9 Phosphorus 14.0 H Magnesium 2.9 H Total Bilirubin 0.8 Direct Bilirubin AST 46 H ALT 122 H Alkaline Phosphatase 77 Total Protein 7.3 Albumin 2.5 L Globulin 4.8 H Albumin/Globulin Ratio 0.5 L Medications Administered Current Inpatient Medications Acetaminophen (Acetaminophen Susp 325 Mg/10.15 Ml Udc) 650 mg PO Q4H PRN PRN Reason: Fever Stop: 03/31/21 03:23 Last Admin: 03/01/21 03:51 Dose: 650 mg Documented by: Apixaban (Apixaban 5 Mg Tablet) 5 mg PO Q12 [facility] Stop: 03/29/21 00:43 Last Admin: 02/28/21 21:22 Dose: 5 mg Documented by: Aspirin (Aspirin 81 Mg Chew) 81 mg PO QAM YUDITH Stop: 03/29/21 08:59 Last Admin: 03/01/21 10:40 Dose: Not Given Documented by: Bisacodyl (Bisacodyl 5 Mg Tabec) 5 mg PO MoWeFrSa@0900 YUDITH Stop: 03/29/21 08:59 Last Admin: 02/27/21 08:42 Dose: 5 mg Documented by: Cinacalcet (Cinacalcet Hcl 90 Mg Tab) 90 mg PO DAILY [facility] Stop: 03/29/21 08:59 Last Admin: 03/01/21 09:27 Dose: Not Given Documented by: Dextrose (Dextrose 50% 50 Ml Syringe) 25 - 50 ml IV UD PRN; Protocol PRN Reason: Hypoglycemia Protocol Stop: 03/31/21 10:44 Fentanyl Citrate (Fentanyl Bolus From Bag) 50 mcg IV Q60M PRN PRN Reason: Pain or Agitation Stop: 03/12/21 19:56 Last Admin: 02/26/21 22:55 Dose: 50 mcg Documented by: Glucagon (Glucagon For Inj 1 Mg Vial) 1 mg SQ UD PRN; Protocol PRN Reason: Hypoglycemia Protocol Stop: 03/31/21 10:44 Glucose (Glucose 40% Gel 15 Gm Tube) 15 - 30 gm PO UD PRN; Protocol PRN Reason: Hypoglycemia Protocol Stop: 03/31/21 10:44 Glucose (Glucose 10 Tabs/Tube) 4 - 8 tabs PO UD PRN; Protocol PRN Reason: Hypoglycemia Protocol Stop: 03/31/21 10:44 Fentanyl Citrate (Fentanyl Drip) 1,250 mcg in 250 mls @ 0 mls/hr IV .Q0M YUDITH; Protocol Stop: 03/12/21 19:59 Last Admin: 03/02/21 07:50 Dose: Not Given Documented by: Norepinephrine Bitartrate (Levophed/D5w) 8 mg in 508 mls @ 0 mls/hr IV .Q0M YUDITH; Protocol Stop: 03/28/21 21:14 Last Titration: 03/01/21 15:27 Dose: 0 mcg/kg/min, 0 mls/hr Documented by: Dexamethasone 6 mg/ Syringe 1.5 mls @ 1 mls/min IV Q24H [facility] Stop: 03/29/21 08:59 Last Admin: 03/02/21 08:05 Dose: 1 mls/min Documented by: Lorazepam (Ativan) 1 mg in 2 mls @ 2 mls/min IV Q4H PRN PRN Reason: muscle jerks Stop: 03/30/21 14:35 Pantoprazole Sodium 40 mg/ (Syringe) 10 mls @ 5 mls/min IV BID YUDITH; Protocol Stop: 03/31/21 08:59 Last Admin: 03/02/21 08:05 Dose: 5 mls/min Documented by: Doxycycline Hyclate 100 mg/ (Dextrose) 110 mls @ 55 mls/hr IV Q12H YUDITH Stop: 03/08/21 11:59 Last Infusion: 03/02/21 02:52 Dose: Infused Documented by: Insulin Aspart (Insulin Aspart 100 Units/Ml 3 Ml Pen) 0 units SC Q4 YUDITH Stop: 03/31/21 11:59 Last Admin: 03/02/21 08:14 Dose: 2 units Documented by: Lactulose (Lactulose Syrup 20 Gm/30 Ml Udc) 10 gm PO MoWeFrSa@0900 YUDITH Stop: 03/29/21 08:59 Last Admin: 03/01/21 10:41 Dose: Not Given Documented by: Levalbuterol HCl (Levalbuterol Hcl 0.63 Mg/3 Ml Neb) 0.63 mg INH Q4H PRN PRN Reason: Dyspnea Stop: 03/29/21 00:43 Last Admin: 03/01/21 08:27 Dose: 0.63 mg Documented by: Levothyroxine Sodium (Levothyroxine Sodium 150 Mcg Tablet) 150 mcg PO DAILYBB [facility] Stop: 03/29/21 06:29 Last Admin: 03/02/21 05:51 Dose: 150 mcg Documented by: Miscellaneous (Carbohydrates For Hypoglycemia ) 15 - 30 gm PO UD PRN PRN Reason: Hypoglycemia Treatment Stop: 03/31/21 10:44 Vitamin B Complex/Folic Acid (Nephrocaps) 1 cap PO QPM YUDITH Stop: 03/29/21 00:43 Last Admin: 03/01/21 20:51 Dose: 1 cap Documented by: Vitamin D (Cholecalciferol 1,000 Units 25 Mcg Tab) 5,000 units PO DAILY YUDITH Stop: 03/29/21 08:59 Last Admin: 03/02/21 08:05 Dose: 5,000 units Documented by: PG Care Time/CCT Total # of Minutes Spent Total Time Spent with Patient: Total time spent is greater than 50% in coordination of care (as documented) at patient's floor/unit and/or counseling patient: Coding Level of Care Code 30851 Subseq Hosp Care Lvl 3 Diagnoses Cardiac arrest I46.9 COVID-19 U07.1 Pneumonia J18.9 Laterality: bilateral Pneumonia type: due to unspecified organism Central venous catheter in place Z78.9 Hypothyroidism E03.9 Controlled type 2 diabetes mellitus with neurologic complication, with long-term current use of insulin E11.49; Z79.4 Hypoxia R09.02 Hyperkalemia E87.5 End-stage renal disease on hemodialysis N18.6; Z99.2 Transaminitis R74.01 Obesity E66.9 Dyslipidemia E78.5 DVT (deep venous thrombosis) I82.409 Anoxic encephalopathy G93.1 (1) Pneumonia Laterality: bilateral Pneumonia type: due to unspecified organism
--- NOTE | 2021-03-02 11:39 | Palliative Care Progress Note ---
Date of Service March 02, 2021 Assessment & Plan (1) Anoxic encephalopathy: Plan: Abnormal EEG with encephalopathy noted, remains unresponsive off sedation, now with myoclonus. Prognosis is poor. Neurology consult pending. (2) Palliative care encounter: Plan: I spoke with his Jacinta and updated her today. We had a thomas discussion about the concerns that his prognosis for meaningful recovery is not good. She voices understanding. She has said that if he weren't able to be himself or have meaningful interaction with her, he would not consider that to be a good life. However, she remains hopeful. Palliative care will follow. (3) Cardiac arrest: (4) Respiratory failure: (5) Renal failure: (6) COVID-19: Admission and Anticipated Discharge Date Admission Date: February 26, 2021 Subjective Now off sedation. Breathing above vent. Does not respond to painful stimuli. Per RN, had large tarry stool last night. Bright red blood noted in OG tube. Weight continues to decrease with dialysis. Review of Systems Review of Systems: Unobtainable due to endotracheal tube and Unobtainable due to reduced consciousness Blanca Symptom Assessment Scale PainAD 0/3 Palliative Performance Score 10% Physical Exam Constitutional: + morbidly obese and + mechanically ventilated Eyes: pupils dilated Respiratory: + uses accessory muscles Cardiovascular: tachycardia Gastrointestinal (Abdomen): Inspection/Auscultation: + significant pannus Neurologic: obtunded, myoclonus noted, no withdraw from painful stimuli Genitourinary: anuric Results & Data ([facility]) Vital Signs (Past 12 Hours) Vital Signs Temp Pulse Resp BP Pulse Ox 03/02/21 09:17 99.3 F 106 H 25 H 172/68 H 92 03/02/21 08:16 99.5 F 106 H 26 H 107/81 91 03/02/21 07:33 107 H 21 92 03/02/21 07:16 99.3 F 108 H 24 160/68 H 92 03/02/21 04:16 99.3 F 105 H 152/69 H 93 03/02/21 03:57 105 H 26 H 95 03/02/21 03:46 99.1 F 105 H 133/69 94 03/02/21 03:16 99.1 F 103 H 132/82 94 03/02/21 02:46 99.1 F 99 H 157/67 H 95 09/14/21 02:16 99.1 F 104 H 135/74 95 03/02/21 01:46 99.1 F 106 H 159/74 H 95 03/02/21 01:00 99.5 F 110 H 176/77 H 93 03/02/21 00:48 123 H 90 03/02/21 00:16 98.8 F 112 H 115/86 94 03/01/21 23:46 98.8 F 105 H 105/57 L 94 PG Care Time/CCT Total # of Minutes Spent Total Time Spent: 35 Total Time Spent with Patient: Total time spent is greater than 50% in coordination of care (as documented) at patient's floor/unit and/or counseling patient:family education and support, prognosis, goals of care Coding Level of Care Code 03624 Subseq Hosp Care Lvl 3 Diagnoses Anoxic encephalopathy G93.1 Palliative care encounter Z51.5 Cardiac arrest I46.9 Respiratory failure J96.01; J96.02 Chronicity: acute Respiratory failure complication: hypoxia and hypercapnia COVID-19 U07.1 Renal failure N17.9; N18.9; Z99.2 Acute renal failure type: unspecified Chronic kidney disease stage: on chronic dialysis Renal failure chronicity: acute on chronic (1) Respiratory failure Chronicity: acute Respiratory failure complication: hypoxia and hypercapnia Qualified Code(s): J96.01 - Acute respiratory failure with hypoxia; J96.02 - Acute respiratory failure with hypercapnia (2) Renal failure Acute renal failure type: unspecified Chronic kidney disease stage: on chronic dialysis Renal failure chronicity: acute on chronic Qualified Code(s): N17.9 - Acute kidney failure, unspecified; N18.9 - Chronic kidney disease, unspecified; Z99.2 - Dependence on renal dialysis
[2021-03-02 12:08] LABS: BUN Creatinine Ratio 6.2 (10-20); Calcium 8.9 mg/dl (8.5-10.1); Creatinine Clr Calc Pharmacy 10.5 ml/min; Est GFR (African American) 4.3 ml/min; Est GFR (Non-African American) 3.7 ml/min; Potassium 6.1 mmol/L (3.5-5.1)
[2021-03-02] MEDS ORDERED: LABETALOL HCL IV 5 MG/ML 20ML IV ONE (14:08)
[2021-03-02] MEDS ORDERED: STAT IV Infusion **Titration per Protocol STA (15:28)
[2021-03-02] MEDS ORDERED: LABETALOL HCL IV 5 MG/ML 20ML IV STA (15:32)
[2021-03-02] MEDS: propofoL 1,000 MG/100 ML VIAL IV SCH ×2 (15:42→19:46)
--- NOTE | 2021-03-02 16:12 | Electrocardiogram Report ---
Test Reason : Blood Pressure : / mmHG Vent. Rate : 109 BPM Atrial Rate : 109 BPM P-R Int : 200 ms QRS Dur : 126 ms QT Int : 330 ms P-R-T Axes : 060 109 -21 degrees QTc Int : 444 ms Sinus tachycardia Right bundle branch block Abnormal ECG When compared with ECG of 26-FEB-2021 19:00, (unconfirmed) [place] interval has decreased Vent. rate has increased BY 47 BPM Right bundle branch block has replaced Non-specific intra-ventricular conduction block Confirmed by Uli Dickson ([id number]) on 03/02/2021 4:12:35 PM Referred By: REFERRED SELF Confirmed By:Uli Dickson
--- NOTE | 2021-03-02 16:13 | Electrocardiogram Report ---
Test Reason : Blood Pressure : / mmHG Vent. Rate : 045 BPM Atrial Rate : 045 BPM P-R Int : 196 ms QRS Dur : 106 ms QT Int : 588 ms P-R-T Axes : 046 042 073 degrees QTc Int : 508 ms Sinus bradycardia Incomplete right bundle branch block Prolonged QT Abnormal ECG When compared with ECG of 28-FEB-2021 00:14, (unconfirmed) T wave inversion no longer evident in Inferior leads Confirmed by Uli Dickson ([id number]) on 03/02/2021 4:13:24 PM Referred By: REFERRED SELF Confirmed By:Uli Dickson
--- NOTE | 2021-03-02 16:14 | Electrocardiogram Report ---
Test Reason : Blood Pressure : / mmHG Vent. Rate : 056 BPM Atrial Rate : 056 BPM P-R Int : 184 ms QRS Dur : 104 ms QT Int : 516 ms P-R-T Axes : 047 050 059 degrees QTc Int : 497 ms Sinus bradycardia with Premature atrial complexes Incomplete right bundle branch block Prolonged QT Abnormal ECG When compared with ECG of 28-FEB-2021 04:04, (unconfirmed) Premature atrial complexes are now Present Confirmed by Uli Dickson ([id number]) on 03/02/2021 4:13:53 PM Referred By: REFERRED SELF Confirmed By:Uli Dickson
--- NOTE | 2021-03-02 16:35 | Electrocardiogram Report ---
Test Reason : Blood Pressure : / mmHG Vent. Rate : 062 BPM Atrial Rate : 062 BPM P-R Int : 328 ms QRS Dur : 138 ms QT Int : 354 ms P-R-T Axes : 000 088 029 degrees QTc Int : 359 ms Poor data quality, interpretation may be adversely affected Sinus rhythm with 1st degree A-V block Right bundle branch block Nonspecific T wave abnormality Abnormal ECG When compared with ECG of 22-FEB-2021 00:30, [place] interval has increased Confirmed by Uli Dickson ([id number]) on 03/02/2021 4:34:55 PM Referred By: REFERRED SELF Confirmed By:Uli Dickson
[2021-03-02] MEDS: NEPHROCAPS PO SCH (19:58)
[2021-03-02] MEDS: INSULIN GLARGINE SOLOSTAR 100 UNITS/ML 3 ML PEN SC SCH (20:00)
[2021-03-02] MEDS: PROPOFOL BOLUS FROM BAG IV PRN (23:30)
[2021-03-03] MEDS: PROPOFOL BOLUS FROM BAG IV PRN ×10 (00:15→23:30)
[2021-03-03] MEDS: propofoL 1,000 MG/100 ML VIAL IV SCH ×10 (00:32→23:32)
[2021-03-03] MEDS: INSULIN ASPART 100 UNITS/ML 3 ML PEN SC SCH ×6 (03:49→23:45)
[2021-03-03] MEDS: LEVOTHYROXINE SODIUM 150 MCG TABLET PO SCH (05:37)
[2021-03-03 06:16] LABS: Hematocrit (blood only) 48.5 % (42-52); Hemoglobin 15.8 g/dL (14.0-18.0); Mean Corpuscular Hgb Conc 32.6 g/dL (32-36); Mean Platelet Volume 10.6 fL (7.4-10.4); Platelet Count 259 K/uL (130-400); RDW Coefficient of Variation 19.4 % (11.5-14.5); RDW Standard Deviation 62.6 fL (36.4-46.3); Red Blood Count 5.45 M/uL (4.7-6.1); White Blood Count 14.99 K/uL (4.8-10.8)
[2021-03-03 07:02] LABS: Albumin Level 2.6 gm/dl (3.4-5.0); BUN Creatinine Ratio 6.7 (10-20); Calcium 8.5 mg/dl (8.5-10.1); Creatinine Clr Calc Pharmacy 10.9 ml/min; Est GFR (African American) 4.7 ml/min; Potassium 5.5 mmol/L (3.5-5.1)
[2021-03-03 07:03] LABS: Albumin Globulin Ratio 0.6 (0.9-2); Albumin Level 2.6 gm/dl (3.4-5.0); BUN Creatinine Ratio 6.6 (10-20); Bilirubin,Total 0.7 mg/dl (0.2-1); Calcium 8.5 mg/dl (8.5-10.1); Est GFR (African American) 4.7 ml/min; Est GFR (Non-African American) 4.1 ml/min; Globulin 4.7 gm/dl (2.5-4.0); Potassium 5.5 mmol/L (3.5-5.1); Total Protein 7.3 gm/dl (6.4-8.2)
[2021-03-03] MEDS: dexAMETHasone 6 MG in SYRINGE 0 ML IV SCH (08:19)
[2021-03-03] MEDS: PANTOprazole 40 MG in SYRINGE 0 ML IV SCH ×2 (08:19→20:42)
[2021-03-03] MEDS: LACTULOSE SYRUP 20 GM/30 ML UDC PO SCH (08:20)
[2021-03-03] MEDS: CHOLECALCIFEROL 1,000 UNITS 25 MCG TAB PO SCH (08:21)
[2021-03-03] MEDS: INSULIN GLARGINE SOLOSTAR 100 UNITS/ML 3 ML PEN SC SCH ×2 (08:21→20:41)
[2021-03-03] MEDS ORDERED: HEPARIN SOD (PORCINE) 1000 UNIT/ML IV ONE ×2 (09:00→10:00)
--- NOTE | 2021-03-03 10:40 | Nephrology Progress Note ---
Date of Service March 03, 2021 Assessment & Plan (1) End stage renal disease: Plan: Orders for HD today entered into EMR and reviewed with HD nurse. CK not notably elevated. Obligatory fluid intake not excessive. Volume status improved. Outpatient Rx: MWF 4 hrs [id number] 550/800. EDW has been 174 kg. Medications appropriately dosed for IHD. (2) COVID-19: Plan: Oxygenating well on vent. Remains on Zosyn and Decadron. Blood cultures negative. (3) Dialysis AV fistula malfunction: Plan: Functioning well following recent revision. Good thrill and bruit. (4) Cardiac arrest: Plan: Persistents signs of notable anoxic brain injury. Palliative care following. Unfortunately, Yoshi remains unresponsive. Neurology consultation obtained this AM. MRI pending. Admission and Anticipated Discharge Date Admission Date: February 26, 2021 Subjective No acute events overnight. Yoshi was seen and evaluated during hemodialysis this AM. I discussed the plan of car with Dr. Serrano and Dr. Moon. Review of Systems Review of Systems: All systems reviewed & are unremarkable except as noted in HPI & below Physical Exam Constitutional: + ill appearing, + morbidly obese and + mechanically ventilated; no acute distress Eyes: + anicteric sclerae Neck: normal visual inspection, trachea midline and + thick neck Respiratory: symmetric chest movement Auscultation: + rhonchi Cardiovascular: Rate/Rhythm: regular rhythm Heart Sounds: normal S1, normal S2 and + murmur Extremities: + AV fistula Gastrointestinal (Abdomen): Inspection/Auscultation: + abdomen distended and + hypoactive bowel sounds Musculoskeletal: Extremities: extremities normal to inspection; no clubbing Skin: normal turgor; no lesions Neurologic: Motor/Sensory: no tremor and no asterixis Results & Data ([facility]) Vital Signs (Past 12 Hours) Vital Signs Temp Pulse Pulse Resp BP Pulse Ox 03/03/21 10:20 91 H 158/63 H 03/03/21 10:00 97 H 166/56 H 03/03/21 09:18 36.9 C 96 H 111 H 149/72 H 96 03/03/21 08:17 37.0 C 91 H 127/94 93 03/03/21 07:42 26 H 97 03/03/21 07:17 37.1 C 78 135/50 L 97 03/03/21 05:17 37.1 C 87 137/79 96 03/03/21 04:47 37.1 C 77 145/66 H 98 03/03/21 04:17 37.1 C 77 123/80 95 03/03/21 03:47 37.2 C 91 H 139/71 91 03/03/21 03:17 37.2 C 95 H 149/81 H 93 03/03/21 03:07 95 H 36 H 94 03/03/21 02:46 37.2 C 95 H 143/106 H 96 03/03/21 02:17 37.2 C 91 H 147/102 H 95 03/03/21 01:48 37.2 C 90 145/81 H 95 03/03/21 01:16 37.2 C 89 91/70 L 95 03/03/21 00:30 37.3 C 101 H 94 03/03/21 00:19 37.3 C 120 H 94 03/02/21 23:47 37.3 C 93 H 117/61 95 03/02/21 23:17 37.3 C 93 H 30 H 118/51 L 93 03/02/21 23:00 91 H 03/02/21 22:48 37.2 C 94 H 136/61 95 Laboratory Results Laboratory Results - last 24 hr 03/02/21 03/02/21 03/02/21 11:09 12:06 15:45 WBC RBC Hgb Hct MCV MCH MCHC RDW Std Deviation RDW Coeff of Tim Plt Count MPV Sodium 131 L Potassium 6.1 H* Chloride 91 L Carbon Dioxide 25 Anion Gap 15.0 H BUN 82 H Creatinine 13.20 H* D Est Cr Clr Drug Dosing 10.5 Est GFR ( Amer) 4.3 Est GFR (Non-Af Amer) 3.7 BUN/Creatinine Ratio 6.2 L Glucose 209 H POC Glucose 208 H 244 H Calcium 8.9 Phosphorus Magnesium Total Bilirubin AST ALT Alkaline Phosphatase Total Creatine Kinase Total Protein Albumin Globulin Albumin/Globulin Ratio 03/02/21 03/02/21 03/03/21 19:55 23:45 03:46 WBC RBC Hgb Hct MCV MCH MCHC RDW Std Deviation RDW Coeff of Tim Plt Count MPV Sodium Potassium Chloride Carbon Dioxide Anion Gap BUN Creatinine Est Cr Clr Drug Dosing Est GFR ( Amer) Est GFR (Non-Af Amer) BUN/Creatinine Ratio Glucose POC Glucose 206 H 148 H 141 H Calcium Phosphorus Magnesium Total Bilirubin AST ALT Alkaline Phosphatase Total Creatine Kinase Total Protein Albumin Globulin Albumin/Globulin Ratio 03/03/21 03/03/21 03/03/21 05:29 05:29 05:29 WBC 14.99 H RBC 5.45 Hgb 15.8 Hct 48.5 MCV 89.0 MCH 29.0 MCHC 32.6 RDW Std Deviation 62.6 H RDW Coeff of Tim 19.4 H Plt Count 259 MPV 10.6 H Sodium 131 L 132 L Potassium 5.5 H 5.5 H Chloride 93 L 94 L Carbon Dioxide 21 22 Anion Gap 17.0 H 16.0 H BUN 82 H 81 H Creatinine 12.30 H* D 12.20 H* Est Cr Clr Drug Dosing 10.9 11.0 Est GFR ( Amer) 4.7 4.7 Est GFR (Non-Af Amer) 4.0 4.1 BUN/Creatinine Ratio 6.7 L 6.6 L Glucose 154 H 157 H POC Glucose Calcium 8.5 8.5 Phosphorus Magnesium 3.0 H Total Bilirubin 0.7 AST 41 H ALT 93 H Alkaline Phosphatase 77 Total Creatine Kinase 231 Total Protein 7.3 Albumin 2.6 L 2.6 L Globulin 4.7 H Albumin/Globulin Ratio 0.6 L 03/03/21 07:42 WBC RBC Hgb Hct MCV MCH MCHC RDW Std Deviation RDW Coeff of Tim Plt Count MPV Sodium Potassium Chloride Carbon Dioxide Anion Gap BUN Creatinine Est Cr Clr Drug Dosing Est GFR ( Amer) Est GFR (Non-Af Amer) BUN/Creatinine Ratio Glucose POC Glucose 152 H Calcium Phosphorus Magnesium Total Bilirubin AST ALT Alkaline Phosphatase Total Creatine Kinase Total Protein Albumin Globulin Albumin/Globulin Ratio PG Care Time/CCT Total # of Minutes Spent Total Time Spent with Patient: Total time spent is greater than 50% in coordination of care (as documented) at patient's floor/unit and/or counseling patient: Coding Level of Care Code 52709 Subseq Hosp Care Lvl 3 Diagnoses End stage renal disease N18.6 COVID-19 U07.1 Dialysis AV fistula malfunction T82.590A Cardiac arrest I46.9
[2021-03-03] MEDS ORDERED: CEFEPIME 2,000 MG in SYRINGE 0 ML IV ONE (10:45)
--- NOTE | 2021-03-03 10:53 | Neurology Consultation ---
Date of Consultation March 03, 2021 Assessment & Plan (1) Anoxic encephalopathy: Severe anoxic encephalopathy following cardiac arrest. Patient has been exhibiting anoxic myoclonus. No evidence of seizure activity on EEG. CT of the head completed on February 26, at the time of readmission to the hospital was negative for hemorrhage or acute process. The patient remains unresponsive and without focal or lateralizing signs on examination. Patient's cardiac arrest occurs in the context of recent COVID-19 infection complicated by pneumonia for which he was briefly admitted to the hospital, and discharged, 2 days prior to this current admission. Management is further complicated by end-stage renal disease on hemodialysis, morbid obesity, history of DVT on anticoagulation, and insulin-dependent diabetes mellitus. Other complicating factors include transaminitis and hyperkalemia. A noncontrast enhanced brain MRI has been ordered. I will make further recommendations pending completion of this test. Does not require another EEG at this time. Prognosis poor. History of Present Illness Reason for Consultation: anoxic brain injury Requesting Physician: Mark Moon MD Attending Physician: Mich Serrano DO History of Present Illness The patient is a 56-year-old male who was readmitted to the [facility] on February 26 with cardiac arrest. He had been discharged 2 days prior, after a 2-day admission for pneumonia secondary to COVID-19 infection. He had received a [place] vaccine a few months prior. He was discharged in stable condition although his management is complicated by end-stage renal disease on dialysis, long-term anticoagulation given history of DVT, and type 2 diabetes mellitus. Again, he did present again to [facility] 2 days later after cardiac arrest. Length of time down not entirely clear. Patient spouse did call 911 and he was apparently obtunded, combative, and may have had a seizure. He was found to be hypoglycemic as well. Circulation was restored prior to his assessment in the emergency department. He did have a CT of the head completed at the time of presentation, on February 26 that was negative for hemorrhage or acute process. There is a chronic small left frontal lobe lacunar infarct. I did review the images as well as the radiologist interpretation of this test. He was admitted to the ICU for further evaluation and management. He has undergone therapeutic hypothermia. An EEG completed on March 01, 2021 was consistent with severe encephalopathy. No epileptiform abnormalities were observed. The patient remains unresponsive. He exhibits intermittent myoclonic jerking of the limbs. He has not displayed any obvious seizure activity. He does not respond to noxious or painful stimulation. Allergies Allergy/AdvReac Type Severity Reaction Status Date / Time house dust Allergy Mild Nasal Verified 02/26/21 19:33 congestion pollen extracts Allergy Mild nasal Verified 02/26/21 19:33 congestion Home Medications Medication Instructions Recorded Confirmed Type aspirin 81 mg chewable tablet 81 mg PO QAM 04/13/18 02/26/21 History atorvastatin 10 mg tablet (Lipitor) 10 mg PO HS 04/13/18 02/26/21 History azelastine 205.5 mcg (0.15 %) 1 spray INTRANASAL BID 04/13/18 02/26/21 History nasal spray gabapentin 300 mg capsule 600 mg PO HS 04/13/18 02/26/21 History levothyroxine 150 mcg tablet 150 mcg PO QAM 04/13/18 02/26/21 History (Synthroid) mv,[id number]-GY-[id number]-[id number] 1 tab PO QPM 04/13/18 02/26/21 History oil 400 mcg-500 unit capsule (ProRenal QD) omega 4-bcu-pzv-fish oil 1,000 mg 1 tab PO BID 04/13/18 02/26/21 History (120 mg-180 mg) capsule (Fish Oil) peg 400-propylene glycol (PF) 0.4 1 drp OPHTHALMIC (EYE) BID PRN 04/13/18 02/26/21 History %-0.3 % eye drops in a dropperette (Systane (PF)) testosterone cypionate 200 mg/mL 200 mg SUBCUT .2XWK 04/13/18 02/26/21 History intramuscular kit acetaminophen 500 mg tablet 1,000 mg PO Q6H PRN 06/12/18 02/26/21 History (Tylenol Extra Strength) sucroferric oxyhydroxide 500 mg 500 mg PO TID 04/30/19 02/26/21 History chewable tablet (Velphoro) alprazolam 1 mg tablet (Xanax) 1 mg PO TID PRN 03/10/20 02/26/21 History bisacodyl 5 mg tablet,delayed 5 mg PO 4XWK 03/24/20 02/26/21 History release (Dulcolax (bisacodyl)) diclofenac sodium 0.1 % eye drops 1 drp OPHTHALMIC (EYE) TID 03/24/20 02/26/21 History lactulose 10 gram/15 mL oral 10 g PO 4XWK 03/24/20 02/26/21 History solution linaclotide 290 mcg capsule 870 mcg PO 4XWK 03/24/20 02/26/21 History (Linzess) apixaban 5 mg tablet (Eliquis) 5 mg PO Q12H #74 tab 04/07/20 02/26/21 Rx docusate sodium 100 mg capsule 100 mg PO DAILY PRN 04/07/20 02/26/21 History (Stool Softener) Accu-Chek Guide test strips (blood #400 ea NS 04/30/20 10/13/20 Rx sugar diagnostic) lancets (Accu-Chek Fastclix Lancet #400 ea 04/30/20 10/13/20 Rx Drum) blood-glucose meter (Accu-Chek #1 ea 05/04/20 10/13/20 Rx Guide Me Glucose Mtr) pen needle, diabetic 29 gauge x #400 ea 05/04/20 10/13/20 Rx 1/2" (BD Ultra-Fine Original Pen Needle) OneTouch Ultra2 Meter #1 ea NS 05/26/20 10/13/20 Rx (blood-glucose meter) insulin degludec 100 unit/mL (3 80 unit SUBCUT BID #150 ml MDD 160 09/30/20 02/26/21 Rx mL) subcutaneous pen (Tresiba units FlexTouch U-100 insulin) ascorbic acid (vitamin C) 1,000 mg 1 g PO DAILY 12/03/20 02/26/21 History tablet (Vitamin C) cholecalciferol (vitamin D3) 125 125 mcg PO DAILY 12/03/20 02/26/21 History mcg (5,000 unit) tablet (Vitamin D3) elddoots-ejk-wuwkx acid 0.4 1 tab PO DAILY 12/03/20 02/26/21 History mg-lycopene 300 mcg-lutein 250 mcg tablet (Centrum Silver) insulin aspart U-100 100 unit/mL 0 unit SUBCUT BID 02/22/21 02/26/21 History (3 mL) subcutaneous pen (Novolog Flexpen U-100 Insulin aspart) azithromycin 250 mg tablet 250 mg PO QAM #3 tab 02/24/21 02/26/21 Rx dexamethasone 6 mg tablet 6 mg PO DAILY #7 tab 02/24/21 02/26/21 Rx guaifenesin 600 mg tablet, 1,200 mg PO Q12 #20 tab 02/24/21 02/26/21 Rx extended release 12 hr (Mucinex) cinacalcet 90 mg tablet 90 mg PO DAILY 02/26/21 02/26/21 History Patient History Medical History Anxiety Aortic valve disease Aortic sclerosis bordering on mild stenosis (CORNEL 1.3 cm, Mean gradient 8.8 mmHg) per 06/28/19 echo Chronic back pain Chronic constipation Chronic kidney disease follows with Dr. Armstrong Diabetes mellitus, type 2 since age 20, IDDM- glucose relatively stable per patient - glucose this AM (05/22/20) was 156 Diabetic foot ulcer right 5th metatarsal and heel; left heel Diabetic nephropathy Diabetic retinopathy DVT (deep venous thrombosis) Dx'ed 04/07/20- to right UE- on Eliquis End-stage renal disease on hemodialysis M-W-F dialysis ([facility]) Hyperlipidemia Hypertension No medications- pt denies- states actually hypotensive Hypothyroidism Osteoarthritis Surgical History Fistula LUE (WITH REVISION ) History of anesthesia reaction BP DROPS "USUALLY" History of appendectomy History of cholecystectomy History of colonoscopy History of esophagogastroduodenoscopy (EGD) History of vascular access device permacath-inserted and removed History of vascular access device rt upper chest (blood clot formed/unable to use but still intact) Hx of eye surgery 5 eye surgeries 3 ON LEFT/2 ON RT Family History Father Diabetes Other Cancer Gallbladder disease Hypertension Lung disease No family history of adverse response to anesthesia Social History Smoking Status: Never smoker Second Hand Exposure: Yes; Hx Alcohol Use: No Hx Substance Use: No Preferred Language: Thai Communication Ability: Unable Visual Impairment: No Limitations 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 The patient is unresponsive to voice, tactile, or noxious s timulation. Eyes are open. I am unable to elicit blink or oculocephalic reflexes. Pupils are 3 mm, round, and react minimally to light. There is no gaze preference. The sclera are injected, there is an element of scleral edema. There is no nystagmus. Muscle tone is modestly increased throughout. He does not display any decorticate or decerebrate posturing. He does exhibit occasional myoclonic jerking of the limbs as well as the thoracic and abdominal musculature. Plantar responses are upgoing bilaterally. Deep tendon reflexes are otherwise diminished throughout. He does not display any obvious focal lateralizing signs. No obvious hemiparesis or hemiplegia. Results & Data ([facility]) Vital Signs (Past 12 Hours) Vital Signs Temp Pulse Resp BP Pulse Ox 03/03/21 09:18 36.9 C 96 H 149/72 H 96 03/03/21 08:17 37.0 C 91 H 127/94 93 03/03/21 07:42 26 H 97 03/03/21 07:17 37.1 C 78 135/50 L 97 03/03/21 05:17 37.1 C 87 137/79 96 03/03/21 04:47 37.1 C 77 145/66 H 98 03/03/21 04:17 37.1 C 77 123/80 95 03/03/21 03:47 37.2 C 91 H 139/71 91 03/03/21 03:17 37.2 C 95 H 149/81 H 93 03/03/21 03:07 95 H 36 H 94 03/03/21 02:46 37.2 C 95 H 143/106 H 96 03/03/21 02:17 37.2 C 91 H 147/102 H 95 03/03/21 01:48 37.2 C 90 145/81 H 95 03/03/21 01:16 37.2 C 89 91/70 L 95 03/03/21 00:30 37.3 C 101 H 94 03/03/21 00:19 37.3 C 120 H 94 03/02/21 23:47 37.3 C 93 H 117/61 95 03/02/21 23:17 37.3 C 93 H 30 H 118/51 L 93 03/02/21 23:00 91 H 03/02/21 22:48 37.2 C 94 H 136/61 95 03/02/21 22:35 103 H 30 H 95 Laboratory Results WBC 14.99, hemoglobin 15.8, hematocrit 48.5, platelet count 259, sodium 132, potassium 5.5, BUN 81, creatinine 12.20, glucose 157, magnesium 3.0, calcium 8.5, AST 41, ALT 93, total CK [address] of the head completed February 26 is as described in the history of present illness. EEG completed on March 01 is as described in the history of present illness. An electrocardiogram completed March 01, 2021 revealed sinus bradycardia. Coding Level of Care Code 21611 Initial Inpt Care Lvl 3 Diagnoses Anoxic encephalopathy G93.1
--- NOTE | 2021-03-03 11:26 | Critical Care Progress Note ---
Date of Service March 03, 2021 Assessment & Plan (1) Cardiac arrest: Plan: Reason Critically Ill: 56-year-old male with complicated PMH including ESRD on dialysis, HFpEF, and recent hospitalization for COVID-19 pneumonia presents to the ICU following a suspected respiratory induced asystole cardiac arrest in which she is undergoing therapeutic hypothermia as he was unresponsive following ROSC. Neuro - Anoxic injurylikely severe anoxic brain injury. -CT head without acute intracranial findings -Patient completed targeted temperature management. -EEG with findings concerning for hypoxic induced injury -MRI head pending. Neurology consultation pending. Cardiac - Cardiac arrestsuspect this is likely related to the patient's severe respiratory acidosis and COVID-19 pneumonia along with hypoglycemia likely attributed -Witnessed asystole arrest with ROSC achieved following CPR, epinephrine, bicarb -Troponin unremarkable, EKG without ST elevations, QTc 475. Patient was not having chest pain prior to this event. -NSR on monitor, continuous telemetry -Hold antihypertensives for now -Echocardiogram from 02/27/2021 reviewed Respiratory - Hypercapnic hypoxic respiratory failurelikely multifactorial in the setting of COVID-19 pneumonia, diastolic heart failure, presumed OHS -Continue lung protective ventilation strategy. -Nebs as needed -Continuous pulse ox and ET CO2 monitoring GI - N.p.o. Transaminitisimproving. Concern for possible upper GI bleed. Continue Protonix twice daily. Hold p.o. meds. Hemoglobin stable. Hold antiplatelets and Eliquis. He does have a tongue ulceration. Bleeding possibly from the mouth. Will consult gastroenterology. RENAL/LYTES - ESRDPatient undergoes hemodialysis MWF -Nephrology following ENDO - DM type IIpatient was hypoglycemic in the field with EMS but corrected with dextrose/glucagon administration -Currently hyperglycemic, continue with sliding scale for now -ICU hyperglycemic protocol Hypothyroidcontinue Synthroid HEME - H&H stable, monitor routine CBCs. ID - Pneumoniapatient initially tested positive for COVID-19 pneumonia on 02/22. Starting cefepime due to Klebsiella and another gram-negative culture growing from sputum cultures. LINES/IV ACCESS - central venous catheter (triple-lumen access), arterial line, ET tube, OG tube DVT PROPHYLAXIS - SCDs, holding Eliquis Overall prognosis very guarded. Palliative care consultation appreciated. I have personally spent 36 minutes of critical care time in the direct management of this patient. This is a life/limb threatening event. This includes time spent evaluating patient, direct bedside care, chart review, placing orders, interpretation of diagnostic studies, discussion with consultants, patient, and family members, as well as other required patient management activities. This time is exclusive of all separately billable procedures, and teaching time and separate from and in addition to any other critical care service time. (2) Hypoglycemia: (3) Renal failure: (4) Respiratory failure: (5) Acidosis: (6) Hypoxia: (7) Pneumonia: (8) COVID-19: (9) Controlled type 2 diabetes mellitus with kidney complication, with long-term current use of insulin: (10) End stage renal disease: (11) Morbid obesity: Admission and Anticipated Discharge Date Admission Date: February 26, 2021 Subjective Patient seen and examined at this time. Unable to obtain review of systems due to severe encephalopathy. He is currently off all sedation. He is undergoing dialysis. Review of Systems Review of Systems: Unobtainable due to cognitive status and Unobtainable due to endotracheal tube Physical Exam Physical Exam: General: 3 T. nontoxic. Skin: Warm, dry, Head: Atraumatic Ears, nose, mouth and throat: airway obscured by endotracheal tube Cardiovascular: Normal peripheral perfusion Respiratory: Distant breath sounds Gastrointestinal: Rotund abdomen Musculoskeletal: 2+ edema, evidence of vascular insufficiency Neurologic: Myoclonic jerking activity noted. Nonresponsive to commands despite being off sedation. No withdrawal to painful stimuli. Results & Data Results & Data ([facility] [place]) Vital Signs (Past 12 Hours) Vital Signs Temp Pulse Pulse Resp BP Pulse Ox 03/03/21 11:04 74 31 H 91 03/03/21 11:00 96 H 153/66 H 03/03/21 10:40 90 142/59 H 03/03/21 10:20 91 H 158/63 H 03/03/21 10:00 97 H 166/56 H 03/03/21 09:18 98.4 F 96 H 111 H 149/72 H 96 03/03/21 08:17 98.6 F 91 H 127/94 93 03/03/21 07:42 26 H 97 03/03/21 07:17 98.8 F 78 135/50 L 97 03/03/21 05:17 98.8 F 87 137/79 96 03/03/21 04:47 98.8 F 77 145/66 H 98 03/03/21 04:17 98.8 F 77 123/80 95 03/03/21 03:47 99.0 F 91 H 139/71 91 03/03/21 03:17 99.0 F 95 H 149/81 H 93 03/03/21 03:07 95 H 36 H 94 03/03/21 02:46 99.0 F 95 H 143/106 H 96 03/03/21 02:17 99.0 F 91 H 147/102 H 95 03/03/21 01:48 99.0 F 90 145/81 H 95 03/03/21 01:16 99.0 F 89 91/70 L 95 03/03/21 00:30 99.1 F 101 H 94 03/03/21 00:19 99.1 F 120 H 94 03/02/21 23:47 99.1 F 93 H 117/61 95 vital signs, labs and reviewed Coding Level of Care Code Critical Care 1st 30-74 mins Diagnoses Cardiac arrest I46.9 Hypoglycemia E16.2 Renal failure N17.9; N18.9; Z99.2 Acute renal failure type: unspecified Chronic kidney disease stage: on chronic dialysis Renal failure chronicity: acute on chronic Respiratory failure J96.01; J96.02 Chronicity: acute Respiratory failure complication: hypoxia and hypercapnia Acidosis E87.2 Hypoxia R09.02 Pneumonia J18.9 Laterality: bilateral Pneumonia type: due to unspecified organism COVID-19 U07.1 Controlled type 2 diabetes mellitus with kidney complication, with long-term current use of insulin E11.29; Z79.4 End stage renal disease N18.6 Morbid obesity E66.01 Time Spent (min) 36 (1) Renal failure Acute renal failure type: unspecified Chronic kidney disease stage: on chronic dialysis Renal failure chronicity: acute on chronic Qualified Code(s): N17.9 - Acute kidney failure, unspecified; N18.9 - Chronic kidney disease, un specified; Z99.2 - Dependence on renal dialysis (2) Respiratory failure Chronicity: acute Respiratory failure complication: hypoxia and hypercapnia Qualified Code(s): J96.01 - Acute respiratory failure with hypoxia; J96.02 - Acute respiratory failure with hypercapnia (3) Pneumonia Laterality: bilateral Pneumonia type: due to unspecified organism
--- NOTE | 2021-03-03 11:46 | Hospitalist Progress Note ---
Date of Service March 03, 2021 Assessment & Plan (1) Anoxic encephalopathy: Plan: sedation now off, not waking up, not fighting the ventilator no response to painful stimuli, having myoclonic jerks EEG on 03/01 showed severe encephalopathy, suggestive of anoxic injury neurology consult today, suspect severe anoxic brain injury MRI brain pending palliative care continues to discuss goals of care with , she wants to visit (2) Cardiac arrest: Plan: Post asystole cardiac arrest x2 with ROSC achieved following CPR, epinephrine, bicarb-thought to be secondary to hypoglycemia, severe respiratory acidosis unsure is COVID pneumonia actually contributed to arrest as he is on minimal ventilator settings with FiO2 35% Troponin unremarkable, EKG without ST elevations, QTc 475, was not having chest pain prior to the event Echocardiogram from 02/27 with preserved EF 60-65%, moderate LVH, mild left ear, mild AI -Initially on Epinephrine drip- transitioned to Levophed - now hypertensive without medications He was noted to be unresponsive after resuscitation achieved-underwent hypothermic protocol, now re-warming EEG with severe encephalopathy on 03/01, suggestive of cerebral anoxia now off of sedation, unresponsive palliative consultation to help discuss goals of care, discussed with Dr. Lewis again today (3) COVID-19: Plan: Recently admitted for Covid-19 pneumonia with hypoxia and discharged on 02/24 on 2 L nasal cannula with ambulation With cardiac arrest as above highly doubt that cardiac arrest was related to COVID 19 infection - Initial symptom date reported as -Continue dexamethasone 6 mg IV once daily Ventilator management as per ICU-respiratory acidosis is improving, volume management with HD daily Wean off ventilator as per ruling machine feeder management (4) Pneumonia: Plan: Covid-19 pneumonia Procalcitonin mildly elevated but is also in the setting of ESRD He recently completed a 5-day course of vancomycin, Zosyn, and azithromycin during previous hospital stay Blood cultures-no growth to date (5) Central venous catheter in place: Plan: Noted (6) Hypothyroidism: Plan: Continue synthroid TSH recently normal in 12/2020 at 2.2 (7) Controlled type 2 diabetes mellitus with neurologic complication, with long- term current use of insulin: Plan: Presented with hypoglycemia Holding all insulin at this time Follow glucose-ranges from 120s to 160s (8) Hypoxia: Plan: Acute respiratory failure with hypoxia as above As per ruling machine feeder minimal settings, PEEP 8 and FiO2 of 30%, doubt that COVID pneumonia lead to cardiac arrest (9) Hyperkalemia: Plan: Potassium elevated upon admission during cardiac arrest and was given calcium gluconate, insulin and glucose, Kayexalate Received urgent hemodialysis on 02/27 with low potassium bath Follow BMP daily, nephrology managing electrolytes had HD on 03/01 (10) End-stage renal disease on hemodialysis: Plan: Received urgent dialysis on 02/27 - Nephrology consult and management appreciated Has recently revised AV fistula in place HD completed 03/01 (11) Transaminitis: Plan: AST and ALT up in the 300s likely secondary to cardiac arrest and acute liver injury-now trending downward INR only minimally elevated at 1.2, platelets normal Follow LFTs, coags (12) Obesity: Plan: Chronic no acute interventions BMI 52.2 (13) Dyslipidemia: Plan: Hold statin with acute liver injury (14) DVT (deep venous thrombosis): Plan: With a history of such Continue Eliquis 5 mg p.o. twice daily Plan: Disposition-continued stay in ICU in Covid unit Full code very poor prognosis, suspected anoxic brain injury, unresponsive on ventilator, myoclonic jerking palliative care will speak with again today, discuss goals of care Admission and Anticipated Discharge Date Admission Date: February 26, 2021 Subjective patient continues with encephalopathy appreciate neurology consultation, likely has severe anoxic encephalopathy, MRI brain ordered but not yet done palliative spoke with his , she is requesting visit, he is in locked COVID unit Review of Systems Review of Systems: Unobtainable due to cognitive status and Unobtainable due to endotracheal tube Physical Exam Constitutional: + ill appearing, + morbidly obese, + altered mental status, + lethargic and + mechanically ventilated; no acute distress Neck: trachea midline and + thick neck Respiratory: symmetric chest movement (ventilated) Auscultation: no crackles, no rales, no rhonchi and no wheezes Cardiovascular: Rate/Rhythm: regular rate and regular rhythm Heart Sounds: normal S1 and normal S2; no murmur Extremities: normal capillary refill and + edema Gastrointestinal (Abdomen): normal bowel sounds, soft, nontender, no hepatosplenomegaly Skin: no rashes, warm and dry Neurologic: CN's II-XI intact bilaterally and + obtunded Motor/Sensory: + abnormal movement (myoclonic jerks, diffuse) Comatose Patient: + response to noxious stimuli absent Results & Data Results & Data ([facility]) Vital Signs (Past 12 Hours) Vital Signs Temp Pulse Pulse Resp BP Pulse Ox 03/03/21 11:04 74 31 H 91 03/03/21 11:00 96 H 153/66 H 03/03/21 10:40 90 142/59 H 03/03/21 10:20 91 H 158/63 H 03/03/21 10:00 97 H 166/56 H 03/03/21 09:18 36.9 C 96 H 111 H 149/72 H 96 03/03/21 08:17 37.0 C 91 H 127/94 93 03/03/21 07:42 26 H 97 03/03/21 07:17 37.1 C 78 135/50 L 97 03/03/21 05:17 37.1 C 87 137/79 96 03/03/21 04:47 37.1 C 77 145/66 H 98 03/03/21 04:17 37.1 C 77 123/80 95 03/03/21 03:47 37.2 C 91 H 139/71 91 03/03/21 03:17 37.2 C 95 H 149/81 H 93 03/03/21 03:07 95 H 36 H 94 03/03/21 02:46 37.2 C 95 H 143/106 H 96 03/03/21 02:17 37.2 C 91 H 147/102 H 95 03/03/21 01:48 37.2 C 90 145/81 H 95 03/03/21 01:16 37.2 C 89 91/70 L 95 03/03/21 00:30 37.3 C 101 H 94 03/03/21 00:19 37.3 C 120 H 94 03/02/21 23:47 37.3 C 93 H 117/61 95 Laboratory Results Laboratory Results - last 24 hr 03/02/21 03/02/21 03/02/21 11:09 12:06 15:45 WBC RBC Hgb Hct MCV MCH MCHC RDW Std Deviation RDW Coeff of Tim Plt Count MPV Sodium 131 L Potassium 6.1 H* Chloride 91 L Carbon Dioxide 25 Anion Gap 15.0 H BUN 82 H Creatinine 13.20 H* D Est Cr Clr Drug Dosing 10.5 Est GFR ( Amer) 4.3 Est GFR (Non-Af Amer) 3.7 BUN/Creatinine Ratio 6.2 L Glucose 209 H POC Glucose 208 H 244 H Calcium 8.9 Phosphorus Magnesium Total Bilirubin AST ALT Alkaline Phosphatase Total Creatine Kinase Total Protein Albumin Globulin Albumin/Globulin Ratio 03/02/21 03/02/21 03/03/21 19:55 23:45 03:46 WBC RBC Hgb Hct MCV MCH MCHC RDW Std Deviation RDW Coeff of Tim Plt Count MPV Sodium Potassium Chloride Carbon Dioxide Anion Gap BUN Creatinine Est Cr Clr Drug Dosing Est GFR ( Amer) Est GFR (Non-Af Amer) BUN/Creatinine Ratio Glucose POC Glucose 206 H 148 H 141 H Calcium Phosphorus Magnesium Total Bilirubin AST ALT Alkaline Phosphatase Total Creatine Kinase Total Protein Albumin Globulin Albumin/Globulin Ratio 03/03/21 03/03/21 03/03/21 05:29 05:29 05:29 WBC 14.99 H RBC 5.45 Hgb 15.8 Hct 48.5 MCV 89.0 MCH 29.0 MCHC 32.6 RDW Std Deviation 62.6 H RDW Coeff of Tim 19.4 H Plt Count 259 MPV 10.6 H Sodium 131 L 132 L Potassium 5.5 H 5.5 H Chloride 93 L 94 L Carbon Dioxide 21 22 Anion Gap 17.0 H 16.0 H BUN 82 H 81 H Creatinine 12.30 H* D 12.20 H* Est Cr Clr Drug Dosing 10.9 11.0 Est GFR ( Amer) 4.7 4.7 Est GFR (Non-Af Amer) 4.0 4.1 BUN/Creatinine Ratio 6.7 L 6.6 L Glucose 154 H 157 H POC Glucose Calcium 8.5 8.5 Phosphorus Magnesium 3.0 H Total Bilirubin 0.7 AST 41 H ALT 93 H Alkaline Phosphatase 77 Total Creatine Kinase 231 Total Protein 7.3 Albumin 2.6 L 2.6 L Globulin 4.7 H Albumin/Globulin Ratio 0.6 L 03/03/21 07:42 WBC RBC Hgb Hct MCV MCH MCHC RDW Std Deviation RDW Coeff of Tim Plt Count MPV Sodium Potassium Chloride Carbon Dioxide Anion Gap BUN Creatinine Est Cr Clr Drug Dosing Est GFR ( Amer) Est GFR (Non-Af Amer) BUN/Creatinine Ratio Glucose POC Glucose 152 H Calcium Phosphorus Magnesium Total Bilirubin AST ALT Alkaline Phosphatase Total Creatine Kinase Total Protein Albumin Globulin Albumin/Globulin Ratio Medications Administered Current Inpatient Medications Acetaminophen (Acetaminophen Susp 325 Mg/10.15 Ml Udc) 650 mg PO Q4H PRN PRN Reason: Fever Stop: 03/31/21 03:23 Last Admin: 03/01/21 03:51 Dose: 650 mg Documented by: Apixaban (Apixaban 5 Mg Tablet) 5 mg PO Q12 YUDITH Stop: 03/29/21 00:43 Last Admin: 02/28/21 21:22 Dose: 5 mg Documented by: Aspirin (Aspirin 81 Mg Chew) 81 mg PO QAM YUDITH Stop: 03/29/21 08:59 Last Admin: 03/01/21 10:40 Dose: Not Given Documented by: Cinacalcet (Cinacalcet Hcl 90 Mg Tab) 90 mg PO DAILY YUDITH Stop: 03/29/21 08:59 Last Admin: 03/01/21 09:27 Dose: Not Given Documented by: Dextrose (Dextrose 50% 50 Ml Syringe) 25 - 50 ml IV UD PRN; Protocol PRN Reason: Hypoglycemia Protocol Stop: 03/31/21 10:44 Glucagon (Glucagon For Inj 1 Mg Vial) 1 mg SQ UD PRN; Protocol PRN Reason: Hypoglycemia Protocol Stop: 03/31/21 10:44 Glucose (Glucose 40% Gel 15 Gm Tube) 15 - 30 gm PO UD PRN; Protocol PRN Reason: Hypoglycemia Protocol Stop: 03/31/21 10:44 Glucose (Glucose 10 Tabs/Tube) 4 - 8 tabs PO UD PRN; Protocol PRN Reason: Hypoglycemia Protocol Stop: 03/31/21 10:44 Norepinephrine Bitartrate (Levophed/D5w) 8 mg in 508 mls @ 0 mls/hr IV .Q0M YUDITH; Protocol Stop: 03/28/21 21:14 Last Titration: 03/01/21 15:27 Dose: 0 mcg/kg/min, 0 mls/hr Documented by: Dexamethasone 6 mg/ Syringe 1.5 mls @ 1 mls/min IV Q24H YUDITH Stop: 03/29/21 08:59 Last Admin: 03/03/21 08:19 Dose: 1 mls/min Documented by: Pantoprazole Sodium 40 mg/ (Syringe) 10 mls @ 5 mls/min IV BID YUDITH; Protocol Stop: 03/31/21 08:59 Last Admin: 03/03/21 08:19 Dose: 5 mls/min Documented by: Doxycycline Hyclate 100 mg/ (Dextrose) 110 mls @ 55 mls/hr IV Q12H [facility] Stop: 03/08/21 11:59 Last Infusion: 03/03/21 01:43 Dose: Infused Documented by: Propofol (Diprivan) 1,000 mg in 100 mls @ 31.698 mls/hr IV .Q3H10M [facility]; Protocol Stop: 03/05/21 15:29 Last Admin: 03/03/21 08:17 Dose: 30 mcg/kg/min, 31.7 mls/hr Documented by: Cefepime HCl 1,000 mg/ Syringe 11.3 mls @ 5.5 mls/min IV Q24H [facility] Stop: 03/11/21 13:59 Insulin Aspart (Insulin Aspart 100 Units/Ml 3 Ml Pen) 0 units SC Q4 [facility] Stop: 03/31/21 11:59 Last Admin: 03/03/21 08:19 Dose: Not Given Documented by: Insulin Glargine (Insulin Glargine Solostar 100 Units/Ml 3 Ml Pen) 9 units SC BID [facility] Stop: 04/01/21 20:59 Last Admin: 03/03/21 08:21 Dose: 9 units Documented by: Lactulose (Lactulose Syrup 20 Gm/30 Ml Udc) 10 gm PO MoWeFrSa@0900 [facility] Stop: 03/29/21 08:59 Last Admin: 03/03/21 08:20 Dose: 10 gm Documented by: Levalbuterol HCl (Levalbuterol Hcl 0.63 Mg/3 Ml Neb) 0.63 mg INH Q4H PRN PRN Reason: Dyspnea Stop: 03/29/21 00:43 Last Admin: 03/01/21 08:27 Dose: 0.63 mg Documented by: Levothyroxine Sodium (Levothyroxine Sodium 150 Mcg Tablet) 150 mcg PO DAILYBB [facility] Stop: 03/29/21 06:29 Last Admin: 03/03/21 05:37 Dose: 150 mcg Documented by: Miscellaneous (Carbohydrates For Hypoglycemia ) 15 - 30 gm PO UD PRN PRN Reason: Hypoglycemia Treatment Stop: 03/31/21 10:44 Propofol (Propofol Bolus From Bag) 20 mg IV Q5M PRN PRN Reason: Sedation Stop: 03/05/21 15:27 Last Admin: 03/03/21 05:37 Dose: 20 mg Documented by: Vitamin B Complex/Folic Acid (Nephrocaps) 1 cap PO QPM YUDITH Stop: 03/29/21 00:43 Last Admin: 03/02/21 19:58 Dose: 1 cap Documented by: Vitamin D (Cholecalciferol 1,000 Units 25 Mcg Tab) 5,000 units PO DAILY YUDITH Stop: 03/29/21 08:59 Last Admin: 03/03/21 08:21 Dose: 5,000 units Documented by: PG Care Time/CCT Total # of Minutes Spent Total Time Spent with Patient: Total time spent is greater than 50% in coordination of care (as documented) at patient's floor/unit and/or counseling patient: Coding Level of Care Code 92188 Subseq Hosp Care Lvl 2 Diagnoses Anoxic encephalopathy G93.1 Cardiac arrest I46.9 COVID-19 U07.1 Pneumonia J18.9 Laterality: bilateral Pneumonia type: due to unspecified organism Central venous catheter in place Z78.9 Hypothyroidism E03.9 Controlled type 2 diabetes mellitus with neurologic complication, with long-term current use of insulin E11.49; Z79.4 Hypoxia R09.02 Hyperkalemia E87.5 End-stage renal disease on hemodialysis N18.6; Z99.2 Transaminitis R74.01 Obesity E66.9 Dyslipidemia E78.5 DVT (deep venous thrombosis) I82.409 (1) Pneumonia Laterality: bilateral Pneumonia type: due to unspecified organism
[2021-03-03] MEDS: bisacodyL 5 MG TABEC PO SCH (12:09)
[2021-03-03] MEDS: DOXYCYCLINE HYCLATE 100 MG in DEXTROSE 5% 100 ML IV SCH ×2 (12:33→23:35)
--- NOTE | 2021-03-03 12:45 | Gastrointestinal Consultation ---
Date of Consultation March 03, 2021 Assessment & Plan (1) Anoxic encephalopathy: (2) Melena: * No plan for any invasive GI work up. * Continue BID PPI. * Rest per primary team. Supervising Physician Co-Signing Physician Notes I agree with the findings as documented by DANIELA Ortiz History of Present Illness Reason for Consultation: ?GIB Requesting Physician: Dr. Moon Attending Physician: Mich Serrano DO History of Present Illness Patient is a 56 y.o. male a history of IDDM, ESRD on hemodialysis and active COVID-19 pneumonia admitted due to respiratory failure. He did have a cardiac arrest and has been unresponsive s/p ROSC. He remains on mechanical ventilation but is off sedation and nonresponsive to painful stimuli. Has been seen by both neurology and palliative care with a very poor prognosis determined. GI is being consulted due to a tarry stool yesterday. Per nursing, he did have a bloody nose and is actively bleeding from a tongue ulceration. H&H is normal. Anticoagulation has been held and he remains on BID PPI. Allergies Allergy/AdvReac Type Severity Reaction Status Date / Time house dust Allergy Mild Nasal Verified 02/26/21 19:33 congestion pollen extracts Allergy Mild nasal Verified 02/26/21 19:33 congestion Home Medications Medication Instructions Recorded Confirmed Type aspirin 81 mg chewable tablet 81 mg PO QAM 04/13/18 02/26/21 History atorvastatin 10 mg tablet (Lipitor) 10 mg PO HS 04/13/18 02/26/21 History azelastine 205.5 mcg (0.15 %) 1 spray INTRANASAL BID 04/13/18 02/26/21 History nasal spray gabapentin 300 mg capsule 600 mg PO HS 04/13/18 02/26/21 History levothyroxine 150 mcg tablet 150 mcg PO QAM 04/13/18 02/26/21 History (Synthroid) mv,[id number]-[id number] 1 tab PO QPM 04/13/18 02/26/21 History oil 400 mcg-500 unit capsule (ProRenal QD) omega 3-icy-pai-fish oil 1,000 mg 1 tab PO BID 04/13/18 02/26/21 History (120 mg-180 mg) capsule (Fish Oil) peg 400-propylene glycol (PF) 0.4 1 drp OPHTHALMIC (EYE) BID PRN 04/13/18 02/26/21 History %-0.3 % eye drops in a dropperette (Systane (PF)) testosterone cypionate 200 mg/mL 200 mg SUBCUT .2XWK 04/13/18 02/26/21 History intramuscular kit acetaminophen 500 mg tablet 1,000 mg PO Q6H PRN 06/12/18 02/26/21 History (Tylenol Extra Strength) sucroferric oxyhydroxide 500 mg 500 mg PO TID 04/30/19 02/26/21 History chewable tablet (Velphoro) alprazolam 1 mg tablet (Xanax) 1 mg PO TID PRN 03/10/20 02/26/21 History bisacodyl 5 mg tablet,delayed 5 mg PO 4XWK 03/24/20 02/26/21 History release (Dulcolax (bisacodyl)) diclofenac sodium 0.1 % eye drops 1 drp OPHTHALMIC (EYE) TID 03/24/20 02/26/21 History lactulose 10 gram/15 mL oral 10 g PO 4XWK 03/24/20 02/26/21 History solution linaclotide 290 mcg capsule 870 mcg PO 4XWK 03/24/20 02/26/21 History (Linzess) apixaban 5 mg tablet (Eliquis) 5 mg PO Q12H #74 tab 04/07/20 02/26/21 Rx docusate sodium 100 mg capsule 100 mg PO DAILY PRN 04/07/20 02/26/21 History (Stool Softener) Accu-Chek Guide test strips (blood #400 ea NS 04/30/20 10/13/20 Rx sugar diagnostic) lancets (Accu-Chek Fastclix Lancet #400 ea 04/30/20 10/13/20 Rx Drum) blood-glucose meter (Accu-Chek #1 ea 05/04/20 10/13/20 Rx Guide Me Glucose Mtr) pen needle, diabetic 29 gauge x #400 ea 05/04/20 10/13/20 Rx 1/2" (BD Ultra-Fine Original Pen Needle) OneTouch Ultra2 Meter #1 ea NS 05/26/20 10/13/20 Rx (blood-glucose meter) insulin degludec 100 unit/mL (3 80 unit SUBCUT BID #150 ml MDD 160 09/30/20 02/26/21 Rx mL) subcutaneous pen (Tresiba units FlexTouch U-100 insulin) ascorbic acid (vitamin C) 1,000 mg 1 g PO DAILY 12/03/20 02/26/21 History tablet (Vitamin C) cholecalciferol (vitamin D3) 125 125 mcg PO DAILY 12/03/20 02/26/21 History mcg (5,000 unit) tablet (Vitamin D3) lofvtref-vnw-iyfkz acid 0.4 1 tab PO DAILY 12/03/20 02/26/21 History mg-lycopene 300 mcg-lutein 250 mcg tablet (Centrum Silver) insulin aspart U-100 100 unit/mL 0 unit SUBCUT BID 02/22/21 02/26/21 History (3 mL) subcutaneous pen (Novolog Flexpen U-100 Insulin aspart) azithromycin 250 mg tablet 250 mg PO QAM #3 tab 02/24/21 02/26/21 Rx dexamethasone 6 mg tablet 6 mg PO DAILY #7 tab 02/24/21 02/26/21 Rx guaifenesin 600 mg tablet, 1,200 mg PO Q12 #20 tab 02/24/21 02/26/21 Rx extended release 12 hr (Mucinex) cinacalcet 90 mg tablet 90 mg PO DAILY 02/26/21 02/26/21 History Patient History Medical History Anxiety Aortic valve disease Aortic sclerosis bordering on mild stenosis (CORNEL 1.3 cm, Mean gradient 8.8 mmHg) per 06/28/19 echo Chronic back pain Chronic constipation Chronic kidney disease follows with Dr. Armstrong Diabetes mellitus, type 2 since age 20, IDDM- glucose relatively stable per patient - glucose this AM (05/22/20) was 156 Diabetic foot ulcer right 5th metatarsal and heel; left heel Diabetic nephropathy Diabetic retinopathy DVT (deep venous thrombosis) Dx'ed 04/07/20- to right UE- on Eliquis End-stage renal disease on hemodialysis M-W-F dialysis ([facility]) Hyperlipidemia Hypertension No medications- pt denies- states actually hypotensive Hypothyroidism Osteoarthritis Surgical History Fistula LUE (WITH REVISION 12-2020) History of anesthesia reaction BP DROPS "USUALLY" History of appendectomy History of cholecystectomy History of colonoscopy History of esophagogastroduodenoscopy (EGD) History of vascular access device permacath-inserted and removed History of vascular access device rt upper chest (blood clot formed/unable to use but still intact) Hx of eye surgery 5 eye surgeries 3 ON LEFT/2 ON RT Family History Father Diabetes Other Cancer Gallbladder disease Hypertension Lung disease No family history of adverse response to anesthesia Social History Smoking Status: Never smoker Second Hand Exposure: Yes; Hx Alcohol Use: No Hx Substance Use: No Preferred Language: [place] Communication Ability: Unable Visual Impairment: No Limitations Division Traffic Superintendent Required: No Beliefs That Will Affect Care: None marital status: Current Living Situation: Spouse current occupational status: disabled Feels Safe at Home: Yes Assistive Devices: None Review of Systems Review of Systems: Unobtainable due to endotracheal tube Physical Exam Constitutional: + morbidly obese Respiratory: symmetric chest movement Neurologic: + abnormal touch/pain/proprioception Results & Data ([facility]) Vital Signs (Past 12 Hours) Vital Signs Temp Pulse Pulse Resp BP Pulse Ox 03/03/21 12:20 95 H 132/61 03/03/21 12:00 94 H 142/62 H 03/03/21 11:40 94 H 150/69 H 03/03/21 11:20 86 117/54 L 03/03/21 11:04 74 31 H 91 03/03/21 11:00 96 H 153/66 H 03/03/21 10:40 90 142/59 H 03/03/21 10:20 91 H 158/63 H 03/03/21 10:00 97 H 166/56 H 03/03/21 09:18 36.9 C 96 H 111 H 149/72 H 96 03/03/21 08:17 37.0 C 91 H 127/94 93 03/03/21 07:42 26 H 97 03/03/21 07:17 37.1 C 78 135/50 L 97 03/03/21 05:17 37.1 C 87 137/79 96 03/03/21 04:47 37.1 C 77 145/66 H 98 03/03/21 04:17 37.1 C 77 123/80 95 03/03/21 03:47 37.2 C 91 H 139/71 91 03/03/21 03:17 37.2 C 95 H 149/81 H 93 03/03/21 03:07 95 H 36 H 94 03/03/21 02:46 37.2 C 95 H 143/106 H 96 03/03/21 02:17 37.2 C 91 H 147/102 H 95 03/03/21 01:48 37.2 C 90 145/81 H 95 03/03/21 01:16 37.2 C 89 91/70 L 95 Laboratory Results Abnormal lab results 03/02/21 03/02/21 03/02/21 Range/Units 15:45 19:55 23:45 WBC (4.8-10.8) K/uL RDW Std Deviation (36.4-46.3) fL RDW Coeff of Tim (11.5-14.5) % MPV (7.4-10.4) fL Sodium (136-145) mmol/L Potassium (3.5-5.1) mmol/L Chloride (98-107) mmol/L Anion Gap (3-11) BUN (7-18) mg/dl Creatinine (0.6-1.4) mg/dl BUN/Creatinine Ratio (10-20) Glucose (70-99) mg/dl POC Glucose 244 H 206 H 148 H (70-99) mg/dl Magnesium (1.8-2.4) mg/dl AST (15-37) U/L ALT (12-78) U/L Albumin (3.4-5.0) gm/dl Globulin (2.5-4.0) gm/dl Albumin/Globulin Ratio (0.9-2) 03/03/21 03/03/21 03/03/21 Range/Units 03:46 05:29 05:29 WBC 14.99 H (4.8-10.8) K/uL RDW Std Deviation 62.6 H (36.4-46.3) fL RDW Coeff of Tim 19.4 H (11.5-14.5) % MPV 10.6 H (7.4-10.4) fL Sodium 131 L (136-145) mmol/L Potassium 5.5 H (3.5-5.1) mmol/L Chloride 93 L (98-107) mmol/L Anion Gap 17.0 H (3-11) BUN 82 H (7-18) mg/dl Creatinine 12.30 H* D (0.6-1.4) mg/dl BUN/Creatinine Ratio 6.7 L (10-20) Glucose 154 H (70-99) mg/dl POC Glucose 141 H (70-99) mg/dl Magnesium (1.8-2.4) mg/dl AST (15-37) U/L ALT (12-78) U/L Albumin 2.6 L (3.4-5.0) gm/dl Globulin (2.5-4.0) gm/dl Albumin/Globulin Ratio (0.9-2) 03/03/21 03/03/21 03/03/21 Range/Units 05:29 07:42 11:39 WBC (4.8-10.8) K/uL RDW Std Deviation (36.4-46.3) fL RDW Coeff of Tim (11.5-14.5) % MPV (7.4-10.4) fL Sodium 132 L (136-145) mmol/L Potassium 5.5 H (3.5-5.1) mmol/L Chloride 94 L (98-107) mmol/L Anion Gap 16.0 H (3-11) BUN 81 H (7-18) mg/dl Creatinine 12.20 H* (0.6-1.4) mg/dl BUN/Creatinine Ratio 6.6 L (10-20) Glucose 157 H (70-99) mg/dl POC Glucose 152 H 168 H (70-99) mg/dl Magnesium 3.0 H (1.8-2.4) mg/dl AST 41 H (15-37) U/L ALT 93 H (12-78) U/L Albumin 2.6 L (3.4-5.0) gm/dl Globulin 4.7 H (2.5-4.0) gm/dl Albumin/Globulin Ratio 0.6 L (0.9-2) PG Care Time/CCT Total # of Minutes Spent Total Time Spent with Patient: Total time spent is greater than 50% in coordination of care (as documented) at patient's floor/unit and/or counseling patient: Coding Level of Care Code 68934 Initial Inpt Care Lvl 3 Diagnoses Anoxic encephalopathy G93.1 Melena K92.1
--- NOTE | 2021-03-03 13:33 | Palliative Care Progress Note ---
Date of Service March 03, 2021 Assessment & Plan (1) Palliative care encounter: Plan: I spoke with his on the phone with update on neurology consult and pending MRI. She is asking for visit. We reviewed that he is currently in the covid unit with no visitors allowed. We will follow to assist with goals of care and family support. (2) Respiratory failure: (3) Renal failure: (4) Anoxic encephalopathy: (5) Transaminitis: Admission and Anticipated Discharge Date Admission Date: February 26, 2021 Subjective Remains on vent support with myoclonus Breathing above vent. Review of Systems Review of Systems: Unobtainable due to endotracheal tube and Unobtainable due to reduced consciousness Physical Exam Physical Exam: deferred Results & Data ([facility]) Vital Signs (Past 12 Hours) Vital Signs Temp Pulse Pulse Resp BP BP Pulse Ox 03/03/21 13:04 97.7 F 93 H 140/60 03/03/21 12:40 94 H 134/60 03/03/21 12:20 95 H 132/61 03/03/21 12:00 94 H 142/62 H 03/03/21 11:40 94 H 150/69 H 03/03/21 11:20 86 117/54 L 03/03/21 11:04 74 31 H 91 03/03/21 11:00 96 H 153/66 H 03/03/21 10:40 90 142/59 H 03/03/21 10:20 91 H 158/63 H 03/03/21 10:00 97 H 166/56 H 03/03/21 09:18 98.4 F 96 H 111 H 149/72 H 96 03/03/21 08:17 98.6 F 91 H 127/94 93 03/03/21 07:42 26 H 97 03/03/21 07:17 98.8 F 78 135/50 L 97 03/03/21 05:17 98.8 F 87 137/79 96 03/03/21 04:47 98.8 F 77 145/66 H 98 03/03/21 04:17 98.8 F 77 123/80 95 03/03/21 03:47 99.0 F 91 H 139/71 91 03/03/21 03:17 99.0 F 95 H 149/81 H 93 03/03/21 03:07 95 H 36 H 94 03/03/21 02:46 99.0 F 95 H 143/106 H 96 03/03/21 02:17 99.0 F 91 H 147/102 H 95 03/03/21 01:48 99.0 F 90 145/81 H 95 PG Care Time/CCT Total # of Minutes Spent Total Time Spent with Patient: Total time spent is greater than 50% in cooker helper rdination of care (as documented) at patient's floor/unit and/or counseling patient: Coding Level of Care Code 19243 Subseq Hosp Care Lvl 1 Diagnoses Palliative care encounter Z51.5 Transaminitis R74.01 Respiratory failure J96.01; J96.02 Chronicity: acute Respiratory failure complication: hypoxia and hypercapnia Renal failure N17.9; N18.9; Z99.2 Acute renal failure type: unspecified Chronic kidney disease stage: on chronic dialysis Renal failure chronicity: acute on chronic Anoxic encephalopathy G93.1 (1) Respiratory failure Chronicity: acute Respiratory failure complication: hypoxia and hypercapnia Qualified Code(s): J96.01 - Acute respiratory failure with hypoxia; J96.02 - Acute respiratory failure with hypercapnia (2) Renal failure Acute renal failure type: unspecified Chronic kidney disease stage: on chronic dialysis Renal failure chronicity: acute on chronic Qualified Code(s): N17.9 - Acute kidney failure, unspecified; N18.9 - Chronic kidney disease, unspecified; Z99.2 - Dependence on renal dialysis
[2021-03-03] MEDS: NEPHROCAPS PO SCH (20:42)
[2021-03-04] MEDS: PROPOFOL BOLUS FROM BAG IV PRN ×2 (01:00→02:43)
[2021-03-04] MEDS: propofoL 1,000 MG/100 ML VIAL IV SCH ×9 (02:42→20:17)
[2021-03-04] MEDS: INSULIN ASPART 100 UNITS/ML 3 ML PEN SC SCH ×6 (04:18→23:09)
[2021-03-04] MEDS: LEVOTHYROXINE SODIUM 150 MCG TABLET PO SCH (05:20)
[2021-03-04 06:49] LABS: Basophils # (auto) 0.01 K/uL (0-0.2); Basophils % (auto) 0.1 %; Eosinophils # (auto) 0.04 K/uL (0-0.5); Eosinophils % (auto) 0.3 %; Hematocrit (blood only) 48.7 % (42-52); Hemoglobin 15.5 g/dL (14.0-18.0); Immature Granulocytes # (auto) 0.11 K/uL (0.00-0.02); Immature Granulocytes % (auto) 0.7 %; Lymphocytes # (auto) 1.23 K/uL (1.2-3.4); Lymphocytes % (auto) 7.8 %; Mean Corpuscular Hemoglobin 29.2 pg (25-34); Mean Corpuscular Hgb Conc 31.8 g/dL (32-36); Mean Corpuscular Volume 91.7 fL (80-100); Mean Platelet Volume 10.4 fL (7.4-10.4); Monocytes # (auto) 0.94 K/uL (0.11-0.59); Neutrophils # (auto) 13.44 K/uL (1.4-6.5); Neutrophils % (auto) 85.1 %; Platelet Count 300 K/uL (130-400); RDW Coefficient of Variation 19.3 % (11.5-14.5); RDW Standard Deviation 64.1 fL (36.4-46.3); Red Blood Count 5.31 M/uL (4.7-6.1); White Blood Count 15.77 K/uL (4.8-10.8)
[2021-03-04 07:28] LABS: BUN Creatinine Ratio 7.8 (10-20); Calcium 8.6 mg/dl (8.5-10.1); Creatinine Clr Calc Pharmacy 11.8 ml/min; Est GFR (African American) 5.1 ml/min; Est GFR (Non-African American) 4.4 ml/min; Magnesium 3.1 mg/dl (1.8-2.4)
--- NOTE | 2021-03-04 07:28 | XRay Report ---
XR chest 1V portable HISTORY: 56 years-old Male Resp failure acute respiratory failure COMPARISON: Chest radiograph 03/01/2021 TECHNIQUE: Portable AP view of the chest FINDINGS: Cardiac silhouette is enlarged. Endotracheal tube overlies the midline terminating approximately 5 cm superior to the julio césar. Enteric tube is present with distal tip not identified. Pulmonary vascular c ongestion with bilateral reticular opacities. Mildly improved aeration of the lungs. Trace pleural ef fusions with unchanged moderate hemidiaphragmatic elevation. Mild persistent bibasilar densities. Deg enerative changes of the shoulders and spine. IMPRESSION: 1. Lines and tubes as above. 2. Cardiomegaly with moderately improved pulmonary edema. 3. Trace pleural effusions. ACT 112: Negative or not required by law. The above report was generated using voice recognition software. It may contain grammatical, syntax o r spelling errors. Electronically signed by: Sammy Lane M.D. 03/04/2021 7:27 AM
--- NOTE | 2021-03-04 07:38 | Magnetic Resonance Report ---
MR brain wo con HISTORY: 56 years-old Male AMS, anoxic injury acute cardiac arrest COMPARISON: Head CT 02/26/2021 TECHNIQUE: Multiplanar multisequence MRI of the brain was obtained without the use of IV contrast. FINDINGS: Laboratory Sampler localizer images demonstrate no gross extracranial abnormality. There is no restricted diffusio n to suggest acute or subacute infarct. No acute intracranial hemorrhage, midline shift, abnormal ext ra-axial collection, hydrocephalus or intracranial mass. There is no pathologic blooming artifact mery ntified within the brain parenchyma. There are a few scattered subcentimeter foci of T2/FLAIR prolong ation within the subcortical white matter which are likely of no clinical significance and possibly r epresent mild chronic microvascular ischemic changes. Subcentimeter chronic lacunar infarct involves the left frontal lobe woo radiata on image 15 series 5. Cerebral venous sinuses and major arterial flow voids are patent. Moderate bilateral mastoid effusion s. Moderate to severe mucosal thickening of the paranasal sinuses, pronounced than the ethmoid air ce lls with secretions noted within the nasopharynx. Endotracheal tube. Unremarkable soft tissues. Prior bilateral lens repair. IMPRESSION: 1. No acute intracranial abnormality. No acute or subacute infarct. 2. Moderate to severe paranasal sinus disease with bilateral mastoid effusions. ACT 112: Negative or not required by law. The above report was generated using voice recognition software. It may contain grammatical, syntax o r spelling errors. Electronically signed by: Sammy Lane M.D. 03/04/2021 7:37 AM
[2021-03-04] MEDS: PANTOprazole 40 MG in SYRINGE 0 ML IV SCH ×2 (08:20→20:19)
[2021-03-04] MEDS: dexAMETHasone 6 MG in SYRINGE 0 ML IV SCH (08:21)
[2021-03-04] MEDS: INSULIN GLARGINE SOLOSTAR 100 UNITS/ML 3 ML PEN SC SCH ×2 (08:21→20:17)
[2021-03-04] MEDS: CHOLECALCIFEROL 1,000 UNITS 25 MCG TAB PO SCH (08:30)
--- NOTE | 2021-03-04 10:20 | Hospitalist Progress Note ---
Date of Service March 04, 2021 Assessment & Plan (1) Anoxic encephalopathy: Plan: minimal propofol to help with ventilator synchrony no response to painful stimuli, having myoclonic jerks EEG on 03/01 showed severe encephalopathy, suggestive of anoxic injury neurology consulted, suspect severe anoxic brain injury MRI brain - no stroke palliative care continues to discuss goals of care with , she wants to visit working on arranging a visit by tomorrow morning offered to visit this afternoon but she has an appointment she needs to go to (2) Cardiac arrest: Plan: Post asystole cardiac arrest x2 with ROSC achieved following CPR, epinephrine, bicarb-thought to be secondary to hypoglycemia, severe respiratory acidosis unsure is COVID pneumonia actually contributed to arrest as he is on minimal ventilator settings with FiO2 35% Troponin unremarkable, EKG without ST elevations, QTc 475, was not having chest pain prior to the event Echocardiogram from 02/27 with preserved EF 60-65%, moderate LVH, mild left ear, mild AI -Initially on Epinephrine drip- transitioned to Levophed - now hypertensive He was noted to be unresponsive after resuscitation achieved-underwent hypothermic protocol, now re-warmed EEG with severe encephalopathy on 03/01, suggestive of cerebral anoxia now off of sedation, unresponsive MRI brain without stroke palliative consultation to help discuss goals of care, discussed with Dr. Lewis again today try to get a visit for tomorrow (3) COVID-19: Plan: Recently admitted for Covid-19 pneumonia with hypoxia and discharged on 02/24 on 2 L nasal cannula with ambulation With cardiac arrest as above highly doubt that cardiac arrest was related to COVID 19 infection - Initial symptom date reported as -can stop dexamethasone Ventilator management as per ICU he remains intubated due to mental status (4) Pneumonia: Plan: Covid-19 pneumonia Procalcitonin mildly elevated but is also in the setting of ESRD He recently completed a 5-day course of vancomycin, Zosyn, and azithromycin during previous hospital stay Blood cultures-no growth to date stop dexamethasone (5) Central venous catheter in place: Plan: Noted (6) Hypothyroidism: Plan: Continue synthroid TSH recently normal in 12/2020 at 2.2 (7) Controlled type 2 diabetes mellitus with neurologic complication, with long- term current use of insulin: Plan: Presented with hypoglycemia Holding all insulin at this time Follow glucose-ranges from 120s to 160s (8) Hypoxia: Plan: Acute respiratory failure with hypoxia as above As per collar starcher minimal settings, PEEP 8 and FiO2 of 30%, doubt that COVID pneumonia lead to cardiac arrest (9) Hyperkalemia: Plan: managing with HD (10) End-stage renal disease on hemodialysis: Plan: Received urgent dialysis on 02/27 - Nephrology consult and management appreciated Has recently revised AV fistula in place HD completed 03/01, 03/03 and plan for HD today (11) Transaminitis: Plan: AST and ALT up in the 300s likely secondary to cardiac arrest and acute liver injury-now trending downward INR only minimally elevated at 1.2, platelets normal Follow LFTs, coags (12) Obesity: Plan: Chronic no acute interventions BMI 52.2 (13) Dyslipidemia: Plan: Hold statin with acute liver injury (14) DVT (deep venous thrombosis): Plan: With a history of such Continue Eliquis 5 mg p.o. twice daily Plan: Disposition-continued stay in ICU in Covid unit Full code very poor prognosis, suspected anoxic brain injury, unresponsive on ventilator, myoclonic jerking palliative care will speak with again today, discuss goals of care working on getting his in to visit so she can understand the severity of his condition Admission and Anticipated Discharge Date Admission Date: February 26, 2021 Subjective patient continues to be unresponsive, on minimal propofol to promote ventilator synchrony K is 6, Cr is 12, discussed with Dr. Cardona, plan for HD today long discussion with infection control, need to get his into to see him to discuss goals of care she is having a hard time understanding the severity of his anoxic brain injury spoke with his , she continues to be upset that he was discharged 20 lbs overweight, wasn't scheduled for HD until 3 days after discharge I provided empathy, discussed that the best I can offer at this time is a chance to see him and discuss further care she says she is still praying for a miracle discussed care with Dr. Moon discussed care with his RN at the bedside, noted that he has a cut on the underside of his tongue, causing the dark stools Hb is 15, has been stable for days Review of Systems Review of Systems: Unobtainable due to cognitive status and Unobtainable due to endotracheal tube Physical Exam Constitutional: + ill appearing, + morbidly obese, + altered mental status, + lethargic and + mechanically ventilated; no acute distress Neck: trachea midline and + thick neck Respiratory: symmetric chest movement (ventilated) Auscultation: no crackles, no rales, no rhonchi and no wheezes Cardiovascular: Rate/Rhythm: regular rate and regular rhythm Heart Sounds: normal S1 and normal S2; no murmur Extremities: normal capillary refill and + edema Gastrointestinal (Abdomen): normal bowel sounds, soft, nontender, no hepatosplenomegaly Skin: no rashes, warm and dry Neurologic: CN's II-XI intact bilaterally and + obtunded Motor/Sensory: + abnormal movement (myoclonic jerks, diffuse) Comatose Patient: + response to noxious stimuli absent Results & Data Results & Data ([facility]) Vital Signs (Past 12 Hours) Vital Signs Temp Pulse Resp BP Pulse Ox 03/04/21 09:18 36.6 C 71 93/58 L 95 03/04/21 08:18 36.9 C 87 113/103 H 94 03/04/21 07:55 94 H 33 H 95 03/04/21 07:18 36.8 C 68 98/60 L 94 03/04/21 06:18 36.9 C 73 93 03/04/21 05:18 37.1 C 87 110/62 95 03/04/21 04:18 37.2 C 75 102/50 L 94 03/04/21 04:00 79 135/51 L 03/04/21 03:18 37.2 C 78 100/44 L 93 03/04/21 03:00 89 35 H 97 03/04/21 02:18 37.3 C 85 111/65 96 03/04/21 01:18 37.3 C 86 33 H 96/71 L 95 03/04/21 00:17 37.2 C 84 18 95/78 L 98 03/03/21 23:25 92 H 42 H 96 03/03/21 23:18 105 H 24 95/79 L Laboratory Results Laboratory Results - last 24 hr 03/03/21 03/03/21 03/03/21 11:39 16:36 20:21 WBC RBC Hgb Hct MCV MCH MCHC RDW Std Deviation RDW Coeff of Tim Plt Count MPV Immature Gran % (Auto) Neut % (Auto) Lymph % (Auto) Lane % (Auto) Eos % (Auto) Baso % (Auto) Neut # (Auto) Lymph # (Auto) Lane # (Auto) Eos # (Auto) Baso # (Auto) Immature Gran # (Auto) Sodium Potassium Chloride Carbon Dioxide Anion Gap BUN Creatinine Est Cr Clr Drug Dosing Est GFR ( Amer) Est GFR (Non-Af Amer) BUN/Creatinine Ratio Glucose POC Glucose 168 H 204 H 175 H Calcium Phosphorus Magnesium 03/03/21 03/04/21 03/04/21 23:38 04:16 06:10 WBC 15.77 H RBC 5.31 Hgb 15.5 Hct 48.7 MCV 91.7 MCH 29.2 MCHC 31.8 L RDW Std Deviation 64.1 H RDW Coeff of Tim 19.3 H Plt Count 300 MPV 10.4 Immature Gran % (Auto) 0.7 Neut % (Auto) 85.1 Lymph % (Auto) 7.8 Lane % (Auto) 6.0 Eos % (Auto) 0.3 Baso % (Auto) 0.1 Neut # (Auto) 13.44 H Lymph # (Auto) 1.23 Lane # (Auto) 0.94 H Eos # (Auto) 0.04 Baso # (Auto) 0.01 Immature Gran # (Auto) 0.11 H Sodium Potassium Chloride Carbon Dioxide Anion Gap BUN Creatinine Est Cr Clr Drug Dosing Est GFR ( Amer) Est GFR (Non-Af Amer) BUN/Creatinine Ratio Glucose POC Glucose 118 H 128 H Calcium Phosphorus Magnesium 03/04/21 03/04/21 03/04/21 06:10 07:44 09:01 WBC RBC Hgb Hct MCV MCH MCHC RDW Std Deviation RDW Coeff of Tim Plt Count MPV Immature Gran % (Auto) Neut % (Auto) Lymph % (Auto) Lane % (Auto) Eos % (Auto) Baso % (Auto) Neut # (Auto) Lymph # (Auto) Lane # (Auto) Eos # (Auto) Baso # (Auto) Immature Gran # (Auto) Sodium 131 L Potassium 6.0 H Chloride 94 L Carbon Dioxide 20 L Anion Gap 17.0 H BUN 89 H Creatinine 11.40 H* D Est Cr Clr Drug Dosing 11.8 Est GFR ( Amer) 5.1 Est GFR (Non-Af Amer) 4.4 BUN/Creatinine Ratio 7.8 L Glucose 127 H POC Glucose 133 H 120 H Calcium 8.6 Phosphorus Pending Magnesium 3.1 H Medications Administered Current Inpatient Medications Acetaminophen (Acetaminophen Susp 325 Mg/10.15 Ml Udc) 650 mg PO Q4H PRN PRN Reason: Fever Stop: 03/31/21 03:23 Last Admin: 03/01/21 03:51 Dose: 650 mg Documented by: Apixaban (Apixaban 5 Mg Tablet) 5 mg PO Q12 YUDITH Stop: 03/29/21 00:43 Last Admin: 02/28/21 21:22 Dose: 5 mg Documented by: Aspirin (Aspirin 81 Mg Chew) 81 mg PO QAM YUDITH Stop: 03/29/21 08:59 Last Admin: 03/01/21 10:40 Dose: Not Given Documented by: Calamine/Phenol (Menthol-Zinc Oxide 360 Appln/120 Gm Tube) 1 appln EXT DAILY YUDITH Stop: 04/03/21 10:59 Cinacalcet (Cinacalcet Hcl 90 Mg Tab) 90 mg PO DAILY YUDITH Stop: 03/29/21 08:59 Last Admin: 03/01/21 09:27 Dose: Not Given Documented by: Dextrose (Dextrose 50% 50 Ml Syringe) 25 - 50 ml IV UD PRN; Protocol PRN Reason: Hypoglycemia Protocol Stop: 03/31/21 10:44 Glucagon (Glucagon For Inj 1 Mg Vial) 1 mg SQ UD PRN; Protocol PRN Reason: Hypoglycemia Protocol Stop: 03/31/21 10:44 Glucose (Glucose 40% Gel 15 Gm Tube) 15 - 30 gm PO UD PRN; Protocol PRN Reason: Hypoglycemia Protocol Stop: 03/31/21 10:44 Glucose (Glucose 10 Tabs/Tube) 4 - 8 tabs PO UD PRN; Protocol PRN Reason: Hypoglycemia Protocol Stop: 03/31/21 10:44 Heparin Sodium (Porcine) (Heparin Sod 5,000 Unit/0.5 Ml Vial) 5,000 units SQ Q12H YUDITH Stop: 04/03/21 11:59 Norepinephrine Bitartrate (Levophed/D5w) 8 mg in 508 mls @ 0 mls/hr IV .Q0M YUDITH; Protocol Stop: 03/28/21 21:14 Last Titration: 03/01/21 15:27 Dose: 0 mcg/kg/min, 0 mls/hr Documented by: Dexamethasone 6 mg/ Syringe 1.5 mls @ 1 mls/min IV Q24H [facility] Stop: 03/29/21 08:59 Last Admin: 03/04/21 08:21 Dose: 1 mls/min Documented by: Pantoprazole Sodium 40 mg/ (Syringe) 10 mls @ 5 mls/min IV BID [facility]; Protocol Stop: 03/31/21 08:59 Last Admin: 03/04/21 08:20 Dose: 5 mls/min Documented by: Doxycycline Hyclate 100 mg/ (Dextrose) 110 mls @ 55 mls/hr IV Q12H [facility] Stop: 03/08/21 11:59 Last Infusion: 03/04/21 01:35 Dose: Infused Documented by: Propofol (Diprivan) 1,000 mg in 100 mls @ 36.981 mls/hr IV .Q2H43M [facility]; Protocol Stop: 03/05/21 15:29 Last Admin: 03/04/21 08:12 Dose: 35 mcg/kg/min, 37 mls/hr Documented by: Cefepime HCl 1,000 mg/ Syringe 11.3 mls @ 5.5 mls/min IV Q24H [facility] Stop: 03/11/21 13:59 Nicardipine HCl 50 mg/ Sodium (Chloride) 250 mls @ 25 mls/hr IV .Q5H [facility]; Protocol Stop: 04/03/21 10:29 Insulin Aspart (Insulin Aspart 100 Units/Ml 3 Ml Pen) 0 units SC Q4 YUDITH Stop: 03/31/21 11:59 Last Admin: 03/04/21 09:02 Dose: Not Given Documented by: Insulin Glargine (Insulin Glargine Solostar 100 Units/Ml 3 Ml Pen) 9 units SC BID [facility] Stop: 04/01/21 20:59 Last Admin: 03/04/21 08:21 Dose: 9 units Documented by: Lactulose (Lactulose Syrup 20 Gm/30 Ml Udc) 10 gm PO MoWeFrSa@[id number] [facility] Stop: 03/29/21 08:59 Last Admin: 03/03/21 08:20 Dose: 10 gm Documented by: Levalbuterol HCl (Levalbuterol Hcl 0.63 Mg/3 Ml Neb) 0.63 mg INH Q4H PRN PRN Reason: Dyspnea Stop: 03/29/21 00:43 Last Admin: 03/01/21 08:27 Dose: 0.63 mg Documented by: Levothyroxine Sodium (Levothyroxine Sodium 150 Mcg Tablet) 150 mcg PO DAILYBB YUDITH Stop: 03/29/21 06:29 Last Admin: 03/04/21 05:20 Dose: 150 mcg Documented by: Miscellaneous (Carbohydrates For Hypoglycemia ) 15 - 30 gm PO UD PRN PRN Reason: Hypoglycemia Treatment Stop: 03/31/21 10:44 Propofol (Propofol Bolus From Bag) 20 mg IV Q5M PRN PRN Reason: Sedation Stop: 03/05/21 15:27 Last Admin: 03/04/21 02:43 Dose: 20 mg Documented by: Vitamin B Complex/Folic Acid (Nephrocaps) 1 cap PO QPM YUDITH Stop: 03/29/21 00:43 Last Admin: 03/03/21 20:42 Dose: 1 cap Documented by: Vitamin D (Cholecalciferol 1,000 Units 25 Mcg Tab) 5,000 units PO DAILY YUDITH Stop: 03/29/21 08:59 Last Admin: 03/04/21 08:30 Dose: Not Given Documented by: PG Care Time/CCT Total # of Minutes Spent Total Time Spent with Patient: Total time spent is greater than 50% in coordination of care (as documented) at patient's floor/unit and/or counseling patient: Coding Level of Care Code 51385 Subseq Hosp Care Lvl 3 Diagnoses Anoxic encephalopathy G93.1 Cardiac arrest I46.9 COVID-19 U07.1 Pneumonia J18.9 Laterality: bilateral Pneumonia type: due to unspecified organism Central venous catheter in place Z78.9 Hypothyroidism E03.9 Controlled type 2 diabetes mellitus with neurologic complication, with long-term current use of insulin E11.49; Z79.4 Hypoxia R09.02 Hyperkalemia E87.5 End-stage renal disease on hemodialysis N18.6; Z99.2 Transaminitis R74.01 Obesity E66.9 Dyslipidemia E78.5 DVT (deep venous thrombosis) I82.409 (1) Pneumonia Laterality: bilateral Pneumonia type: due to unspecified organism
--- NOTE | 2021-03-04 10:30 | Nephrology Progress Note ---
Date of Service March 04, 2021 Assessment & Plan (1) End stage renal disease: Plan: Orders for HD today entered into EMR and reviewed with HD nurse. Low potassium bath. 3 hrs. UF 3 L as tolerated. Heparin with HD. Medications appropriately dosed for IHD. (2) COVID-19: Plan: Oxygenating well on vent. Remains on Zosyn and Decadron. Blood cultures negative. (3) Dialysis AV fistula malfunction: Plan: Functioning well following recent revision. Good thrill and bruit. (4) Cardiac arrest: Plan: Persistents signs of notable anoxic brain injury. Palliative care following. Unfortunately, Yoshi remains unresponsive. Neurology following. MRI reviewed this AM. Admission and Anticipated Discharge Date Admission Date: February 26, 2021 Subjective I had a long conversation with Yoshi's yesterday. She remains hopeful to see some improvement. She needs to see him. HD completed yesterday without complications. I discussed the plan of care with Dr. Serrano this AM. Review of Systems Review of Systems: Unobtainable due to endotracheal tube and Unobtainable due to reduced consciousness Physical Exam Constitutional: + ill appearing, + morbidly obese and + mechanically ventilated Eyes: + anicteric sclerae Neck: normal visual inspection, trachea midline and + thick neck Respiratory: symmetric chest movement Auscultation: + rhonchi Cardiovascular: Rate/Rhythm: regular rhythm Heart Sounds: normal S1, normal S2 and + murmur Extremities: + AV fistula Gastrointestinal (Abdomen): Inspection/Auscultation: + abdomen distended and + hypoactive bowel sounds Musculoskeletal: Extremities: extremities normal to inspection; no clubbing Skin: normal turgor; no lesions Neurologic: Motor/Sensory: no tremor and no asterixis Results & Data ([facility]) Vital Signs (Past 12 Hours) Vital Signs Temp Pulse Resp BP Pulse Ox 03/04/21 09:18 36.6 C 71 93/58 L 95 03/04/21 08:18 36.9 C 87 113/103 H 94 03/04/21 07:55 94 H 33 H 95 03/04/21 07:18 36.8 C 68 98/60 L 94 03/04/21 06:18 36.9 C 73 93 03/04/21 05:18 37.1 C 87 110/62 95 03/04/21 04:18 37.2 C 75 102/50 L 94 03/04/21 04:00 79 135/51 L 03/04/21 03:18 37.2 C 78 100/44 L 93 03/04/21 03:00 89 35 H 97 03/04/21 02:18 37.3 C 85 111/65 96 03/04/21 01:18 37.3 C 86 33 H 96/71 L 95 03/04/21 00:17 37.2 C 84 18 95/78 L 98 03/03/21 23:25 92 H 42 H 96 03/03/21 23:18 105 H 24 95/79 L Laboratory Results Laboratory Results - last 24 hr 03/03/21 03/03/21 03/03/21 11:39 16:36 20:21 WBC RBC Hgb Hct MCV MCH MCHC RDW Std Deviation RDW Coeff of Tim Plt Count MPV Immature Gran % (Auto) Neut % (Auto) Lymph % (Auto) [place] % (Auto) Eos % (Auto) Baso % (Auto) Neut # (Auto) Lymph # (Auto) [place] # (Auto) Eos # (Auto) Baso # (Auto) Immature Gran # (Auto) Sodium Potassium Chloride Carbon Dioxide Anion Gap BUN Creatinine Est Cr Clr Drug Dosing Est GFR ( Amer) Est GFR (Non-Af Amer) BUN/Creatinine Ratio Glucose POC Glucose 168 H 204 H 175 H Calcium Phosphorus Magnesium 03/03/21 03/04/21 03/04/21 23:38 04:16 06:10 WBC 15.77 H RBC 5.31 Hgb 15.5 Hct 48.7 MCV 91.7 MCH 29.2 MCHC 31.8 L RDW Std Deviation 64.1 H RDW Coeff of Tim 19.3 H Plt Count 300 MPV 10.4 Immature Gran % (Auto) 0.7 Neut % (Auto) 85.1 Lymph % (Auto) 7.8 [place] % (Auto) 6.0 Eos % (Auto) 0.3 Baso % (Auto) 0.1 Neut # (Auto) 13.44 H Lymph # (Auto) 1.23 [place] # (Auto) 0.94 H Eos # (Auto) 0.04 Baso # (Auto) 0.01 Immature Gran # (Auto) 0.11 H Sodium Potassium Chloride Carbon Dioxide Anion Gap BUN Creatinine Est Cr Clr Drug Dosing Est GFR ( Amer) Est GFR (Non-Af Amer) BUN/Creatinine Ratio Glucose POC Glucose 118 H 128 H Calcium Phosphorus Magnesium 03/04/21 03/04/21 03/04/21 06:10 07:44 09:01 WBC RBC Hgb Hct MCV MCH MCHC RDW Std Deviation RDW Coeff of Tim Plt Count MPV Immature Gran % (Auto) Neut % (Auto) Lymph % (Auto) [place] % (Auto) Eos % (Auto) Baso % (Auto) Neut # (Auto) Lymph # (Auto) [place] # (Auto) Eos # (Auto) Baso # (Auto) Immature Gran # (Auto) Sodium 131 L Potassium 6.0 H Chloride 94 L Carbon Dioxide 20 L Anion Gap 17.0 H BUN 89 H Creatinine 11.40 H* D Est Cr Clr Drug Dosing 11.8 Est GFR ( Amer) 5.1 Est GFR (Non-Af Amer) 4.4 BUN/Creatinine Ratio 7.8 L Glucose 127 H POC Glucose 133 H 120 H Calcium 8.6 Phosphorus Pending Magnesium 3.1 H PG Care Time/CCT Total # of Minutes Spent Total Time Spent with Patient: Total time spent is greater than 50% in coordination of care (as documented) at patient's floor/unit and/or counseling patient: Coding Level of Care Code 38574 Subseq Hosp Care Lvl 3 Diagnoses End stage renal disease N18.6 COVID-19 U07.1 Dialysis AV fistula malfunction T82.590A Cardiac arrest I46.9
[2021-03-04] MEDS ORDERED: HEPARIN SOD (PORCINE) 1000 UNIT/ML IV ONE (10:31)
--- NOTE | 2021-03-04 10:36 | Neurology Progress Note ---
Date of Service March 04, 2021 Assessment & Plan (1) Anoxic encephalopathy: Plan: Anoxic encephalopathy in the context of cardiac arrest. Recently completed brain MRI does not reveal any evidence of acute or subacute stroke. No evidence of hemorrhage. An EEG completed on the was negative for epileptiform abnormalities. The study did reveal findings consistent with severe encephalopathy. Please see my consultation from yesterday for further details. Continue supportive medical care. Admission and Anticipated Discharge Date Admission Date: February 26, 2021 Results & Data ([facility]) Vital Signs (Past 12 Hours) Vital Signs Temp Pulse Resp BP Pulse Ox 03/04/21 09:18 36.6 C 71 93/58 L 95 03/04/21 08:18 36.9 C 87 113/103 H 94 03/04/21 07:55 94 H 33 H 95 03/04/21 07:18 36.8 C 68 98/60 L 94 03/04/21 06:18 36.9 C 73 93 03/04/21 05:18 37.1 C 87 110/62 95 03/04/21 04:18 37.2 C 75 102/50 L 94 03/04/21 04:00 79 135/51 L 03/04/21 03:18 37.2 C 78 100/44 L 93 03/04/21 03:00 89 35 H 97 03/04/21 02:18 37.3 C 85 111/65 96 03/04/21 01:18 37.3 C 86 33 H 96/71 L 95 03/04/21 00:17 37.2 C 84 18 95/78 L 98 03/03/21 23:25 92 H 42 H 96 03/03/21 23:18 105 H 24 95/79 L Diagnostic Findings Brain MRI reviewed. No evidence of acute or subacute infarct. There is minimal chronic microvascular ischemic change. There is a chronic lacunar infarct within the left frontal lobe/woo radiata. There is no evidence of hemorrhage. No evidence of significant parenchymal abnormality. I did review the images as well as the radiologist's interpretation of this test. Coding Level of Care Code None Diagnoses Anoxic encephalopathy G93.1
[2021-03-04 10:44] LABS: iSTAT Sodium 130 mmol/L (135-144)
[2021-03-04 10:45] LABS: iSTAT Arterial Blood Gas HCO3 23 meg/L (19-24); iSTAT Arterial Blood Gas pCO2 35 mmHg (35-46); iSTAT Arterial Blood Gas pH 7.41 (7.35-7.45); iSTAT Arterial Blood Gas pO2 83 mmHg (80-95); iSTAT Carbon Dioxide 24 mmol/L (24-31); iSTAT Hematocrit 49 % (42-52); iSTAT Hemoglobin 16.7 g/dl (14.0-18.0); iSTAT Potassium 5.6 mmol/L (3.3-5.0)
[2021-03-04 10:46] LABS: iSTAT Art Bld Gas pCO2 Correct 36 mmHg (35-46); iSTAT Art Bld Gas pH Corrected 7.409 (7.35-7.45); iSTAT Arterial Blood Gas pO2 C 84
[2021-03-04 10:47] LABS: Patient Temperature 37.2; iSTAT Allen Test Not Performed; iSTAT Sample Type Arterial; iSTAT Site Art Line
[2021-03-04 11:38] LABS: BUN Creatinine Ratio 8.4 (10-20); Calcium 8.8 mg/dl (8.5-10.1); Creatinine Clr Calc Pharmacy 11.6 ml/min; Est GFR (Non-African American) 4.3 ml/min; Potassium 5.9 mmol/L (3.5-5.1)
--- NOTE | 2021-03-04 12:00 | Critical Care Progress Note ---
Date of Service March 04, 2021 Assessment & Plan (1) Cardiac arrest: Plan: Reason Critically Ill: 56-year-old male with complicated PMH including ESRD on dialysis, HFpEF, and recent hospitalization for COVID-19 pneumonia presents to the ICU following a suspected respiratory induced asystole cardiac arrest in which she is undergoing therapeutic hypothermia as he was unresponsive following ROSC. Neuro - Anoxic injurylikely severe anoxic brain injury. -CT head without acute intracranial findings -Patient completed targeted temperature management. -EEG with findings concerning for hypoxic induced injury -MRI head with no acute intracranial abnormality. Neurology consult appreciated. Cardiac - Cardiac arrestsuspect this is likely related to the patient's severe respiratory acidosis and COVID-19 pneumonia along with hypoglycemia likely attributed -Witnessed asystole arrest with ROSC achieved following CPR, epinephrine, bicarb -Troponin unremarkable, EKG without ST elevations, QTc 475. Patient was not having chest pain prior to this event. -NSR on monitor, continuous telemetry -Hold antihypertensives for now -Echocardiogram from 02/27/2021 reviewed Respiratory - Hypercapnic hypoxic respiratory failurelikely multifactorial in the setting of COVID-19 pneumonia, diastolic heart failure, presumed OHS -Continue lung protective ventilation strategy. -Nebs as needed -Continuous pulse ox and ET CO2 monitoring GI - N.p.o. Transaminitisimproving. GI consultation appreciated. NG suctioning revealing maroon-colored content. No significant change in hemoglobin. Doubt GI bleed at this time. We will start trickle tube feeds. Patient does have a tongue laceration which may be the cause of the bleeding. RENAL/LYTES - ESRDPatient undergoes hemodialysis MWF -Nephrology following ENDO - DM type IIpatient was hypoglycemic in the field with EMS but corrected with dextrose/glucagon administration -Currently hyperglycemic, continue with sliding scale for now -ICU hyperglycemic protocol Hypothyroidcontinue Synthroid HEME - H&H stable, monitor routine CBCs. History of DVTs. Holding Eliquis. Start heparin 5000 units twice daily. ID - Pneumoniapatient initially tested positive for COVID-19 pneumonia on 02/22. Continue cefepime for 7 days for Klebsiella pneumoniae and Citrobacter isolated in sputum. LINES/IV ACCESS - central venous catheter (triple-lumen access), arterial line, ET tube, OG tube DVT PROPHYLAXIS - SCDs, heparin 5000 units twice daily. If no significant bleeding by tomorrow, will restart Eliquis. Overall prognosis very guarded. Palliative care consultation appreciated. (2) Hypoglycemia: (3) Renal failure: (4) Respiratory failure: (5) Acidosis: (6) Hypoxia: (7) Pneumonia: (8) COVID-19: (9) Controlled type 2 diabetes mellitus with kidney complication, with long-term current use of insulin: (10) End stage renal disease: (11) Morbid obesity: Admission and Anticipated Discharge Date Admission Date: February 26, 2021 Subjective Patient seen and examined currently on a propofol infusion. Not responsive to commands. Unable to obtain review of systems due to mental status and intubation status. No significant events overnight. Review of Systems Review of Systems: Unobtainable due to cognitive status and Unobtainable due to endotracheal tube Physical Exam Physical Exam: General: Patient remains intubated. Appears to be in no significant distress. Skin: Warm, dry, Head: Atraumatic Ears, nose, mouth and throat: airway obscured by endotracheal tube Cardiovascular: Normal peripheral perfusion Respiratory: Distant breath sounds Gastrointestinal: Soft, nontender nondistended. Musculoskeletal: 2+ edema, evidence of vascular insufficiency Neurologic: Myoclonic jerking activity noted. Nonresponsive to commands despite being off sedation. No withdrawal to painful stimuli. Results & Data Results & Data ([facility]) Vital Signs (Past 12 Hours) Vital Signs Temp Pulse Resp BP Pulse Ox 03/04/21 10:18 98.2 F 70 89/59 L 94 03/04/21 09:18 97.9 F 71 93/58 L 95 03/04/21 08:18 98.4 F 87 113/103 H 94 03/04/21 07:55 94 H 33 H 95 03/04/21 07:18 98.2 F 68 98/60 L 94 03/04/21 06:18 98.4 F 73 93 03/04/21 05:18 98.8 F 87 110/62 95 03/04/21 04:18 99.0 F 75 102/50 L 94 03/04/21 04:00 79 135/51 L 03/04/21 03:18 99.0 F 78 100/44 L 93 03/04/21 03:00 89 35 H 97 03/04/21 02:18 99.1 F 85 111/65 96 03/04/21 01:18 99.1 F 86 33 H 96/71 L 95 03/04/21 00:17 99.0 F 84 18 95/78 L 98 vital signs, lab and image reviewed Coding Level of Care Code 21060 Subseq Hosp Care Lv 3 Diagnoses Cardiac arrest I46.9 Hypoglycemia E16.2 Renal failure N17.9; N18.9; Z99.2 Acute renal failure type: unspecified Chronic kidney disease stage: on chronic dialysis Renal failure chronicity: acute on chronic Respiratory failure J96.01; J96.02 Chronicity: acute Respiratory failure complication: hypoxia and hypercapnia Acidosis E87.2 Hypoxia R09.02 Pneumonia J18.9 Laterality: bilateral Pneumonia type: due to unspecified organism COVID-19 U07.1 Controlled type 2 diabetes mellitus with kidney complication, with long-term current use of insulin E11.29; Z79.4 End stage renal disease N18.6 Morbid obesity E66.01 (1) Renal failure Acute renal failure type: unspecified Chronic kidney disease stage: on chronic dialysis Renal failure chronicity: acute on chronic Qualified Code(s): N17.9 - Acute kidney failure, unspecified; N18.9 - Chronic kidney disease, unspecified; Z99.2 - Dependence on renal dialysis (2) Respiratory failure Chronicity: acute Respiratory failure complication: hypoxia and hypercapnia Qualified Code(s): J96.01 - Acute respiratory failure with hypoxia; J96.02 - Acute respiratory failure with hypercapnia (3) Pneumonia Laterality: bilateral Pneumonia type: due to unspecified organism
[2021-03-04] MEDS: DOXYCYCLINE HYCLATE 100 MG in DEXTROSE 5% 100 ML IV SCH ×2 (12:57→23:00)
[2021-03-04] MEDS: NOVASOURCE RENAL 2.0 CAL 1000ML BAG OG SCH (12:58)
[2021-03-04] MEDS: MENTHOL-ZINC OXIDE 360 APPLN/120 GM TUBE EXT SCH (12:58)
[2021-03-04] MEDS: HEPARIN SOD 5,000 UNIT/0.5 ML VIAL SQ SCH ×2 (12:58→23:00)
[2021-03-04] MEDS: TUBE FEEDING WATER FLUSH OG SCH ×4 (13:02→22:42)
[2021-03-04] MEDS ORDERED: CEFEPIME 1,000 MG in SYRINGE 0 ML IV SCH (14:00)
[2021-03-04] MEDS: HEPARIN SOD (PORCINE) 1000 UNIT/ML IV SCH (14:03)
[2021-03-04] MEDS: NEPHROCAPS PO SCH (20:18)
[2021-03-05] MEDS: TUBE FEEDING WATER FLUSH OG SCH ×3 (04:06→12:42)
[2021-03-05] MEDS: LEVOTHYROXINE SODIUM 150 MCG TABLET PO SCH (04:20)
[2021-03-05] MEDS: propofoL 1,000 MG/100 ML VIAL IV SCH (04:56)
[2021-03-05] MEDS: INSULIN ASPART 100 UNITS/ML 3 ML PEN SC SCH ×3 (04:58→12:43)
[2021-03-05 05:17] LABS: Basophils # (auto) 0.01 K/uL (0-0.2); Basophils % (auto) 0.1 %; Eosinophils # (auto) 0.03 K/uL (0-0.5); Eosinophils % (auto) 0.2 %; Hematocrit (blood only) 47.6 % (42-52); Hemoglobin 15.2 g/dL (14.0-18.0); Immature Granulocytes # (auto) 0.08 K/uL (0.00-0.02); Immature Granulocytes % (auto) 0.6 %; Lymphocytes # (auto) 0.81 K/uL (1.2-3.4); Lymphocytes % (auto) 5.7 %; Mean Corpuscular Hgb Conc 31.9 g/dL (32-36); Mean Corpuscular Volume 90.7 fL (80-100); Mean Platelet Volume 10.4 fL (7.4-10.4); Monocytes # (auto) 1.16 K/uL (0.11-0.59); Monocytes % (auto) 8.1 %; Neutrophils # (auto) 12.19 K/uL (1.4-6.5); Neutrophils % (auto) 85.3 %; Platelet Count 287 K/uL (130-400); RDW Coefficient of Variation 19.8 % (11.5-14.5); RDW Standard Deviation 63.6 fL (36.4-46.3); Red Blood Count 5.25 M/uL (4.7-6.1); White Blood Count 14.28 K/uL (4.8-10.8)
[2021-03-05 05:34] LABS: iSTAT Arterial Blood Gas HCO3 23 meg/L (19-24); iSTAT Arterial Blood Gas pCO2 38 mmHg (35-46); iSTAT Arterial Blood Gas pH 7.38 (7.35-7.45); iSTAT Arterial Blood Gas pO2 75 mmHg (80-95); iSTAT Carbon Dioxide 24 mmol/L (24-31); iSTAT FiO2 25 %; iSTAT Site Art Line
[2021-03-05 05:56] LABS: BUN Creatinine Ratio 8.3 (10-20); Calcium 8.6 mg/dl (8.5-10.1); Creatinine Clr Calc Pharmacy 12.8 ml/min; Est GFR (African American) 5.8 ml/min; Magnesium 3.2 mg/dl (1.8-2.4); Potassium 5.9 mmol/L (3.5-5.1)
[2021-03-05 06:22] LABS: Phosphorus 14.8 mg/dl (2.5-4.9)
--- NOTE | 2021-03-05 07:33 | XRay Report ---
XR chest 1V portable HISTORY: 56 years-old Male f/u acute respiratory failure COMPARISON: Chest radiograph 03/04/2021 TECHNIQUE: Portable AP view of the chest FINDINGS: Cardiac silhouette is enlarged. Endotracheal tube overlies the midline 6.9 cm superior to the julio césar. Enteric tube courses below the diaphragm with distal tip outside the [id number]. Limited exam sec ondary to positioning. Cardiac silhouette is enlarged. Progressively worsened bilateral mixed interst itial and alveolar opacities, left greater than right. Trace pleural effusions. No pneumothorax. Dege nerative changes of the shoulders and spine. IMPRESSION: 1. Lines and tubes as above. 2. Cardiomegaly with progressively worsened left greater than right mixed interstitial and alveolar o pacities suggestive of pulmonary edema. Superimposed pneumonitis would be difficult to exclude. 3. Trace pleural effusions. ACT 112: Negative or not required by law. The above report was generated using voice recognition software. It may contain grammatical, syntax o r spelling errors. Electronically signed by: Sammy Lane M.D. 03/05/2021 7:31 AM
[2021-03-05] MEDS: CHOLECALCIFEROL 1,000 UNITS 25 MCG TAB PO SCH (09:56)
[2021-03-05] MEDS: MENTHOL-ZINC OXIDE 360 APPLN/120 GM TUBE EXT SCH (09:56)
[2021-03-05] MEDS: LACTULOSE SYRUP 20 GM/30 ML UDC PO SCH (09:56)
[2021-03-05] MEDS: PANTOprazole 40 MG in SYRINGE 0 ML IV SCH (09:56)
[2021-03-05] MEDS: dexAMETHasone 6 MG in SYRINGE 0 ML IV SCH (09:56)
[2021-03-05] MEDS: INSULIN GLARGINE SOLOSTAR 100 UNITS/ML 3 ML PEN SC SCH (09:57)
--- NOTE | 2021-03-05 10:27 | Nephrology Progress Note ---
Date of Service March 05, 2021 Assessment & Plan (1) End stage renal disease: Plan: Yoshi has required dialysis hemodialysis since admission. Volume status acceptable at this time. Clearance has been adequate. Unfortunately, his status continues to decline. I discussed goals of care with Erica this AM. She does not want to prolong Yoshi's but remains hopeful to see some recovery. She was agreeable to holding HD at this time. I will follow up after Erica is able to review goals of care with palliative care today. (2) COVID-19: (3) Dialysis AV fistula malfunction: Plan: Functioning well following recent revision. Good thrill and bruit. (4) Cardiac arrest: Plan: Persistents signs of notable anoxic brain injury. Palliative care following. Unfortunately, Yoshi remains unresponsive. Neurology following. Admission and Anticipated Discharge Date Admission Date: February 26, 2021 Subjective No acute events overnight. Tolerated HD yesterday. I have long ~30 minute conversation on the phone with Erica this morning. She remains understandably very emotional and conflicted. She does not want to see Yoshi suffer and is scared to see him. She also wants to come in if spending time with him may provide Yoshi with some comfort. She could use additional support. She does not want Yoshi to suffer through any additional aggressive interventions or CPR. I confirmed DNR status and communicated this to Dr. Serrano and Yoshi's nurse. Erica is not ready to withdraw care but she also does not want to prolong . She was agreeable to holding hemodialysis at this time pending some additional monitoring and a follow up conversation with Dr. Lewis. I spoke to Dr. Serrano and will have palliative care reach back out to Erica today to continue a conversation on how to best meet Yoshi's personal wishes and goals of care. Review of Systems Review of Systems: Unobtainable due to endotracheal tube and Unobtainable due to reduced consciousness Physical Exam Physical Exam: Deferred due to COVID Cardiovascular: Rate/Rhythm: + abnormal rhythm Heart Sounds: normal S1, normal S2 and + murmur Extremities: + AV fistula Gastrointestinal (Abdomen): Inspection/Auscultation: + abdomen distended and + hypoactive bowel sounds Musculoskeletal: Extremities: extremities normal to inspection; no clubbing Skin: normal turgor; no lesions Neurologic: Motor/Sensory: no tremor and no asterixis Results & Data ([facility]) Vital Signs (Past 12 Hours) Vital Signs Temp Pulse Resp BP Pulse Ox 03/05/21 08:04 88 24 89 L 03/05/21 06:06 36.4 C L 76 91/51 L 91 03/05/21 05:12 86 26 H 90 03/05/21 05:05 37.1 C 88 118/74 90 03/05/21 04:07 37.1 C 86 109/37 L 90 03/05/21 03:05 37.1 C 92 H 99/70 L 90 03/05/21 02:06 37.1 C 100 H 90 03/05/21 01:35 99 H 26 H 90 03/05/21 01:06 37.1 C 90 127/66 90 03/05/21 00:07 37.1 C 95 H 120/71 90 03/04/21 23:06 37.0 C 76 92 03/04/21 22:37 86 27 H 92 Laboratory Results Laboratory Results - last 24 hr 03/04/21 03/04/21 03/04/21 04:55 06:10 10:14 WBC RBC Hgb POC Hgb 16.7 Hct POC Hct 49 MCV MCH MCHC RDW Std Deviation RDW Coeff of Tim Plt Count MPV Immature Gran % (Auto) Neut % (Auto) Lymph % (Auto) [place] % (Auto) Eos % (Auto) Baso % (Auto) Neut # (Auto) Lymph # (Auto) [place] # (Auto) Eos # (Auto) Baso # (Auto) Immature Gran # (Auto) Specimen Type Arterial Sample Site Art Line Patient Temperature 37.2 POC pH 7.41 POC pCO2 35 POC pO2 83 POC HCO3 23 POC Total CO2 24 POC Base Excess -2.0 ABG pH (Temp Correct) 7.409 ABG pCO2 (Temp Corrct 36 POC ABG pO2 at Pt Temp 84 POC ABG O2 Sat Isidoro Test Not Performed O2 Delivery Device Ventilator POC O2 Rate 14 Minute Ventilation Vent Mode AC POC FiO2 Tidal Volume 450 PEEP 8 POC Sodium 130 L Sodium 131 L POC Potassium 5.6 H Potassium 5.9 H Chloride 93 L Carbon Dioxide 19 L Anion Gap 20.0 H BUN 97 H Creatinine 11.60 H* Est Cr Clr Drug Dosing 11.6 Est GFR ( Amer) 5.0 Est GFR (Non-Af Amer) 4.3 BUN/Creatinine Ratio 8.4 L Glucose 151 H POC Glucose Calcium 8.8 Phosphorus 14.0 H Magnesium 03/04/21 03/04/21 03/04/21 13:11 17:01 20:26 WBC RBC Hgb POC Hgb Hct POC Hct MCV MCH MCHC RDW Std Deviation RDW Coeff of Tim Plt Count MPV Immature Gran % (Auto) Neut % (Auto) Lymph % (Auto) [place] % (Auto) Eos % (Auto) Baso % (Auto) Neut # (Auto) Lymph # (Auto) [place] # (Auto) Eos # (Auto) Baso # (Auto) Immature Gran # (Auto) Specimen Type Sample Site Patient Temperature POC pH POC pCO2 POC pO2 POC HCO3 POC Total CO2 POC Base Excess ABG pH (Temp Correct) ABG pCO2 (Temp Corrct POC ABG pO2 at Pt Temp POC ABG O2 Sat Isidoro Test O2 Delivery Device POC O2 Rate Minute Ventilation Vent Mode POC FiO2 Tidal Volume PEEP POC Sodium Sodium POC Potassium Potassium Chloride Carbon Dioxide Anion Gap BUN Creatinine Est Cr Clr Drug Dosing Est GFR ( Amer) Est GFR (Non-Af Amer) BUN/Creatinine Ratio Glucose POC Glucose 158 H 204 H 164 H Calcium Phosphorus Magnesium 03/04/21 03/05/21 03/05/21 23:07 04:39 04:44 WBC 14.28 H RBC 5.25 Hgb 15.2 POC Hgb Hct 47.6 POC Hct MCV 90.7 MCH 29.0 MCHC 31.9 L RDW Std Deviation 63.6 H RDW Coeff of Tim 19.8 H Plt Count 287 MPV 10.4 Immature Gran % (Auto) 0.6 Neut % (Auto) 85.3 Lymph % (Auto) 5.7 [place] % (Auto) 8.1 Eos % (Auto) 0.2 Baso % (Auto) 0.1 Neut # (Auto) 12.19 H Lymph # (Auto) 0.81 L [place] # (Auto) 1.16 H Eos # (Auto) 0.03 Baso # (Auto) 0.01 Immature Gran # (Auto) 0.08 H Specimen Type Sample Site Patient Temperature POC pH POC pCO2 POC pO2 POC HCO3 POC Total CO2 POC Base Excess ABG pH (Temp Correct) ABG pCO2 (Temp Corrct POC ABG pO2 at Pt Temp POC ABG O2 Sat Isidoro Test O2 Delivery Device POC O2 Rate Minute Ventilation Vent Mode POC FiO2 Tidal Volume PEEP POC Sodium Sodium POC Potassium Potassium Chloride Carbon Dioxide Anion Gap BUN Creatinine Est Cr Clr Drug Dosing Est GFR ( Amer) Est GFR (Non-Af Amer) BUN/Creatinine Ratio Glucose POC Glucose 146 H 172 H Calcium Phosphorus Magnesium 03/05/21 03/05/21 03/05/21 04:44 05:21 10:02 WBC RBC Hgb POC Hgb Hct POC Hct MCV MCH MCHC RDW Std Deviation RDW Coeff of Tim Plt Count MPV Immature Gran % (Auto) Neut % (Auto) Lymph % (Auto) [place] % (Auto) Eos % (Auto) Baso % (Auto) Neut # (Auto) Lymph # (Auto) [place] # (Auto) Eos # (Auto) Baso # (Auto) Immature Gran # (Auto) Specimen Type Sample Site Art Line Patient Temperature POC pH 7.38 POC pCO2 38 POC pO2 75 L POC HCO3 23 POC Total CO2 24 POC Base Excess -2.0 ABG pH (Temp Correct) ABG pCO2 (Temp Corrct POC ABG pO2 at Pt Temp POC ABG O2 Sat 95.0 Isidoro Test NA O2 Delivery Device Ventilator POC O2 Rate 14 Minute Ventilation 19.2 Vent Mode POC FiO2 25 Tidal Volume 450 PEEP 8 POC Sodium Sodium 132 L POC Potassium Potassium 5.9 H Chloride 96 L Carbon Dioxide 21 Anion Gap 15.0 H BUN 85 H Creatinine 10.30 H* D Est Cr Clr Drug Dosing 12.8 Est GFR ( Amer) 5.8 Est GFR (Non-Af Amer) 5.0 BUN/Creatinine Ratio 8.3 L Glucose 173 H POC Glucose 170 H Calcium 8.6 Phosphorus 14.8 H Magnesium 3.2 H PG Care Time/CCT Total # of Minutes Spent Total Time Spent with Patient: Total time spent is greater than 50% in coordination of care (as documented) at patient's floor/unit and/or counseling patient: Coding Level of Care Code 49656 Subseq Hosp Care Lvl 3 Diagnoses End stage renal disease N18.6 COVID-19 U07.1 Dialysis AV fistula malfunction T82.590A Cardiac arrest I46.9
[2021-03-05] MEDS ORDERED: APIXABAN 5 MG TABLET PO SCH (12:00)
[2021-03-05] MEDS ORDERED: CALCIUM CARBONATE 1,250 MG/5 ML UDC PO SCH (12:00)
--- NOTE | 2021-03-05 12:01 | Communication Note ---
Date of Service: March 05, 2021 Long conversation with Erica, patient's , discussed severe anoxic brain injury, no chance for meaningful recovery. She told me she knows he is gone, she said that we can "pull the plug." I explained to her that we would make sure he was comfortable with pain control and sedation as needed and we would extubate him. I offered her a chance to see him at the bedside before proceeding with extubation, she refused, saying that she would not want to remember him on a ventilator in the hospital. I confirmed with her that she was okay with extubation. I told her I would contact her after he had . I spoke with Dr. Moon and Dr. Lewis in the ICU about the plan, will plan for terminal extubation shortly. total time of phone call was 30 minutes
--- NOTE | 2021-03-05 12:32 | Palliative Care Progress Note ---
Date of Service March 05, 2021 Assessment & Plan (1) Anoxic encephalopathy: (2) Palliative care encounter: Plan: I talked with Jacinta on the phone. She does not want to see Yoshi in his current state and would prefer to remember him as he was. She has decided to withdraw support and allow peaceful . She tells me that although she has limited family support, she does have a lot of latter-day support and is grateful for the call. She is comfortable with her decision and would like to be called when Yoshi dies. Reassured her that we will call. Admission and Anticipated Discharge Date Admission Date: February 26, 2021 Subjective Breathing above vent. Plan for withdraw of support today per his 's request. Review of Systems Review of Systems: Unobtainable due to endotracheal tube and Unobtainable due to reduced consciousness Physical Exam Constitutional: no acute distress Cardiovascular: Rate/Rhythm: regular rate and regular rhythm Neurologic: + obtunded Results & Data ([facility]) Vital Signs (Past 12 Hours) Vital Signs Temp Pulse Resp BP Pulse Ox 03/05/21 12:06 98.1 F 72 109/38 L 92 03/05/21 12:00 72 109/38 L 03/05/21 11:19 76 25 H 94 03/05/21 11:06 98.1 F 77 108/61 93 03/05/21 10:06 97.7 F 84 126/50 L 90 03/05/21 09:06 97.9 F 76 116/36 L 92 03/05/21 08:06 98.4 F 108 H 113/75 87 L 03/05/21 08:04 88 24 89 L 03/05/21 08:00 88 119/59 L 03/05/21 07:07 98.4 F 88 150/90 H 90 03/05/21 06:06 97.5 F L 76 91/51 L 91 03/05/21 05:12 86 26 H 90 03/05/21 05:05 98.8 F 88 118/74 90 03/05/21 04:07 98.8 F 86 109/37 L 90 03/05/21 03:05 98.8 F 92 H 99/70 L 90 03/05/21 02:06 98.8 F 100 H 90 03/05/21 01:35 99 H 26 H 90 03/05/21 01:06 98.8 F 90 127/66 90 PG Care Time/CCT Total # of Minutes Spent Total Time Spent: 25 Total Time Spent with Patient: Total time spent is greater than 50% in coordination of care (as documented) at patient's floor/unit and/or counseling patient: family support Coding Level of Care Code 28635 Subseq Hosp Care Lvl 2 Diagnoses Anoxic encephalopathy G93.1 Palliative care encounter Z51.5
[2021-03-05] MEDS ORDERED: ATROPINE SULFATE 1% OP SOLN 5 ML BTL SL PRN (12:36)
[2021-03-05] MEDS ORDERED: HYDROmorphone INJ 0.5 MG/0.5 ML SYR IV PRN (12:36)
[2021-03-05] MEDS ORDERED: ONDANSETRON INJ 2 MG/ML 2 ML VIAL IV PRN (12:36)
[2021-03-05] MEDS ORDERED: LORazepam 0.5 MG/1 ML VIAL IV PRN (12:36)
[2021-03-05] MEDS ORDERED: GLYCOPYRROLATE 0.2 MG/ML VIAL IV PRN (12:36)
[2021-03-05] MEDS: NOVASOURCE RENAL 2.0 CAL 1000ML BAG OG SCH (12:42)
--- NOTE | 2021-03-05 13:03 | Critical Care Progress Note ---
Date of Service March 05, 2021 Assessment & Plan (1) Cardiac arrest: Plan: Reason Critically Ill: 56-year-old male with complicated PMH including ESRD on dialysis, HFpEF, and recent hospitalization for COVID-19 pneumonia presents to the ICU following a suspected respiratory induced asystole cardiac arrest in which she is undergoing therapeutic hypothermia as he was unresponsive following ROSC. Neuro - Anoxic injurylikely severe anoxic brain injury. -CT head without acute intracranial findings -Patient completed targeted temperature management. -EEG with findings concerning for hypoxic induced injury -MRI head with no acute intracranial abnormality. Neurology consult appreciated. Cardiac - Cardiac arrestsuspect this is likely related to the patient's severe respiratory acidosis and COVID-19 pneumonia along with hypoglycemia likely attributed -Witnessed asystole arrest with ROSC achieved following CPR, epinephrine, bicarb -Troponin unremarkable, EKG without ST elevations, QTc 475. Patient was not having chest pain prior to this event. -NSR on monitor, continuous telemetry -Hold antihypertensives for now -Echocardiogram from 02/27/2021 reviewed Respiratory - Hypercapnic hypoxic respiratory failurelikely multifactorial in the setting of COVID-19 pneumonia, diastolic heart failure, presumed OHS -Continue lung protective ventilation strategy. -Nebs as needed -Continuous pulse ox and ET CO2 monitoring GI - N.p.o. Transaminitisimproving. No evidence of GI bleeding seen. RENAL/LYTES - ESRDPatient undergoes hemodialysis MWF -Nephrology following ENDO - DM type IIpatient was hypoglycemic in the field with EMS but corrected with dextrose/glucagon administration -Currently hyperglycemic, continue with sliding scale for now -ICU hyperglycemic protocol Hypothyroidcontinue Synthroid HEME - H&H stable, monitor routine CBCs. History of DVTs. Can restart Eliquis. ID - Pneumoniapatient initially tested positive for COVID-19 pneumonia on 02/22. Continue cefepime for 7 days for Klebsiella pneumoniae and Citrobacter isolated in sputum. LINES/IV ACCESS - central venous catheter (triple-lumen access), arterial line, ET tube, OG tube DVT PROPHYLAXIS - SCDs, heparin 5000 units twice daily. If no significant bleeding by tomorrow, will restart Eliquis. The primary team had a long discussions with the patient's . The patient's has decided to move towards a compassionate extubation. We are going to extubate the patient. It does not appear that he will have any meaningful recovery at this time. He has severe anoxic brain injury. Comfort care order set has been placed by the hospitalist team. Appreciate palliative care input as well. (2) Hypoglycemia: (3) Renal failure: (4) Respiratory failure: (5) Acidosis: (6) Hypoxia: (7) Pneumonia: (8) COVID-19: (9) Controlled type 2 diabetes mellitus with kidney complication, with long-term current use of insulin: (10) End stage renal disease: (11) Morbid obesity: Admission and Anticipated Discharge Date Admission Date: February 26, 2021 Subjective Patient seen and examined. On low-dose of propofol. Unresponsive to commands. Unable to obtain review of systems due to underlying condition. Physical Exam Physical Exam: General: Patient remains intubated. Appears to be in no significant distress. Skin: Warm, dry, Head: Atraumatic Ears, nose, mouth and throat: airway obscured by endotracheal tube Cardiovascular: Normal peripheral perfusion Respiratory: Distant breath sounds Gastrointestinal: Soft, nontender nondistended. Musculoskeletal: 2+ edema, evidence of vascular insufficiency Neurologic: Myoclonic jerking activity noted. Nonresponsive to commands despite being off sedation. No withdrawal to painful stimuli. Results & Data Results & Data ([facility]) Vital Signs (Past 12 Hours) Vital Signs Temp Pulse Resp BP Pulse Ox 03/05/21 12:06 98.1 F 72 109/38 L 92 03/05/21 12:00 72 109/38 L 03/05/21 11:19 76 25 H 94 03/05/21 11:06 98.1 F 77 108/61 93 03/05/21 10:06 97.7 F 84 126/50 L 90 03/05/21 09:06 97.9 F 76 116/36 L 92 03/05/21 08:06 98.4 F 108 H 113/75 87 L 03/05/21 08:04 88 24 89 L 03/05/21 08:00 88 119/59 L 03/05/21 07:07 98.4 F 88 150/90 H 90 03/05/21 06:06 97.5 F L 76 91/51 L 91 03/05/21 05:12 86 26 H 90 03/05/21 05:05 98.8 F 88 118/74 90 03/05/21 04:07 98.8 F 86 109/37 L 90 03/05/21 03:05 98.8 F 92 H 99/70 L 90 03/05/21 02:06 98.8 F 100 H 90 03/05/21 01:35 99 H 26 H 03/05/21 01:06 98.8 F 90 127/66 90 vital signs, labs and imaging reviewed Coding Level of Care Code 39583 Subseq Hosp Care Lvl 2 Diagnoses Cardiac arrest I46.9 Hypoglycemia E16.2 Renal failure N17.9; N18.9; Z99.2 Acute renal failure type: unspecified Chronic kidney disease stage: on chronic dialysis Renal failure chronicity: acute on chronic Respiratory failure J96.01; J96.02 Chronicity: acute Respiratory failure complication: hypoxia and hypercapnia Acidosis E87.2 Hypoxia R09.02 Pneumonia J18.9 Laterality: bilateral Pneumonia type: due to unspecified organism COVID-19 U07.1 Controlled type 2 diabetes mellitus with kidney complication, with long-term cur rent use of insulin E11.29; Z79.4 End stage renal disease N18.6 Morbid obesity E66.01 (1) Renal failure Acute renal failure type: unspecified Chronic kidney disease stage: on chronic dialysis Renal failure chronicity: acute on chronic Qualified Code(s): N17.9 - Acute kidney failure, unspecified; N18.9 - Chronic kidney disease, unspecified; Z99.2 - Dependence on renal dialysis (2) Respiratory failure Chronicity: acute Respiratory failure complication: hypoxia and hypercapnia Qualified Code(s): J96.01 - Acute respiratory failure with hypoxia; J96.02 - Acute respiratory failure with hypercapnia (3) Pneumonia Laterality: bilateral Pneumonia type: due to unspecified organism
[2021-03-05] MEDS ORDERED: HYDROmorphone INJ 1 MG/ML SYRINGE IV PRN (13:19)
[2021-03-05] MEDS ORDERED: HYDROmorphone INJ 1 MG/ML SYRINGE ONE (13:20)
[2021-03-05] MEDS ORDERED: LORazepam 1 MG/2 ML VIAL IV SCH (13:30)
[2021-03-05] MEDS ORDERED: STAT IV Infusion **Titration per Protocol STA (13:31)
[2021-03-05] MEDS ORDERED: GLYCOPYRROLATE 0.2 MG/ML VIAL IV SCH (13:33)
[2021-03-05] MEDS ORDERED: HYDROmorphone/NSS 100 MG/100 ML BAG IV SCH (13:45)
--- NOTE | 2021-03-05 15:29 | Death Pronouncement Note ---
Date of Service March 05, 2021 Pronouncement Note Admission Date Admission Date: February 26, 2021 Date and Time of Date of : 03/05/21 Time of : 13:51 PCOD Preliminary cause of : Cardiac arrest Contributing Factors (1) Cardiac arrest: (2) Hypoglycemia: (3) Renal failure: (4) Respiratory failure: (5) Acidosis: (6) Hypoxia: (7) Pneumonia: (8) COVID-19: (9) Controlled type 2 diabetes mellitus with kidney complication, with long-term current use of insulin: (10) End stage renal disease: (11) Morbid obesity: Hospital Course Hospital Course: see discharge summary Additional Data Confirmation of : no pulse, no respirations, no heart sounds and pupils fixed and dilated Family: contacted Attending/PCP notified?: Yes Attending physician: Mich Serrano, DO Was code activated?: No Autopsy requested?: No plan examiner notified?: No Organ bank notified?: No Advance directives: No Coding Level of Care Code None Diagnoses Cardiac arrest I46.9 Hypoglycemia E16.2 Renal failure N17.9; N18.9; Z99.2 Acute renal failure type: unspecified Chronic kidney disease stage: on chronic dialysis Renal failure chronicity: acute on chronic Respiratory failure J96.01; J96.02 Chronicity: acute Respiratory failure complication: hypoxia and hypercapnia Acidosis E87.2 Hypoxia R09.02 Pneumonia J18.9 Laterality: bilateral Pneumonia type: due to unspecified organism COVID-19 U07.1 Controlled type 2 diabetes mellitus with kidney complication, with long-term current use of insulin E11.29; Z79.4 End stage renal disease N18.6 Morbid obesity E66.01
--- NOTE | 2021-03-07 08:57 | Discharge Summary ---
Date of Service March 05, 2021 Admission HPI Per Admitting Provider 56 YOM with past medical history of: Morbid obesity, DM, HTN, ESRD on Dialysis MWF, COVID 19 (02/22/21), Pneumonia, Hypothyroidism, DVT (on Eliquis), HFpEF. Patient was brought into the EMD today via EMS following hypoglycemia, reported seizure from EMS, and cardiac arrest (asystole) in the field and ROSC was achieved on arrival to the EMD. Patient subsequently experienced a loss of pulse in the EMD and required CPR again with epinephrine, NAHCO3, and Calcium administration the patient had return of ROSC. He remains intubated and will go to the ICU for further management. Patient was recently discharged on the February following admission on the 22 of February for COVID 19 and bilateral pneumonia. He completed a 5 day course of Vancomycin, Zosyn, and Azithromycin. He also received Decadron IV and was discharged on oral for an additional 7 days. He was given IV dose of 6mg Decadron in the EMD. The patient was noted to be hypercarbic and acidotic in the EMD, his RR and VT has been adjusted for this at this time to RR 28 and VT of 550. Patient does receive dialysis MWF, unclear if he got dialyzed today. His [employer] and BUN are close to his baseline at discharge. Acid base bal ance consistent with respiratory alkalosis his HCO3 on serum is 27. Head CT scan ordered following arrest and prior to possible cooling if desired by the ICU team. He was given a dose of Zosyn and Vancomycin in the EMD. Blood cultures, PCT, and lactate are pending. Patient has been Vaccinated against COVID 19 and remains COVID POSITIVE on admission. Principal Diagnosis 1. Cardiac arrest outside of the hospital with ROSC 2. Anoxic encephalopathy 3. Respiratory failure, ventilatory failure 4. ESRD on hemodialysis Discharge Exam no pulses, no respirations, no heart sounds, no breath sounds, pupils fixed, unresponsive Discharge Data Allergies Allergy/AdvReac Type Severity Reaction Status Date / Time house dust Allergy Mild Nasal Verified 02/26/21 19:33 congestion pollen extracts Allergy Mild nasal Verified 02/26/21 19:33 congestion Consultations 02/26/21 19:47 ED Decision to Admit Stat 02/26/21 20:11 Consult Valver Stat 02/26/21 22:29 Consult Nephrology Routine 02/27/21 00:44 Consult Valver Routine Consult Nephrology Routine 03/01/21 12:34 Consult Palliative Care Routine 03/02/21 10:14 Consult Neurology Routine 03/03/21 11:24 Consult Gastroenterology Routine Ordered Studies 02/26/21 20:30 CT head/brain wo con Urgent 02/26/21 21:06 US point of care ultrasound Stat 03/03/21 06:33 MR brain wo con Routine Hospital Course (1) Cardiac arrest: occurred at home, unclear etiology, per he was in respiratory distress when EMS arrived and was cyanotic, could have been hypoxia that lead to cardiac arrest ROSC achieved but unresponsive afterwards code arctic protocol and then rewarmed unresponsive after being warmed, myoclonic jerking EEG with severe anoxic encephalopathy MRI brain with no stroke numerous conversations held with by myself, palliative care, nephrology and strategic development manager she understood the gravity of the brain injury initially she wanted to come into the hospital but she changed her mind, did not want to remember in current condition on 03/05 she and I discussed terminal extubation, assured her that he would be comfortable with pain medications and sedation as needed patient was terminally extubated on 03/05 and at 13:51, was notified by Dr. Lewis, palliative care (2) End stage renal disease: on HD for about 8 years, follows with Dr. Cardona dialyzed while here (3) Hypoxia: Acute respiratory failure with hypoxia as above intubated and ventilated As per strategic development manager minimal settings, PEEP 8 and FiO2 of 30%, doubt that COVID pneumonia lead to cardiac arrest (4) Hypoglycemia: reported to be hypoglycemic in the field, could have contributed to arrest sugars stable here (5) Pneumonia: Covid-19 pneumonia Procalcitonin mildly elevated but is also in the setting of ESRD He recently completed a 5-day course of vancomycin, Zosyn, and azithromycin during previous hospital stay Blood cultures-no growth to date stop dexamethasone (6) COVID-19: Recently admitted for Covid-19 pneumonia with hypoxia and discharged on 02/24 on 2 L nasal cannula with ambulation With cardiac arrest as above highly doubt that cardiac arrest was related to COVID 19 infection - Initial symptom date reported as -can stop dexamethasone (7) Respiratory failure: (8) Acidosis: (9) Controlled type 2 diabetes mellitus with kidney complication, with long-term current use of insulin: (10) Morbid obesity: Total Time Total Time Spent Total Time Spent (In Minutes): 45 Total Time Includes: Examination of the Patient, Communication With Other Providers (10 minutes discussing plan with Dr. Lewis, Dr. Cardona, Dr. Moon) and Other (30 minutes on phone with ) Discharge Plan Discharge Items Patient Disposition: Coding Level of Care Code D/C DAY MANAGEMENT >30 MINS Diagnoses Cardiac arrest I46.9 Hypoglycemia E16.2 Respiratory failure J96.01; J96.02 Chronicity: acute Respiratory failure complication: hypoxia and hypercapnia Acidosis E87.2 Hypoxia R09.02 Pneumonia J18.9 Laterality: bilateral Pneumonia type: due to unspecified organism COVID-19 U07.1 Controlled type 2 diabetes mellitus with kidney complication, with long-term current use of insulin E11.29; Z79.4 End stage renal disease N18.6 Morbid obesity E66.01
== END 2021-03-05 15:15 | disposition expired | DRG 208 ==
LOC: ED 18:57 → SUATTDRO 20:30 → 2E 20:30 → 1E 03-04 18:32